=== PATIENT | male | born 1945 | race Caucasian/White ===

== ENCOUNTER 2021-04-22 13:30 | Emergency (ER) | payer MEDICARE, SELFPAY ==
--- NOTE | ~2021-04-22 | XR_ITS ---
EXAMINATION: XR KNEE, LEFT CLINICAL INFORMATION: Chainsaw accident. Laceration left knee. COMPARISON: None TECHNIQUE: Four views of the left knee. FINDINGS: The tricompartment joint space is maintained normal. No bony erosive changes, loose bodies or joint effusion seen. There is anterior superior patellar enthesophyte. The soft tissues are unremarkable. XR/XR knee LT 2V IMPRESSION: Unremarkable left knee exam.
[2021-04-22 13:36] VITALS: BP 121/83; PULSE 100; RESP 18; TEMP 36.6; O2SAT 95; BMI 29.2
[2021-04-22] MEDS: Diphth,Pertus(ACell),Tet Adult 0.5 ML SYRINGE IM (15:44)
[2021-04-22] MEDS: Lidocaine HCl 2 % 20 ML VIAL 10 ML SUBCUT (15:47)
--- NOTE | 2021-04-22 16:28 | ED_ITS ---
HPI - Wound/Laceration General Chief Complaint: Wound/Laceration Stated Complaint: knee lac with chain saw Time Seen by Provider: 04/22/21 15:28 History of Present Illness HPI narrative: Patient complains of left knee laceration from chainsaw when he tripped with a running saw and hit into his left knee but luckily he was wearing a thick knee brace it cut through the brace and lacerated his knee but he otherwise has no other injury, he has no trouble walking or ambulating no joint pain no numbness no weakness no tingling Related Data Allergies Allergy/AdvReac Type Severity Reaction Status Date / Time cefaclor [From Ceclor] Allergy Anaphylaxis Verified 04/22/21 13:35 phenazopyridine Allergy Anaphylaxis Verified 04/22/21 13:35 [From Pyridium] Review of Systems 2 Review of Systems: Positive for left knee laceration Negatives are no headache no head injury no neck pain no back pain no numbness weakness no tingling no joint pains no difficulty walking Yes all other systems are reviewed and are negative PMFSH Past Medical History Source: nursing notes reviewed Medical History (Updated 04/22/21 @ 16:28 by ALIREZA Sanchez) A-fib Social History Social History Advance Directives: Yes Advance Directives Information Provided: No Advance Directives on File: No Physical Exam Vital Signs: Vital Signs: Last Vital Signs Temp 98 F 04/22/21 13:36 Pulse 100 04/22/21 13:36 Resp 18 04/22/21 13:36 BP 121/83 04/22/21 13:36 Pulse Ox 95 04/22/21 13:36 BMI result Body Mass Index 29.2 General appearance is no acute distress Head is normocephalic atraumatic Neck is supple Back full range of motion Extremities full range of motion x4 Left knee the superior aspect of the knee area has 3 lacerations 2 of them are very superficial the 3rd 1 is just through subcutaneous tissue, each laceration is about 2 cm and they are parallel to each other The knee has full range of motion, he ambulates without limp There is no swelling there is no foreign body visualized and neurovascular intact distal Course Course Course Narrative: Procedure note left knee laceration The laceration is cleansed and irrigated with normal saline and examined for foreign body none was seen Skin was prepped with Betadine Anesthesia was 6 cc of 2% lidocaine A mix of 4-0 and 3-0 suture was applied with a total of 8 sutures cook, and Steri-Strips were applied to reinforce Bleeding was controlled wounds were well-approximated and a dressing was applied X-ray had been ordered from triage and was negative no foreign body seen and no bony injury Discharge Plan Discharge Clinical Impression: Laceration of knee, left Patient Disposition: Home, Self-Care Additional Instructions: Stitches out in 10-14 days Return any time for redness swelling any sign of infection You got a tetanus shot Interventions: ED Discharge Assessment Last Done: 04/22/21 16:31 Discharge Date/Time: 04/22/21 16:31
== END 2021-04-22 16:31 | disposition home or self-care (01) ==
PROVIDERS: Emergency Provider Emergency Medicine; PCP Internal Medicine
DX: S81.012A Laceration without foreign body, left knee, initial encounter (principal); W29.3XXA Contact with powered garden and outdoor hand tools and machinery, initial encounter; Y93.02 Activity, running; Y92.9 Unspecified place or not applicable; Y99.9 Unspecified external cause status
CPT/HCPCS: 12032; 73560; 90471; 90715; 99283; 99284

== ENCOUNTER 2021-05-12 03:51 | Inpatient (IN) | payer MEDICARE, SELFPAY ==
[2021-05-12] VITALS (7 sets, daily range): BP systolic 123–134; BP diastolic 69–84; PULSE 91–116; RESP 16–20; TEMP 36.6–37; O2SAT 95–97; BMI 29.0
--- NOTE | ~2021-05-12 | CT_ITS ---
EXAMINATION: CT ABDOMEN AND PELVIS WITH AND WITHOUT CONTRAST: CT GI BLEEDING STUDY CLINICAL INFORMATION: GI bleed.. COMPARISON: No pertinent prior studies are available for comparison. TECHNIQUE: Multidetector volumetric imaging was performed from the lung bases to the pubic symphysis before and after the administration of: Intravenous contrast: 85 mL Omnipaque 350 No contrast reaction reported MIP coronal, sagittal and coronal reformatted images were obtained on the technologist workstation. This CT examination was performed using dose optimization techniques as appropriate, variously including the following: *Automated exposure control *Adjustment of mA and/or kV according to patient size (this includes techniques or standardized protocols for targeted exams where dose is matched to indication/reason for exam; i.e. extremities or head) *Use of iterative reconstruction technique Total exam dose-length product 1616 mGy-cm FINDINGS: STOMACH: Small hiatal hernia. No abnormal wall thickening or mass. No intraluminal contrast accumulation to suggest hemorrhage. SMALL BOWEL: No abnormal wall thickening or dilation. No intraluminal contrast accumulation to suggest hemorrhage. No obstruction. Duodenal diverticulum noted. COLON: No intraluminal contrast accumulation to suggest hemorrhage. There is diffuse colonic diverticulosis. There is focal inflammatory change around a prominent diverticulum at the hepatic flexure of the colon. This is consistent with mild diverticulitis. Although the appendix is not definitely seen, there are no right lower quadrant inflammatory changes to suggest acute appendicitis. LUNG BASES: No nodules, mass, or focal consolidation. PLEURA: No pleural effusion. LIVER, GALLBLADDER, AND BILIARY TREE: The liver is normal in size, shape, and attenuation. No focal hepatic lesion or biliary ductal dilatation is present. The gallbladder is not seen. PANCREAS: Normal; no mass or surrounding fluid. SPLEEN: Normal size. No focal lesion. ADRENAL GLANDS: Normal; no mass. KIDNEYS AND URETERS: The kidneys are normal in size, shape, and attenuation. No hydronephrosis, hydroureter, or calculi. There is a 5 cm right midpole renal cyst with thin peripheral calcification. Bosniak 2. No follow-up imaging recommended. ABDOMINAL WALL: No hernia seen. LYMPHOVASCULAR STRUCTURES: No lymphadenopathy. The aorta is normal in caliber. Mild atherosclerotic calcification. BLADDER: No focal mass or wall thickening seen. No bladder calculi. PELVIC VISCERA: The prostate and seminal vesicles are normal. OSSEOUS STRUCTURES: No acute or suspicious osseous abnormality. Degenerative changes throughout the spine. CT/CT gi bleed abd pel wo/w con IMPRESSION: No active GI bleed identified. Colonic diverticulosis. Focal inflammation associated with a diverticulum at the hepatic flexure of the colon suggests mild diverticulitis.
--- NOTE | 2021-05-12 04:18 | ED.GIBLEED ---
HPI - GI Bleed General Chief complaint: GI Bleed Stated complaint: rectal bleed (+thinners) Time Seen by Provider: 05/12/21 04:18 Source: patient Mode of arrival: ambulatory Limitations: no limitations History of Present Illness HPI Narrative: Patient's history of atrial fibrillation on Xarelto history of hemorrhoids no known history of GI bleed in the past had colonoscopy 5 years ago negative earlier today noticed slight amount of bright red blood around 14:00 when he moved his bowel just prior to arrival had 2 big bowel movements with good amount of maroon-colored blood mixed with stool and blood clots patient felt dizzy and lightheaded had some abdominal cramping but no significant pain. After arrival patient did not have any active bleeding patient took his Xarelto last night Related Data Allergies Allergy/AdvReac Type Severity Reaction Status Date / Time cefaclor [From Ceclor] Allergy Anaphylaxis Verified 04/22/21 13:35 phenazopyridine Allergy Anaphylaxis Verified 04/22/21 13:35 [From Pyridium] Review of Systems Review of Systems: Yes all other systems are reviewed and are negative PMFSH Past Medical History Medical History A-fib Social History Social History Advance Directives: No Advance Directives Information Provided: Yes Physical Exam Vital Signs: Vital Signs: Last Vital Signs Temp 97.9 F 05/12/21 03:57 Pulse 96 05/12/21 04:02 Resp 16 05/12/21 03:57 BP 134/82 05/12/21 03:57 Pulse Ox 96 05/12/21 04:02 BMI result Body Mass Index 29.0 Appearance: Alert. Oriented X3. No acute distress. Eyes: no pallor or icterus ENT: Pharynx normal. Oral Mucosa moist Neck: Normal inspection. Neck supple. CVS: Irregularly irregular heart rate no murmur or gallop Pulses normal. Respiratory: No respiratory distress. Equal air entry bilateral, no wheezing/rales/rhonchi Abdomen: Soft and nontender. Bowel sounds are present, no mass palpable, no CVA tenderness Rectal: Maroon blood on the finger guaiac-positive no blood clots Skin: Skin warm and dry. Normal skin color. Normal skin turgor. Extremities: No lower extremity edema. No calf tenderness Neuro: Oriented X 3. MDM - GI Bleed MDM Narrative Medical decision making narrative: Patient lower GI bleed on Xarelto with maroon blood and blood clots likely from angiodysplasia/diverticulitis at this time patient is not bleeding anymore blood pressure stable hemoglobin 12.2 hematocrit 37.6. Case discussed with hospitalist will admit patient to their service also case discussed the case with rotary drier Dr. Melara will follow CT scan abdomen showed focal inflammation with a diverticulum at the hepatic flexure of the colon suggestive of mild diverticulitis will give patient Zosyn. Patient WBC counts are normal and there is no tenderness on the right side Lab Data Attestation: I reviewed the patient's lab results. Result diagrams: 05/12/21 04:27 05/12/21 04:27 Labs: Lab Results 05/12/21 05/12/21 05/12/21 Range/Units 04:27 04:27 04:27 WBC 9.1 (4.8-10.8) X10*3/uL RBC 3.98 L (4.60-5.80) X10*6/uL Hgb 12.2 L (14.0-18.0) g/dl Hct 37.6 L (42.0-52.0) % MCV 94.5 (80.0-98.0) fL MCH 30.7 (27.0-33.0) pg MCHC 32.4 (31.0-36.0) g/dl RDW 13.1 (11.0-16.0) % Plt Count 245 (160-400) X10*3/uL MPV 9.1 L (9.4-12.4) fL Immature Gran % (Auto) 1.5 H (0.0-0.4) % Neut % (Auto) 77.5 H (45-73) % Lymph % (Auto) 13.7 L (20-40) % [place] % (Auto) 6.6 (2-11) % Eos % (Auto) 0.5 (0-4) % Baso % (Auto) 0.2 (0-2) % Lymph # (Auto) 1.3 (1.2-4.9) X10*3/uL [place] # (Auto) 0.6 (0.1-1.2) X10*3/uL Eos # (Auto) 0.1 (0.0-0.4) X10*3/uL Baso # (Auto) 0.0 (0.0-0.2) X10*3/uL Abs Immat Gran (auto) 0.14 H (0.00-0.03) X10*3/uL Absolute Neuts (auto) 7.1 (2.0-8.3) x10*3/uL Absolute Nucleated RBC 0.000 (0.0-0.012) X10*3/uL Nucleated RBC % (auto) 0.0 (0.0-0.2) /100WBC PT 24.5 H (9.9-13.0) SEC INR 2.1 H (0.9-1.1) Sodium 139 (135-145) mmol/L Potassium 4.7 (3.3-5.1) mmol/L Chloride 105 (96-108) mmol/L Carbon Dioxide 27 (22-29) mmol/L Anion Gap 12 (12-20) BUN 25 H (9-16) mg/dL Creatinine 0.92 (0.5-1.4) mg/dL Estim Creat Clear Calc 71.8 Estimated GFR > 60 Random Glucose 151 H (60-115) mg/dL Calcium 8.8 (8.4-10.2) mg/dL Total Bilirubin 0.7 (0.0-1.0) mg/dL AST 23 (5-37) U/L ALT 40 (0-40) U/L Alkaline Phosphatase 49 (39-117) U/L Total Protein 5.7 L (6.5-8.0) g/dL Albumin 3.6 (3.5-5.0) g/dL Blood Type Antibody Screen 05/12/21 Range/Units 04:49 WBC (4.8-10.8) X10*3/uL RBC (4.60-5.80) X10*6/uL Hgb (14.0-18.0) g/dl Hct (42.0-52.0) % MCV (80.0-98.0) fL MCH (27.0-33.0) pg MCHC (31.0-36.0) g/dl RDW (11.0-16.0) % Plt Count (160-400) X10*3/uL MPV (9.4-12.4) fL Immature Gran % (Auto) (0.0-0.4) % Neut % (Auto) (45-73) % Lymph % (Auto) (20-40) % [place] % (Auto) (2-11) % Eos % (Auto) (0-4) % Baso % (Auto) (0-2) % Lymph # (Auto) (1.2-4.9) X10*3/uL [place] # (Auto) (0.1-1.2) X10*3/uL Eos # (Auto) (0.0-0.4) X10*3/uL Baso # (Auto) (0.0-0.2) X10*3/uL Abs Immat Gran (auto) (0.00-0.03) X10*3/uL Absolute Neuts (auto) (2.0-8.3) x10*3/uL Absolute Nucleated RBC (0.0-0.012) X10*3/uL Nucleated RBC % (auto) (0.0-0.2) /100WBC PT (9.9-13.0) SEC INR (0.9-1.1) Sodium (135-145) mmol/L Potassium (3.3-5.1) mmol/L Chloride (96-108) mmol/L Carbon Dioxide (22-29) mmol/L Anion Gap (12-20) BUN (9-16) mg/dL Creatinine (0.5-1.4) mg/dL Estim Creat Clear Calc Estimated GFR Random Glucose (60-115) mg/dL Calcium (8.4-10.2) mg/dL Total Bilirubin (0.0-1.0) mg/dL AST (5-37) U/L ALT (0-40) U/L Alkaline Phosphatase (39-117) U/L Total Protein (6.5-8.0) g/dL Albumin (3.5-5.0) g/dL Blood Type A Positive Antibody Screen NEGATIVE Imaging Data CT scan - abdomen: Radiologist's impression: EXAMINATION: CT ABDOMEN AND PELVIS WITH AND WITHOUT CONTRAST: CT GI BLEEDING STUDY CLINICAL INFORMATION: GI bleed.. COMPARISON: No pertinent prior studies are available for comparison. TECHNIQUE: Multidetector volumetric imaging was performed from the lung bases to the pubic symphysis before and after the administration of: Intravenous contrast: 85 mL Omnipaque 350 No contrast reaction reported MIP coronal, sagittal and coronal reformatted images were obtained on the technologist workstation. This CT examination was performed using dose optimization techniques as appropriate, variously including the following: *Automated exposure control *Adjustment of mA and/or kV according to patient size (this includes techniques or standardized protocols for targeted exams where dose is matched to indication/reason for exam; i.e. extremities or head) *Use of iterative reconstruction technique Total exam dose-length product 1616 mGy-cm FINDINGS: STOMACH: Small hiatal hernia. No abnormal wall thickening or mass.? No intraluminal contrast accumulation to suggest hemorrhage. SMALL BOWEL: No abnormal wall thickening or dilation. No intraluminal contrast accumulation to suggest hemorrhage. No obstruction. Duodenal diverticulum noted. COLON: No intraluminal contrast accumulation to suggest hemorrhage. There is diffuse colonic diverticulosis. There is focal inflammatory change around a prominent diverticulum at the hepatic flexure of the colon. This is consistent with mild diverticulitis.? Although the appendix is not definitely seen, there are no right lower quadrant inflammatory changes to suggest acute appendicitis. LUNG BASES: No nodules, mass, or focal consolidation. PLEURA: No pleural effusion. LIVER, GALLBLADDER, AND BILIARY TREE: The liver is normal in size, shape, and attenuation. No focal hepatic lesion or biliary ductal dilatation is present. The gallbladder is not seen.? PANCREAS: Normal; no mass or surrounding fluid.? SPLEEN: Normal size.? No focal lesion.? ADRENAL GLANDS: Normal; no mass.? KIDNEYS AND URETERS: The kidneys are normal in size, shape, and attenuation. No hydronephrosis, hydroureter, or calculi. There is a 5 cm right midpole renal cyst with thin peripheral calcification. Bosniak 2. No follow-up imaging recommended.? ABDOMINAL WALL: No hernia seen.? LYMPHOVASCULAR STRUCTURES: No lymphadenopathy. The aorta is normal in caliber. Mild atherosclerotic calcification.? BLADDER: No focal mass or wall thickening seen.? No bladder calculi.? PELVIC VISCERA: The prostate and seminal vesicles are normal. OSSEOUS STRUCTURES: No acute or suspicious osseous abnormality. Degenerative changes throughout the spine.? CT/CT gi bleed abd pel wo/w con IMPRESSION: No active GI bleed identified. ? Colonic diverticulosis. Focal inflammation associated with a diverticulum at the hepatic flexure of the colon suggests mild diverticulitis. ECG Data Attestation: I personally reviewed and interpreted this ECG as follows: Interpretation: Atrial fibrillation heart rate 101 no acute STT wave changes no acute ischemia impression atrial fibrillation Discharge Plan Discharge Clinical Impression: Lower gastrointestinal hemorrhage, Acute diverticulitis Patient Disposition: Admitted As Inpatient
[2021-05-12 04:31] LABS: Basophils Percent Auto 0.2 % (0-2); Eosinophils Absolute Auto 0.1 X10*3/uL (0.0-0.4); Eosinophils Percent Auto 0.5 % (0-4); Hematocrit 37.6 % (42.0-52.0); Hemoglobin 12.2 g/dl (14.0-18.0); Imm Gran Abs Auto 0.14 X10*3/uL (0.00-0.03); Imm Gran Pct Auto 1.5 % (0.0-0.4); Lymphocytes Absolute Auto 1.3 X10*3/uL (1.2-4.9); Lymphocytes Percent Auto 13.7 % (20-40); MANUAL DIFF FLAG NO; Mean Corpuscular HGB Conc 32.4 g/dl (31.0-36.0); Mean Corpuscular Hemoglobin 30.7 pg (27.0-33.0); Mean Corpuscular Volume 94.5 fL (80.0-98.0); Mean Platelet Volume 9.1 fL (9.4-12.4); Monocytes Absolute Auto 0.6 X10*3/uL (0.1-1.2); Monocytes Percent Auto 6.6 % (2-11); Neutrophils Absolute Auto 7.1 x10*3/uL (2.0-8.3); Neutrophils Percent Auto 77.5 % (45-73); Platelet Count 245 X10*3/uL (160-400); Red Blood Count 3.98 X10*6/uL (4.60-5.80); Red Cell Distribution Width 13.1 % (11.0-16.0); White Blood Count 9.1 X10*3/uL (4.8-10.8)
[2021-05-12] MEDS: 0.9 % Sodium Chloride 1,000 ML 999 ML IVCONT (04:31)
[2021-05-12 04:36] LABS: INTERNATIONAL NORM RATIO 2.1 (0.9-1.1); Prothrombin Time 24.5 SEC (9.9-13.0)
[2021-05-12 04:56] LABS: Alanine Aminotransferase 40 U/L (0-40); Albumin Level 3.6 g/dL (3.5-5.0); Alkaline Phosphatase 49 U/L (39-117); Anion Gap 12 (12-20); Aspartate Amino Transferase 23 U/L (5-37); Bilirubin Total 0.7 mg/dL (0.0-1.0); Blood Urea Nitrogen 25 mg/dL (9-16); Calcium 8.8 mg/dL (8.4-10.2); Carbon Dioxide 27 mmol/L (22-29); Chloride 105 mmol/L (96-108); Creatinine Clr Calc Pharmacy 71.8; Estimated Glomerular Filt Rate > 60; Glucose Random 151 mg/dL (60-115); Potassium 4.7 mmol/L (3.3-5.1); Sodium 139 mmol/L (135-145); Total Protein 5.7 g/dL (6.5-8.0)
[2021-05-12] MEDS: iohexoL 350 MG/ML 100 ML INFUS..BTL 85 ML IV (05:33)
[2021-05-12 06:44] LABS: COVID-19 Test Negative (Negative); IDNOW Serial# 9DD0AD1C
[2021-05-12] MEDS: Piperacillin Sodium/Tazobactam 3.375 GM in 0.9 % Sodium Chloride 50 ML IV (08:19)
--- NOTE | 2021-05-12 08:49 | P.HPHOSP_ITS ---
History of Present Illness Date of Service: 05/12/21 Chief Complaint: blood in stool 75 year male with history of diverticulosis and diverticulitis, history of AFIB on Xarelto and presented with painless rectal bleeding since around 11 AM day prior, started as diarrhea and ultimately resulted in multiple episodes of bleeding, no N/V, no fever, and doesn't feel like prior episdoes of diverticultis. CT of showed diverticulsosi and ? small area of inflamation possible diverticulitis and given IV Zosyn. Hemoglbin level is 12.2. Review of Systems Review of Systems: Gen: no fever Resp: no sob, no cough CV: no chest, no MCNEIL, no leg edema GI: No n/v, no abd pain, +blood in stool Neuro: No confusion Yes all other systems are reviewed and are negative [facility] Medical History (Updated 05/12/21 @ 09:30 by Jose Daniel Lazcano MD) A-fib Colon polyp Gout History of diverticulosis HLD (hyperlipidemia) Family History (Updated 05/12/21 @ 09:29 by Jose Daniel Lazcano MD) Mother Cerebral aneurysm Father Heart disease Social History Advance Directives: No Advance Directives Information Provided: Yes Meds Allergies Allergy/AdvReac Type Severity Reaction Status Date / Time cefaclor [From Ceclor] Allergy Anaphylaxis Verified 04/22/21 13:35 phenazopyridine Allergy Anaphylaxis Verified 04/22/21 13:35 [From Pyridium] Physical Exam Vital Signs and Narrative: Vital Signs: Last Vital Signs Temp 98.1 F 05/12/21 07:14 Pulse 105 H 05/12/21 07:14 Resp 16 05/12/21 07:14 BP 123/77 05/12/21 07:14 Pulse Ox 96 05/12/21 07:14 BMI result Body Mass Index 29.0 Const: Other: Constitutional: Alert, in no distress, Mental Status: Oriented to person, place and time. Eyes: Pupils are equal, round and reactive to light. Ear, Nose and Throat: Oropharynx clear, mucous membranes moist. Ears and nose without eformities. Trachea midline. Respiratory: Clear to auscultation. No wheezing, rales or rhonchi. Cardiovascular: S1 S2 regular. No murmurs, rubs or gallops. Gastrointestinal: Abdomen soft, non-tender, non-distended. Normal bowel sounds.? Rectal exam defered Neurologic: Cranial nerves II-XII grossly intact. No focal neurological deficits. Moves all extremities spontaneously.? Skin: No rashes or lesions.? Musculoskeletal: No cyanosis or clubbing. Psychiatric: Normal mood and affect? Results Labs CBC and Chem 7: 05/12/21 04:27 05/12/21 04:27 Labs: Laboratory Results - last 24 hr 05/12/21 05/12/21 05/12/21 04:27 04:27 04:27 MCV 94.5 MCH 30.7 MCHC 32.4 RDW 13.1 Plt Count 245 MPV 9.1 L Immature Gran % (Auto) 1.5 H Neut % (Auto) 77.5 H Lymph % (Auto) 13.7 L [place] % (Auto) 6.6 Eos % (Auto) 0.5 Baso % (Auto) 0.2 Lymph # (Auto) 1.3 [place] # (Auto) 0.6 Eos # (Auto) 0.1 Baso # (Auto) 0.0 Abs Immat Gran (auto) 0.14 H Absolute Neuts (auto) 7.1 Absolute Nucleated RBC 0.000 Nucleated RBC % (auto) 0.0 PT 24.5 H INR 2.1 H Anion Gap 12 Estim Creat Clear Calc 71.8 Estimated GFR > 60 Random Glucose 151 H Calcium 8.8 Total Bilirubin 0.7 AST 23 ALT 40 Alkaline Phosphatase 49 Total Protein 5.7 L Albumin 3.6 COVID-19 ([facility]) COVID-19 Clin Com Blood Type Antibody Screen 05/12/21 05/12/21 04:49 06:26 MCV MCH MCHC RDW Plt Count MPV Immature Gran % (Auto) Neut % (Auto) Lymph % (Auto) [place] % (Auto) Eos % (Auto) Baso % (Auto) Lymph # (Auto) [place] # (Auto) Eos # (Auto) Baso # (Auto) Abs Immat Gran (auto) Absolute Neuts (auto) Absolute Nucleated RBC Nucleated RBC % (auto) PT INR Anion Gap Estim Creat Clear Calc Estimated GFR Random Glucose Calcium Total Bilirubin AST ALT Alkaline Phosphatase Total Protein Albumin COVID-19 ([facility]WYN) Negative COVID-19 Clin Com See Note Blood Type A Positive Antibody Screen NEGATIVE Imaging Radiologist's Impressions: Impressions Abdomen/Pelvis CT 05/12/21 05:30 IMPRESSION: No active GI bleed identified. Colonic diverticulosis. Focal inflammation associated with a diverticulum at the hepatic flexure of the colon suggests mild diverticulitis. Assessment and Plan (1) Lower gastrointestinal hemorrhage: Status: Acute (2) Acute diverticulitis: Status: Acute (3) Gout: Status: Acute 75/m with AFIB on xarelto now with rectal bleed that sounds like dive rticular bleed, no further bleed since in hospital, there is no sigificant anemia as of yet 1/Rectal bleed--likely diverticular type -Monitor H/H every 6 horus -Hold Xarelto -GI consult -Bleed scan scan if actively bleeding -hold Abx for questionable diverticulitis 2/ Chronic AFIB--continue Metoprolol, Hold Xarelto 3/ HLD--continue Lipitor 4/ Gout--Alopurinol DVTP: device, Quality Stroke Does the patient have a stroke diagnosis?: No VTE Prior VTE?: No VTE Risk Level:: Medical - moderate - high VTE Device Contraindication: N/A - Device Ordered VTE Drug Contraindication: Treatment Not Tolerated
--- NOTE | 2021-05-12 10:26 | P.CNGI_ITS ---
History of Present Illness Data of Consult Service Date: 05/12/21 Requesting physician: Jose Daniel Lazcano Primary Care Provider: Rommel Webster MD HPI Reason for consult: GI Bleeding 75 YM with HLD, Gout, AFIB on Xarelto presented with painless rectal bleeding since around 11 AM day prior, started as diarrhea and ultimately resulted in multiple episodes of bleeding, no N/V, no fever, and doesn't feel? like prior episdoes of diverticultis.?seen presented to [facility] this am with rectal ble eding: HPI Narrative: Patient's history of atrial fibrillation on Xarelto history of hemorrhoids no known history of GI bleed in the past had colonoscopy 5 years ago negative earlier today noticed slight amount of bright red blood around 14:00 when he moved his bowel just prior to arrival had 2 big bowel movements with good amount of maroon-colored blood mixed with stool and blood clots patient f elt dizzy and lightheaded had some abdominal cramping but no significant pain.? After arrival patient did not have any active bleeding patient took his Xarelto last night Pt noted minor rectal bleeding day before yesterday which he ignored since he felt it was coming from his hemorrhoids. Ingested afternoon patient noted diarrhea followed by passage a large amount of blood. He woke up twice at night and passed what looked like pure blood and felt dizzy and lightheaded. Patient called 911 and was brought to [facility] ED around 04:00 today. In the ED he had a small bowel movement containing 7 blood. He is complaining of some lower abdominal discomfort and denies significant abdominal pain. He takes metamucil everynight for constipation and hemorrhoids. Patient felt cold and denies fever, nausea vomiting. He notes heartburn once in awhile related to diet and takes omeprazole p.r.n. for his symptoms. Patient denies symptoms of heartburn, dysphagia, nausea, vomiting, change in appetite or weight. Denies recent change in bowel habits, constipation, diarrhea, black stools or rectal bleeding. Patient denies loud snoring or sleep apnea. Denies problems with anesthesia in the past. Pt is on chronic anticoagulation with Xarelto for AF and took his last dose evening of 05/11/21 . He quitted smoking 50 yrs ago. He takes a glass of wine at night. Patient is and lives with his . He has 2 sons in 3 strep daughter's. 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 IMAGING STUDIES: ABD CT SCAN SHOWED: Colonic diverticulosis. Focal inflammation associated with a diverticulum at the hepatic flexure of the colon suggests mild diverticulitis. PAST EGD/COLONOSCOPY: Pt had regular colonoscopies every 5 yrs at and last colonoscopy was 6 yrs ago. Polyps were removed in the past. No polyps were detected during his last colono scopy and he was advised to discontinue colorectal cancer screening due to age. Review of Systems Constitutional: Constitutional: Denies fever(s), Denies headache(s), Reports weight gain and Denies weight loss Eyes: Eyes: Denies eye discharge and Denies irritation ENT: Reports Normal hearing present, Denies dysphagia, Denies dizziness and Denies headache(s) Cardiovascular: Cardiovascular: Denies chest pain, Denies leg edema and Denies dyspnea on exertion Respiratory: Respiratory: Denies cough, Denies dyspnea on exertion and Denies wheezing Gastrointestinal: Gastrointestinal: Denies abdominal pain, Reports hematochezia, Denies change in bowel habits, Denies dysphagia and Denies heartburn Genitourinary: Genitourinary: Denies dysuria Musculoskeletal: Musculoskeletal: Denies back pain and Denies arthralgias Integumentary/Breasts: Skin/Breast: Denies pruritus, Denies rash and Denies jaundice Neurologic: Reports Normal hearing present, Denies Abnormal speech present, Denies dizziness, Denies headache(s) and Denies seizure-like activity Psychiatric: Psychiatric: Denies anxiety, Denies depression and Denies panic attacks Endocrine: Endocrine: Denies cold intolerance, Denies flushing and Denies heat intolerance Hematologic/Lymphatic: Hematologic/Lymphatic: Denies easy bleeding and Denies easy bruising Allergic/Immunologic: Allergic/Immunologic: Denies wheezing PMFSH Past Medical History Medical History (Updated 05/23/21 @ 00:03 by Ab Hodgson) A-fib Colon polyp Gout History of diverticulosis HLD (hyperlipidemia) Family History Family History (Updated 05/12/21 @ 09:29 by Jose Daniel Lazcano MD) Mother Cerebral aneurysm Father Heart disease Social History Social History Household Members: Spouse Housing: House Do you presently have visiting nurse or other home services: No Patient Tobacco Use Status: Former Tobacco user service: No Current occupational status: retired Meds Allergies Allergy/AdvReac Type Severity Reaction Status Date / Time cefaclor [From Ceclor] Allergy Anaphylaxis Verified 04/22/21 13:35 phenazopyridine Allergy Anaphylaxis Verified 04/22/21 13:35 [From Pyridium] Active Medications: Current Medications Dextrose/Sodium Chloride (D5ns) 1,000 mls @ 100 mls/hr IVCONT .Q10H RASTA Stop: 05/13/21 05:44 Pharmacy Consult (Consult Rx Perform Med Rec) 1 each MISCELLANE ONCE PRN PRN Reason: Consult order Home Medications Medication Instructions Recorded Confirmed Last Taken Type alfuzosin 10 mg tablet,extended 1 tab PO DAILY@1700 05/12/21 05/12/21 05/11/21 History release 24 hr allopurinol 100 mg tablet 1 tab PO DAILY@1700 05/12/21 05/12/21 05/11/21 History atorvastatin 10 mg tablet 1 tab PO DAILY@1700 05/12/21 05/12/21 05/11/21 History ezetimibe 10 mg tablet 1 tab PO DAILY@1700 05/12/21 05/12/21 05/11/21 History lorazepam 1 mg tablet 1 tab PO DAILY PRN 05/12/21 05/12/21 05/11/21 History metoprolol succinate 50 mg 1 tab PO DAILY@1700 05/12/21 05/12/21 05/11/21 History tablet,extended release 24 hr Physical Exam Vital Signs: Vital Signs: Last Vital Signs Temp 98.1 F 05/12/21 07:14 Pulse 105 H 05/12/21 07:14 Resp 16 05/12/21 07:14 BP 123/77 05/12/21 07:14 Pulse Ox 96 05/12/21 07:14 BMI result Body Mass Index 29.0 Const: General: healthy appearing and no acute distress Nutritional Carlos earance: overweight Orientation/consciousness: patient oriented x3 Limitations: no limitations HENMT: Head: Yes normal to inspection Ears: hearing grossly normal bilaterally Mouth: Normal oral and palatal mucosa present Eyes: Sclerae: sclerae normal Pupils: Equal, round and reactive pupils present Neck: Neck: Yes normal visual inspection Chest: Chest palpation & inspection: normal inspection of the chest Resp: Effort & Inspection: normal respiratory effort Auscultation: clear to auscultation bilaterally Cardio: Palpation: normal PMI Rate: regular rate Rhythm: regular rhythm Heart sounds: S1 normal heart sound present, S2 normal heart sound present and no murmurs GI: Inspection: Yes scar (healed mid line scar of past open cholecystectomy) Palpation (GI): Soft to palpation, nontender and No hepatosplenomegaly present Auscultation: normal bowel sounds Rectal Exam - Male: Yes deferred Skin: General skin exam: no rashes or lesions noted Neuro: General: patient oriented x3, gait normal and moves all extremities Cranial nerves: Yes Equal, round and reactive pupils present and Yes Normal hearing present Speech: No Abnormal speech present Psych: Appearance: grossly normal Mental Status: mental status grossly normal Results Labs CBC & Chem 7: 05/15/21 08:04 05/14/21 05:32 Labs: Short CBC 05/12/21 Range/Units 04:27 WBC 9.1 (4.8-10.8) X10*3/uL Hgb 12.2 L (14.0-18.0) g/dl Hct 37.6 L (42.0-52.0) % Plt Count 245 (160-400) X10*3/uL BMP 05/12/21 04:27 Sodium 139 Potassium 4.7 Chloride 105 Carbon Dioxide 27 BUN 25 H Creatinine 0.92 Calcium 8.8 Liver Function 05/12/21 Range/Units 04:27 Total Bilirubin 0.7 (0.0-1.0) mg/dL AST 23 (5-37) U/L ALT 40 (0-40) U/L Alkaline Phosphatase 49 (39-117) U/L Albumin 3.6 (3.5-5.0) g/dL Assessment and Plan (1) Acute diverticulitis: Status: Acute (2) Lower gastrointestinal hemorrhage: Status: Acute 75 YM with HLD, Gout, AFIB on Xarelto presented with painless rectal bleeding for the past 24 hrs. Decrease in bleeding since pt came to the ER. Pattern of bleeding is suggestive for diverticular source of bleeding. Other possibilities include large colon polyp, AVM and less likely colon cancer. Small possibility of an upper GI source of bleeding. RECOMMENDATIONS: 1. Follow H & H every 8 hrs x 24 hrs 2. Clear liquid diet with GoLYTELY preparation today - order placed. 3. Proceed with EGD and colonoscopy on 05/13/2021. Procedure and potential complications including bleeding, perforation, drug reaction, aspiration and misdiagnosis were reviewed with the patient who would like to proceed. Procedures Date of Service Date of Service: 05/12/21
--- NOTE | 2021-05-12 10:45 | PHA.MEDREC ---
Pharmacy Consult ? Medication Reconciliation Pharmacy has completed the medication reconciliation. Spoke with patient in the ED, patient had a list of his medications. Patient states he takes all of his medications at about 1700 and last took everything last night.
[2021-05-12 11:26] LABS: Hematocrit 31.8 % (42.0-52.0); Hemoglobin 10.6 g/dl (14.0-18.0)
[2021-05-12] MEDS: Dextrose 5 % and 0.9 % NaCl 1,000 ML 100 ML IVCONT ×2 (14:11→21:16)
--- NOTE | 2021-05-12 15:29 | MHC.CM.PN ---
Addendum entered by Venice Cardenas 05/12/21 15:34: PATIENT HAD HAD 3 MODERNA COVID-19 VACCINES 05/29/20 06/27/20 03/09/21 Original Note: PATIENT IS FULLY INDEPENDENT WITH HIS ADLS. NO CANE OR WALKER AND HE DRIVES HIMSELF WHERE NEEDED. 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 COPY OF HCP REQUESTED PATIENT FEELS MAY HAVE A DIFFICULT TIME TRYING TO LOCATE IT AND HE IS AWARE THAT CASE MANAGEMENT CAN ASSIST WITH COMPLETION OF A NEW ONE IF NEEDED IMM 05/12 IN ED CHART
[2021-05-12] MEDS: PEG 3350/Na Sulf,Bicarb,Cl/KCL 4,000 ML SOLN.RECON 4000 ML PO (17:00)
[2021-05-12] MEDS: Ezetimibe 10 MG TABLET PO (17:07)
[2021-05-12] MEDS: Metoprolol Succinate ER 50 MG TAB.ER.24H PO (17:07)
[2021-05-12] MEDS: allopurinoL 100 MG TABLET PO (17:07)
[2021-05-12] MEDS: Atorvastatin Calcium 10 MG TABLET PO (17:07)
[2021-05-12] MEDS: levoFLOXacin/D5W 500 MG/100 ML PIGGYBACK 100 MG IV (17:10)
--- NOTE | 2021-05-12 17:34 | PC.NURSE ---
PT HERE FOR GI BLEED, PT AOX4, AMB WITH STEADY GAIT TO BR, PLAN FOR COLONOSCOPY TOMORROW, GO LITELY STARTED, SEEN BY GASTRO, NEEDS BEING MET NOTIFIED DR GUTIÉRREZ THAT PT FIRST STOOL WITH GO LITELY WAS ALL BLOOD CLOTS. PT NEEDS BEING MET
[2021-05-12 17:52] LABS: Hematocrit 31.6 % (42.0-52.0); Hemoglobin 10.4 g/dl (14.0-18.0)
[2021-05-12 23:26] LABS: MANUAL DIFF FLAG NO
[2021-05-12 23:32] LABS: Basophils Absolute Auto 0.1 X10*3/uL (0.0-0.2); Basophils Percent Auto 0.4 % (0-2); Eosinophils Percent Auto 0.3 % (0-4); Hematocrit 31.6 % (42.0-52.0); Hemoglobin 10.3 g/dl (14.0-18.0); Imm Gran Abs Auto 0.13 X10*3/uL (0.00-0.03); Imm Gran Pct Auto 1.1 % (0.0-0.4); Lymphocytes Percent Auto 16.2 % (20-40); Mean Corpuscular HGB Conc 32.6 g/dl (31.0-36.0); Mean Corpuscular Hemoglobin 30.7 pg (27.0-33.0); Mean Corpuscular Volume 94.3 fL (80.0-98.0); Mean Platelet Volume 9.4 fL (9.4-12.4); Monocytes Absolute Auto 1.1 X10*3/uL (0.1-1.2); Monocytes Percent Auto 8.6 % (2-11); NRBC Pct Auto 0.2 /100WBC (0.0-0.2); Neutrophils Percent Auto 73.4 % (45-73); Platelet Count 251 X10*3/uL (160-400); Red Blood Count 3.35 X10*6/uL (4.60-5.80); Red Cell Distribution Width 13.2 % (11.0-16.0); White Blood Count 12.3 X10*3/uL (4.8-10.8)
[2021-05-13] VITALS (7 sets, daily range): BP systolic 112–156; BP diastolic 71–99; PULSE 87–99; RESP 16–19; TEMP 36.3–36.8; O2SAT 95–96
[2021-05-13 07:28] LABS: INTERNATIONAL NORM RATIO 1.3 (0.9-1.1); Prothrombin Time 14.3 SEC (9.9-13.0)
[2021-05-13 07:29] LABS: Hematocrit 28.7 % (42.0-52.0); Hemoglobin 9.5 g/dl (14.0-18.0); Mean Corpuscular HGB Conc 33.1 g/dl (31.0-36.0); Mean Corpuscular Hemoglobin 30.8 pg (27.0-33.0); Mean Corpuscular Volume 93.2 fL (80.0-98.0); Mean Platelet Volume 9.4 fL (9.4-12.4); Platelet Count 234 X10*3/uL (160-400); Red Blood Count 3.08 X10*6/uL (4.60-5.80); Red Cell Distribution Width 13.2 % (11.0-16.0); White Blood Count 8.4 X10*3/uL (4.8-10.8)
--- NOTE | 2021-05-13 09:48 | P.PNIM_ITS ---
Subjective Subjective Date of Service: 05/13/21 Interval History: Follow-up on GI bleed, acute blood loss anemia. He reported having episode of bloody bowel movement overnight. Blood count is down this morning compared to yesterday. Review of Systems Gen: no fever Resp: no sob, no cough CV: no chest, no MCNEIL, no leg edema GI: No n/v, no abd pain, +blood in stool Neuro: No confusion Physical Exam Vital Signs: Vital Signs: Last Vital Signs Temp 98.3 F 05/13/21 09:25 Pulse 87 05/13/21 09:25 Resp 16 05/13/21 09:25 BP 123/78 05/13/21 09:25 Pulse Ox 96 05/13/21 09:25 BMI result Body Mass Index 29.0 Const: Other: Constitutional: Alert, in no distress, Mental Status: Oriented to person, place and time. Respiratory: Clear to auscultation. No wheezing, rales or rhonchi. Cardiovascular: S1 S2 regular. No murmurs, rubs or gallops. Gastrointestinal: Abdomen soft, non-tender, non-distended. Normal bowel sounds.? Rectal exam defered Neurologic: Cranial nerves II-XII grossly intact. No focal neurological deficits. Moves all extremities spontaneously.? Psychiatric: Normal mood and affect? Objective Data Active Medications Allopurinol (Allopurinol 100 Mg Tablet) 100 mg PO DAILY@1700 [facility] Last Admin: 05/12/21 17:07 Dose: 100 mg Documented by: CINTHIA Atorvastatin Calcium (Atorvastatin Calcium 10 Mg Tablet) 10 mg PO DAILY@1700 [facility] Last Admin: 05/12/21 17:07 Dose: 10 mg Documented by: CINTHIA Ezetimibe (Ezetimibe 10 Mg Tablet) 10 mg PO DAILY@1700 [facility] Last Admin: 05/12/21 17:07 Dose: 10 mg Documented by: CINTHIA Levofloxacin (Levaquin) 500 mg in 100 mls @ 100 mls/hr IV Q24H [facility] Last Infusion: 05/13/21 00:46 Dose: 0 mls/hr Documented by: PATRICK Lorazepam (Lorazepam 1 Mg Tablet) 1 mg PO DAILY PRN PRN Reason: Anxiety Metoprolol Succinate (Metoprolol Succinate Er 50 Mg Tab.Er.24h) 50 mg PO DAILY@1700 [facility]; Protocol Last Admin: 05/12/21 17:07 Dose: 50 mg Documented by: CINTHIA Pharmacy Consult (Consult Rx Perform Med Rec) 1 each MISCELLANE ONCE PRN PRN Reason: Consult order Tamsulosin HCl (Tamsulosin Hcl 0.4 Mg Capsule) 0.4 mg PO DAILY@1700 [facility] Labs CBC & Chem 7: 05/13/21 07:07 05/12/21 04:27 Labs: Laboratory Results - last 24 hr 05/12/21 05/12/21 05/12/21 04:49 23:21 23:21 MCV 94.3 MCH 30.7 MCHC 32.6 RDW 13.2 Plt Count 251 MPV 9.4 Immature Gran % (Auto) 1.1 H Neut % (Auto) 73.4 H Lymph % (Auto) 16.2 L [place] % (Auto) 8.6 Eos % (Auto) 0.3 Baso % (Auto) 0.4 Lymph # (Auto) 2.0 [place] # (Auto) 1.1 Eos # (Auto) 0.0 Baso # (Auto) 0.1 Abs Immat Gran (auto) 0.13 H Absolute Neuts (auto) 9.0 H Absolute Nucleated RBC 0.020 H Nucleated RBC % (auto) 0.2 PT INR Blood Type A Positive A Positive Antibody Screen NEGATIVE NEGATIVE 05/13/21 05/13/21 07:07 07:07 MCV 93.2 MCH 30.8 MCHC 33.1 RDW 13.2 Plt Count 234 MPV 9.4 Immature Gran % (Auto) Neut % (Auto) Lymph % (Auto) [place] % (Auto) Eos % (Auto) Baso % (Auto) Lymph # (Auto) [place] # (Auto) Eos # (Auto) Baso # (Auto) Abs Immat Gran (auto) Absolute Neuts (auto) Absolute Nucleated RBC 0.000 Nucleated RBC % (auto) 0.0 PT 14.3 H INR 1.3 H Blood Type Antibody Screen Assessment and Plan (1) Gout: Status: Acute (2) Lower gastrointestinal hemorrhage: Status: Acute (3) Acute diverticulitis: Status: Acute Assessment and Plan: 75/m with AFIB on xarelto now with rectal bleed that sounds like diverticular bleed, no further bleed since in hospital, there is no sigificant anemia as of yet #Rectal bleed with acute blood loss anemia--likely diverticular bleeed on Xarelto -Monitor H/H serialy down from 12 to 9.5 -Holding Xarelto -Dr Melara recommends EGD and colonoscopy today -Bleeding scan scan if actively bleeding -Transfuse for crit less than 7 or 8 #Possible diverticultisi--No fever, normal WBC and no pain -Ceftriaxone. # Chronic AFIB--continue Metoprolol, Hold Xarelto #HLD--continue Lipitor # Gout--Alopurinol DVTP: compression device Quality Stroke Does the patient have a stroke diagnosis?: No VTE Prior VTE?: No VTE Risk Level:: Medical - moderate - high VTE Device Contraindication: N/A - Device Ordered VTE Drug Contraindication: Treatment Not Tolerated
--- NOTE | 2021-05-13 10:13 | PC.NURSE ---
Pt A&Ox3, states he is extremely tired due to lack of sleep, offers no complaints of pain at this time. Commode placed bedside along with warm wipes, call james within reach. Lights dimmed, awaiting transport to Short stay later today, will continue to monitor.
--- NOTE | 2021-05-13 12:08 | PC.NURSE ---
Pt refused mag citrate due to currently having bloody stools. Pt is A&Ox3, up to the commode with no assistance, aware called to speak to him. Sleeping now, awaiting bed assignment, will continue to monitor.
--- NOTE | 2021-05-13 12:28 | P.CONAN_ITS ---
HPI - Anesthesia Eval Consult details Narrative: 75 M for EGD and colonoscopy [facility] Active Problems Active Problems: All Active Problems (Updated 05/12/21 @ 09:30 by Jose Daniel Lazcano MD) Gout (Acute) Lower gastrointestinal hemorrhage (Acute) Acute diverticulitis (Acute) Past Medical History Medical History A-fib Colon polyp Gout History of diverticulosis HLD (hyperlipidemia) Functional capacity: independent ambulation Family History Family History Mother Cerebral aneurysm Father Heart disease Family history of problems with anesthesia: No Surgical History History of Problems with Anesthesia: No Social History Social History Household Members: Spouse Housing: House Do you presently have visiting nurse or other home services: No Patient Tobacco Use Status: Former Tobacco user service: No Current occupational status: retired [employer] Allergies Allergy/AdvReac Type Severity Reaction Status Date / Time cefaclor [From Ceclor] Allergy Anaphylaxis Verified 04/22/21 13:35 phenazopyridine Allergy Anaphylaxis Verified 04/22/21 13:35 [From Pyridium] Active Medications: Current Medications Allopurinol (Allopurinol 100 Mg Tablet) 100 mg PO DAILY@1700 [facility] Last Admin: 05/12/21 17:07 Dose: 100 mg Documented by: Atorvastatin Calcium (Atorvastatin Calcium 10 Mg Tablet) 10 mg PO DAILY@1700 [facility]STA Last Admin: 05/12/21 17:07 Dose: 10 mg Documented by: Ezetimibe (Ezetimibe 10 Mg Tablet) 10 mg PO DAILY@1700 [facility] Last Admin: 05/12/21 17:07 Dose: 10 mg Documented by: Levofloxacin (Levaquin) 500 mg in 100 mls @ 100 mls/hr IV Q24H [facility] Last Infusion: 05/13/21 00:46 Dose: Infused Documented by: Lorazepam (Lorazepam 1 Mg Tablet) 1 mg PO DAILY PRN PRN Reason: Anxiety Metoprolol Succinate (Metoprolol Succinate Er 50 Mg Tab.Er.24h) 50 mg PO DAILY@1700 RASTA; Protocol Last Admin: 05/12/21 17:07 Dose: 50 mg Documented by: Pharmacy Consult (Consult Rx Perform Med Rec) 1 each MISCELLANE ONCE PRN PRN Reason: Consult order Tamsulosin HCl (Tamsulosin Hcl 0.4 Mg Capsule) 0.4 mg PO DAILY@1700 [facility] Home Medications Medication Instructions Recorded Confirmed Last Taken Type alfuzosin 10 mg tablet,extended 1 tab PO DAILY@1700 05/12/21 05/12/21 05/11/21 History release 24 hr allopurinol 100 mg tablet 1 tab PO DAILY@1700 05/12/21 05/12/21 05/11/21 History atorvastatin 10 mg tablet 1 tab PO DAILY@1700 05/12/21 05/12/21 05/11/21 History ezetimibe 10 mg tablet 1 tab PO DAILY@1700 05/12/21 05/12/21 05/11/21 History lorazepam 1 mg tablet 1 tab PO DAILY PRN 05/12/21 05/12/21 05/11/21 History metoprolol succinate 50 mg 1 tab PO DAILY@1700 05/12/21 05/12/21 05/11/21 History tablet,extended release 24 hr Exam Exam Date and Time: May 13, 2021 1228 Height,Weight and Vital Signs: Height 5 ft 7 in Weight 83.915 kg Last Vital Signs Temp 97.5 F 05/13/21 12:19 Pulse 99 05/13/21 12:19 Resp 18 05/13/21 12:19 BP 156/99 H 05/13/21 12:19 Pulse Ox 96 05/13/21 12:19 Pertinent Lab Results Pertinent Lab Results: Laboratory Tests 05/12/21 05/12/21 05/12/21 04:27 04:27 04:27 WBC 9.1 RBC 3.98 L Hgb 12.2 L Hct 37.6 L MCV 94.5 MCH 30.7 MCHC 32.4 RDW 13.1 Plt Count 245 MPV 9.1 L Immature Gran % (Auto) 1.5 H Neut % (Auto) 77.5 H Lymph % (Auto) 13.7 L [place] % (Auto) 6.6 Eos % (Auto) 0.5 Baso % (Auto) 0.2 Lymph # (Auto) 1.3 [place] # (Auto) 0.6 Eos # (Auto) 0.1 Baso # (Auto) 0.0 Abs Immat Gran (auto) 0.14 H Absolute Neuts (auto) 7.1 Absolute Nucleated RBC 0.000 Nucleated RBC % (auto) 0.0 PT 24.5 H INR 2.1 H Sodium 139 Potassium 4.7 Chloride 105 Carbon Dioxide 27 Anion Gap 12 BUN 25 H Creatinine 0.92 Estim Creat Clear Calc 71.8 Estimated GFR > 60 Random Glucose 151 H Calcium 8.8 Total Bilirubin 0.7 AST 23 ALT 40 Alkaline Phosphatase 49 Total Protein 5.7 L Albumin 3.6 COVID-19 (SELWYN) COVID-19 Clin Com Blood Type Antibody Screen 05/12/21 05/12/21 05/12/21 04:49 06:26 11:19 WBC RBC Hgb 10.6 L Hct 31.8 L MCV MCH MCHC RDW Plt Count MPV Immature Gran % (Auto) Neut % (Auto) Lymph % (Auto) [place] % (Auto) Eos % (Auto) Baso % (Auto) Lymph # (Auto) [place] # (Auto) Eos # (Auto) Baso # (Auto) Abs Immat Gran (auto) Absolute Neuts (auto) Absolute Nucleated RBC Nucleated RBC % (auto) PT INR Sodium Potassium Chloride Carbon Dioxide Anion Gap BUN Creatinine Estim Creat Clear Calc Estimated GFR Random Glucose Calcium Total Bilirubin AST ALT Alkaline Phosphatase Total Protein Albumin COVID-19 (SELWYN) Negative COVID-19 Clin Com See Note Blood Type A Positive Antibody Screen NEGATIVE 05/12/21 05/12/21 05/12/21 17:16 23:21 23:21 WBC 12.3 H RBC 3.35 L Hgb 10.4 L Cancelled 10.3 L Hct 31.6 L Cancelled 31.6 L MCV 94.3 MCH 30.7 MCHC 32.6 RDW 13.2 Plt Count 251 MPV 9.4 Immature Gran % (Auto) 1.1 H Neut % (Auto) 73.4 H Lymph % (Auto) 16.2 L [place] % (Auto) 8.6 Eos % (Auto) 0.3 Baso % (Auto) 0.4 Lymph # (Auto) 2.0 [place] # (Auto) 1.1 Eos # (Auto) 0.0 Baso # (Auto) 0.1 Abs Immat Gran (auto) 0.13 H Absolute Neuts (auto) 9.0 H Absolute Nucleated RBC 0.020 H Nucleated RBC % (auto) 0.2 PT INR Sodium Potassium Chloride Carbon Dioxide Anion Gap BUN Creatinine Estim Creat Clear Calc Estimated GFR Random Glucose Calcium Total Bilirubin AST ALT Alkaline Phosphatase Total Protein Albumin COVID-19 (SELWYN) COVID-19 [employer] Com Blood Type Antibody Screen 05/12/21 05/13/21 05/13/21 23:21 07:07 07:07 WBC 8.4 RBC 3.08 L Hgb 9.5 L Hct 28.7 L MCV 93.2 MCH 30.8 MCHC 33.1 RDW 13.2 Plt Count 234 MPV 9.4 Immature Gran % (Auto) Neut % (Auto) Lymph % (Auto) [place] % (Auto) Eos % (Auto) Baso % (Auto) Lymph # (Auto) [place] # (Auto) Eos # (Auto) Baso # (Auto) Abs Immat Gran (auto) Absolute Neuts (auto) Absolute Nucleated RBC 0.000 Nucleated RBC % (auto) 0.0 PT 14.3 H INR 1.3 H Sodium Potassium Chloride Carbon Dioxide Anion Gap BUN Creatinine Estim Creat Clear Calc Estimated GFR Random Glucose Calcium Total Bilirubin AST ALT Alkaline Phosphatase Total Protein Albumin COVID-19 (SELWYN) COVID-19 [employer] Com Blood Type A Positive Antibody Screen NEGATIVE Airway Mallampati Class: III TM Dist: >3cm Neck ROM: Full Loose/Missing/Broken Teeth: Yes (Chipped , fillings and crowns ) Heart: irregular Lungs: bl breath sounds Assessment and Plan Assessment Anesthesia Assessment: Anesthesia Plan Discussed and Chart Reviewed Final Anesthetic Review Family History of Problems with Anesthesia: No History of Problems with Anesthesia: No NPO: Yes ASA Class: III Final Preanesthetic Review: Meds/Allgs Chart Reviewed, Consent Obtained/Reviewed and Anes Risks/Benef Reviewed Patient Risk: Intermediate Procedure Risk: Intermediate Anesthetic Plan Anesthetic Plan: MAC: Disposition: Standard PACU
--- NOTE | 2021-05-13 13:22 | MHC.SHP ---
Pre-Procedural Eval Section A Date of Service: 05/13/21 The patient is an INPATIENT: Yes Changes since office visit: Yes New Medical Problems, Yes Changes in Medication and Yes Patient answered all questions; No Cold of Flu in the past 2 weeks The History & Physical has been completed within 30 days and I have reviewed it.: Yes Section B Chief Complaint: rectal bleed (+thinners) Allergies: Allergies Allergy/AdvReac Type Severity Reaction Status Date / Time cefaclor [From Ceclor] Allergy Anaphylaxis Verified 04/22/21 13:35 phenazopyridine Allergy Anaphylaxis Verified 04/22/21 13:35 [From Pyridium] Plan I have reviewed the history and physical and performed a pertinent physical examination on my patient. No changes have occurred unless specified.
--- NOTE | 2021-05-13 13:23 | PM.OP ---
Brief Operative Note Date of Service: 05/13/21 Pre-op diagnosis: Rectal bleeding, anemia Post-op diagnosis: other (Stinson diverticulosis, hemorrhoids, normal EGD) Procedure: FLEXIBLE TRANSORAL UPPER GASTROINTESTINAL ENDOSCOPY AND COLONOSCOPY TILL CECUM UPPER ENDOSCOPY Consent: Indications for the procedure and potential complications of bleeding, perforation, reaction to medications and missed diagnosis were discussed with the patient and informed consent was obtained. Instrument: Olympus GIF H 190 mid size upper endoscope Monitoring: Vital signs and clinical assessment, continuous EKG monitoring, Pulse oximetry, Carbon Dioxide monitoring and blood pressure monitoring were done throughout the procedure. Procedure: The patient was placed in the left lateral decubitis position and pre-procedure medications were administered and a bite block was placed. The endoscope was inserted into the mouth and advanced under direct vision to the third part of duodenum. A careful inspection was made as the upper endoscope was withdrawn including a retroflexed examination of the proximal stomach; Findings and interventions are described below. Findings: Larynx: Normal Esophagus: GE junction at 40 cms. No esophagitis or Purdy's. Stomach: Normal appearing gastric mucosa without ulcers or erosions. Grade 2 flap valve on retroflexed examination of the cardia. Duodenum: Normal bulb and descending duodenum Intervention: None COLONOSCOPY PROCEDURE NOTE Consent: Indications for the procedure and potential complications of bleeding, perforation, reaction to medications and missed diagnosis were discussed with the patient and informed consent was obtained. Instrument: Olympus PCF H 190 L variable stiffness pediatric colonoscope Monitoring: Vital signs and clinical assessment, intermittent blood pressure monitoring, continuous EKG monitoring, Pulse oximetry and Carbon Dioxide monitoring were done throughout the procedure. Colon withdrawl time was 42 minutes. Procedure: The patient was placed in the left lateral decubitis position and pre-procedure medications were administered. After a digital rectal examination of the ano-rectum, the video colonoscope was inserted into the rectum and advanced through the colon to the cecum. The colonoscope was slowly withdrawn in a retrograde panoramic fashion and the colon mucosa was carefully examined including a retroflexed view of the rectum. Findings and interventions are described below. Procedure Difficulty: : Without difficulty Findings: Terminal Ileum: Distal 5 cms was examined and a few clots noted in the distal TI and none proximally Cecum: Scattered blood clots throughout the colon indicating recent bleeding Ascending Colon: Scattered moderate diverticulosis with blood clots throughout the colon indicating recent bleeding Transverse Colon: Scattered moderate diverticulosis with blood clots throughout the colon indicating recent bleeding Descending Colon: Scattered moderate diverticulosis with blood clots throughout the colon indicating recent bleeding Sigmoid Colon: Scattered severe diverticulosis with blood clots throughout the colon indicating recent bleeding Rectum: Normal Ano-rectum: Small non-bleeding internal hemorrhoids Colon preparation: Good after copious irrigation Impression and Post Procedure Diagnosis: Endoscopy Findings: Normal EGD - no blood noted in the upper GI tract during endoscopy. Colonoscopy Findings: No polyps were detected. Scattered moderate to severe diverticulosis with blood clots throughout the colon indicating recent diverticular bleeding Clots were suctioned with copious irrigation and no active bleeding noted - bleeding appears to have stopped. Small hemorrhoids on retroflexed exam. Plan: Repeat CBC. If patient has recurrent bleeding, schedule CT angiogram and attempt at angiographic control of bleeding if CT angio is positive Repeat Colonoscopy not indicated since no polyps were detected and advanced age and comorbidities. Surgeon: Renae Melara MD Anesthesia: MAC (Sonia Parra CRNA) Was an Senior Environmental Scientist used for this Procedure?: Yes Senior Environmental Scientist: Lashon Rivera Estimated blood loss (mL): 0 Pathology: none sent Condition: stable Disposition: PACU
--- NOTE | 2021-05-13 13:23 | PM.PROC ---
Brief Operative Note Date of procedure: 05/13/21 Pre-op diagnosis: Rectal bleeding, anemia
[2021-05-13 15:17] LABS: Hematocrit 28.9 % (42.0-52.0); Hemoglobin 9.6 g/dl (14.0-18.0); Mean Corpuscular HGB Conc 33.2 g/dl (31.0-36.0); Mean Corpuscular Hemoglobin 31.8 pg (27.0-33.0); Mean Corpuscular Volume 95.7 fL (80.0-98.0); Mean Platelet Volume 9.1 fL (9.4-12.4); Platelet Count 242 X10*3/uL (160-400); Red Blood Count 3.02 X10*6/uL (4.60-5.80); Red Cell Distribution Width 13.4 % (11.0-16.0); White Blood Count 9.9 X10*3/uL (4.8-10.8)
[2021-05-13] MEDS: Ezetimibe 10 MG TABLET PO (16:16)
[2021-05-13] MEDS: Tamsulosin HCL 0.4 MG CAPSULE PO (16:16)
[2021-05-13] MEDS: allopurinoL 100 MG TABLET PO (16:16)
[2021-05-13] MEDS: levoFLOXacin/D5W 500 MG/100 ML PIGGYBACK 100 MG IV (16:17)
[2021-05-13] MEDS: Metoprolol Succinate ER 50 MG TAB.ER.24H PO (16:17)
[2021-05-13] MEDS: Atorvastatin Calcium 10 MG TABLET PO (16:47)
[2021-05-14] VITALS: BP 117/65; PULSE 104; RESP 18; TEMP 36.6; O2SAT 93
--- NOTE | 2021-05-14 04:49 | ECG_ITS ---
Test Reason : GI BLEED Blood Pressure : / mmHG Vent. Rate : 101 BPM Atrial Rate : 000 BPM P-R Int : 000 ms QRS Dur : 078 ms QT Int : 346 ms P-R-T Axes : 000 -02 001 degrees QTc Int : 448 ms Atrial fibrillation with rapid ventricular response with premature ventricular or aberrantly conducted complexes Possible Inferior infarct , age undetermined Abnormal ECG No previous ECGs available Referred By: Scotty Fierro Electronically Signed By:Toney De La Cruz
[2021-05-14] MEDS: LORazepam 1 MG TABLET PO (04:51)
[2021-05-14 05:57] LABS: Hematocrit 27.5 % (42.0-52.0); Hemoglobin 9.1 g/dl (14.0-18.0); Mean Corpuscular HGB Conc 33.1 g/dl (31.0-36.0); Mean Corpuscular Hemoglobin 30.8 pg (27.0-33.0); Mean Corpuscular Volume 93.2 fL (80.0-98.0); Mean Platelet Volume 9.2 fL (9.4-12.4); Platelet Count 229 X10*3/uL (160-400); Red Blood Count 2.95 X10*6/uL (4.60-5.80); Red Cell Distribution Width 13.2 % (11.0-16.0); White Blood Count 7.9 X10*3/uL (4.8-10.8)
[2021-05-14 06:17] LABS: Anion Gap 8 (12-20); Blood Urea Nitrogen 10 mg/dL (9-16); Carbon Dioxide 29 mmol/L (22-29); Chloride 106 mmol/L (96-108); Creatinine Clr Calc Pharmacy 79.6; Estimated Glomerular Filt Rate > 60; Glucose Random 108 mg/dL (60-115); Sodium 139 mmol/L (135-145)
[2021-05-14 06:18] LABS: Calcium 8.9 mg/dL (8.4-10.2)
[2021-05-14 07:53] VITALS: BP 137/77; PULSE 92; RESP 18; TEMP 37.1; O2SAT 95
--- NOTE | 2021-05-14 08:51 | HO.POSTANES ---
Post Anesthesia Evaluation Post Anesthesia Evaluation Vital Signs: Vital Signs Temp Pulse Resp BP Pulse Ox 05/14/21 07:53 98.8 F 92 18 137/77 95 05/14/21 00:00 97.9 F 104 H 18 117/65 93 Anesthesia: Monitored Mental Status: Awake Pain Control: Satisfactory Nausea/Vomiting: None Hydration: Adequate Anesthesia-Related Issues: No Anes. Related Issues
--- NOTE | 2021-05-14 09:29 | ECG_ITS ---
Test Reason : afib Blood Pressure : / mmHG Vent. Rate : 093 BPM Atrial Rate : 000 BPM P-R Int : 000 ms QRS Dur : 082 ms QT Int : 342 ms P-R-T Axes : 000 -06 010 degrees QTc Int : 425 ms Atrial fibrillation Inferior infarct (cited on or before 12-MAY-2021) Abnormal ECG When compared with ECG of 12-MAY-2021 04:49, No significant change was found Referred By: Zac Cormier Electronically Signed By:Toney De La Cruz
--- NOTE | 2021-05-14 12:52 | P.PNIM_ITS ---
Subjective Subjective Date of Service: 05/14/21 Interval History: GI bleed Review of Systems patient says that no BM overnight. No new bleeding episode denies any fever or chills or abdominal pain. Physical Exam Vital Signs: Vital Signs: Last Vital Signs Temp 98.8 F 05/14/21 07:53 Pulse 92 05/14/21 07:53 Resp 18 05/14/21 07:53 BP 137/77 05/14/21 07:53 Pulse Ox 95 05/14/21 07:53 BMI result Body Mass Index 29.0 Physical exam: Appearance: Alert.? Oriented X3.? not in distress.? cvs: rrr, [id number] , no murmur res: clear to auscultation ,no rhonchii or wheezing abd: no rebound or guarding ,nt, bs present. ext pulses present , no cyanosis ,Gait well balanced well coordinated. neuro: axo3 , nonfocal. Objective Data Active Medications Allopurinol (Allopurinol 100 Mg Tablet) 100 mg PO DAILY@1700 [facility] Last Admin: 05/13/21 16:16 Dose: 100 mg Documented by: ALYSIA Atorvastatin Calcium (Atorvastatin Calcium 10 Mg Tablet) 10 mg PO DAILY@1700 [facility] Last Admin: 05/13/21 16:47 Dose: 10 mg Documented by: ALYSIA Ezetimibe (Ezetimibe 10 Mg Tablet) 10 mg PO DAILY@1700 [facility] Last Admin: 05/13/21 16:16 Dose: 10 mg Documented by: ALYSIA Levofloxacin (Levaquin) 500 mg in 100 mls @ 100 mls/hr IV Q24H [facility] Last Infusion: 05/13/21 17:18 Dose: 0 mls/hr Documented by: ALYSIA Lorazepam (Lorazepam 1 Mg Tablet) 1 mg PO DAILY PRN PRN Reason: Anxiety Last Admin: 05/14/21 04:51 Dose: 1 mg Documented by: TENISHA Metoprolol Succinate (Metoprolol Succinate Er 50 Mg Tab.Er.24h) 50 mg PO DAILY@1700 [facility]; Protocol Last Admin: 05/13/21 16:17 Dose: 50 mg Documented by: ALYSIA Pharmacy Consult (Consult Rx Perform Med Rec) 1 each MISCELLANE ONCE PRN PRN Reason: Consult order Tamsulosin HCl (Tamsulosin Hcl 0.4 Mg Capsule) 0.4 mg PO DAILY@1700 [facility] Last Admin: 05/13/21 16:16 Dose: 0.4 mg Documented by: ALYSIA Labs CBC & Chem 7: 05/14/21 05:32 05/14/21 05:32 Labs: Laboratory Results - last 24 hr 05/13/21 05/14/21 05/14/21 15:11 05:32 05:32 MCV 95.7 93.2 MCH 31.8 30.8 MCHC 33.2 33.1 RDW 13.4 13.2 Plt Count 242 229 MPV 9.1 L 9.2 L Absolute Nucleated RBC 0.000 0.000 Nucleated RBC % (auto) 0.0 0.0 Anion Gap 8 L Estim Creat Clear Calc 79.6 Estimated GFR > 60 Random Glucose 108 Calcium 8.9 Assessment and Plan (1) Lower gastrointestinal hemorrhage: Status: Acute (2) Acute diverticulitis: Status: Acute Assessment and Plan: 75/m with AFIB on xarelto now with rectal bleed that sounds like diverticular bleed, no further bleed since in hospital, there is no sigificant anemia as of yet 1.Rectal bleed with acute blood loss anemia--likely diverticular bleeed on Xarelto -Monitor H/H serialy down from 12 to 9.1 -Holding Xarelto for 1 week as per gi -Dr Melara ? recommends EGD and colonoscopy - Scattered moderate to severe diverticulosis with blood clots throughout the colon indicating recent diverticular bleedin Clots were suctioned with copious irrigation and no active bleeding noted - bleeding appears to have stopped. Small hemorrhoids on retroflexed exam. Normal EGD - no blood noted in the upper GI tract during endoscopy. If patient has recurrent bleeding, repeat cbc schedule CT angiogram and attempt at angiographic control of bleeding if CT angio is positive Repeat Colonoscopy not indicated given advanced age and multiple comorbidities. -Transfuse for? crit less than 7 or 8 2.Possible diverticultisi--No fever, normal WBC and no pain -Ceftriaxone. 3.Chronic AFIB--continue Metoprolol, Hold Xarelto 4.HLD--continue Lipitor 5. Gout--Alopurinol DVTP: compression device Quality Stroke Does the patient have a stroke diagnosis?: No VTE Prior VTE?: No VTE Risk Level:: Medical - moderate - high VTE Device Contraindication: N/A - Device Ordered VTE Drug Contraindication: Treatment Not Tolerated
[2021-05-14] MEDS: Omeprazole 20 MG CAPSULE.DR PO (13:58)
[2021-05-14 14:59] VITALS: BP 113/59; PULSE 94; RESP 16; TEMP 36.6; O2SAT 96
[2021-05-14] MEDS: Tamsulosin HCL 0.4 MG CAPSULE PO (17:10)
[2021-05-14] MEDS: Atorvastatin Calcium 10 MG TABLET PO (17:10)
[2021-05-14] MEDS: allopurinoL 100 MG TABLET PO (17:10)
[2021-05-14] MEDS: Metoprolol Succinate ER 50 MG TAB.ER.24H PO (17:10)
[2021-05-14] MEDS: Ezetimibe 10 MG TABLET PO (17:11)
[2021-05-14] MEDS: levoFLOXacin/D5W 500 MG/100 ML PIGGYBACK 100 MG IV (17:11)
[2021-05-14] MEDS: Zolpidem Tartrate 5 MG TABLET PO (22:36)
[2021-05-15] VITALS: BP 108/58; PULSE 91; RESP 18; TEMP 36.9; O2SAT 94
[2021-05-15] MEDS: Omeprazole 20 MG CAPSULE.DR PO (05:39)
[2021-05-15 07:32] VITALS: BP 136/79; PULSE 102; RESP 18; TEMP 36.7; O2SAT 92
[2021-05-15 08:31] LABS: Hematocrit 27.8 % (42.0-52.0); Hemoglobin 9.2 g/dl (14.0-18.0)
--- NOTE | 2021-05-15 11:44 | P.DS_ITS ---
DS: Providers Provider Date of Service: 05/15/21 Date of admission: 05/12/21 09:41 Primary care physician: Rommel Webster MD Consults: 05/12/21 09:40 Consult to Gastroenterology Routine Consulting Provider: Renae Melara Reason for consultation: rectal bleeding, DS: Diagnosis Discharge Diagnosis (1) Lower gastrointestinal hemorrhage: Status: Acute (2) Acute diverticulitis: Status: Acute DS: Summary Hospital Course Hospital Course: 75 year male with history of diverticulosis and diverticulitis, history of AFIB on Xarelto and presented with painless rectal bleeding since around 11 AM day prior, started as diarrhea and ultimately resulted in multiple episodes of bleeding, no N/V, no fever, and doesn't feel? like prior episdoes of diverticultis. CT of showed diverticulsosis and ? small area of inflamation possible diverticulitis and given IV Zosyn. Hemoglbin level is 12.2. Hospital course: Patient came to the hospital because GI bleed- patient's xarelto was placed on hold and subsequently patient was seen by GI doctor - had colonoscopy and EGD: Thought to be bleeding related to possible diverticulosis. in addition patient was treated with IV antibiotics for diverticulitis. Patient seems to be improved, no new bleeding episodes, h/h are stable around 9.2 range . upon discharge discussed with the GI and patient's cardiology Dr sales: advised to hold xarelto for 1 week. monitor CBC outpatient with PCP in 1 week. Above management discussed with the patient in detail length he understand and in agreement with the above plan, time spent 50 minutes and 50% time spent on counseling. Significant findings: As above. Procedures performed: None. Treatment and response: As above. Complications: None. The eye was seen Time Spent with Patient Time attestation: Total time spent providing and/or coordinating discharge services: Discharge coordination time: Greater than 30 minutes Quality: Stroke Does the patient have a stroke diagnosis?: No Physical Exam Vital Signs: Vital Signs: Last Vital Signs Temp 98.0 F 05/15/21 07:32 Pulse 102 H 05/15/21 07:32 Resp 18 05/15/21 07:32 BP 136/79 05/15/21 07:32 Pulse Ox 92 05/15/21 07:32 BMI result Body Mass Index 29.0 physical exam: Appearance: Alert.? Oriented X3.? not in distress.? Eyes: Pupils equal, round and reactive to light.? Sclera nonicteric.? ENT: Pharynx normal.? Moist mucous membranes. cvs: irrgular rythem, [id number]. res: clear to auscultation ,no rhonchii or wheezing abd: no rebound or guarding ,nt, bs present. ext pulses present , no cyanosis ,Gait well balanced well coordinated. neuro: axo3 , nonfocal. DS: Data Data Completed and Pending Labs on day of discharge: Laboratory Results - last 24 hr 05/15/21 08:04 Hgb 9.2 L Hct 27.8 L Additional Comments Additional comments: CT/CT gi bleed abd pel wo/w con IMPRESSION: No active GI bleed identified. ? Colonic diverticulosis. Focal inflammation associated with a diverticulum at the hepatic flexure of the colon suggests mild diverticulitis. Discharge Plan Discharge Patient Disposition: Home, Self-Care Discharge Diagnosis: gib bleed probable sec diverticulosis, also has diverticulitis. Referrals: Ronaldo Burns [Other] - 1 Week (CARDIOLOGY) Renae Melara MD [Physician] - 1 Week (follow up outpatiently) Rommel Webster MD [Primary Care Provider] - 1 Week Discharge Medications: New levofloxacin 500 mg tablet 500 mg PO DAILY Qty: 2 RF: 0 metronidazole 500 mg tablet 500 mg PO BID Qty: 5 RF: 0 omeprazole 20 mg capsule,delayed release(DR/EC) 20 mg PO DAILY Qty: 30 RF: 0 Continued atorvastatin 10 mg tablet 1 tab PO DAILY@1700 RF: 0 metoprolol succinate 50 mg tablet extended release 24 hr 1 tab PO DAILY@1700 RF: 0 allopurinol 100 mg tablet 1 tab PO DAILY@1700 RF: 0 lorazepam 1 mg tablet 1 tab PO DAILY PRN (Reason: Anxiety) RF: 0 ezetimibe 10 mg tablet 1 tab PO DAILY@1700 RF: 0 alfuzosin 10 mg tablet extended release 24 hr 1 tab PO DAILY@1700 RF: 0 Xarelto 20 mg tablet 1 tab PO DAILY@1700 Qty: 0 RF: 0 Discharge Orders: Discharge Order (Routine); Ordered 05/15/21 Ordered By: Zac Cormier Diet: advance to usual diet, low fat, low cholesterol and low salt diet Activity on Discharge: As tolerated Stand Alone Forms: Patient Portal Discharge page Other Ambulatory Orders: Complete Blood Count no Diff (Routine) Timeframe: 1 Week Facility: [facility] - Location: Laboratory Ordered By: Zac Cormier Care Plan Goals: Patient came to the hospital because GI bleed- patient's xarelto was placed on hold and subsequently patient was seen by GI doctor - had colonoscopy and EGD: Thought to be bleeding related to possible diverticulosis. in addition patient was treated with IV antibiotics for diverticulitis. Patient seems to be improved, no new bleeding episodes, blood counts are stable. upon discharge discussed with the GI and patient's cardiology Dr sales: advised to hold xarelto for 1 week. monitor CBC outpatient with PCP . Patient needs to follow up with GI -Dr Melara office and his cardiology office . Health Concerns: as above . Plan of Treatment: as above. Assessment: as above. Discharge Date/Time: 05/15/21 13:35
--- NOTE | 2021-05-15 12:08 | MHC.CM.PN ---
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
[2021-05-15] MEDS: metroNIDAZOLE 500 MG TABLET PO (12:27)
[2021-05-15] MEDS: levoFLOXacin 500 MG TABLET PO (12:27)
--- NOTE | 2021-05-28 11:36 | P.OP_ITS ---
Operative Note Operative Note Date of Service: 05/13/21 Narrative: Pre-op diagnosis:?Rectal bleeding, anemia Post-op diagnosis:?other (Stinson diverticulosis, hemorrhoids, normal EGD) Procedure:? FLEXIBLE TRANSORAL UPPER GASTROINTESTINAL ENDOSCOPY AND COLONOSCOPY TILL CECUM UPPER ENDOSCOPY Consent:?Indications for the procedure and potential complications of bleeding, perforation, reaction to medications and missed diagnosis were discussed with the patient and informed consent was obtained. Instrument:?Olympus GIF H 190 mid size upper endoscope Monitoring: Vital signs and clinical assessment, continuous EKG monitoring, Pulse oximetry, Carbon Dioxide monitoring and blood pressure monitoring were done throughout the procedure. Procedure:?The patient was placed in the left lateral decubitis position and pre-procedure medications were administered and a bite block was placed. The endoscope was inserted into the mouth and advanced under direct vision to the third part of duodenum. A careful inspection was made as the upper endoscope was withdrawn including a retroflexed examination of the proximal stomach; Findings and interventions are described below. Findings: Larynx:? Normal Esophagus:?GE junction at 40 cms. No esophagitis or Purdy's. Stomach:?Normal appearing gastric mucosa without ulcers or erosions. Grade 2 flap valve on retroflexed examination of the cardia. Duodenum:?Normal bulb and descending duodenum Intervention:?None COLONOSCOPY PROCEDURE NOTE Consent:?Indications for the procedure and potential complications of bleeding, perforation, reaction to medications and missed diagnosis were discussed with the patient and informed consent was obtained. Instrument:?Olympus PCF H 190 L variable stiffness pediatric colonoscope Monitoring:?Vital signs and clinical assessment, intermittent blood pressure monitoring, continuous EKG monitoring, Pulse oximetry and Carbon Dioxide monitoring were done throughout the procedure. Colon withdrawl time was 42 minutes. Procedure:?The patient was placed in the left lateral decubitis position and pre-procedure medications were administered. After a digital rectal examination of the ano-rectum, the video colonoscope was inserted into the rectum and advanced through the colon to the cecum. The colonoscope was slowly withdrawn in a retrograde panoramic fashion and the colon mucosa was carefully examined including a retroflexed view of the rectum. Findings and interventions are described below. Procedure Difficulty:?: Without difficulty Findings: Terminal Ileum: Distal 5 cms was examined and a few clots noted in the distal TI and none proximally Cecum:? Scattered blood clots throughout the colon indicating recent bleeding Ascending Colon:??Scattered moderate diverticulosis with blood clots throughout the colon indicating recent bleeding Transverse Colon: ??Scattered moderate diverticulosis with blood clots throughout the colon indicating recent bleeding Descending Colon:? Scattered moderate diverticulosis with blood clots throughout the colon indicating recent bleeding Sigmoid Colon:??Scattered severe diverticulosis with blood clots throughout the colon indicating recent bleeding Rectum:??Normal Ano-rectum:??Small non-bleeding internal hemorrhoids Colon preparation:? Good after copious irrigation Impression and Post Procedure Diagnosis: Endoscopy Findings: Normal EGD - no blood noted in the upper GI tract during endoscopy. Colonoscopy Findings: No polyps were detected. Scattered moderate to severe diverticulosis with blood clots throughout the colon indicating recent diverticular bleeding Clots were suctioned with copious irrigation and no active bleeding noted - bleeding appears to have stopped. Small hemorrhoids on retroflexed exam. Plan: Repeat CBC. If patient has recurrent bleeding, schedule CT angiogram and attempt at angiographic control of bleeding if CT angio is positive Repeat Colonoscopy not indicated since no polyps were detected and advanced age and comorbidities. Surgeon:?Renae Melara MD Anesthesia:?MAC (Sonia Parra CRNA) Was an [employer] used for this Procedure?:?Yes [employer]:?Lashon Rivera Estimated blood loss (mL):?0 Pathology:?none sent Condition:?stable Disposition:?PACU
== END 2021-05-15 13:35 | disposition home or self-care (01) | DRG 378 ==
LOC: HO.ED 06:19 → HO.EDOVER 09:54 → HO.S3 05-13 11:58
PROVIDERS: Hospitalist; Internal Medicine Gastroenterology; Admitting Provider Internal Medicine; Emergency Provider Internal Medicine; PCP Internal Medicine; Visit Provider Internal Medicine
PROC: 0DJ08ZZ Inspection of Upper Intestinal Tract, Via Natural or Artificial Opening Endoscopic (ICD-10-PCS; principal; 2021-05-13 13:00)
DX: K57.33 Diverticulitis of large intestine without perforation or abscess with bleeding (principal); I48.20 Chronic atrial fibrillation, unspecified; D62 Acute posthemorrhagic anemia; M10.9 Gout, unspecified; Z20.822 Contact with and (suspected) exposure to COVID-19; E78.5 Hyperlipidemia, unspecified; K64.8 Other hemorrhoids; Z87.891 Personal history of nicotine dependence; Z79.01 Long term (current) use of anticoagulants; Z79.899 Other long term (current) drug therapy
CPT/HCPCS: 36415; 36430; 74178; 80048; 80053; 85014; 85018; 85025; 85027; 85610; 86850; 86900; 86901; 87635; 93005; 96361; 96365; 99285; J1956; J2543; J3010; Q9967

== ENCOUNTER 2021-05-22 10:10 | Outpatient (REF) | payer MEDICARE, SELFPAY ==
[2021-05-22 11:32] LABS: Ferritin 199 ng/mL (20-250)
== END 2021-05-22 10:11 | disposition home or self-care (01) ==
LOC: HO.LAB 10:10
PROVIDERS: Absent Provider Internal Medicine; PCP Internal Medicine; Visit Provider Internal Medicine Gastroenterology
DX: D64.9 Anemia, unspecified (principal); K57.92 Diverticulitis of intestine, part unspecified, without perforation or abscess without bleeding
CPT/HCPCS: 36415; 82728

== ENCOUNTER 2022-02-02 11:28 | Emergency (ER) | payer MEDICARE, SELFPAY ==
[2022-02-02] VITALS (7 sets, daily range): BP systolic 99–115; BP diastolic 56–70; PULSE 93–148; RESP 18–32; TEMP 36.6–39.5; O2SAT 89–97; BMI 34.0
--- NOTE | ~2022-02-02 | CT_ITS ---
EXAMINATION: CT ABDOMEN AND PELVIS WITHOUT CONTRAST CLINICAL INFORMATION: Left-sided abdominal pain. COMPARISON: CT scan of the abdomen and pelvis dated 05/12/2021. TECHNIQUE: Multidetector volumetric imaging was performed from the superior aspect of the liver through the pubic symphysis. Sagittal and coronal reformatted images were obtained on the technologist workstation. This CT examination was performed using dose optimization techniques as appropriate, variously including the following: *Automated exposure control *Adjustment of mA and/or kV according to patient size (this includes techniques or standardized protocols for targeted exams where dose is matched to indication/reason for exam; i.e. extremities or head) *Use of iterative reconstruction technique DLP: 726 mGy-cm. FINDINGS: LUNG BASES: Dependent atelectasis in both lung bases. Moderate to severe three-vessel coronary artery calcifications. LIVER, GALLBLADDER, AND BILIARY TREE: The liver is normal in size, shape, and attenuation. No focal hepatic lesion on noncontrast imaging. No biliary ductal dilatation is present. The gallbladder is not seen. PANCREAS: Diffusely atrophic with fatty infiltration seen. Pancreas otherwise unremarkable on noncontrast imaging. SPLEEN: Unremarkable on noncontrast imaging. 1.1 cm accessory splenule seen along the inferior margin of the spleen. An 0.7 cm accessory splenule seen along the anterior margin of the spleen. ADRENAL GLANDS: Unremarkable on noncontrast imaging. KIDNEYS AND URETERS: The kidneys are normal in size, shape, and attenuation. No hydronephrosis, hydroureter, or calculi seen. No perinephric stranding. There is a exophytic 5.3 x 3.8 cm fluid attenuation mass in the lower pole of the left kidney with an adjacent smaller 1 cm low-attenuation mass, unchanged from prior exam and consistent with benign cysts. In the upper pole of the right kidney, there is a exophytic 1.6 x 4.7 cm low-attenuation mass with peripheral thin focus of rim calcification, unchanged from prior study and consistent with a benign cyst. BLADDER: Unremarkable. PELVIC VISCERA: Unremarkable. GASTROINTESTINAL TRACT: The small and large bowel are decompressed. There are scattered colonic diverticula, most concentrated in the descending and sigmoid colon. No evidence of acute diverticulitis. In the sigmoid colon (series 7, image 22), there is an approximately 2 cm long segment of circumferential bowel wall thickening and luminal narrowing, producing core type appearance. This finding is equivocal and may be related to focal spasm, though subtle neoplasm at this level cannot be entirely excluded. No evidence of bowel obstruction or perforation is seen. Remainder of the colon is unremarkable. The appendix is not seen, but no focal inflammatory process is seen in the right lower quadrant to suspect acute appendicitis. ABDOMINAL WALL: Fat dilatation of both inguinal rings is seen. LYMPH NODES, VASCULAR: No abdominal or pelvic adenopathy. Abdominal aorta normal in caliber with moderate to severe atherosclerotic disease, which extends into the iliofemoral vessels and the SMA. No periaortic collection. OSSEOUS STRUCTURES: Diffuse vertebral spondylosis and mild degenerative disc disease in the thoracolumbar spine. CT/CT abdomen pelvis wo IV con IMPRESSION: 1. Scattered colonic diverticula are seen, most concentrated in the descending and sigmoid colon. No evidence of acute diverticulitis is seen. 2. There is a short 2 cm long segment of circumferential bowel wall thickening and luminal narrowing in the sigmoid colon, unclear if related to focal spasm versus a focal colonic neoplasm. Close clinical correlation and follow-up with barium enema or colonoscopy is recommended. 3. Moderate to severe coronary artery calcifications. 4. Benign renal cysts.
--- NOTE | ~2022-02-02 | XR_ITS ---
EXAMINATION: XR CHEST CLINICAL INFORMATION: Fever COMPARISON: None TECHNIQUE: Frontal view of the chest was obtained. FINDINGS: Low lung volumes. Minimal left basilar opacity may represent a smaller area of atelectasis. Small trace cannot be excluded. The right lung is grossly clear. The silhouette is within normal limits. No failure. XR/XR chest 1V IMPRESSION: Minimal left basilar opacity may represent small area of atelectasis or early infiltrate
--- NOTE | 2022-02-02 11:58 | ECG_ITS ---
Test Reason : SEPSIS Blood Pressure : / mmHG Vent. Rate : 144 BPM Atrial Rate : 000 BPM P-R Int : 000 ms QRS Dur : 082 ms QT Int : 300 ms P-R-T Axes : 000 024 035 degrees QTc Int : 464 ms Atrial fibrillation with rapid ventricular response Low voltage QRS Abnormal ECG When compared with ECG of 14-MAY-2021 09:29, Vent. rate has increased BY 51 BPM Referred By: Adryan Francisco Electronically Signed By:SATHYA NICHOLSON
--- NOTE | 2022-02-02 12:13 | ED_ITS ---
HPI - General Adult General Chief complaint: General Medical Stated complaint: TREMMORS Time Seen by Provider: 02/02/22 11:58 Source: patient, family () and EMS Mode of arrival: EMS Limitations: no limitations History of Present Illness HPI narrative: [age] year male brought in by ambulance for increase shaking and shivering from feeling cold. Status post right total knee arthroplasty at [facility] 10 days ago, patient presented with fever since this morning, patient also get intermit tent left-sided abdominal pain with cramps, diffuse hives to his body. Patient declined using any new medication. Patient is on Xarelto for atrial fibrillation management. Related Data Home Medications Medication Instructions Recorded Confirmed alfuzosin 10 mg tablet,extended 1 tab PO DAILY@1700 05/12/21 05/12/21 release 24 hr allopurinol 100 mg tablet 1 tab PO DAILY@1700 05/12/21 05/12/21 atorvastatin 10 mg tablet 1 tab PO DAILY@1700 05/12/21 05/12/21 ezetimibe 10 mg tablet 1 tab PO DAILY@1700 05/12/21 05/12/21 lorazepam 1 mg tablet 1 tab PO DAILY PRN Anxiety 05/12/21 05/12/21 metoprolol succinate 50 mg 1 tab PO DAILY@1700 05/12/21 05/12/21 tablet,extended release 24 hr Previous Rx's Medication Instructions Recorded levofloxacin 500 mg tablet 500 mg PO DAILY #2 tabs 05/15/21 metronidazole 500 mg tablet 500 mg PO BID #5 tabs 05/15/21 omeprazole 20 mg capsule,delayed 20 mg PO DAILY #30 caps 05/15/21 release rivaroxaban 20 mg tablet (Xarelto) 1 tab PO DAILY@1700 #0 tabs 05/15/21 Allergies Allergy/AdvReac Type Severity Reaction Status Date / Time cefaclor [From Ceclor] Allergy Anaphylaxis Verified 04/22/21 13:35 phenazopyridine Allergy Anaphylaxis Verified 04/22/21 13:35 [From Pyridium] Review of Systems Review of Systems: All other systems are reviewed and are negative Constitutional: Reports as per HPI and Reports no additional constitutional complaints Eyes: Reports as per HPI and Reports no additional eye complaints Reports system reviewed and no additional complaints, except as documented Cardiovascular: Reports as per HPI and Reports no additional cardiovascular complaints Respiratory: Reports as per HPI and Reports no additional respiratory complaints Gastrointestinal: Reports as per HPI and Reports no additional gastrointestinal complaints Genitourinary: Reports no additional female genitourinary complaints Musculoskeletal: Reports no additional musculoskeletal complaints Skin/Breast: Reports system reviewed and no additional complaints, except as docu Psychiatric: Reports no additional psychiatric complaints Endocrine: Reports no additional endocrine complaints Hematologic/Lymphatic: Reports no additional hematologic/lymphatic complaints Allergic/Immunologic: Reports no additional allergic/immunologic complaints Reports system reviewed and no additional complaints, except as documented and Reports Abnormal speech present [facility] Past Medical History Medical History A-fib Colon polyp Gout History of diverticulosis HLD (hyperlipidemia) Family History Family History Mother Cerebral aneurysm Father Heart disease Social History Social History Household Members: Spouse Housing: House Do you presently have visiting nurse or other home services: No Patient Tobacco Use Status: Former Tobacco user Advance Directives: Yes Advance Directives Information Provided: Yes Advance Directives on File: No service: No Current occupational status: retired Physical Exam ED Vital Signs: Vital Signs - 24 hr 02/02/22 11:56 02/02/22 12:54 02/02/22 13:14 Temperature 103.1 F H 102.2 F H Pulse Rate 137 H 148 H Respiratory Rate 29 H 32 H 31 H Blood Pressure 99/56 L 115/68 Pulse Oximetry 89 L 92 Oxygen Delivery Method Nasal Cannula Nasal Cannula Oxygen Flow Rate 2 02/02/22 14:18 02/02/22 16:10 Temperature 101.3 F H 97.9 F Pulse Rate 148 H 93 Respiratory Rate 18 20 Blood Pressure 115/70 110/63 Pulse Oximetry 93 94 Oxygen Delivery Method Nasal Cannula Nasal Cannula Oxygen Flow Rate 2 4 BMI result Body Mass Index 34.0 Vital signs have been reviewed as appeared to be correct. Blood pressure normal. Heart rate elevated. Respiration rate elevated. Temperature elevated. Oxygen saturation low. Appearance: Alert. Oriented X3. No acute distress. Head: Normal external exam. Normocephalic. Atraumatic. No Mix signs noted. No raccoon eyes noted Eyes: PERRLA. EOMI. Conjunctiva and sclera normal. Eyelids normal. ENT: TM's Normal. Pharynx normal. Uvula midline. Moist mucous membranes. No trismus noted. No drooling noted. No muffled voice noted. Neck: Normal inspection. Neck supple. FROM. No adenopathy. Thyroid Normal. No meningeal signs. No neck mass noted. CVS: Normal heart rate and rhythm. Heart sound normal. No murmurs noted. Pulses normal throughout. Respiratory: No respiratory distress. Painless inspiration. Breath sounds normal. No wheezes/rales/rhonchi noted. Chest nontender. No accessory muscle usage noted or decreased air movement noted. Abdomen: Soft and nontender. Bowel sounds normal in all 4 quadrants. No distention noted. No organomegaly noted. No visible injury noted. Back: No CVA tenderness. Full range of motion noted. Skin: Diffuse hives Extremities: Right knee status post city 10 days ago, redness, hotness, swelling, suggesting year dry and clean and intact. Neuro: Oriented X 3. Cranial nerve exam: II-XII are grossly intact No motor deficit. No sensory deficit. Reflexes normal. Course Course Course Narrative: 76-year-old male came in with criteria of septic shock, the only source of infection found is postoperative right knee infection, the case discussed with ALIREZA Emery at the Orthopedic Department at [facility] who accepted the patient, the case also discussed with at [facility] emergency department who accepted the patient. Patient received 30 cc/kg normal saline, a dose of Zosyn. Patient's vital sign is stable. Reevaluation(s) Reevaluation #1: FOCUSED EXAM: Patient received 30 cc/kg normal saline and the a dose of Zosyn, lactic acid was improved from 4.6-2.7, patient feels slightly better after given antibiotic. Time: 16:26 Medical Decision Making Lab Data Lab results reviewed: Yes I reviewed the patient's lab results. Result diagrams: 02/02/22 12:15 02/02/22 12:15 Labs: Lab Results 02/02/22 02/02/22 02/02/22 Range/Units 12:15 12:15 12:15 WBC 4.5 L (4.8-10.8) X10*3/uL RBC 4.62 D (4.60-5.80) X10*6/uL Hgb 13.9 L D (14.0-18.0) g/dl Hct 42.3 D (42.0-52.0) % MCV 91.6 (80.0-98.0) fL MCH 30.1 (27.0-33.0) pg MCHC 32.9 (31.0-36.0) g/dl RDW 13.9 (11.0-16.0) % Plt Count 320 D (160-400) X10*3/uL MPV 8.7 L (9.4-12.4) fL Immature Gran % (Auto) 3.3 H (0.0-0.4) % Neut % (Auto) 83.1 H (45-73) % Lymph % (Auto) 11.0 L (20-40) % Winkler % (Auto) 0.9 L (2-11) % Eos % (Auto) 1.5 (0-4) % Baso % (Auto) 0.2 (0-2) % Lymph # (Auto) 0.5 L (1.2-4.9) X10*3/uL Winkler # (Auto) 0.0 L (0.1-1.2) X10*3/uL Eos # (Auto) 0.1 (0.0-0.4) X10*3/uL Baso # (Auto) 0.0 (0.0-0.2) X10*3/uL Abs Immat Gran (auto) 0.15 H (0.00-0.03) X10*3/uL Absolute Neuts (auto) 3.8 (2.0-8.3) x10*3/uL Absolute Nucleated RBC 0.020 H (0.0-0.012) X10*3/uL Nucleated RBC % (auto) 0.4 H (0.0-0.2) /100WBC Smear Tech's Comments VERIFIED Sodium 137 (135-145) mmol/L Potassium 5.0 D (3.3-5.1) mmol/L Chloride 99 (96-108) mmol/L Carbon Dioxide 20 L (22-29) mmol/L Anion Gap 23 H (12-20) BUN 17 H D (9-16) mg/dL Creatinine 1.14 (0.5-1.4) mg/dL Estim Creat Clear Calc 55.7 Estimated GFR > 60 Random Glucose 138 H (60-115) mg/dL Lactic Acid (0.5-2.0) mmol/L Lactic Acid F/U @ 2Hr (0.5-2.0) mmol/L Calcium 9.0 (8.4-10.2) mg/dL Total Bilirubin 1.9 H (0.0-1.0) mg/dL Direct Bilirubin 0.8 H (0.0-0.5) mg/dL AST 48 H D (5-37) U/L ALT 53 H (0-40) U/L Alkaline Phosphatase 92 D (39-117) U/L Troponin I High Sens 4.1 (<3.5-35.0) ng/L B-Natriuretic Peptide (<100) pg/mL Total Protein 6.8 (6.5-8.0) g/dL Albumin 3.8 (3.5-5.0) g/dL Lipase 28 (8-78) U/L Urine Color Urine Appearance Urine pH (5.0-9.0) Ur Specific Humphreys (1.005-1.025) Urine Protein (Neg-Trace) mg/dL Urine Glucose (UA) (Negative) mg/dL Urine Ketones (Negative) mg/dL Urine Blood (Negative) Urine Nitrite (Negative) Ur Leukocyte Esterase (Negative) Urine RBC (0-2) /HPF Urine WBC (0-5) /HPF Ur Squamous Epith Cells (0-2) /HPF Urine Bacteria (None Seen) Hyaline Casts (0-2) /LPF Influenza Type A (PCR) (Negative) Influenza Type B (PCR) (Negative) RSV RNA Qual (PCR) (Negative) SARS-CoV-2 RNA (RT-PCR) (Negative) 02/02/22 02/02/22 02/02/22 Range/Units 12:15 12:15 12:37 WBC (4.8-10.8) X10*3/uL RBC (4.60-5.80) X10*6/uL Hgb (14.0-18.0) g/dl Hct (42.0-52.0) % MCV (80.0-98.0) fL MCH (27.0-33.0) pg MCHC (31.0-36.0) g/dl RDW (11.0-16.0) % Plt Count (160-400) X10*3/uL MPV (9.4-12.4) fL Immature Gran % (Auto) (0.0-0.4) % Neut % (Auto) (45-73) % Lymph % (Auto) (20-40) % Winkler % (Auto) (2-11) % Eos % (Auto) (0-4) % Baso % (Auto) (0-2) % Lymph # (Auto) (1.2-4.9) X10*3/uL Winkler # (Auto) (0.1-1.2) X10*3/uL Eos # (Auto) (0.0-0.4) X10*3/uL Baso # (Auto) (0.0-0.2) X10*3/uL Abs Immat Gran (auto) (0.00-0.03) X10*3/uL Absolute Neuts (auto) (2.0-8.3) x10*3/uL Absolute Nucleated RBC (0.0-0.012) X10*3/uL Nucleated RBC % (auto) (0.0-0.2) /100WBC Smear Tech's Comments Sodium (135-145) mmol/L Potassium (3.3-5.1) mmol/L Chloride (96-108) mmol/L Carbon Dioxide (22-29) mmol/L Anion Gap (12-20) BUN (9-16) mg/dL Creatinine (0.5-1.4) mg/dL Estim Creat Clear Calc Estimated GFR Random Glucose (60-115) mg/dL Lactic Acid 4.6 H* (0.5-2.0) mmol/L Lactic Acid F/U @ 2Hr (0.5-2.0) mmol/L Calcium (8.4-10.2) mg/dL Total Bilirubin (0.0-1.0) mg/dL Direct Bilirubin (0.0-0.5) mg/dL AST (5-37) U/L ALT (0-40) U/L Alkaline Phosphatase (39-117) U/L Troponin I High Sens (<3.5-35.0) ng/L B-Natriuretic Peptide 104 H (<100) pg/mL Total Protein (6.5-8.0) g/dL Albumin (3.5-5.0) g/dL Lipase (8-78) U/L Urine Color Urine Appearance Urine pH (5.0-9.0) Ur Specific Humphreys (1.005-1.025) Urine Protein (Neg-Trace) mg/dL Urine Glucose (UA) (Negative) mg/dL Urine Ketones (Negative) mg/dL Urine Blood (Negative) Urine Nitrite (Negative) Ur Leukocyte Esterase (Negative) Urine RBC (0-2) /HPF Urine WBC (0-5) /HPF Ur Squamous Epith Cells (0-2) /HPF Urine Bacteria (None Seen) Hyaline Casts (0-2) /LPF Influenza Type A (PCR) NEGATIVE (Negative) Influenza Type B (PCR) NEGATIVE (Negative) RSV RNA Qual (PCR) NEGATIVE (Negative) SARS-CoV-2 RNA (RT-PCR) NEGATIVE (Negative) 02/02/22 02/02/22 Range/Units 14:14 14:42 WBC (4.8-10.8) X10*3/uL RBC (4.60-5.80) X10*6/uL Hgb (14.0-18.0) g/dl Hct (42.0-52.0) % MCV (80.0-98.0) fL MCH (27.0-33.0) pg MCHC (31.0-36.0) g/dl RDW (11.0-16.0) % Plt Count (160-400) X10*3/uL MPV (9.4-12.4) fL Immature Gran % (Auto) (0.0-0.4) % Neut % (Auto) (45-73) % Lymph % (Auto) (20-40) % Winkler % (Auto) (2-11) % Eos % (Auto) (0-4) % Baso % (Auto) (0-2) % Lymph # (Auto) (1.2-4.9) X10*3/uL Winkler # (Auto) (0.1-1.2) X10*3/uL Eos # (Auto) (0.0-0.4) X10*3/uL Baso # (Auto) (0.0-0.2) X10*3/uL Abs Immat Gran (auto) (0.00-0.03) X10*3/uL Absolute Neuts (auto) (2.0-8.3) x10*3/uL Absolute Nucleated RBC (0.0-0.012) X10*3/uL Nucleated RBC % (auto) (0.0-0.2) /100WBC Smear Tech's Comments Sodium (135-145) mmol/L Potassium (3.3-5.1) mmol/L Chloride (96-108) mmol/L Carbon Dioxide (22-29) mmol/L Anion Gap (12-20) BUN (9-16) mg/dL Creatinine (0.5-1.4) mg/dL Estim Creat Clear Calc Estimated GFR Random Glucose (60-115) mg/dL Lactic Acid (0.5-2.0) mmol/L Lactic Acid F/U @ 2Hr 2.7 H* (0.5-2.0) mmol/L Calcium (8.4-10.2) mg/dL Total Bilirubin (0.0-1.0) mg/dL Direct Bilirubin (0.0-0.5) mg/dL AST (5-37) U/L ALT (0-40) U/L Alkaline Phosphatase (39-117) U/L Troponin I High Sens (<3.5-35.0) ng/L B-Natriuretic Peptide (<100) pg/mL Total Protein (6.5-8.0) g/dL Albumin (3.5-5.0) g/dL Lipase (8-78) U/L Urine Color Dark Yellow Urine Appearance Clear Urine pH 5.5 (5.0-9.0) Ur Specific Humphreys 1.020 (1.005-1.025) Urine Protein 30 (1+) H (Neg-Trace) mg/dL Urine Glucose (UA) Negative (Negative) mg/dL Urine Ketones Trace (Negative) mg/dL Urine Blood Negative (Negative) Urine Nitrite Negative (Negative) Ur Leukocyte Esterase Trace H (Negative) Urine RBC 3-5 H (0-2) /HPF Urine WBC 0-5 (0-5) /HPF Ur Squamous Epith Cells 0-2 (0-2) /HPF Urine Bacteria None Seen (None Seen) Hyaline Casts 11-20 (0-2) /LPF Influenza Type A (PCR) (Negative) Influenza Type B (PCR) (Negative) RSV RNA Qual (PCR) (Negative) SARS-CoV-2 RNA (RT-PCR) (Negative) Imaging Data CT scan - abdomen: Attestation: I personally reviewed and interpreted this imaging study as follows: Radiologist's impression: 1. Scattered colonic diverticula are seen, most concentrated in the descending and sigmoid colon. No evidence of acute diverticulitis is seen. 2. There is a short 2 cm long segment of circumferential bowel wall thickening and luminal narrowing in the sigmoid colon, unclear if related to focal spasm versus a focal colonic neoplasm. Close clinical correlation and follow-up with barium enema or colonoscopy is recommended. 3. Moderate to severe coronary artery calcifications. 4. Benign renal cysts. ? Chest x-ray: Attestation: I personally reviewed and interpreted this imaging study as follows: Radiologist's impression: Minimal left basilar opacity may represent small area of atelectasis or early infiltrate ECG Data Attestation: I personally reviewed and interpreted this ECG as follows: Interpretation: Atrial fibrillation at 144 beats per minutes, normal axis deviation, otherwise normal intervals. Critical Care Time Critical Care Time Critical Care Time: Yes Total Critical Care Time: 60 Attestation: I spent 60 minutes providing critical care service to the patient, this including time spent at the bedside to evaluate the patient, reassess the patient, monitoring vital signs, review labs, and radiographic studies, co unseling the patient/family, discussing the case with consultants, disposition the patient. Discharge Plan Discharge Clinical Impression: Cellulitis of knee, right, Sepsis Patient Disposition: [facility] Transfer Details: [facility] accepted by Dr. Tucker Prescriptions: No Action atorvastatin 10 mg tablet 1 tab PO DAILY@1700 metoprolol succinate 50 mg tablet extended release 24 hr 1 tab PO DAILY@1700 allopurinol 100 mg tablet 1 tab PO DAILY@1700 lorazepam 1 mg tablet 1 tab PO DAILY PRN (Reason: Anxiety) ezetimibe 10 mg tablet 1 tab PO DAILY@1700 alfuzosin 10 mg tablet extended release 24 hr 1 tab PO DAILY@1700 levofloxacin 500 mg tablet 500 mg PO DAILY Qty: 2 0RF metronidazole 500 mg tablet 500 mg PO BID Qty: 5 0RF omeprazole 20 mg capsule,delayed release(DR/EC) 20 mg PO DAILY Qty: 30 0RF Xarelto 20 mg tablet 1 tab PO DAILY@1700 Qty: 0 0RF Rx Instructions: start on 05/21/21. val murphy closely
[2022-02-02] MEDS: Acetaminophen 325 MG TABLET 650 MG PO ×2 (12:18→13:15)
[2022-02-02] MEDS: Piperacillin Sodium/Tazobactam 3.375 GM in 0.9 % Sodium Chloride 50 ML IV ×2 (12:19→22:34)
[2022-02-02 12:22] LABS: Basophils Percent Auto 0.2 % (0-2); Eosinophils Absolute Auto 0.1 X10*3/uL (0.0-0.4); Eosinophils Percent Auto 1.5 % (0-4); Hematocrit 42.3 % (42.0-52.0); Hemoglobin 13.9 g/dl (14.0-18.0); Imm Gran Abs Auto 0.15 X10*3/uL (0.00-0.03); Imm Gran Pct Auto 3.3 % (0.0-0.4); Lymphocytes Absolute Auto 0.5 X10*3/uL (1.2-4.9); MANUAL DIFF FLAG SCAN; Mean Corpuscular HGB Conc 32.9 g/dl (31.0-36.0); Mean Corpuscular Hemoglobin 30.1 pg (27.0-33.0); Mean Corpuscular Volume 91.6 fL (80.0-98.0); Mean Platelet Volume 8.7 fL (9.4-12.4); Monocytes Percent Auto 0.9 % (2-11); NRBC Pct Auto 0.4 /100WBC (0.0-0.2); Neutrophils Absolute Auto 3.8 x10*3/uL (2.0-8.3); Neutrophils Percent Auto 83.1 % (45-73); Platelet Count 320 X10*3/uL (160-400); Red Blood Count 4.62 X10*6/uL (4.60-5.80); Red Cell Distribution Width 13.9 % (11.0-16.0); SCAN SMEAR FLAG 1; White Blood Count 4.5 X10*3/uL (4.8-10.8)
[2022-02-02 12:40] LABS: SLIDE REVIEW VERIFIED
--- NOTE | 2022-02-02 12:41 | PC.NURSE ---
Addendum entered by Drake Rhoades 02/02/22 12:42: and HR, fever, o2 Original Note: Dr. Francisco aware of patient BP
[2022-02-02 12:47] LABS: B Type Natriuretic Peptide 104 pg/mL (<100)
[2022-02-02 12:48] LABS: Troponin-I High Sensitivity 4.1 ng/L (<3.5-35.0)
[2022-02-02 12:52] LABS: Lactic Acid 4.6 mmol/L (0.5-2.0)
[2022-02-02 12:53] LABS: Alanine Aminotransferase 53 U/L (0-40); Albumin Level 3.8 g/dL (3.5-5.0); Alkaline Phosphatase 92 U/L (39-117); Anion Gap 23 (12-20); Aspartate Amino Transferase 48 U/L (5-37); Bilirubin Direct 0.8 mg/dL (0.0-0.5); Bilirubin Total 1.9 mg/dL (0.0-1.0); Blood Urea Nitrogen 17 mg/dL (9-16); Carbon Dioxide 20 mmol/L (22-29); Chloride 99 mmol/L (96-108); Creatinine Clr Calc Pharmacy 55.7; Estimated Glomerular Filt Rate > 60; Glucose Random 138 mg/dL (60-115); Lipase 28 U/L (8-78); Sodium 137 mmol/L (135-145); Total Protein 6.8 g/dL (6.5-8.0)
[2022-02-02] MEDS: HYDROmorphone HCl 2 MG/ML VIAL IVPUSH (13:14)
[2022-02-02 13:22] LABS: Influenza A PCR NEGATIVE (Negative); Influenza B PCR NEGATIVE (Negative); Resp Syncy Virus RNA Qual PCR NEGATIVE (Negative); SARS COV2 PCR INHOUSE NEGATIVE (Negative)
--- NOTE | 2022-02-02 14:18 | PC.NURSE ---
cleansed of urine and repositioned. r knee elevated and iced.
[2022-02-02 14:19] LABS: Reflex Lactate? Lactic Acid Added
[2022-02-02 14:22] LABS: Appearance Urine Clear; Color Urine Dark Yellow; Glucose Urine UA Negative (Negative); Leukocyte Esterase Urine Trace (Negative); Nitrite Urine Negative (Negative); PH 5.5 (5.0-9.0); UMIC TRIGGER UACC YES; Urine Blood Negative (Negative); Urine Ketones Trace mg/dL (Negative); Urine Protein 30 (1+) mg/dL (Neg-Trace)
[2022-02-02 14:36] LABS: Bacteria Urine None Seen (None Seen); Squamous Epithelial Cell Urine 0-2 /HPF (0-2); WBC Urine 0-5 /HPF (0-5)
[2022-02-02 15:21] LABS: ~Lactic Acid-LAB USE ONLY 2.7 mmol/L (0.5-2.0)
--- NOTE | 2022-02-02 15:44 | PC.NURSE ---
Dr. Francisco made aware of patients HR that continues to be elevated.
[2022-02-02] MEDS: HYDROmorphone HCl 1 MG/ML SYRINGE IVPUSH ×2 (16:44→22:34)
[2022-02-02 16:46] LABS: Reflex Lactate? 2 Y
--- NOTE | 2022-02-02 20:20 | PC.NURSE ---
Assumed care of pt. at 1900. Pt. requested to be boosted up in bed and provided with an additional pillow for positioning of his neck. Pt. req. ice chips and asking about his ambulance transfer. Will follow-up for transfer and ice chips as pt. currently NPO.
--- NOTE | 2022-02-02 22:39 | PC.NURSE ---
Pt. still here pending ambulance for transfer to [facility]. Pt. c/o pain at 12/25. Medicated per JUL and started Zosyn per JUL. Pt. resting quietly in bed.
[2022-02-03] VITALS: BP 158/76; PULSE 98; RESP 17; O2SAT 95
--- NOTE | 2022-02-03 00:14 | PC.NURSE ---
Pt. still awaiting transport to [facility]. Pt. requesting lyn elvira. Spoke to MD, and okay to give drink and food as it looks probable that pt. wont' be transported to [facility] until tomorrow as there are no available ambulances currently. Provided gingerale to pt. He declined food. Med rec completed with pt. and over phone.
[2022-02-03] MEDS: Rivaroxaban 20 MG TABLET PO (02:26)
[2022-02-03] MEDS: Metoprolol Succinate ER 50 MG TAB.ER.24H PO (02:26)
[2022-02-03] MEDS: Atorvastatin Calcium 10 MG TABLET PO (02:26)
[2022-02-03] MEDS: HYDROmorphone HCl 1 MG/ML SYRINGE IVPUSH ×2 (03:42→08:24)
[2022-02-03 04:00] VITALS: BP 114/54; PULSE 112; RESP 18; O2SAT 94
--- NOTE | 2022-02-03 04:34 | PC.NURSE ---
Pt. awake in room, asking for ice chips. Ice chips provided to pt. Pt. was medicated with dilaudid per MAR for pain with good effect, pain down to a 4/10 from 12/25. Pt. still awaiting transfer to [facility].
[2022-02-03] MEDS: Piperacillin Sodium/Tazobactam 3.375 GM in 0.9 % Sodium Chloride 50 ML IV (05:29)
[2022-02-03 05:46] VITALS: BP 107/63; PULSE 115; RESP 18; O2SAT 93
[2022-02-03 07:08] VITALS: BP 107/68; PULSE 107; RESP 19; TEMP 37.1; O2SAT 94
--- NOTE | 2022-02-03 08:00 | PC.NURSE ---
Spoke to Sterling MARTÍNEZ at [facility] for patient update. at bedside at this time, asking if she can drive pt to [facility] due to the shortage of being able to take an ambulance. Charge nurse made aware as well as Sterling at [facility].
--- NOTE | 2022-02-03 08:41 | PC.NURSE ---
Pt medicated as per [facility] orders for pain, IV's removed, pt asssisted with dressing. Report to Sterling sin [facility]. Pt wheeled out to car by the [facility].
== END 2022-02-03 08:15 | disposition short-term general hospital (02) ==
PROVIDERS: Emergency Provider Emergency Medicine
DX: L03.115 Cellulitis of right lower limb (principal); R25.1 Tremor, unspecified; A41.9 Sepsis, unspecified organism; R10.32 Left lower quadrant pain; Z79.01 Long term (current) use of anticoagulants; Z20.822 Contact with and (suspected) exposure to COVID-19; Z79.899 Other long term (current) drug therapy; Z87.891 Personal history of nicotine dependence
CPT/HCPCS: 0241U; 36415; 71045; 74176; 80048; 80076; 81001; 83605; 83690; 83880; 84484; 85025; 87040; 93005; 96365; 96376; 99285; J1170; J2543

== ENCOUNTER 2024-10-14 08:55 | Outpatient (AMB) | payer MEDICARE, SELFPAY ==
--- NOTE | 2024-10-14 09:20 | MHC.OFFVIS ---
Vital Signs 10/14/24 09:26 Height 5 ft 7 in Weight 192 lb 8 oz BMI 30.1 BP 160/87 H Blood Pressure Location Lt brachial Position Sitting Pulse 89 Pulse Source Pulse Oximeter Pulse Oximetry (%) 98 Oxygen Delivery Method Room Air Intake Visit Reasons: Chronic Midline Low Back w/o Sciatica Lamina Searcher Required: No Accompanied by: Self / Same As Patient Allergies morphine Allergy (Unknown, Verified 10/14/24 10:01) Headache Penicillins Allergy (Unknown, Verified 10/14/24 10:01) Unknown piperacillin [From Zosyn] Allergy (Unknown, Verified 10/14/24 10:01) Hives tazobactam [From Zosyn] Allergy (Unknown, Verified 10/14/24 10:01) Hives cefaclor [From Ceclor] Allergy (Verified 10/14/24 10:01) Anaphylaxis phenazopyridine [From Pyridium] Allergy (Verified 10/14/24 10:01) Anaphylaxis HPI Comments Details: The patient is a 79-year-old male presenting with midline lower back pain. Two years ago, he noticed the worsening of the pain, which was previously managed effectively with steroid injections ten years earlier for a partially herniated disc. The initial treatment provided long-lasting relief, and he remained symptom-free until the symptoms reemerged over the past year or so. Currently, the pain does not radiate into the lower extremities but may extend around the hip region. The patient's symptoms worsen with activities such as prolonged standing or walking, which previously did not cause such discomfort. Although his daily activities do not typically induce pain, extended periods of standing or walking result in significant discomfort. Relief is achieved through rest and sitting. The patient maintains his physical fitness with daily stretching exercises and manages his pain with gabapentin and occasional Tylenol. He rarely uses NSAIDs due to prior history of GI bleeding. He completed physical therapy a couple months ago without resolution of his symptoms. Continues with home exercise program. - Onset: Approximately twenty years ago - Quality: Aching pain - Location: Midline lower back, sometimes radiating around the hip - No radiation down the lower extremities - Aggravating factors: Prolonged standing, walking - Alleviating factors: Sitting, resting, daily stretching exercises - Interferes with: Prolonged standing and walking activities - Affect: Pain impacts activities such as prolonged standing and walking. - Analgesia: Current regimen includes gabapentin and extra strength Tylenol as needed. - Adverse Effects: Denies adverse effects from the current medication regimen. - Activities of Daily Living: Pain affects ability to stand and walk for extended periods. - Aberrant Drug Related Behaviors: No evidence of medication misuse or abuse reported. [facility] Medical History A-fib Colon polyp Gout History of diverticulosis HLD (hyperlipidemia) Family History Mother Cerebral aneurysm Father Heart disease Social History Household Members: Spouse Housing: House Do you presently have visiting nurse or other home services: No Patient Tobacco Use Status: Former Tobacco user service: No Current occupational status: retired Review of Systems Const Details: - Musculoskeletal: Reports lower back pain, denies leg tingling or weakness. - Neurological: Denies radiation of pain down lower extremities, denies tingling in legs. - Gastrointestinal: Reports recent history of Norovirus infection, otherwise denied. Physical Exam Vital Signs: Last Vital Signs Pulse 89 10/14/24 09:26 BP 160/87 H 10/14/24 09:26 Pulse Ox 98 10/14/24 09:26 Oxygen Delivery Method Room Air 10/14/24 09:26 BMI result Body Mass Index 30.1 General: awake, alert, oriented. Answers questions appropriately. Fully engaged in examination. Skin: warm, dry, intact HEENT: Normocephalic. Hearing intact. Cardiac: External chest normal in appearance. Respiratory: No cough, audible wheezing or stridor. Abdomen: without gross distension. MS: No obvious swelling or deformities. Able to stand on bilateral tiptoes and bilateral heels.? Able to transition from sit to stand unassisted. Ambulates with bilaterally normal heel strike and toe off Bilateral lower extremity strength 5/5 SLR negative bilaterally Facet loading negative bilaterally Full lumbar range of motion Nontender over bilateral PSIS Minimally tender over midline lumbar vertebrae and lumbar paraspinal muscles Neurological: Oriented to person, place, time and situation. Thought process intact. No gait abnormalities appreciated. Psychiatric: Appropriate mood and affect. Good judgment and insight. Assessment & Plan Assessment & Plan (1) Degenerative disc disease, lumbar: Code(s): M51.369 - Other intervertebral disc degeneration, lumbar region without mention of lumbar back pain or lower extremity pain Category: Medical Plan I will initiate an imaging workup, including an MRI and X-ray of the lumbar spine, to assess the presence of disc bulging or spinal stenosis. Depending on the results, a steroid injection or alternative interventions like nerve ablation may be considered based upon the MRI findings. The use of NSAIDs is limited due to the patient's history with GI bleeding, blood thinners and associated risks. Physical therapy will be considered for further muscle strengthening and symptom management. I discussed with the patient the likelihood of spinal stenosis or recurrent disc bulge as the cause of his back pain. Imaging diagnostics such as MRI and X-ray will clarify any underlying structural changes necessitating intervention. The potential benefits of steroid injection or alternative interventions were explained, considering the patient's prior positive response to such injections. Due to the patient's prior issues with NSAIDs and blood thinners, the avoidance of regular NSAID use was recommended, with pain management primarily through gabapentin and Tylenol. The need for follow-up based on imaging results was emphasized, providing assurance regarding procedural safety and close monitoring for any complications. Patient was informed and verbally consented to the use of an ambient scribe for clinic note documentation during this visit. Orders: Orders XR lumbar spine 6V w bending Today M51.369 - Other intervertebral disc degeneration, lumbar region without mention of lumbar back pain or lower extremity pain MR lumbar spine wo con Today M51.369 - Other intervertebral disc degeneration, lumbar region without mention of lumbar back pain or lower extremity pain Patient Instructions: - Await a call for scheduling the MRI; complete X-ray at your earliest convenience. - Continue with current stretching regimen and medication plan. - Avoid prolonged standing and take regular breaks to rest. - Report any significant changes or worsening of symptoms immediately. Coding Level of Care Code New Pt Level 4 (98106) Complex EM visit Add On G2211 Diagnoses Degenerative disc disease, lumbar M51.369
[2024-10-14 09:26] VITALS: BP 160/87; PULSE 89; O2SAT 98; BMI 30.1
== END 2024-10-14 09:57 | disposition home or self-care (01) ==
LOC: HO.PMC 08:56
PROVIDERS: Visit Provider Registered Nurse Emergency
DX: M51.369 Other intervertebral disc degeneration, lumbar region without mention of lumbar back pain or lower extremity pain (principal)
CPT/HCPCS: 99204; G2211

== ENCOUNTER → 2024-10-14 08:55 | Outpatient (BNVA) | payer MEDICARE, SELFPAY | PROVIDERS: Visit Provider Registered Nurse Emergency | DX: M51.369 Other intervertebral disc degeneration, lumbar region without mention of lumbar back pain or lower extremity pain (principal) | CPT/HCPCS: 99202 ==

== ENCOUNTER 2024-10-19 10:10 | Outpatient (REF) | payer MEDICARE, SELFPAY ==
--- NOTE | ~2024-10-19 | XR_ITS ---
CLINICAL HISTORY: M51.369 - Other intervertebral disc degeneration, lumbar region without ... 7 views of the lumbar spine. COMPARISON: None FINDINGS: Flexion and extension and oblique imaging were performed. Five [id number] lumbar type vertebral bodies. Grade 1 retrolisthesis of L1 on L2 and L2 on L3. This does not change on flexion or extension imaging. Vertebral body heights are maintained. No evidence of acute vertebral body injury. Flowing marginal osteophytes along the lower thoracic spine. There is multilevel loss of disc space height with marginal osteophytes. Facet joint arthrosis in the mid to lower lumbar spine with neural foraminal narrowing most pronounced at L4-5 and L5-S1. No pars defects identified on oblique imaging. Visualized bones of the pelvis appear intact. Pelvic phleboliths present. Atherosclerotic vascular calcifications. IMPRESSION: 1. No radiographic evidence of acute injury to the lumbar spine. 2. Grade 1 retrolisthesis of L1 on L2 and L2 on L3. No pars defects identified. 3. Moderate to advanced mid to lower lumbar spondylosis. This document has been electronically signed by: Jet Brooks MD on 10/19/2024 14:16:32
--- OUTSIDE RECORDS SUMMARY | 2024-10-19 10:49 | XMS_ITS | Data Portability ---
Author Organization [facility], [facility], [facility] Address [address] [place] [address] Care Team Providers Care Pan Devulcanizer Name Role Phone MERCY KIM Primary Care Provider MERCY KIM Referring Provider Assessment Encounter Date Assessment Date Assessment LastModified by Organization Details LastModified Time 06/17/2019 06/17/2019 New Patient. Not available 0 06/17/2019 18:11:43 Plan of Treatment Reminders Order Date Submit Date Provider Last Modified By Organization Details Last Modified Time Details Appointments None recorded. Lab CBC 2021 022 [facility], [address] [place], [address], 2 16:19:37 CMP, serum or plasma 2021 022 [facility], [address] [place], [address], 2 16:19:38 Referral None recorded. Procedures None recorded. Surgeries None recorded. Imaging None recorded. Medication Orders Depo-Medrol 80 mg/mL suspension for injection 2019 020 Not available 08:45:13 Robaxin-750 750 mg tablet 2019 020 [facility][id number], [address], [place], [address], 2 08:45:55 Medrol (Mac) 4 mg tablets in a dose pack 2019 020 [facility][id number], [address], [place], [address], 2 08:45:18 ketorolac 30 mg/mL injection solution 2019 020 Not available 08:45:16 Patient TargetsNo targets recorded. Patient Instructions Encounter Date Encounter Id Patient Instructions Last Modified By Organization Details Last Modified Time 06/17/2019 [id number] Patient understa nds instructions and will seek medical attention if symptoms worsen as directed. [email or web address] Not available 06/17/2019 18:11:48 07/04/[id number] gastrointestinal bleeding: care instructions [email or web address] Not available 07/04/2021 09:17:14 Reason for Referral None Reported. Results Created Date Observation Date Name Description Value Unit Range Abnormal Flag Note LastModifiedBy Organization Detail LastModifiedTime 07/04/19 22 07/04/2021 CBC W/ AUTOD IFF, COMPL ETE BLOOD COUNT WBC 6.9 K/uL 3.6-10 .0 Not Available [facility] [address], [place], [address], 07/04/2021 16:19:37 07/04/19 22 07/04/2021 CBC W/ AUTOD IFF, COMPL ETE BLOOD COUNT nucleated RBC 0.10 % 0.00-2 .00 Not Available [facility] [address], [place], [address], 07/04/2021 16:19:37 07/04/19 22 07/04/2021 CBC W/ AUTOD IFF, COMPL ETE BLOOD COUNT RBC 4.69 M/uL 4.10-5 .80 Not Available [facility] [address], [place], [address], 07/04/2021 16:19:37 07/04/19 22 07/04/2021 CBC W/ AUTOD IFF, COMPL ETE BLOOD COUNT HGB 14.0 g/dL 13.2-1 7.0 Not Available [facility] [address], [place], [address], 07/04/2021 16:19:37 07/04/19 22 07/04/2021 CBC W/ AUTOD IFF, COMPL ETE BLOOD COUNT hematocrit 42.30 % 37.00- 51.00 Not Available [facility] [address], [place], [address], 07/04/2021 16:19:37 07/04/19 22 07/04/2021 CBC W/ AUTOD IFF, COMPL ETE BLOOD COUNT MCV 90.2 fL 80.0-9 9.0 Not Available [facility], [place], [address], 07/04/2021 16:19:37 07/04/19 22 07/04/2021 CBC W/ AUTOD IFF, COMPL ETE BLOOD COUNT MCH 29.8 pg 27.0-3 3.0 Not Available [facility], [place], [address], 07/04/2021 16:19:37 07/04/19 22 07/04/2021 CBC W/ AUTOD IFF, COMPL ETE BLOOD COUNT MCHC 33.0 g/dL 32.0-3 6.0 Not Available [facility] [address], [place], [address], 07/04/2021 16:19:37 07/04/19 22 07/04/2021 CBC W/ AUTOD IFF, COMPL ETE BLOOD COUNT platelets 258 K/uL 140-44 0 Not Available [facility], [place], [address], 07/04/2021 16:19:37 07/04/19 22 07/04/2021 CBC W/ AUTOD IFF, COMPL ETE BLOOD COUNT RDW 13.8 % 11.0-1 5.0 Not Available [facility] [address], [place], [address], 07/04/2021 16:19:37 07/04/19 22 07/04/2021 CBC W/ AUTOD IFF, COMPL ETE BLOOD COUNT MPV 8.2 fL 7.4-10 .4 Not Available [facility] [address], [place], [address], 07/04/2021 16:19:37 07/04/19 22 07/04/2021 CBC W/ AUTOD IFF, COMPL ETE BLOOD COUNT neutrophil, % 72.7 % Not Available [facility] [address], [place], [address], 07/04/2021 16:19:37 07/04/19 22 07/04/2021 CBC W/ AUTOD IFF, COMPL ETE BLOOD COUNT lymphocyte % 17.0 % Not Available [facility] [address], [place], [address], 07/04/2021 16:19:37 07/04/19 22 07/04/2021 CBC W/ AUTOD IFF, COMPL ETE BLOOD COUNT monocyte % 8.4 % Not Available [facility] [address], [place], [address], 07/04/2021 16:19:37 07/04/19 22 07/04/2021 CBC W/ AUTOD IFF, COMPL ETE BLOOD COUNT eosinophil % 1.2 % Not Available [facility] [address], [place], [address], 07/04/2021 16:19:37 07/04/19 22 07/04/2021 CBC W/ AUTOD IFF, COMPL ETE BLOOD COUNT basophil % 0.7 % Not Available [facility] [address] [place], [place] [address], [place], [address], 07/04/2021 16:19:37 07/04/19 22 07/04/2021 CBC W/ AUTOD IFF, COMPL ETE BLOOD COUNT neutrophil, # 5.1 K/uL 1.5-7. 5 Not Available [facility] [address] [place], [place] [address], [place], [address], 07/04/2021 16:19:37 07/04/19 22 07/04/2021 CBC W/ AUTOD IFF, COMPL ETE BLOOD COUNT lymphocyte # 1.2 K/uL 0.8-4. 0 Not Available [facility] [address] [place], [place] [address], [place], [address], 07/04/2021 16:19:37 07/04/19 22 07/04/2021 CBC W/ AUTOD IFF, COMPL ETE BLOOD COUNT monocyte # 0.6 K/uL 0.1-1. 0 Not Available [facility] [address] [place], [place] [address] [place], [address], 07/04/2021 16:19:37 07/04/19 22 07/04/2021 CBC W/ AUTOD IFF, COMPL ETE BLOOD COUNT eosinophil # 0.1 K/uL 0.1-1. 0 Not Available [facility] [address] [place], [place] [address], [place], [address], 07/04/2021 16:19:37 07/04/19 22 07/04/2021 CBC W/ AUTOD IFF, COMPL ETE BLOOD COUNT basophil # 0.0 K/uL 0.0-0. 2 Not Available [facility] [address] [place] [address] [address], [place], [address], 07/04/2021 16:19:37 07/04/19 22 07/04/2021 CMP, COMPR EHENS DINAN METAB OLIC PANEL glucose 99 mg/dL 70-100 Not Available [facility] [address] [facility] [facility] [address], [place], [address], 07/04/2021 16:19:38 07/04/19 22 07/04/2021 CMP, COMPR EHENS DIANN METAB OLIC PANEL BUN 20 mg/dL 7-25 Not Available [facility] [address] [facility] [address], [place], [address], 07/04/2021 16:19:38 07/04/19 22 07/04/2021 CMP, COMPR EHENS DIANN METAB OLIC PANEL creatinine 1.1 mg/dL 0.6-1. 3 Not Available [facility] [address] [facility] [facility] [address], [place], [address], 07/04/2021 16:19:38 07/04/19 22 07/04/2021 CMP, COMPR EHENS DIANN METAB OLIC PANEL BUN/creatini ne ratio 18.02 calc Not Available [facility] [address], [place], [address], 07/04/2021 16:19:38 07/04/19 22 07/04/2021 CMP, COMPR EHENS DIANN METAB OLIC PANEL eGFR 83 mL/mi n/1.7 3m2 >60 THREE CONSE CUTIV E VALUE S <60 mL/mi n COULD BE INDIC ATIVE OF KIDNE Y DISEA SE. Not Available [facility] [address] [facility] [address], [place], [address], 07/04/2021 16:19:38 07/04/19 22 07/04/2021 CMP, COMPR EHENS DIANN METAB OLIC PANEL eGFR non- 69 mL/mi n/1.7 3m2 >60 THREE CONSE CUTIV E VALUE S < 60 mL/mi n COULD BE INDIC ATIVE OF KIDNE Y DISEA SE Not Available [facility] [address], [place], [address], 07/04/2021 16:19:38 07/04/19 22 07/04/2021 CMP, COMPR EHENS DIANN METAB OLIC PANEL sodium 140 mmol/ L 135-14 5 Not Available [facility] [address], [place], [address], 07/04/2021 16:19:38 07/04/19 22 07/04/2021 CMP, COMPR EHENS DIANN METAB OLIC PANEL potassium 4.7 mmol/ L 3.5-5. 5 Not Available [facility] [address] [facility] [facility] [address], [place], [address], 07/04/2021 16:19:38 07/04/19 22 07/04/2021 CMP, COMPR EHENS DIANN METAB OLIC PANEL chloride 102 mmol/ L 100-11 5 Not Available [facility] [address] [facility] [address], [place], [address], 07/04/2021 16:19:38 07/04/19 22 07/04/2021 CMP, COMPR EHENS DIANN METAB OLIC PANEL CO2 29 mmol/ L 21-33 Not Available [facility] [address], [place], [address], 07/04/2021 16:19:38 07/04/19 22 07/04/2021 CMP, COMPR EHENS DIANN METAB OLIC PANEL anion gap 8.8 calc Not Available [facility] [address], [place], [address], 07/04/2021 16:19:38 07/04/19 22 07/04/2021 CMP, COMPR EHENS DIANN METAB OLIC PANEL calcium 9.6 mg/dL 8.8-10 .6 Not Available [facility] [address], [place], [address], 07/04/2021 16:19:38 07/04/19 22 07/04/2021 CMP, COMPR EHENS DIANN METAB OLIC PANEL total protein 6.6 g/dL 6.2-8. 6 Not Available [facility] [address], [place], [address], 07/04/2021 16:19:38 07/04/19 22 07/04/2021 CMP, COMPR EHENS DIANN METAB OLIC PANEL albumin 4.4 g/dL 3.5-5. 7 Not Available [facility] [address] [facility] [facility] [address], [place], [address], 07/04/2021 16:19:38 07/04/19 22 07/04/2021 CMP, COMPR EHENS DIANN METAB OLIC PANEL globulin 2.2 g/dL 1.3-4. 0 Not Available [facility] [address] [facility] [address], [place], [address], 07/04/2021 16:19:38 07/04/19 22 07/04/2021 CMP, COMPR EHENS DIANN METAB OLIC PANEL A/G ratio 1.9 calc 1.0-2. 8 Not Available [facility] [address] [facility], [place], [address], 07/04/2021 16:19:38 07/04/19 22 07/04/2021 CMP, COMPR EHENS DIANN METAB OLIC PANEL AST (SGOT) 21 U/L 13-39 Not Available [facility] [address], [place], [address], 07/04/2021 16:19:38 07/04/19 22 07/04/2021 CMP, COMPR EHENS DIANN METAB OLIC PANEL ALT (SGPT) 29 U/L 7-52 Not Available [facility] [address], [place], [address], 07/04/2021 16:19:38 07/04/19 22 07/04/2021 CMP, COMPR EHENS DIANN METAB OLIC PANEL total bilirubin 0.49 mg/dL 0.30-1 .00 Not Available [facility] [address], [place], [address], 07/04/2021 16:19:38 07/04/19 22 07/04/2021 CMP, COMPR EHENS DIANN METAB OLIC PANEL alkaline phosphatase 70 U/L 20-128 Not Available [facility] [address], [place], [address], 07/04/2021 16:19:38 07/04/19 22 07/04/2021 VENIP UNCTU RE results Compl ete Not Available [facility] [address] [facility] [address], [place], [address], 07/04/2021 09:32:25 Result Notes None recorded. 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 Procedures Surgical History Date Name Laterality Status Provider Name and Address Organization Details Recorded Time 05/18/19 21 Colonoscopy completed [facility] 07/04/2021 08:51:54 05/18/19 21 EGD-Upper Endoscopy completed [facility] 07/04/2021 08:52:18 05/18/19 02 Cholecystectomy completed [facility] 07/04/2021 08:49:57 05/18/18 86 Vasectomy completed [facility] 07/04/2021 08:50:24 05/18/18 82 Sinus Surgery completed [facility] 07/04/2021 08:51:44 05/18/18 72 Appendectomy completed [facility] 07/04/2021 08:51:11 05/18/18 51 Tonsillectomy completed [facility] 07/04/2021 08:50:53 Imaging Results None recorded. Procedure Notes None recorded. Medical Equipment None Reported. Allergies Allergen ID Allergen Name Allergen Category Reaction Reaction Severity Criticality Documentation Date Start Date Code Code System Note Provider Name and Address Organization Details Recorded Time 058544 Ceclor medicatio n anaphylax is Not available Not available 06/17/201978044 5 RxNorm Denise CHA Velazquez [address], [place], [address], [facility], [facility] 0 18:18:40 [id number] Pyridium medicatio n anaphylax is Not available Not available 06/17/2019 8998 RxNorm Denise Meaghan [place], [facility] [address], [place], [address], [facility] - [facility], [facility] 0 18:18:49 Medications Name Sig Start Date Stop Date Status Note LastModified by Organization Details LastModified Time atorvastati n 10 mg tablet Take 1 tablet every day by oral route. active Not Available Not Available No t Available Medrol (Mac) 4 mg tablets in a dose pack As directed per steroid pack. Start Thursday06/18/2019. 07/04 completed Not Available Not Available Not Available allopurinol 100 mg tablet Take 1 tablet every day by oral route. active Not Available Not Available No t Available Depo-Medrol 80 mg/mL suspension for injection Take 80 mg by injection route. 07/04 completed Not Available Not Available Not Available Robaxin-750 750 mg tablet 1-2 po tid prn muscle spasms. 07/04 completed Not Available Not Available Not Available metoprolol tartrate 50 mg tablet Take 1 tablet every day by oral route. active Not Available Not Available No t Available lorazepam 1 mg tablet Take 1 tablet as needed by oral route. active Not Available Not Available No t Available ezetimibe 10 mg tablet Take 1 tablet every day by oral route. active Not Available Not Available No t Available alfuzosin ER 10 mg tablet,exte nded release 24 hr Take 1 tablet every day by oral route. active Not Available Not Available No t Available ketorolac 30 mg/mL injection solution Inject 30 mg every day by intraveno us route. 07/04 completed Not Available Not Available Not Available Xarelto 20 mg tablet Take 1 tablet every day by oral route. active Not Available Not Available No t Available Vitals Date Recorded Body weight Body mass index (BMI) Body height Heart rate Oxygen saturation Oxygen saturation in Arterial blood by Pulse oximetry Provider Name and Address Organization Details Last Updated DateTime 0 24367.7 7 g 29.3 kg/m2 170.18 cm 86 /min 96 % 96 % Drake Stephens [facility], [facility] 0 17:53:01 Date Recorded Body height Body mass index (BMI) Body weight Body temperature Heart rate Oxygen saturation Oxygen saturation in Arterial blood by Pulse oximetry Systolic blood pressure Diastolic blood pressure Provider Name and Address Organization Details Last Updated DateTime 2 170.18 cm 29.8 kg/m2 57536.5 5 g 97.4 [degF] 95 /min 96 % 96 % 132 mm[Hg] 80 mm[Hg] Carlene Joan [facility], [facility] 2 08:54:15 Social History Question Answer Notes LastModified by Organizat ion Details LastModified Time Tobacco Smoking Status Former Smoker Drake Kat victor [facility] 06/17/2019 17:48:35 Do You Have An Advance Directive? Yes Information not available 06/17/2019 Do You Wear A Helmet When Biking? Yes Information not available 07/04/2021 Is Blood Transfusion Acceptable In An Emergency? Yes Information not available 07/04/2021 What Is Your Level Of Caffeine Consumption? Moderate Information not available 06/17/2019 In The 14 Days Before Symptom Onset, Have You Had Close Contact With A Laboratory-confir med COVID-19 While That Case Was Ill? No Information not available 07/04/2021 In The 14 Days Before Symptom Onset, Have You Had Close Contact With A Person Who Is Under Investigation For COVID-19 While That Person Was Ill? No Information not available 07/04/2021 Have You Been To An Area Known To Be High Risk For COVID-19? No Information not available 07/04/2021 What Type Of Diet Are You Following? REGULAR Information not available 06/17/2019 Education 12 Information no t available 07/04/2021 What Is The Highest Grade Or Level Of School You Have Completed Or The Highest Degree You Have Received? [id number] Information not available 07/04/2021 Have There Been Any Changes To Your Family Or Social Situation? No Information no t available 07/04/2021 When Did You Quit Smoking? 16+yearssinc elastcigaret te Information not available 07/04/2021 Alcohol Use 1-2 Per Day Glass Of Wine At Night Information not available 07/04/2021 Do You Smoke? No Information not available 07/04/2021 Marital Status erika Informatio n not available 07/04/2021 Do You Have A Medical Power Of Vault Teller? Yes Information not available 07/04/2021 What Was The Date Of Your Most Recent Tobacco Screening? 07/04/2021 Information not available 07/04/2021 Do You Use Protection During Sex? No Information not available 07/04/2021 What Is Your Relationship Status? Information not available 07/04/2021 Do You Use Your Seat Belt Or Car Seat Routinely? Yes Information not available 07/04/2021 Are You Sexually Active? Yes Information not available 06/17/2019 Do You Have Smoke And Carbon Monoxide Detectors In Your Home? Yes Information not available 07/04/2021 At What Age Did You Start Smoking Tobacco? 17 Information not available 07/04/2021 Are You Passively Exposed To Smoke? No Information no t available 07/04/2021 Do You Use Sunscreen Routinely? Yes Information not available 07/04/2021 Has Tobacco Cessation Counseling Been Provided? No Information not available 07/04/2021 How Many Years Have You Smoked Tobacco? 8 Information not available 07/04/2021 How Many Days In The Past Year Have You Consumed 5 Or More Drinks? 0 Information no t available 07/04/2021 Sex: Unknown Functional Status Question Answer Note LastModified by Organizat ion Details LastModified Time Do you use any illicit or recreational drugs? No Information not available 07/04/2021 Do you or have you ever used any other forms of tobacco or nicotine? No Information not available 07/04/2021 What is your level of alcohol consumption? Moderate Information not available 06/17/2019 Do you or have you ever used smokeless tobacco? Never used smokeless tobacco Information not available 06/17/2019 Are you currently employed? No kwiesner Information not available 07/04/2021 What is your exercise level? Moderate Information not available 06/17/2019 Mental Status None recorded. Family History Relationship Description Onset Age of this Age Resolved Age Notes LastModified by Organization Details LastModified Time Mother Heart disease mwyas Not available 2019 17:48:20 Mother Hypertensive disorder mwyas Not available 2019 17:48:20 Father Heart disease mwyas Not available 2019 17:48:20 Father Hypertensive disorder Not available 2021 08:42:08 Brother Hypertensive disorder Not available 2021 08:42:08 Medical History Condition Response Cancer (location) N Other Y Gout N Thyroid Disease N Kidney Stones N Emphysema/COPD N Measles/Mumps N Sexually Transmitted Disease N Depression N Prostate Problems N Vascular Disease N Rash/Skin Condition N Amputation (location) N Parkinson's N Paralysis N Headaches/Migraines N Cardiac Pacemaker/defibrillator N Nerve Damage / Neuropathy N Arthritis N Sleep disorder/Insomnia N Infertility N Heart disease / Heart Attack N Crohn's Disease N HIV/AIDS N Stroke/TIA N High Cholesterol N Colon Problems N Serious Injuries N Kidney Disease N Memory Loss/Alzheimer's N Gallbladder disease N High blood pressure N Congestive heart failure N Falls N Alcohol Overuse N Blood Thinner Treatment N Hormone Replacement N Nervous Breakdown N Purdy's Esophagus N Anemia N Urinary Problems N Colon Polyps N Gastritis N Hospitalizations (other than operations) N Back pain N Diabetes N Rheumatic Fever N Bleeding Disorder N Cardiac Arrhythmias /irregular heart rat e Y Osteopenia/Osteoporosis N Anxiety/Stress Y Asthma N Vision Problems N Erectile / Sexual Dysfunction N Ostomies (location) N Seizures N Jaundice N Sleep Apnea N Hepatitis N Past Reacton to Contrast Media N Cirrhosis N GERD/Ulcer N Chicken Pox N Allergies (other than meds) N Immunizations Vaccine Type Date Status Note Provider Nam e and Address Organization Details Recorded Time COVID-19, mRNA, LNP-S, PF, 100 mcg/0.5mL dose or 50 mcg/0.25mL dose 03/10/2021 completed TARIQ Cuellar - [facility], [facility] 07/04/2021 08:41:50 COVID-19, mRNA, LNP-S, PF, 100 mcg/0.5mL dose or 50 mcg/0.25mL dose 06/27/2020 completed Carlene victor [facility] 07/04/2021 08:41:50 COVID-19, mRNA, LNP-S, PF, 100 mcg/0.5mL dose or 50 mcg/0.25mL dose 05/29/2020 completed Carlene victor [facility], [facility] 07/04/2021 08:41:50 Influenza, high-dose, trivalent, PF 01/16/2021 completed Carlene victor [facility] 07/04/2021 08:47:35 Past Encounters Encounter ID Performer Location Encounter Start Date Encounter Closed Date Diagnosis/Indication Diagnosis SNOMED-CT Code Diagnosis ICD10 Code Diagnosis Note [id number] CHA Jim [facility] [address] [place] [address] 06/17/2019 16:54:50 06/18/2019 08:08:18 Right side sciatica [id number] 47045 M54.31 Acute. Worsening. Initial treatment. *Pt in severe 10 + / 10 pain. Injection of depo medrol 80mg IM and toradol 30mg IM. Rx for a muscle relaxer prn, Rx for a MDP to start tomorrow am Thursday06/18/2019. Follow-up at the walk-in if no better or ER if any worse, or any red flag symptoms. Patient voiced understand ing and agreement with treatment plan. [id number] Mercy aguilera, [facility] [address] [place] [address] 07/04/2021 08:32:21 07/04/2021 17:37:22 Atrial fibrillation 50624732 I48.91 Stable well-contr olled continue on Xarelto and beta-block er Gastrointe stinal hemorrhage 11588282 K92.2 Patient has not had repeat labs since he had his acute GI bleed he was hospitaliz ed and had transfusio ns in [facility] tts we need to repeat CBC and CMP patient understand s he cannot take NSAIDs and needs to immediatel y call when symptoms recur Anterior t ibial stress syndrome 837773716 S86.891A Recommend topical anti-infla mmatories and stretching Gout 05331954 M10.9 Continue on allopurino l monitor for flares Health Concerns Section Related Observation LastModified by Organization Detai ls LastModified Time None Recorded Concern Status LastModified by Organization Details LastModified Time None Recorded Advance Directives Directive Y: Payers Insurance Date Sequence Insurance Name Policy Number Policy Bledsoe Covered Member ID Bledsoe Member ID Guarantor Name 10/18/2021 1 [place] Alirio Brendan [id number] Alirio Cardona 10/18/2021 2 [place]) [id number] Alirio Martinez Brendan [id number] Alirio Brendan Notes Date Note Type Note Provider Name and Address Organization Details Recorded Time 0 text/html Back PainReported bypatient.Reason for visit:acute complaint; Onset 1 week ago, Worsening. Onset Thursday from a car ride. Severe pain last hs and today. Right sciatic, with right radicular pain. Location:lumbar;pain radiates to foot Quality:sharp/stabbing Severity:worse Duration:constant Onset/Timing:gradual Context:history of prior back problems Alleviating Factors:nothing Aggravating Factors:movement/positio jian;bending over;extending back;twisting Associated Symptoms:tingling; denies fever; denies weak limbs; denies numbness of the legs/feet New Patient. CHA Jim [address] [facility] [address], [place], [address], [facility] - [facility], [facility] 06/17/2019 21:24:43 2 text/html Patient presents today to establish care. Has a history of atrial fibrillation hypertension and gout also has high cholesterol and is on Zetia takes alfuzosin for his prostate patient has having some issues with estrada splints on his right estrada he states that he stopped riding his bike as often and thinks that may be a contributor upon review of his medical records in his chart back in May he had an episode of lower GI bleed they thought it was due to him taking an NSAID in addition to his blood thinner. Patient states he is due for repeat labs he states he has no longer had any blood in his stool they thought was from diverticulosis his bowel movements have been normal he has a history of gout which rarely requiresCORONAVIRUS SCREENING TOOL Are you experiencing any NEW symptom(s) listed below that is not due to another health problem None of the below Is anyone else in your household experiencing any NEW symptoms No In the past 2 weeks did you have close contact (within 6 feet for at least 15 minutes) with someone with symptoms of COVID-19 or who tested positive for COVID-19 No In the past 2 weeks have you been tested for COVID-19 No, I have not been tested Why did you get tested? Please select all that apply N/A In the past 2 weeks has someone in your household tested positive for COVID-19 No Have you ever received a dose of COVID-19 vaccine? No Which vaccine product did you receive? N/A Imported from [employer] on 07/04/2021 QUALITY MEASURE QUESTIONNAIRE Are you a diabetic patient No Has the Patient previously received any type of colorectal cancer screener Yes Please confirm which of the following colorectal screeners the Patient has received in the past Colonoscopy Please enter the date you received your last Colonoscopy 05/03/2021 Colonoscopy Result Negative Imported from [employer] on 07/04/2021 Mercy Kim, DO [address] [facility] [address], [place], [address], [facility] - [facility], [facility] 07/04/2021 09:27:50
== END 2024-10-19 10:11 | disposition home or self-care (01) ==
LOC: HO.XRAY 10:10
PROVIDERS: PCP Internal Medicine; Visit Provider Registered Nurse Emergency
DX: M51.369 Other intervertebral disc degeneration, lumbar region without mention of lumbar back pain or lower extremity pain (principal)
CPT/HCPCS: 72114

== ENCOUNTER → 2024-10-19 10:14 | Outpatient (BNV) | payer MEDICARE, SELFPAY | PROVIDERS: PCP Internal Medicine; Visit Provider Radiology Diagnostic Radiology | DX: M43.16 Spondylolisthesis, lumbar region (principal) | CPT/HCPCS: 72114 ==

== ENCOUNTER 2024-11-02 17:45 | Outpatient (REF) | payer MEDICARE, SELFPAY ==
--- NOTE | ~2024-11-02 | MR_ITS ---
EXAMINATION: MR LUMBAR SPINE WITHOUT CONTRAST TECHNIQUE: Multiplanar multisequence imaging was performed through the lumbar spine without contrast. INDICATION: Lower back pain without radiculopathy failed greater than 12 weeks; conservative therapy; PRIOR: X-ray October 19, 2024 FINDINGS: 5 non-rib bearing lumbar segments are present on x-ray Marrow and end-plates: Schmorl's nodes are present in the inferior T11, T12, and L1. Modic 2 signal is present anteriorly at L1-2. Alignment: There is subtle retrolisthesis at L1-2, L2-3, L3-4, and L5-S1. Soft tissues: Incompletely imaged 5 cm mass in the superior right kidney demonstrates low signal on T1 imaging, high signal on fluid sensitive sequences, and hairline septations, Bosniak II. Other benign simple cyst are present in the left kidney. Conus: The termination of conus medullaris is within normal limits at the level of lower L1. T12-L1: Broad-based disc bulges result in spinal stenosis or foraminal narrowing. L1-L2: Broad-based disc bulge does not result in spinal stenosis or foraminal narrowing. L2-L3: There is mild loss of disc height and circumferential broad-based disc bulge. There is mild facet degeneration. There is no spinal stenosis or foraminal narrowing. L3-L4: There is mild loss of disc height and circumferential broad-based disc extrusion/bulge. There is mild facet degeneration and trace fluid in the left facet joint. There is mild spinal stenosis. There is mild left greater than right subarticular zone narrowing and mild foraminal narrowing. L4-L5: Circumferential broad-based is bulge, ligamentum flavum thickening, and mild facet arthropathy results in mild spinal stenosis and mild left greater than right subarticular zone narrowing. Neural foramina are mildly narrow, more on the right. L5-S1: Circumferential broad-based disc bulge and broad posterior disc extrusion with mild facet arthropathy and ligamentum flavum thickening does not result in spinal stenosis. There is mild right subarticular zone narrowing. There is mild to moderate right and mild left foraminal narrowing. MR/MR lumbar spine wo con IMPRESSION: Multilevel degenerative disc disease with areas of mild spinal stenosis and foraminal narrowing, as above. Electronically signed by: Peng Teague MD 11/02/2024 06:39 PM EDT RP
--- OUTSIDE RECORDS SUMMARY | 2024-11-02 18:18 | XMS_ITS | Data Portability ---
Author Organization [facility] [employer], [facility], [facility] Address [address] [place] [address] Care Team Providers Care Snow Fence Erector Name Role Phone EMRCY KIM Primary Care Provider MERCY KIM Referring Provider Assessment Encounter Date Assessment Date Assessment LastModified by Organization Details LastModified Time 06/17/2019 06/17/2019 New Patient. Not available 0 06/17/2019 18:11:43 Plan of Treatment Reminders Order Date Submit Date Provider Last Modified By Organization Details Last Modified Time Details Appointments None recorded. Lab CBC 2021 022 [facility], [address] [place], [address], 2 16:19:37 CMP, serum or plasma 2021 022 [facility], [address] [place], [address], 2 16:19:38 Referral None recorded. Procedures None recorded. Surgeries None recorded. Imaging None recorded. Medication Orders Depo-Medrol 80 mg/mL suspension for injection 2019 020 Not available 08:45:13 Robaxin-750 750 mg tablet 2019 020 [facility][id number], [address], [place], [address], 2 08:45:55 Medrol (Mac) 4 mg tablets in a dose pack 2019 020 [facility] #[id number], [address], [place], [address], 2 08:45:18 ketorolac 30 mg/mL injection solution 2019 020 Not available 08:45:16 Patient TargetsNo targets recorded. Patient Instructions Encounter Date Encounter Id Patient Instructions Last Modified By Organization Details Last Modified Time 06/17/2019 [id number] Patient understa nds instructions and will seek medical attention if symptoms worsen as directed. [email or web address] Not available 06/17/2019 18:11:48 07/04/[id number] gastrointestinal bleeding: care instructions [email or web address] Not available 07/04/2021 09:17:14 Reason for Referral None Reported. Results Created Date Observation Date Name Description Value Unit Range Abnormal Flag Note LastModifiedBy Organization Detail LastModifiedTime 07/04/19 22 07/04/2021 CBC W/ AUTOD IFF, COMPL ETE BLOOD COUNT WBC 6.9 K/uL 3.6-10 .0 Not Available [facility] [address], [place], [address], 07/04/2021 16:19:37 07/04/19 22 07/04/2021 CBC W/ AUTOD IFF, COMPL ETE BLOOD COUNT nucleated RBC 0.10 % 0.00-2 .00 Not Available [facility] [address], [place], [address], 07/04/2021 16:19:37 07/04/19 22 07/04/2021 CBC W/ AUTOD IFF, COMPL ETE BLOOD COUNT RBC 4.69 M/uL 4.10-5 .80 Not Available [facility] [address], [place], [address], 07/04/2021 16:19:37 07/04/19 22 07/04/2021 CBC W/ AUTOD IFF, COMPL ETE BLOOD COUNT HGB 14.0 g/dL 13.2-1 7.0 Not Available [facility] [address], [place], [address], 07/04/2021 16:19:37 07/04/19 22 07/04/2021 CBC W/ AUTOD IFF, COMPL ETE BLOOD COUNT hematocrit 42.30 % 37.00- 51.00 Not Available [facility] [address], [place], [address], 07/04/2021 16:19:37 07/04/19 22 07/04/2021 CBC W/ AUTOD IFF, COMPL ETE BLOOD COUNT MCV 90.2 fL 80.0-9 9.0 Not Available [facility], [place], [address], 07/04/2021 16:19:37 07/04/19 22 07/04/2021 CBC W/ AUTOD IFF, COMPL ETE BLOOD COUNT MCH 29.8 pg 27.0-3 3.0 Not Available [facility] [address], [place], [address], 07/04/2021 16:19:37 07/04/19 22 07/04/2021 CBC W/ AUTOD IFF, COMPL ETE BLOOD COUNT MCHC 33.0 g/dL 32.0-3 6.0 Not Available [facility] [address], [place], [address], 07/04/2021 16:19:37 07/04/19 22 07/04/2021 CBC W/ AUTOD IFF, COMPL ETE BLOOD COUNT platelets 258 K/uL 140-44 0 Not Available [facility], [place], [address], 07/04/2021 16:19:37 07/04/19 22 07/04/2021 CBC W/ AUTOD IFF, COMPL ETE BLOOD COUNT RDW 13.8 % 11.0-1 5.0 Not Available [facility] [address], [place], [address], 07/04/2021 16:19:37 07/04/19 22 07/04/2021 CBC W/ AUTOD IFF, COMPL ETE BLOOD COUNT MPV 8.2 fL 7.4-10 .4 Not Available [facility] [address], [place], [address], 07/04/2021 16:19:37 07/04/19 22 07/04/2021 CBC W/ AUTOD IFF, COMPL ETE BLOOD COUNT neutrophil, % 72.7 % Not Available [facility] [address], [place], [address], 07/04/2021 16:19:37 07/04/19 22 07/04/2021 CBC W/ AUTOD IFF, COMPL ETE BLOOD COUNT lymphocyte % 17.0 % Not Available [facility] [address], [place], [address], 07/04/2021 16:19:37 07/04/19 22 07/04/2021 CBC W/ AUTOD IFF, COMPL ETE BLOOD COUNT monocyte % 8.4 % Not Available [facility] [address], [place], [address], 07/04/2021 16:19:37 07/04/19 22 07/04/2021 CBC W/ AUTOD IFF, COMPL ETE BLOOD COUNT eosinophil % 1.2 % Not Available [facility] [address], [place], [address], 07/04/2021 16:19:37 07/04/19 22 07/04/2021 CBC W/ AUTOD IFF, COMPL ETE BLOOD COUNT basophil % 0.7 % Not Available [facility] [address] [place], [place] [address], [place], [address], 07/04/2021 16:19:37 07/04/19 22 07/04/2021 CBC W/ AUTOD IFF, COMPL ETE BLOOD COUNT neutrophil, # 5.1 K/uL 1.5-7. 5 Not Available [facility] [address] [place], [place] [address], [place], [address], 07/04/2021 16:19:37 07/04/19 22 07/04/2021 CBC W/ AUTOD IFF, COMPL ETE BLOOD COUNT lymphocyte # 1.2 K/uL 0.8-4. 0 Not Available [facility] [address] [place], [place] [address], [place], [address], 07/04/2021 16:19:37 07/04/19 22 07/04/2021 CBC W/ AUTOD IFF, COMPL ETE BLOOD COUNT monocyte # 0.6 K/uL 0.1-1. 0 Not Available [facility] [address] [place], [place] [address]y [address] [place], [address], 07/04/2021 16:19:37 07/04/19 22 07/04/2021 CBC W/ AUTOD IFF, COMPL ETE BLOOD COUNT eosinophil # 0.1 K/uL 0.1-1. 0 Not Available [facility] [address] [place], [place] [address]y [address], [place], [address], 07/04/2021 16:19:37 07/04/19 22 07/04/2021 CBC W/ AUTOD IFF, COMPL ETE BLOOD COUNT basophil # 0.0 K/uL 0.0-0. 2 Not Available [facility] [address] [place] [address] [address], [place], [address], 07/04/2021 16:19:37 07/04/19 22 07/04/2021 CMP, COMPR EHENS DIANN METAB OLIC PANEL glucose 99 mg/dL 70-100 Not Available [facility] [address] [facility] [address], [place], [address], 07/04/2021 16:19:38 07/04/19 22 07/04/2021 CMP, COMPR EHENS DIANN METAB OLIC PANEL BUN 20 mg/dL 7-25 Not Available [facility] [address] [facility] [facility] [address], [place], [address], 07/04/2021 16:19:38 07/04/19 22 07/04/2021 CMP, COMPR EHENS DIANN METAB OLIC PANEL creatinine 1.1 mg/dL 0.6-1. 3 Not Available [facility] [address] [facility], [place], [address], 07/04/2021 16:19:38 07/04/19 22 07/04/2021 CMP, COMPR EHENS DIANN METAB OLIC PANEL BUN/creatini ne ratio 18.02 calc Not Available [facility] [address], [place], [address], 07/04/2021 16:19:38 07/04/19 22 07/04/2021 CMP, COMPR EHENS DIANN METAB OLIC PANEL eGFR 83 mL/mi n/1.7 3m2 >60 THREE CONSE CUTIV E VALUE S <60 mL/mi n COULD BE INDIC ATIVE OF KIDNE Y DISEA SE. Not Available [facility] [address], [place], [address], 07/04/2021 16:19:38 07/04/19 22 07/04/2021 CMP, COMPR EHENS DIANN METAB OLIC PANEL eGFR non- 69 mL/mi n/1.7 3m2 >60 THREE CONSE CUTIV E VALUE S < 60 mL/mi n COULD BE INDIC ATIVE OF KIDNE Y DISEA SE Not Available [facility] [address], [place], [address], 07/04/2021 16:19:38 07/04/19 22 07/04/2021 CMP, COMPR EHENS DIANN METAB OLIC PANEL sodium 140 mmol/ L 135-14 5 Not Available [facility] [address], [place], [address], 07/04/2021 16:19:38 07/04/19 22 07/04/2021 CMP, COMPR EHENS DIANN METAB OLIC PANEL potassium 4.7 mmol/ L 3.5-5. 5 Not Available [facility] [address], [place], [address], 07/04/2021 16:19:38 07/04/19 22 07/04/2021 CMP, COMPR EHENS DIANN METAB OLIC PANEL chloride 102 mmol/ L 100-11 5 Not Available [facility] [address], [place], [address], 07/04/2021 16:19:38 07/04/19 22 07/04/2021 CMP, COMPR EHENS DIANN METAB OLIC PANEL CO2 29 mmol/ L 21-33 Not Available [facility] [address], [place], [address], 07/04/2021 16:19:38 07/04/19 22 07/04/2021 CMP, COMPR EHENS DIANN METAB OLIC PANEL anion gap 8.8 calc Not Available [facility] [address], [place], [address], 07/04/2021 16:19:38 07/04/19 22 07/04/2021 CMP, COMPR EHENS DIANN METAB OLIC PANEL calcium 9.6 mg/dL 8.8-10 .6 Not Available [facility] [address], [place], [address], 07/04/2021 16:19:38 07/04/19 22 07/04/2021 CMP, COMPR EHENS DIANN METAB OLIC PANEL total protein 6.6 g/dL 6.2-8. 6 Not Available [facility] [address], [place], [address], 07/04/2021 16:19:38 07/04/19 22 07/04/2021 CMP, COMPR EHENS DIANN METAB OLIC PANEL albumin 4.4 g/dL 3.5-5. 7 Not Available [facility] [address], [place], [address], 07/04/2021 16:19:38 07/04/19 22 07/04/2021 CMP, COMPR EHENS DIANN METAB OLIC PANEL globulin 2.2 g/dL 1.3-4. 0 Not Available [facility] [address], [place], [address], 07/04/2021 16:19:38 07/04/19 22 07/04/2021 CMP, COMPR EHENS DIANN METAB OLIC PANEL A/G ratio 1.9 calc 1.0-2. 8 Not Available [facility] [address], [place], [address], 07/04/2021 16:19:38 07/04/19 22 07/04/2021 CMP, COMPR EHENS DIANN METAB OLIC PANEL AST (SGOT) 21 U/L 13-39 Not Available [facility] [address], [place], [address], 07/04/2021 16:19:38 07/04/19 22 07/04/2021 CMP, COMPR EHENS DIANN METAB OLIC PANEL ALT (SGPT) 29 U/L 7-52 Not Available [facility] [address], [place], [address], 07/04/2021 16:19:38 07/04/19 22 07/04/2021 CMP, COMPR EHENS DIANN METAB OLIC PANEL total bilirubin 0.49 mg/dL 0.30-1 .00 Not Available [facility] [address], [place], [address], 07/04/2021 16:19:38 07/04/19 22 07/04/2021 CMP, COMPR EHENS DIANN METAB OLIC PANEL alkaline phosphatase 70 U/L 20-128 Not Available [facility] [address], [place], [address], 07/04/2021 16:19:38 07/04/19 22 07/04/2021 VENIP UNCTU RE results Compl ete Not Available [facility] [address], [place], [address], 07/04/2021 09:32:25 Result Notes None recorded. 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 Procedures Surgical History Date Name Laterality Status Provider Name and Address Organization Details Recorded Time 05/18/19 21 Colonoscopy completed [facility] 07/04/2021 08:51:54 05/18/19 21 EGD-Upper Endoscopy completed [facility] 07/04/2021 08:52:18 05/18/19 02 Cholecystectomy completed [facility] 07/04/2021 08:49:57 05/18/18 86 Vasectomy completed [facility] 07/04/2021 08:50:24 05/18/18 82 Sinus Surgery completed [facility] 07/04/2021 08:51:44 05/18/18 72 Appendectomy completed [facility] 07/04/2021 08:51:11 05/18/18 51 Tonsillectomy completed [facility] 07/04/2021 08:50:53 Imaging Results None recorded. Procedure Notes None recorded. Medical Equipment None Reported. Allergies Allergen ID Allergen Name Allergen Category Reaction Reaction Severity Criticality Documentation Date Start Date Code Code System Note Provider Name and Address Organization Details Recorded Time 467464 Ceclor medicatio n anaphylax is Not available Not available 06/17/201947831 5 RxNorm Denise CHA Velazquez [address], [place], [address], [facility], [facility] 0 18:18:40 833930 Pyridium medicatio n anaphylax is Not available Not available 06/17/2019 8998 RxNorm Denise Meaghan [place], [facility] [address], [place], [address], [facility] - [facility], [facility] 0 [...] Address Organization Details Last Updated DateTime 0 [address]321.7 7 g 29.3 kg/m2 170.18 cm 86 /min 96 % 96 % Drake Stephens [facility], [facility] 0 17:53:01 Date Recorded Body height Body mass index (BMI) Body weight Body temperature Heart rate Oxygen saturation Oxygen saturation in Arterial blood by Pulse oximetry Systolic blood pressure Diastolic blood pressure Provider Name and Address Organization Details Last Updated DateTime 2 170.18 cm 29.8 kg/m2 50641.5 5 g 97.4 [degF] 95 /min 96 % 96 % 132 mm[Hg] 80 mm[Hg] Carlene Joan [facility], [facility] 2 08:54:15 Social History Question Answer Notes LastModified by Organizat ion Details LastModified Time Tobacco Smoking Status Former Smoker Drake Kat victor [facility] 06/17/2019 17:48:35 Do You Have An [...] Or The Highest Degree You Have Received? [id number] Information not available 07/04/2021 Have There Been [...] Do You Have A Medical Power Of Store Receiver? Yes Information not available 07/04/2021 What Was [...] N Thyroid Disease N Kidney Stones N Measles/Mumps N Emphysema/COPD N Sexually Transmitted Disease N Depression N Prostate Problems N Vascular Disease N Rash/Skin Condition N Amputation (location) N Parkinson's N Paralysis N Headaches/Migraines N Cardiac Pacemaker/defibrillator N Nerve Damage / Neuropathy N Arthritis N Sleep disorder/Insomnia N Infertility N Heart disease / Heart Attack N Crohn's Disease N HIV/AIDS N Stroke/TIA N Colon Problems N High Cholesterol N Serious Injuries N Kidney Disease N [...] mcg/0.25mL dose 03/10/2021 completed TARIQ Cuellar - [facility], [facility] 07/04/2021 08:41:50 COVID-19, mRNA, LNP-S, PF, 100 mcg/0.5mL dose or 50 mcg/0.25mL dose 06/27/2020 completed Carlene victor [facility] 07/04/2021 08:41:50 COVID-19, mRNA, LNP-S, PF, 100 mcg/0.5mL dose or 50 mcg/0.25mL dose 05/29/2020 completed Carlene victor [facility], [facility] 07/04/2021 08:41:50 Influenza, high-dose, trivalent, PF 01/16/2021 completed Carlene victor [facility] 07/04/2021 08:47:35 Past Encounters Encounter ID Performer Location Encounter Start Date Encounter Closed Date Diagnosis/Indication Diagnosis SNOMED-CT Code Diagnosis ICD10 Code Diagnosis Note [id number] CHA Jim [facility] [address] [place] [address] 06/17/2019 16:54:50 06/18/2019 08:08:18 Right side sciatica 0368467906 87010 M54.31 Acute. Worsening. Initial treatment. *Pt in [...] understand ing and agreement with treatment plan. [id number] Mercy aguilera, [facility] [address] [place] [address] 07/04/2021 08:32:21 07/04/2021 17:37:22 Atrial fibrillation 56737118 I48.91 Stable well-contr olled continue on Xarelto and beta-block er Gastrointe stinal hemorrhage 42113784 K92.2 Patient has not had repeat labs since he had his acute GI bleed he was hospitaliz ed and had transfusio ns in [facility] tts we need to repeat CBC and CMP patient understand s he cannot take NSAIDs and needs to immediatel y call when symptoms recur Anterior t ibial stress syndrome 209951422 S86.891A Recommend topical anti-infla mmatories and stretching Gout 65230771 M10.9 Continue on allopurino l monitor for flares Health Concerns Section Related Observation LastModified by Organization Detai ls LastModified Time None Recorded Concern Status LastModified by Organization Details LastModified Time None Recorded Advance Directives Directive Y: Payers Insurance Date Sequence Insurance Name Policy Number Policy Bledsoe Covered Member ID Bledsoe Member ID Guarantor Name 10/18/2021 1 [place] Alirio Brendan [id number] Alirio Cardona 10/18/2021 2 [place]) [id number] Alirio Martinez Brendan [id number] Alirio Brednan Notes Date Note Type Note Provider Name [...] of the legs/feet New Patient. CHA Jim [address], [place], [address], [facility] - [facility], [facility] 06/17/2019 [...] product did you receive? N/A Imported from [employer] on 07/04/2021 QUALITY MEASURE QUESTIONNAIRE Are you a diabetic patient No Has the Patient previously received any type of colorectal cancer screener Yes Please confirm which of the following colorectal screeners the Patient has received in the past Colonoscopy Please enter the date you received your last Colonoscopy 05/03/2021 Colonoscopy Result Negative Imported from [employer] on 07/04/2021 Mercy Kim, DO [address], [place], [address], [facility] - [facility], [facility] 07/04/2021 09:27:50
== END 2024-11-02 17:46 | disposition home or self-care (01) ==
LOC: HO.MRI 17:45
PROVIDERS: PCP Internal Medicine; Visit Provider Registered Nurse Emergency
DX: M51.379 Other intervertebral disc degeneration, lumbosacral region without mention of lumbar back pain or lower extremity pain (principal); M48.07 Spinal stenosis, lumbosacral region
CPT/HCPCS: 72148

== ENCOUNTER → 2024-11-02 17:45 | Outpatient (BNV) | payer MEDICARE, SELFPAY | PROVIDERS: PCP Internal Medicine; Visit Provider Radiology Diagnostic Radiology | DX: M51.369 Other intervertebral disc degeneration, lumbar region without mention of lumbar back pain or lower extremity pain (principal) | CPT/HCPCS: 72148 ==

== ENCOUNTER 2024-11-16 08:29 | Outpatient (AMB) | payer MEDICARE, SELFPAY ==
--- OUTSIDE RECORDS SUMMARY | 2024-11-16 08:33 | XMS_ITS | Continuity of Care Document ---
Author Organization [facility]. If a dditional information is needed, contact Health Information Management at [phone] Address [address] [place] [address] Phone Care Team Providers Care Java Grails Developer Name Role Phone Unavailable Unavailable Unavailable Unavailable Unavailable Unavailable Unavailable Unavailable Unavailable Problems Pneumonia Onset:04-Jan-2019 Maicol Martinez MD Allergies and Adverse Reactions Codeine(Allergy) Onset: 04-Jan-2019 Cefaclor(Allergy) Onset: 04-Jan-2019 Phenazopyridine(Allergy) Onset: 04-Jan-2019 Medications LORazepam 1 MG Oral Tablet;1 MILLIGRAM PO BID PRN Start:04-Jan-2019 Comments:1 MG PO BID PRN As Needed for ANXIETY allopurinol 100 MG Oral Tabl et;100 MILLIGRAM PO DAILY Start:04-Jan-2019 Comments:100 MG PO DAILY 24 HR metoprolol succinate 5 0 MG Extended Release Oral Tablet;50 MILLIGRAM PO DAILY Start:04-Jan-2019 Comments:50 MG PO DAILY rivaroxaban 20 MG Oral Table t;20 MILLIGRAM PO C DN Start:04-Jan-2019 Comments:20 MG PO C DN atorvastatin 10 MG Oral Tabl et;10 MILLIGRAM PO DAILY Start:04-Jan-2019 Comments:10 MG PO DAILY Social History Smoking Status Never smoked tobacco Recorded: 04-Jan-2019
--- OUTSIDE RECORDS SUMMARY | 2024-11-16 08:34 | XMS_ITS | Data Portability ---
Author Organization [facility], [facility], [facility] Address [address] [place] [address] Care Team Providers Care Shop Foreman Name Role Phone MERCY KIM Primary Care Provider MERCY KIM Referring Provider Assessment Encounter Date Assessment Date Assessment LastModified by Organization Details LastModified Time 06/17/2019 06/17/2019 New Patient. [email or web address] Not available 0 06/17/2019 18:11:43 Plan of Treatment Reminders Order Date Submit Date Provider Last Modified By Organization Details Last Modified Time Details Appointments None recorded. Lab CBC 2021 022 [facility], [address] [place], [address], 2 16:19:37 CMP, serum or plasma 2021 022 [facility], [address] [place], [address], 2 16:19:38 Referral None recorded. Procedures None recorded. Surgeries None recorded. Imaging None recorded. Medication Orders Depo-Medrol 80 mg/mL suspension for injection 2019 020 Not available 08:45:13 Robaxin-750 750 mg tablet 2019 020 [facility] #[id number], [address], [place], [address], 2 08:45:55 Medrol (Mac) 4 mg tablets in a dose pack 2019 020 [facility]acy #[id number], [address], [place], [address], 2 08:45:18 ketorolac 30 mg/mL injection solution 2019 020 Not available 2 08:45:16 Patient TargetsNo targets recorded. Patient Instructions Encounter Date Encounter Id Patient Instructions Last Modified By Organization Details Last Modified Time 06/17/2019 [id number] Patient understa nds instructions and will seek medical attention if symptoms worsen as directed. [email or web address] Not available 06/17/2019 18:11:48 07/04/[id number] gastrointestinal bleeding: care instructions [email or web address] Not available 07/04/2021 09:17:14 Reason for Referral None Reported. Results Created Date Observation Date Name Description Value Unit Range Abnormal Flag Note LastModifiedBy Organization Detail LastModifiedTime 07/04/19 22 07/04/2021 CBC W/ AUTOD IFF, COMPL ETE BLOOD COUNT WBC 6.9 K/uL 3.6-10 .0 Not Available [facility] [address], [place], [address], 07/04/2021 16:19:37 07/04/19 22 07/04/2021 CBC W/ AUTOD IFF, COMPL ETE BLOOD COUNT nucleated RBC 0.10 % 0.00-2 .00 Not Available [facility] [address], [place], [address], 07/04/2021 16:19:37 07/04/19 22 07/04/2021 CBC W/ AUTOD IFF, COMPL ETE BLOOD COUNT RBC 4.69 M/uL 4.10-5 .80 Not Available [facility] [address] [place], [address], 07/04/2021 16:19:37 07/04/19 22 07/04/2021 CBC W/ AUTOD IFF, COMPL ETE BLOOD COUNT HGB 14.0 g/dL 13.2-1 7.0 Not Available [facility] [address], [place], [address], 07/04/2021 16:19:37 07/04/19 22 07/04/2021 CBC W/ AUTOD IFF, COMPL ETE BLOOD COUNT hematocrit 42.30 % 37.00- 51.00 Not Available [facility] [address], [place], [address], 07/04/2021 16:19:37 07/04/19 22 07/04/2021 CBC W/ AUTOD IFF, COMPL ETE BLOOD COUNT MCV 90.2 fL 80.0-9 9.0 Not Available [facility], [place], [address], 07/04/2021 16:19:37 07/04/19 22 07/04/2021 CBC W/ AUTOD IFF, COMPL ETE BLOOD COUNT MCH 29.8 pg 27.0-3 3.0 Not Available [facility], [place], [address], 07/04/2021 16:19:37 07/04/19 22 07/04/2021 CBC W/ AUTOD IFF, COMPL ETE BLOOD COUNT MCHC 33.0 g/dL 32.0-3 6.0 Not Available [facility] [address], [place], [address], 07/04/2021 16:19:37 07/04/19 22 07/04/2021 CBC W/ AUTOD IFF, COMPL ETE BLOOD COUNT platelets 258 K/uL 140-44 0 Not Available [facility], [place], [address], 07/04/2021 16:19:37 07/04/19 22 07/04/2021 CBC W/ AUTOD IFF, COMPL ETE BLOOD COUNT RDW 13.8 % 11.0-1 5.0 Not Available [facility] [address], [place], [address], 07/04/2021 16:19:37 07/04/19 22 07/04/2021 CBC W/ AUTOD IFF, COMPL ETE BLOOD COUNT MPV 8.2 fL 7.4-10 .4 Not Available [facility] [address], [place], [address], 07/04/2021 16:19:37 07/04/19 22 07/04/2021 CBC W/ AUTOD IFF, COMPL ETE BLOOD COUNT neutrophil, % 72.7 % Not Available [facility] [address], [place], [address], 07/04/2021 16:19:37 07/04/19 22 07/04/2021 CBC W/ AUTOD IFF, COMPL ETE BLOOD COUNT lymphocyte % 17.0 % Not Available [facility] [address] [place] [address] [address], [place], [address], 07/04/2021 16:19:37 07/04/19 22 07/04/2021 CBC W/ AUTOD IFF, COMPL ETE BLOOD COUNT monocyte % 8.4 % Not Available [facility] [address], [place], [address], 07/04/2021 16:19:37 07/04/19 22 07/04/2021 CBC W/ AUTOD IFF, COMPL ETE BLOOD COUNT eosinophil % 1.2 % Not Available [facility], [place], [address], 07/04/2021 16:19:37 07/04/19 22 07/04/2021 CBC W/ AUTOD IFF, COMPL ETE BLOOD COUNT basophil % 0.7 % Not Available [facility] [address], [place], [address], 07/04/2021 16:19:37 07/04/19 22 07/04/2021 CBC W/ AUTOD IFF, COMPL ETE BLOOD COUNT neutrophil, # 5.1 K/uL 1.5-7. 5 Not Available [facility] [address], [place], [address], 07/04/2021 16:19:37 07/04/19 22 07/04/2021 CBC W/ AUTOD IFF, COMPL ETE BLOOD COUNT lymphocyte # 1.2 K/uL 0.8-4. 0 Not Available [facility] [address] [place], [place] [address], [place], [address], 07/04/2021 16:19:37 07/04/19 22 07/04/2021 CBC W/ AUTOD IFF, COMPL ETE BLOOD COUNT monocyte # 0.6 K/uL 0.1-1. 0 Not Available [facility] [address] [place], [place] [address], [place], [address], 07/04/2021 16:19:37 07/04/19 22 07/04/2021 CBC W/ AUTOD IFF, COMPL ETE BLOOD COUNT eosinophil # 0.1 K/uL 0.1-1. 0 Not Available [facility] [address] [place], [place] [address], [place], [address], 07/04/2021 16:19:37 07/04/19 22 07/04/2021 CBC W/ AUTOD IFF, COMPL ETE BLOOD COUNT basophil # 0.0 K/uL 0.0-0. 2 Not Available [facility] [address], [place], [address], 07/04/2021 16:19:37 07/04/19 22 07/04/2021 CMP, COMPR EHENS DIANN METAB OLIC PANEL glucose 99 mg/dL 70-100 Not Available [facility] [address], [place], [address], 07/04/2021 16:19:38 07/04/19 22 07/04/2021 CMP, COMPR EHENS DIANN METAB OLIC PANEL BUN 20 mg/dL 7-25 Not Available [facility] [address], [place], [address], 07/04/2021 16:19:38 07/04/19 22 07/04/2021 CMP, COMPR EHENS DIANN METAB OLIC PANEL creatinine 1.1 mg/dL 0.6-1. 3 Not Available [facility] [address], [place], [address], 07/04/2021 16:19:38 07/04/19 22 07/04/2021 CMP, COMPR EHENS DIANN METAB OLIC PANEL BUN/creatini ne ratio 18.02 calc Not Available [facility] [address], [place], [address], 07/04/2021 16:19:38 07/04/19 22 07/04/2021 CMP, COMPR EHENS DIANN METAB OLIC PANEL eGFR 83 mL/mi n/1.7 3m2 >60 THREE CONSE CUTIV E VALUE S <60 mL/mi n COULD BE INDIC ATIVE OF KIDNE Y DISEA SE. Not Available [facility] [address], [place], [address], 07/04/2021 16:19:38 07/04/19 22 07/04/2021 CMP, COMPR EHENS DIANN METAB OLIC PANEL eGFR non- 69 mL/mi n/1.7 3m2 >60 THREE CONSE CUTIV E VALUE S < 60 mL/mi n COULD BE INDIC ATIVE OF KIDNE Y DISEA SE Not Available [facility] [address], [place], [address], 07/04/2021 16:19:38 07/04/19 22 07/04/2021 CMP, COMPR EHENS DIANN METAB OLIC PANEL sodium 140 mmol/ L 135-14 5 Not Available [facility] [address], [place], [address], 07/04/2021 16:19:38 07/04/19 22 07/04/2021 CMP, COMPR EHENS DIANN METAB OLIC PANEL potassium 4.7 mmol/ L 3.5-5. 5 Not Available [facility] [address], [place], [address], 07/04/2021 16:19:38 07/04/19 22 07/04/2021 CMP, COMPR EHENS DIANN METAB OLIC PANEL chloride 102 mmol/ L 100-11 5 Not Available [facility] [address], [place], [address], 07/04/2021 16:19:38 07/04/19 22 07/04/2021 CMP, COMPR EHENS DIANN METAB OLIC PANEL CO2 29 mmol/ L 21-33 Not Available [facility] [address], [place], [address], 07/04/2021 16:19:38 07/04/19 22 07/04/2021 CMP, COMPR EHENS DIANN METAB OLIC PANEL anion gap 8.8 calc Not Available [facility] [address], [place], [address], 07/04/2021 16:19:38 07/04/19 22 07/04/2021 CMP, COMPR EHENS DIANN METAB OLIC PANEL calcium 9.6 mg/dL 8.8-10 .6 Not Available [facility] [address], [place], [address], 07/04/2021 16:19:38 07/04/19 22 07/04/2021 CMP, COMPR EHENS DIANN METAB OLIC PANEL total protein 6.6 g/dL 6.2-8. 6 Not Available [facility] [address], [place], [address], 07/04/2021 16:19:38 07/04/19 22 07/04/2021 CMP, COMPR EHENS DIANN METAB OLIC PANEL albumin 4.4 g/dL 3.5-5. 7 Not Available [facility] [address], [place], [address], 07/04/2021 16:19:38 07/04/19 22 07/04/2021 CMP, COMPR EHENS DIANN METAB OLIC PANEL globulin 2.2 g/dL 1.3-4. 0 Not Available [facility] [address], [place], [address], 07/04/2021 16:19:38 07/04/19 22 07/04/2021 CMP, COMPR EHENS DIANN METAB OLIC PANEL A/G ratio 1.9 calc 1.0-2. 8 Not Available [facility] [address], [place], [address], 07/04/2021 16:19:38 07/04/19 22 07/04/2021 CMP, COMPR EHENS DIANN METAB OLIC PANEL AST (SGOT) 21 U/L 13-39 Not Available [facility] [address], [place], [address], 07/04/2021 16:19:38 07/04/19 22 07/04/2021 CMP, COMPR EHENS DIANN METAB OLIC PANEL ALT (SGPT) 29 U/L 7-52 Not Available [facility] [address], [place], [address], 07/04/2021 16:19:38 07/04/19 22 07/04/2021 CMP, COMPR EHENS DIANN METAB OLIC PANEL total bilirubin 0.49 mg/dL 0.30-1 .00 Not Available [facility] [address], [place], [address], 07/04/2021 16:19:38 07/04/19 22 07/04/2021 CMP, COMPR EHENS DIANN METAB OLIC PANEL alkaline phosphatase 70 U/L 20-128 Not Available [facility] [address], [place], [address], 07/04/2021 16:19:38 07/04/19 22 07/04/2021 VENIP UNCTU RE results Compl ete Not Available [facility] [address], [place], [address], 07/04/2021 09:32:25 Result Notes None recorded. Problems Name Problem SNOMED Code Status Onset Date Resolution Date Notes Provider Name and Address Organization Details Recorded Time Gastrointestin al hemorrhage 03493483 Active 2021 Mercy Ramseyo rst, DO [address], [place], [address], 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, [facility] 09:27:17 Gout 62830555 Active 2021 Mercy Erick rst, DO [address], [place], [address], [facility], [facility] 2 09:27:23 Atrial fibrillation 22208626 Active 2019 Denise Overton, AFTER SCHOOL COUNSELOR [address], [place], [address], [facility], [facility] 0 21:23:55 Problem Notes None recorded. Procedures Surgical History Date Name Laterality Status Provider Name and Address Organization Details Recorded Time 05/18/19 21 Colonoscopy completed [facility] 07/04/2021 08:51:54 05/18/19 21 EGD-Upper Endoscopy completed [facility] 07/04/2021 08:52:18 05/18/19 02 Cholecystectomy completed [facility] 07/04/2021 08:49:57 05/18/18 86 Vasectomy completed [facility] 07/04/2021 08:50:24 05/18/18 82 Sinus Surgery completed [facility] 07/04/2021 08:51:44 05/18/18 72 Appendectomy completed [facility] 07/04/2021 08:51:11 05/18/18 51 Tonsillectomy completed [facility] 07/04/2021 08:50:53 Imaging Results None recorded. Procedure Notes None recorded. Medical Equipment None Reported. Allergies Allergen ID Allergen Name Allergen Category Reaction Reaction Severity Criticality Documentation Date Start Date Code Code System Note Provider Name and Address Organization Details Recorded Time 708603 Ceclor medicatio n anaphylax is Not available Not available 06/17/201978597 5 RxNorm Denise Harding Tian, AFTER SCHOOL COUNSELOR [address], [place], [address], [facility], [facility] 0 18:18:40 861361 Pyridium medicatio n anaphylax is Not available Not available 06/17/2019 8998 RxNorm Denise Overton, AFTER SCHOOL COUNSELOR [address] [facility] [address], [place], [address], [facility], [facility] 0 18:18:49 Medications Name Sig Start Date [...] Address Organization Details Last Updated DateTime 0 05077.7 7 g 29.3 kg/m2 170.18 cm 86 /min 96 % 96 % Drake Magañaas [facility], [facility] 0 17:53:01 Date Recorded Body height Body mass index (BMI) Body weight Body temperature Heart rate Oxygen saturation Oxygen saturation in Arterial blood by Pulse oximetry Systolic blood pressure Diastolic blood pressure Provider Name and Address Organization Details Last Updated DateTime 2 170.18 cm 29.8 kg/m2 41372.5 5 g 97.4 [degF] 95 /min 96 % 96 % 132 mm[Hg] 80 mm[Hg] Carlene Joan [facility], [facility] 2 08:54:15 Social History Question Answer Notes LastModified by Organizat ion Details LastModified Time Tobacco Smoking Status Former Smoker Drake Kat victor [facility], [facility] 06/17/2019 17:48:35 Do You Have An Advance [...] Or The Highest Degree You Have Received? [id number] Information not available 07/04/2021 Have There Been Any Changes To Your Family Or Social Situation? No Information no t available 07/04/2021 When Did You Quit Smoking? 16+yearssinc elastcigaret te Information not available 07/04/2021 Alcohol Use 1-2 Per Day Glass Of Wine At Night Information not available 07/04/2021 Do You Smoke? No Information not available 07/04/2021 Marital Status Informatio n not available 07/04/2021 Do You Have A Medical Power Of Records Management Assistant? Yes Information not available 07/04/2021 What Was [...] available 06/17/2019 Are you currently employed? No Information not available 07/04/2021 What is [...] mcg/0.25mL dose 03/10/2021 completed TARIQ Cuellar - [facility], [facility] 07/04/2021 08:41:50 COVID-19, mRNA, LNP-S, PF, 100 mcg/0.5mL dose or 50 mcg/0.25mL dose 06/27/2020 completed Carlene victor [facility] 07/04/2021 08:41:50 COVID-19, mRNA, LNP-S, PF, 100 mcg/0.5mL dose or 50 mcg/0.25mL dose 05/29/2020 [facility] 08:41:50 Influenza, high-dose, trivalent, PF 01/16/2021 [facility] 08:47:35 Past Encounters Encounter ID Performer Location Encounter Start Date Encounter Closed Date Diagnosis/Indication Diagnosis SNOMED-CT Code Diagnosis ICD10 Code Diagnosis Note [id number] CHA Jim [facility] [address] [place] [address] 06/17/2019 16:54:50 06/18/2019 08:08:18 Right side sciatica 6794768931 20284 M54.31 Acute. Worsening. Initial treatment. *Pt in [...] understand ing and agreement with treatment plan. [id number] Mercy aguilera, [facility] [address] [facility] [address] [place] [address] 07/04/2021 08:32:21 07/04/2021 17:37:22 Atrial fibrillation 42892967 I48.91 Stable well-contr olled continue on Xarelto and beta-block er Gastrointe stinal hemorrhage 35105413 K92.2 Patient has not had repeat labs since he had his acute GI bleed he was hospitaliz ed and had [facility]io [facility] we need to repeat CBC and CMP patient understand s he cannot take NSAIDs and needs to immediatel y call when symptoms recur Anterior t ibial stress syndrome 377722693 S87.895L Recommend topical anti-infla mmatories and stretching Gout 63029845 M10.9 Continue on allopurino l monitor for flares Health Concerns Section Related Observation LastModified by Organization Detai ls LastModified Time None Recorded Concern Status LastModified by Organization Details LastModified Time None Recorded Advance Directives Directive Y: Payers Insurance Date Sequence Insurance Name Policy Number Policy Bledsoe Covered Member ID Bledsoe Member ID Guarantor Name 10/18/2021 1 [place] Alirio Cardona [id number] Alirio Cardona 10/18/2021 2 [place]) [id number] Alirio Juan Cardona [id number] Alirio Cardona Notes Date Note Type Note Provider Name [...] denies numbness of the legs/feet New Patient. Denise Overton, AFTER SCHO[employer] COUNSELOR [address] [facility] [address], [place], [address], [facility], [facility] 06/17/2019 21:24:43 2 text/html Patient presents today [...] product did you receive? N/A Imported from [employer] on 07/04/2021 QUALITY MEASURE QUESTIONNAIRE Are you a diabetic patient No Has the Patient previously received any type of colorectal cancer screener Yes Please confirm which of the following colorectal screeners the Patient has received in the past Colonoscopy Please enter the date you received your last Colonoscopy 05/03/2021 Colonoscopy Result Negative Imported from [employer] on 07/04/2021 Mercy Kim, DO [address], [place], [address], [facility], [facility] 07/04/2021 09:27:50
[2024-11-16 08:37] VITALS: BP 180/108; PULSE 85; RESP 16; O2SAT 97; BMI 29.9
--- NOTE | 2024-11-16 08:37 | MHC.OFFVIS ---
Vital Signs 11/16/24 08:37 11/16/24 09:08 Height 5 ft 7 in Weight 191 lb BMI 29.9 BP 180/108 H 140/80 H Blood Pressure Location Lt brachial Rt brachial Position Sitting Sitting Respiration 16 Pulse 85 Pulse Source Pulse Oximeter Pulse Oximetry (%) 97 Oxygen Delivery Method Room Air Intake Visit Reasons: MRI results Intake Note: Patient blood pressure is high he stated is always high. He took is meds this morning. Pain level is 2. Quality Assurance Monitor Body Required: No Accompanied by: Self / Same As Patient Allergies morphine Allergy (Unknown, Verified 11/16/24 08:41) Headache Penicillins Allergy (Unknown, Verified 11/16/24 08:41) Unknown piperacillin (From Zosyn) Allergy (Unknown, Verified 11/16/24 08:41) Hives tazobactam (From Zosyn) Allergy (Unknown, Verified 11/16/24 08:41) Hives cefaclor (From Ceclor) Allergy (Verified 11/16/24 08:41) Anaphylaxis phenazopyridine (From Pyridium) Allergy (Verified 11/16/24 08:41) Anaphylaxis HPI Comments Details: Alirio presented back to the office today for follow-up lower back pain, review recent MRI Recent MRI and x-rays reviewed, results as per below Patient continues with mid and lower back pain without radiation down either lower extremity, exacerbated by walking and activity. No pain with sitting or at rest. Recently completed physical therapy with some improvement of his symptoms, continues with daily home exercise program. Despite this pain persists. He takes Tylenol as needed with moderate effect. Prior: The patient is a 79-year-old male presenting with midline lower back pain. Two years ago, he noticed the worsening of the pain, which was previously managed effectively with steroid injections ten years earlier for a partially herniated disc. The initial treatment provided long-lasting relief, and he remained symptom-free until the symptoms reemerged over the past year or so. Currently, the pain does not radiate into the lower extremities but may extend around the hip region. The patient's symptoms worsen with activities such as prolonged standing or walking, which previously did not cause such discomfort. Although his daily activities do not typically induce pain, extended periods of standing or walking result in significant discomfort. Relief is achieved through rest and sitting. The patient maintains his physical fitness with daily stretching exercises and manages his pain with gabapentin and occasional Tylenol. He rarely uses NSAIDs due to prior history of GI bleeding. He completed physical therapy a couple months ago without resolution of his symptoms. Continues with home exercise program. - Onset: Approximately twenty years ago - Quality: Aching pain - Location: Midline lower back, sometimes radiating around the hip - No radiation down the lower extremities - Aggravating factors: Prolonged standing, walking - Alleviating factors: Sitting, resting, daily stretching exercises - Interferes with: Prolonged standing and walking activities - Affect: Pain impacts activities such as prolonged standing and walking. - Analgesia: Current regimen includes gabapentin and extra strength Tylenol as needed. - Adverse Effects: Denies adverse effects from the current medication regimen. - Activities of Daily Living: Pain affects ability to stand and walk for extended periods. - Aberrant Drug Related Behaviors: No evidence of medication misuse or abuse reported. [facility] Medical History A-fib Colon polyp Gout History of diverticulosis HLD (hyperlipidemia) Family History Mother Cerebral aneurysm Father Heart disease Social History Household Members: Spouse Housing: House Do you presently have visiting nurse or other home services: No Patient Tobacco Use Status: Former Tobacco user service: No Current occupational status: retired Review of Systems Const Details: - Musculoskeletal: Reports lower back pain, denies leg tingling or weakness. - Neurological: Denies radiation of pain down lower extremities, denies tingling in legs. Physical Exam Vital Signs: Last Vital Signs Pulse 85 11/16/24 08:37 Resp 16 11/16/24 08:37 BP 140/80 H 11/16/24 09:08 Pulse Ox 97 11/16/24 08:37 Oxygen Delivery Method Room Air 11/16/24 08:37 BMI result Body Mass Index 29.9 General: awake, alert, oriented. Answers questions appropriately. Fully engaged in examination. Skin: warm, dry, intact HEENT: Normocephalic. Hearing intact. Cardiac: External chest normal in appearance. Respiratory: No cough, audible wheezing or stridor. Abdomen: without gross distension. MS: No obvious swelling or deformities. Able to transition from sit to stand unassisted. Ambulates with bilaterally normal heel strike and toe off Neurological: Oriented to person, place, time and situation. Thought process intact. No gait abnormalities appreciated. Psychiatric: Appropriate mood and affect. Good judgment and insight. Results Reviewed Results Reviewed: 11/02/24 MRI lumbar spine FINDINGS: 5 non-rib bearing lumbar segments are present on x-ray Marrow and end-plates: Schmorl's nodes are present in the inferior T11, T12, and L1. Modic 2 signal is present anteriorly at L1-2. Alignment: There is subtle retrolisthesis at L1-2, L2-3, L3-4, and L5-S1. Soft tissues: Incompletely imaged 5 cm mass in the superior right kidney demonstrates low signal on T1 imaging, high signal on fluid sensitive sequences, and hairline septations, Bosniak II. Other benign simple cyst are present in the left kidney. Conus: The termination of conus medullaris is within normal limits at the level of lower L1. T12-L1: Broad-based disc bulges result in spinal stenosis or foraminal narrowing. L1-L2: Broad-based disc bulge does not result in spinal stenosis or foraminal narrowing. L2-L3: There is mild loss of disc height and circumferential broad-based disc bulge. There is mild facet degeneration. There is no spinal stenosis or foraminal narrowing. L3-L4: There is mild loss of disc height and circumferential broad-based disc extrusion/bulge. There is mild facet degeneration and trace fluid in the left facet joint. There is mild spinal stenosis. There is mild left greater than right subarticular zone narrowing and mild foraminal narrowing. L4-L5: Circumferential broad-based is bulge, ligamentum flavum thickening, and mild facet arthropathy results in mild spinal stenosis and mild left greater than right subarticular zone narrowing. Neural foramina are mildly narrow, more on the right. L5-S1: Circumferential broad-based disc bulge and broad posterior disc extrusion with mild facet arthropathy and ligamentum flavum thickening does not result in spinal stenosis. There is mild right subarticular zone narrowing. There is mild to moderate right and mild left foraminal narrowing. IMPRESSION: Multilevel degenerative disc disease with areas of mild spinal stenosis and foraminal narrowing, as above. 10/19/24 x-ray lumbar spine FINDINGS: Flexion and extension and oblique imaging were performed. Five [id number] lumbar type vertebral bodies. Grade 1 retrolisthesis of L1 on L2 and L2 on L3. This does not change on flexion or extension imaging. Vertebral body heights are maintained. No evidence of acute vertebral body injury. Flowing marginal osteophytes along the lower thoracic spine. There is multilevel loss of disc space height with marginal osteophytes. Facet joint arthrosis in the mid to lower lumbar spine with neural foraminal narrowing most pronounced at L4-5 and L5-S1. No pars defects identified on oblique imaging. Visualized bones of the pelvis appear intact. Pelvic phleboliths present. Atherosclerotic vascular calcifications. IMPRESSION: 1. No radiographic evidence of acute injury to the lumbar spine. 2. Grade 1 retrolisthesis of L1 on L2 and L2 on L3. No pars defects identified. 3. Moderate to advanced mid to lower lumbar spondylosis. Assessment & Plan Assessment & Plan (1) Degenerative disc disease, lumbar: Code(s): M51.369 - Other intervertebral disc degeneration, lumbar region without mention of lumbar back pain or lower extremity pain Category: Medical (2) Lumbar spondylosis: Code(s): M47.816 - Spondylosis without myelopathy or radiculopathy, lumbar region Category: Medical Plan Patient presented back to the office today for follow-up of her review of recent x-rays and MRI. He is suffering from axial lower back pain without radiation down either lower extremity likely related to lumbar spondylosis. We will proceed with Fluoroscopy guided diagnostic L3 L4 DR L5 MBBs using local anesthetics. The patient will maintain a pain diary post-injection to evaluate efficacy. Upon evidence of pain relief, further interventions such as radiofrequency ablation or temporary peripheral nerve stimulator will be considered. The patient will be contacted for scheduling upon approval. I discussed with the patient the diagnostic plan involving local anesthetic injections to confirm spondylosis as axial back pain generator. The patient consented to the proposed diagnostic injections and agreed to monitor pain relief to guide further management. Patient Instructions: - Record pain levels and activities in a pain diary after receiving diagnostic injections. - Expect a call to schedule the procedure once insurance approval is obtained. - Continue current medication regimen as instructed. - Notify the office if symptoms worsen or for new symptoms like weakness or numbness. Coding Level of Care Code New Pt Level 4 (31937) Complex EM visit Add On G2211 Diagnoses Degenerative disc disease, lumbar M51.369 Lumbar spondylosis M47.816
[2024-11-16 09:08] VITALS: BP 140/80
== END 2024-11-16 09:09 | disposition home or self-care (01) ==
LOC: HO.PMC 08:30
PROVIDERS: PCP Internal Medicine; Visit Provider Registered Nurse Emergency
DX: M51.369 Other intervertebral disc degeneration, lumbar region without mention of lumbar back pain or lower extremity pain (principal); M47.816 Spondylosis without myelopathy or radiculopathy, lumbar region
CPT/HCPCS: 99214; G2211

== ENCOUNTER → 2024-11-16 08:29 | Outpatient (BNVA) | payer MEDICARE, SELFPAY | PROVIDERS: PCP Internal Medicine; Visit Provider Registered Nurse Emergency | DX: M51.369 Other intervertebral disc degeneration, lumbar region without mention of lumbar back pain or lower extremity pain (principal); M47.816 Spondylosis without myelopathy or radiculopathy, lumbar region | CPT/HCPCS: 99212 ==

== ENCOUNTER 2025-01-17 06:16 | Outpatient (REF) | payer MEDICARE, SELFPAY ==
--- NOTE | ~2025-01-17 | FL_ITS ---
EXAMINATION: XR FLUOROSCOPY WITH IMAGES CLINICAL INFORMATION: Lumbar pain management procedure. COMPARISON: MR lumbar 11/02/2024. TECHNIQUE: Fluoroscopy provided to: Dr. Yoon Fluoroscopy time: 0.8 minutes DAP: 0.199 mGycm2 Images: 12 FINDINGS: 12 fluoroscopic spot images obtained during lumbar spine pain management injections. Please refer to the full operative report for details. FL/FL guidance in treatment room IMPRESSION: Fluoroscopic guidance. Electronically signed by: Jesus Isaac MD 01/18/2025 10:48 AM EDT
--- OUTSIDE RECORDS SUMMARY | 2025-01-17 06:22 | XMS_ITS | Encounter Summary ---
Author Organization Located Within [facility] Address [address] [facility] [address] [facility] [address] [place] [address] Phone Care Team Providers Care Case Management Assistant Name Role Phone Rommel Webster MD Unavailable Rommel Webster MD Primary Care Provider [phone] Encounter Details Date Type Department Care Team (Late Contact Info) Description 09/08/2022 Procedure Pass [facility] [address] [place] [address] Social History Tobacco Use Types Packs/Day Years Used Date Smoking Tobacco: Former Cigarettes 2.5 9 1 963 - 1972 Smokeless Tobacco: Never Alcohol Use Standard Drinks/Week Comments Yes 5 (1 standard drink = 0.6 oz pur e alcohol) Education Answer Date Recorded Are you interested in more education? Not on cher e 09/11/2022 Are you concerned about learning? Not on file 09/11/2022 No 09/11/2022 No 09/11/2022 Sex and Gender Information Value Date Recorded Sex Assigned at Not on file Legal Sex Male 7:34 PM EST Gender Identity Not on file Sexual Orientation Not on file documented as of this encounter Plan of Treatment Upcoming Encounters Date Type Department Care Team (Late Contact Info) Description 03/02/2025 8:40 AM EDT Office Visit [facility] [address] [place] [address] 3rd Floor, [address] [place] [address] Ronaldo Burns MD [address] [facility], [address] [place], [place] [id number] 09/21/2025 8:40 AM EDT Office Visit [facility] 14 [facility] [address] [place] [address] Rommel Webster MD 14 [facility] [address] [place] [address] [email or web address] documented as of this encounter Visit Diagnoses Not on filedocumented in this encounter Additional Health Concerns Assessment Noted Time PHQ-2 Depression Total Score: 0 12/14/19 22 9:30 AM EDT documented as of this encounter Care Teams Case Management Assistant Relationship Specialty Start Date End Date Rommel Webster MD 14 [facility] [address] [place] [address] PCP - General Internal Medicine 04/07/17 Rommel Webster MD 14 [facility] [address] [place] [address] Insurance Assigned Provider 08/22/23 documented as of this encounter Additional Source Comments The information contained in this document represents components of the legal health record. It is not the complete legal health record.[facility]
--- OUTSIDE RECORDS SUMMARY | 2025-01-17 06:22 | XMS_ITS | Encounter Summary ---
Author Organization [facility] Address [address] [facility] [address] [place] [address] Phone Care Team Providers Care Electro Mechanical Solar Technician Name Role Phone Rommel Webster MD Unavailable [phone] Rommel Webster MD Primary Care Provider [phone] Encounter Details Date Type Department Care Team (Late st Contact Info) Description 01/22/2022 Procedure Pass [place] Admitting Dept - Virtual Department 30 [place] [address] Social History Tobacco Use Types Packs/Day Years Used Date Smoking Tobacco: Former Cigarettes 2.5 9 1 963 - 1972 Smokeless Tobacco: Never Alcohol Use Standard Drinks/Week Comments Yes 5 (1 standard drink = 0.6 oz pur e alcohol) Sex and Gender Information Value Date Recorded Sex Assigned at Not on file Legal Sex Male 7:34 PM EST Gender Identity Not on file Sexual Orientation Not on file documented as of this encounter Functional Status * Calculated C-SSRS Risk Score (Lifetime/Recent) Answer Date of Assessment Author No Risk Indicated 01/22/2022 1:00 PM EDT Winsome Davis RN * [place] Suicide Severity Rating Scale (Screener/Recent Self-Report) Question Answer Date of Assessment Author 1. Wish to be (Past 1 Month) No 01/22/2022 1:00 PM Nasra Lantigua RN 2. Non-Specific Active Suicidal Thoughts (Past 1 Month) No 01/22/2022 1:00 PM EDT Nasra Alarcon RN 6. Suicidal Behavior (Lifetime) No 01/22/2022 1:00 PM EDT Nasra Alarcon RN documented as of this encounter Plan of Treatment Upcoming Encounters Date Type Department Care Team (Late st Contact Info) Description 03/02/2025 8:40 AM EDT Office Visit [facility] [address] [facility] 3rd Floor, [address] [place] [address] Ronaldo Burns MD [address] [facility], [address] [place] [address] 09/21/2025 8:40 AM EDT Office Visit [facility] 14 [facility] [address] [place] [address] Rommel Webster MD [address] [place] [address] documented as of this encounter Visit Diagnoses Not on filedocumented in this encounter Additional Health Concerns Infection Onset Date Last Indicated Resolved Time CoV-Exposed Comment:Added per Home Health documentation 01/30/2022 01/30/2022 02/05/2022 9:29 AM E DT Assessment Noted Time PHQ-2 Depression Total Score: 0 12/14/19 22 9:30 AM EDT documented as of this encounter Care Teams Electro Mechanical Solar Technician Relationship Specialty Start Date End Date Rommel Webster MD [address] [place] [address] PCP - General Internal Medicine 04/07/17 Rommel Webster MD [address] [place] [address] Insurance Assigned Provider 08/22/23 documented as of this encounter Additional Source Comments The information contained in this document represents components of the legal health record. It is not the complete legal health record.[facility]
--- OUTSIDE RECORDS SUMMARY | 2025-01-17 06:22 | XMS_ITS | Encounter Summary ---
Author Organization [facility] Address [address] [place] [address] Phone Care Team Providers Care Fbi Sharpshooter Name Role Phone Rommel Webster MD Unavailable [phone] Rommel Webster MD Primary Care Provider Encounter Details Date Type Department Care Team (Late st Contact Info) Description 02/26/2023 Procedure Pass [facility] Pac[facility] [address] [facility], [address] 1, [address] [place] [address] Social History Tobacco Use Types Packs/Day Years [...] on file 09/11/2022 No 09/11/2022 No 09/11/2022 Digital Access Answer Date Recorded No 10/13/2022 No 10/13/2022 Reliable internet access at home? Not on file 10/13/2022 Device with a working camera? Not on file Sex and Gender Information Value Date Recorded Sex Assigned at Not on file Legal Sex Male 7:34 PM EST Gender Identity Not on file Sexual Orientation Not on file documented as of this encounter Functional Status * Calculated C-SSRS Risk Score (Lifetime/Recent) Answer Date of Assessment Author No Risk Indicated 02/26/2023 5:57 PM EDT Samaria Chavez RN * Rankin Suicide Severity Rating Scale (Screener/Recent Self-Report) Question Answer Date of Assessment Author 1. Wish to be (Past 1 Month) No 02/26/2023 5:57 PM EDT Samaria Arevalo RN 2. Non-Specific Active Suicidal Thoughts (Past 1 Month) No 02/26/2023 5:57 PM EDT Samaria Arevalo RN 6. Suicidal Behavior (Lifetime) No 02/26/2023 5:57 PM EDT Samaria Arevalo RN documented as of this encounter Plan of Treatment Upcoming Encounters Date Type Department Care Team (Late st Contact Info) Description 03/02/2025 8:40 AM EDT Office Visit [facility] [address] [place] [address], [address] [place] [address] Ronaldo Burns MD [address] [place] [address] [email or web address] 09/21/2025 8:40 AM EDT Office Visit [facility] [place] [facility] [address] [address] Rommel Webster MD [address] [place] [address] documented as of this encounter Visit Diagnoses Not on filedocumented in this encounter Additional Health Concerns Assessment Noted Time PHQ-2 Depression Total Score: 0 12/14/19 22 9:30 AM EDT documented as of this encounter Care Teams Fbi Sharpshooter Relationship Specialty Start Date End Date Rommel Webster MD [address] [place] [address] PCP - General Internal Medicine 04/07/17 Rommel Webster MD [address] [place] [address] [address] [place] [address] [email or web address] Insurance Assigned Provider 08/22/23 documented as of this encounter Additional Source Comments The information contained in this document represents components of the legal health record. It is not the complete legal health record.[facility]
--- OUTSIDE RECORDS SUMMARY | 2025-01-17 06:22 | XMS_ITS | Encounter Summary ---
Author Organization [facility] Address [address] [facility] [address] [place] [address] Phone Care Team Providers Care Casting Sorter Name Role Phone Rommel Webster MD Unavailable [phone] Rommel Webster MD Primary Care Provider [phone] Encounter Details Date Type Department Care Team (Late st Contact Info) Description 02/05/2022 Procedure Pass [place] Admitting Dept - Virtual Department [address] [place] [address] Social History Tobacco Use Types Packs/Day Years [...] Description 03/02/2025 8:40 AM EDT Office Visit [facility] [place] 3rd Floor, [address] [place] [address] Ronaldo Burns MD [address] [facility], [address] [place] [address] 09/21/2025 8:40 AM EDT Office Visit [facility] [place] [facility] 14 [facility] [address] [place] [address] Rommel Webster MD 14 [facility] [address] [place] [address] [email or web address] documented as of this encounter Visit Diagnoses Not on filedocumented in this encounter Additional Health Concerns Infection Onset Date Last Indicated Resolved Time CoV-Exposed Comment:Added per Home Health documentation 01/30/2022 01/30/2022 02/05/2022 9:29 AM E DT Assessment Noted Time PHQ-2 Depression Total Score: 0 12/14/19 9:30 AM EDT documented as of this encounter Care Teams Casting Sorter Relationship Specialty Start Date End Date Rommel Webster MD 14 [facility] [address] [place] [address] [email or web address] PCP - General Internal Medicine 04/07/17 Rommel Webster MD 14 [facility] [address] [place] [address] [email or web address] Insurance Assigned Provider 08/22/23 documented as of this encounter Additional Source Comments The information contained in this document represents components of the legal health record. It is not the complete legal health record.[facility]
--- OUTSIDE RECORDS SUMMARY | 2025-01-17 06:22 | XMS_ITS | Encounter Summary ---
Author Organization [facility] Address [address] [facility] [address] [place] [address] Phone Care Team Providers Care Solderer Torch Name Role Phone Rommel Webster MD Unavailable [phone] Rommel Webster MD Primary Care Provider [phone] Encounter Details Date Type Department Care Team (Late st Contact Info) Description 01/17/2020 Procedure Pass [facility] [address] [place] [address] Social History Tobacco Use Types Packs/Day Years Used Date Smoking Tobacco: Former Cigarettes Q uit: 1972 Smokeless Tobacco: Never Alcohol Use Standard [...] Description 03/02/2025 8:40 AM EDT Office Visit [facility] [address], [address] [place] [address] Ronaldo Burns MD [address] [facility], [address] [place] [address] 09/21/2025 8:40 AM EDT Office Visit [facility] [address] [place] [address] Rommel Webster MD 14 [facility] [address] [place] [address] [email or web address] documented as of this encounter Visit Diagnoses Not on filedocumented in this encounter Additional Health Concerns Infection Onset Date Last Indicated Resolved Time CoV-Exposed Comment:Added per Home Health documentation 01/30/2022 01/30/2022 02/05/2022 9:29 AM E DT Assessment Noted Time PHQ-2 Depression Total Score: 0 09/24/19 19 8:08 AM EDT documented as of this encounter Care Teams Solderer Torch Relationship Specialty Start Date End Date Rommel Webster MD 14 [facility] [address] [place] [address] [email or web address] PCP - General Internal Medicine 04/07/17 Rommel Webster MD 14 [facility] [address] [place] [address] [email or web address] Insurance Assigned Provider 08/22/23 documented as of this encounter Additional Source Comments The information contained in this document represents components of the legal health record. It is not the complete legal health record.[facility]
--- OUTSIDE RECORDS SUMMARY | 2025-01-17 06:22 | XMS_ITS | Clinical Summary ---
Author Organization [facility] Address [address] [place] [address] Phone Care Team Providers Care Hand Shaker Name Role Phone Rommel Webster MD Unavailable [phone] Rommel Webster MD Primary Care Provider [phone] Allergies Active Allergy Reactions Criticality Noted Date Comments Cefaclor Other (See Comments) 08/24/2012 throat swelling Morphine Headaches 12/26/2021 Penicillins 04/16/2023 Phenazopyridine Other (See Comments) 08/24/2012 throat swelling Piperacillin-Tazobactam Hives 02/05/2022 Medications psyllium (METAMUCIL) Powd Take 1 teaspoonful by mouth nightly at bedtime. 3 g = 1 teaspoonful (5 mL) Active acetaminophen (TYLENOL) 500 MG tablet Take 1,000 mg by mouth every 6 (six) hours as needed for pain (specific location in comments). Active aspirin 81 MG EC tablet Take 1 tablet (81 mg total) by mouth daily. 3 Active gabapentin (NEURONTIN) 100 MG capsuleIndicatio ns:Chronic insomnia,Status post right knee replacement TAKE 1 TO 3 CAPSULES NIGHTLY NEEDED FOR PAIN AND INSOMNIA 90 capsule 2 4 Active metoprolol succinate (TOPROL-XL) 50 MG 24 hr tabletIndication s:Atrial fibrillation take 1 tablet daily 90 tablet 3 4 Active LORazepam (ATIVAN) 1 MG tabletIndication s:Anxiety TAKE 1 TABLET ONCE DAILY ASNEEDED 60 tablet 2 4 Active atorvastatin (LIPITOR) 10 MG tabletIndication s:Dyslipidemia TAKE 1 TABLET DAILY 90 tablet 2 5 Active allopurinol (ZYLOPRIM) 100 MG tabletIndication s:History of gout TAKE 2 TABLETS DAILY DOSEINCREASE* * 180 tablet 1 5 Active ezetimibe (ZETIA) 10 mg tabletIndication s:Dyslipidemia TAKE 1 TABLET DAILY 90 tablet 3 5 Active MYRBETRIQ [address] [id number]: BPH with obstruction/lowe r urinary tract symptoms TAKE 1 TABLET DAILY 90 tablet 3 5 Active omeprazole (PRILOSEC) 20 MG tablet Take 20 mg by mouth daily. Active naproxen sodium (ALEVE ORAL) Take 1 tablet by mouth daily as needed. Active Hospital, Clinic, or Other Facility Administered Medication Ordered Dose Route Frequency Start Date End Date Status BUPivacaine (PF) (MARCAINE) 0.25% injection 2 mLIndications:Arthro alon of left shoulder 2 mL See Adm Inst Once 11/04/2024 02/02/2025 Active lidocaine (XYLOCAINE) 1% injection 2 mLIndications:Arthro alon of left shoulder 2 mL Infil Once 11/04/2024 02/02/2025 Active triamcinolone acetonide (KENALOG-40) 40 mg/mL injection 80 mgIndications:Arthro alon of left shoulder 80 mg IM Once 11/04/2024 02/02/2025 Active Active Problems Problem Noted Date Diagnosed Date Longstanding persistent atrial fibrillation 02/15 Sepsis 02/03/2022 Assessment & Plan (02/04/2022 1:30 PM EDT): Presentation is consistent with sepsis manifested by shaking chills/rigors, high fever, tachycardia, hypotension and elevated lactate to 2.7, with leukocytosis Source of infection unclear. Given his recent TKA, there is obvious concern for involvement of the right knee prosthesis. The patient was evaluated by Dr. Tello in the ED and arthrocentesis was performed. Gram stain shows a few WBCs, no organisms. Culture findings could be affected by antibiotics. However he has no effusion, erythema or warmth or increased pain in the right knee to suggest septic arthritis. Spoke with [facility] micro lab blood cultures drawn there are NGTD (48 hours) He has elevated LFTs of unclear significance. Abdominal CT yesterday was unrevealing. Tick born infection such as Anaplasma would be a consideration, though patient denies any recent tick exposure. Chest x-ray does not suggest pneumonia. Has had some nocturia, but no dysuria. UA is not suggestive of UTI. Initial concern was for bacterial infection, specifically bacteremia and/or joint infection given his recent surgery. However 48 hours later, blood cultures remain negative and exam does not corroborate with joint infection. He has been afebrile since arriving here last night. Subjective complaint of chills last evening resulted in repeat blood cultures. These also remain negative although he has been on Zosyn since 02/02. This afternoon he has developed a rash on his trunk consistent with an allergic reaction. -- Lyme screen and Anaplasma PCR are pending. Fever, increased LFTs and rash consistent with possible Anaplasma. -- Trending LFTs --Follow-up blood cultures drawn here and also at [facility] 02/02 -- Abdominal ultrasound unrevealing -- Xray R ankle negative -- Further management depending on his clinical progress and additional findings Plan: -We will stop Zosyn and monitor off antibiotics -Follow-up Lyme titers -Discussed with Dr. Tello. He remains on the OR schedule for 2 PM 02/05 but this will be revisited in the morning to determine whether this is the best course of action. Anxiety 02/03/2022 Assessment & Plan (02/03/2022 5:25 PM EDT): Longstanding history of anxiety -- Continue lorazepam Constipation 02/03/2022 Assessment & Plan (02/04/2022 1:31 PM EDT): Start scheduled senna and MiraLAX daily while receiving opioid Acacian. Had large bowel movement last night. Added Colace Added as needed topical cortisone for hemorrhoids Status post total right knee replacement 022 Hypertension 01/17/2020 Status post ablation of atrial fibrillation 03/18 Visit for monitoring Tikosyn therapy 10/21/2017 Assessment & Plan (10/21/2017 3:51 PM EDT): He has no evidence of angina, arrhythmia, or heart failure. He has a low risk for cardiac complications for proposed procedure. He should stop his Xarelto 48 hours prior to the procedure. He would be safe to restart his Xarelto on the evening after his surgery as long as there are no bleeding complications. Please do not hesitate to contact us with any questions Anal fissure 09/22/2017 Chronic low back pain 09/22/2017 Dyslipidemia 09/22/2017 Assessment & Plan (02/03/2022 3:52 PM EDT): He takes atorvastatin and Zetia at home -- Usual medications will be continued Assessment & Plan (10/21/2017 3:54 PM EDT): Appropriately treated to the guidelines. He should continue on current dose of statin Gastroesophageal reflux disease 09/22/2017 Hemorrhoids 09/22/2017 History of gout 09/22/2017 Assessment & Plan (02/03/2022 4:58 PM EDT): Continue allopurinol Reduced libido 09/22/2017 History of diverticulitis of colon 09/22/2017 Elevated fasting glucose 09/22/2017 Atrial fibrillation 10/07/2012 Overview (07/08/2014): Atrial fibrillation Assessment & Plan (02/04/2022 1:32 PM EDT): He has atrial fibrillation. Heart rate controlled. -- He has 2 metoprolol orders in [facility] but was receiving metoprolol tartrate 50 mg twice daily during the prior hospitalization. This will be continued -- He is due to be on a one half dose of rivaroxaban until postop day #14. This was held in anticipation of possible trip to the OR tomorrow. He remains on subcu heparin through today for DVT prophylaxis. If plans for the OR are permanently canceled, would resume rivaroxaban full dose Assessment & Plan (04/30/2018 9:55 AM EST): He remains in atrial fibrillation today. His ventricular response at rest is 105. His ventricular response was elevated to greater than 120 with minimal exertion. I have suggested that he increase his metoprolol to 50 mg daily. He is going to [place] in a week. He has a previously arranged appointment with Dr. Mckeon in September. The patient plans to think about whether he wants to pursue a second ablation or whether he wants to continue with rate control. He will discuss this with Dr. Mckeon in September. Assessment & Plan (10/21/2017 3:53 PM EDT): He remains in sinus rhythm on dofetilide. He is appropriate anticoagulated on Xarelto. Encounters Date Type Department Care Team Description 11/23/2024 Telephone [facility] [address] [facility], [address] [place] [address] Ronaldo Burns MD 11/08/2024 Orders Only [facility] Internal Medicine [address] [facility] [address] [place] [address] ProviderWhitney MD 11/04/2024 1:30 PM EDT - 11/04/2024 11:59 PM EDT Hospital Encounter [facility] [address] [place] [address] Mónica Patiño PA-C Discharge Disposition: Home or Self Care 11/04/2024 1:20 PM EDT Office Visit [facility] [address] [place] [address] Mónica Patiño PA-C Arthropathy of left shoulder (Primary Dx) 10/19/2024 Orders Only [facility] [address] [place] [address] Provider, MD Whitney from Last 3 Months Immunizations Immunization Administration Dates Next Due COVID-19 (Pre-03/09) Moderna Vaccine, mRNA, PF 03/10/2021,06/27/2020,05/29/2020 Hepatitis B 05/01/1997 INFLUENZA, SPLIT VIRUS, TRIVALENT PF 02/01/2020 INFLUENZA, SPLIT VIRUS, TRIV ALENT W/ PRESERVATIVE IM 04/25/2015,03/27/2014,03/07/2013 Influenza High-Dose Quadriva lent Preservative Free IM 02/21/2022,02/05/2022(Deferred: Patient Refused),01/23/2021 Influenza High-Dose Trivalen t Preservative Free IM 01/16/2024,01/16/2021,02/09/2019,01/29,03/19/2016,02/25/2015 Influenza Quadrivalent Adjuv anted Preservative Free IM 02/08/2023 Influenza Trivalent Adjuvant ed Preservative free IM 03/12/2017 Pneumococcal conjugate PCV13 01/29/2018,04/19/20 14 Pneumococcal polysaccharide PPSV23 11/17/2012 RSV Vaccine (monovalent, adjuvanted) 03/20/2023 Td (adult) 5 Lf Tetanus Toxo id, PF, Adsorbed 05/01/1997 Tdap 04/22/2021,11/17/2012 Zoster live 04/26/2013 Zoster recombinant 01/29/2018,10/08/2017 Family History Medical History Relation Comments Diabetes mellitus Brother Heart failure Brother Heart attack Father Subarachnoid hemorrhage Mother No Known Problems Son Relation Status Comments Brother Alive Father Mother Son Alive Social History Tobacco Use Types Packs/Day Years Used Date Smoking Tobacco: Former Cigarettes 2.5 9 1 963 - 1972 Smokeless Tobacco: Never Tobacco Cessation:Counseling Given: Not Answered Alcohol Use Standard Drinks/Week Comments Yes 6 (1 standard drink = 0.6 oz pur e alcohol) Education Answer Date Recorded Are you interested in more education? Not on cher e 09/11/2022 Are you concerned about learning? Not on file 09/11/2022 No 09/11/2022 No 09/11/2022 Digital Access Answer Date Recorded No 10/13/2022 No 10/13/2022 Reliable internet access at home? Not on file 10/13/2022 Device with a working camera? Not on file Intimate Partner Violence Answer Date R ecorded Are you denied basic needs s uch as food, clothing, or medical care? No 09/08/2024 In the past 12 months have y ou been in a relationship with a person who hurts, threatens, or tries to control you? No 09/08/2024 Are you denied basic needs s uch as food, clothing, or medical care? No 09/08/2024 In the past 12 months have y ou been in a relationship with a person who hurts, threatens, or tries to control you? No 09/08/2024 Sex and Gender Information Value Date Recorded Sex Assigned at Not on file Legal Sex Male 7:34 PM EST Gender Identity Not on file Sexual Orientation Not on file Last Filed Vital Signs Vital Sign Reading Time Taken Comments Blood Pressure 130/80 09/29/2024 11:56 AM EDT Pulse 85 09/29/2024 11:56 AM EDT Temperature 36.3 C (97.3 F) 09/29/2024 11:56 AM EDT Respiratory Rate 15 05/08/2023 10:30 AM EST Oxygen Saturation 99% 09/29/2024 11:56 AM EDT Inhaled Oxygen Concentration - - Weight 89.4 kg (197 lb 3.2 oz) 09/29/2024 11:56 AM EDT Height 165.7 cm (5' 5.24 ) 09/08/2024 9:55 AM ED T Body Mass Index 32.58 09/08/2024 9:55 AM EDT Plan of Treatment Upcoming Encounters Date Type Department Care Team (Late st Contact Info) Description 03/02/2025 8:40 AM EDT Office Visit [facility] [address] [place] [address] 3rd Floor, [address] [place] [address] Ronaldo Burns MD 22 [facility], [address] [address] 09/21/2025 8:40 AM EDT Office Visit [facility] [address] [facility] [address] [place] [address] Rommel Webster MD 14 [facility] [address] [place] [address] Health Maintenance Due Date Last Done Comments COVID-19 VACCINE ( season) 2024 01/16/2024, 03/06/2023, 11/24/2022, Additional history exists INFLUENZA VACCINE (#1) 2024 , 02/08/2023, 02/08/2023, Additional history exists BLOOD PRESSURE 04/01/2025 09/29/2024 CREATININE LEVEL 08/30/2025 08/30/2024, , 02/27/2023, Additional history exists DEPRESSION SCREENING 09/08/2025 09/08/2024 LIPID PANEL 08/30/2029 08/30/2024, 08/16, 09/02/2022, Additional history exists Adult Td,Tdap Booster 04/22/2031 04/22/2021 , 11/17/2012, 05/01/1997 HEPATITIS C SCREENING Completed 02/06/2012 PNEUMOCOCCAL VACCINES (50+ years) Completed 01/29/2018, 04/19/2014, 11/17/2012 ZOSTER VACCINES Completed 01/29/2018, 09/16, 04/26/2013 RSV VACCINE Completed 03/20/2023 SMOKING STATUS SCREENING (Once After 26 Yrs) Completed 11/04/2024 HEPATITIS A VACCINES Aged Out No long er eligible based on patient's age to complete this topic HIB VACCINES Aged Out No longer eligi ble based on patient's age to complete this topic MENINGOCOCCAL VACCINES (ACWY) Aged Out No longer eligible based on patient's age to complete this topic MENINGOCOCCAL VACCINES (B) Aged Out N o longer eligible based on patient's age to complete this topic Medical Devices Implanted Type Area Superintendent Tests Device Identifier Shelf Expiration Date Model / Serial / Lot System Watchman 35mm Flx Mary Closure - [id number] Implanted:Qty: 1 on 02/26/2023 by Grayson Olvera MD at [facility] MARY Occluder [employer] 10/14/2025 [id number] / / [id number] Cement Bone 1x40 Standard - [id number] Implanted:Qty: 1 on 01/22/2022 by Aamir Tello MD at [facility] Right: Knee AWILDA / DIV OF Amaru 12/15/2024 [id number] / / [id number] Box Component 65.0mm Femoral Knee Vanguard Inter[employer]ok [place] Posterior Stabilized Open Cemented Right - [id number] Implanted:Qty: 1 on 01/22/2022 by Aamir Tello MD at [facility] Right: Knee [employer] 10/25/2031 [id number] / / [id number] Knee Tray 79mm Plate Bone Primary Vanguard [place] I Beam Revision Interlock Cemented - [id number] Implanted:Qty: 1 on 01/22/2022 by Aamir Tello MD at [facility] Right: Knee [employer] 08/31/2031 [id number] / / [id number] Button Patella 24w85dy Knee Vanguard Uhmwpe 3 Peg Series A Standard - [id number] Implanted:Qty: 1 on 01/22/2022 by Aamir Tello MD at [facility] Right: Knee [employer] 07/31/2026 [id number] / / [id number] Tibial Bearing 79/06o31en Vanguard Posterior Stabilized - [id number] Implanted:Qty: 1 on 01/22/2022 by Aamir Tello MD at [facility] Right: Knee [employer] 06/10/2026 [id number] / / [id number] Procedures Procedure Name Priority Date/Time Associated Diagnosis Comments OUTSIDE MR IMAGING REPORT ONLY Routine 11/08/2024 11:34 AM EDT XR SHOULDER 2 VIEWS (LEFT) Routine 11/04/2024 1:36 PM EDT Arthropathy of left shoulder OUTSIDE IMAGING Routine 10/19/2024 2:36 PM EDT LIPID PANEL Routine 08/30/2024 7:58 AM EDT Laboratory examination ordered as part of a routine general medical examination Atrial fibrillation Gastroesophageal reflux disease Dyslipidemia History of gout Elevated fasting glucose COMPREHENSIVE METABOLIC PANEL Routine 08/30/2024 7:58 AM EDT Laboratory examination ordered as part of a routine general medical examination Atrial fibrillation Gastroesophageal reflux disease Dyslipidemia History of gout Elevated fasting glucose from Last 3 Months or Most Recently Relevant to Health Maintenance Results * Outside MR Imaging Report Only (11/08/2024 11:34 AM EDT) us Historical Provider MD FONTANEZ MR Final Res ult * XR SHOULDER 2 VIEWS (LEFT) (11/04/2024 1:36 PM EDT) Narrative SYSTEMGENERATED, DOCUMENTATION - 11/04/2024 1:36 PM EDT This image report has been auto-finalized and has not been read by a Radiologist. Interpretation has been included in the provider encounter note for this date of service. Mónica Patiño PA-C IMG XR UPPER EXTREMITY F inal Result * Outside Imaging Report Only (10/19/2024 2:36 PM EDT) Historical Provider MD FONTANEZ XR CHEST Final Res ult * (ABNORMAL) Comprehensive metabolic panel (08/30/2024 7:58 AM EDT) SODIUM 141 133 - 146 mmol/L [facility] POTASSIUM 4.5 3.3 - 5.1 mmol/L [facility] CHLORIDE 103 96 - 108 mmol/L [facility] CO2 28 21 - 35 mmol/L [facility] BUN 21(H) 6 - 19 mg/dL [facility] CREATININE 0.90 0.5 - 1.5 mg/dL [facility] GLUCOSE 121(H) 70 - 99 mg/dL [facility] ALBUMIN 4.3 3.9 - 4.8 g/dL [facility] TOTAL PROTEIN 7.1 6.5 - 8.0 g/dL [facility] CALCIUM 8.9 8.4 - 10.3 mg/dL [facility] ALKALINE PHOSPHATASE 71 39 - 117 U/L [facility] TOTAL BILIRUBIN 0.9 0.0 - 1.2 mg/dL [facility] AST 35 0 - 37 U/L [facility] ALT 38 0 - 40 U/L [facility] GLOBULIN 2.8 1 - 4.8 g/dL [facility] EGFR 87 >59 mL/min/1.7 3m2 [facility] Comment:Estimated glomerular filtration rate calculated using the CKD-EPI refit equation. ANION GAP 15 10 - 20 mmol/L [facility] Blood 08/30/2024 7:58 AM EDT 08/30/2024 8:01 AM EDT us Rommel Webster MD LAB BLOOD ORDERABLES Final R esult Performing Organization Address City/[facility]/ZIP Co de Phone Number [address] [address] * Lipid panel (08/30/2024 7:58 AM EDT) HDL 34 mg/dL [facility] Comment: Interpretation <40 mg/dL: Low HDL cholesterol (major risk factor for CHD) Greater than or equal to 60 mg/dL: High HDL cholesterol ( negative risk factor for CHD) HDL - cholesterol is affected by a number of factors, e.g. smoking, excerise, hormones, sex and age. CHOLESTEROL 122 0 - 240 mg/dL [facility] TRIGLYCERIDES 147 30 - 160 mg/dL [facility] LDL 59 50 - 129 mg/dL [facility] Comment: LDL levels in terms of risk for coronary heart disease: <100 mg/dL: Optimal 100-129 mg/dL: Near or above optimal 130-159 mg/dL: Borderline high 160-189 mg/dL: High >190 mg/dL: Very High CARDIAC RISK RATIO 3.6 3.4 - 5.0 C [facility] Blood 08/30/2024 7:58 AM EDT 08/30/2024 8:02 AM EDT us Rommel Webster MD LAB BLOOD ORDERABLES Final R esult [address] [address] from Last 3 Months or Most Recently Relevant to Health Maintenance Insurance MEDICARE PART A & B [employer] SUPPLEMENT MEDICARE PART A & B [employer] MED[employer] SUPPLEMENT MEDICARE PART A & B [employer] MEDEX SUPPLEMENT MEDICARE PART A & B [employer] MEDEX SUPPLEMENT MEDICARE PART A & [place] [address] [place] [address] MEDEX SUPPLEMENT MEDICARE PART A & B [email or web address] MEDEX SUPPLEMENT MEDICARE PART A & B [email or web address] MEDEX SUPPLEMENT MEDICARE PART A & B [email or web address]OSS MEDEX SUPPLEMENT MEDICARE PART A & B [email or web address] CROSS MEDEX SUPPLEMENT Advance Directives For more information, please contact: [phone] (9AM - 5PM [facility], Thursday-Thursday) * Full Code (Latest Code Status on File) Date Activated Date Inactivated Comments 02/26/2023 4:12 PM Question Answer Comments Code Status Confirmed With: Patient * Full Code Date Activated Date Inactivated Comments 01/22/2022 7:16 AM 02/26/2023 4:12 PM Question Answer Comments Code Status Confirmed With: Patient Care Teams Hand Shaker Relationship Specialty Start Date End Date Rommel Webster MD [address] [place] [address] [place] [address] PCP - General Internal Medicine 04/07/17 Rommel Webster MD 14 [facility] [address] [place] [address] Insurance Assigned Provider 08/22/23 Additional Source Comments The information contained in this document represents components of the legal health record. It is not the complete legal health record.[facility]
--- OUTSIDE RECORDS SUMMARY | 2025-01-17 06:22 | XMS_ITS | Encounter Summary ---
Author Organization [facility] Address [address] [place] [address] Phone Care Team Providers Care Contracts Attorney Name Role Phone Rommel Webster MD Unavailable [phone] Rommel Webster MD Primary Care Provider [phone] Encounter Details Date Type Department Care Team ([facility] Contact Info) Description 03/03/2023 Procedure Pass [facility] Cardiovascular And Interventional Radiology [address] [place] [address] Social History Tobacco Use Types Packs/Day Years Used Date Smoking Tobacco: Former Cigarettes 2.5 9 1 963 - 1972 Smokeless Tobacco: Never Alcohol Use Standard Drinks/Week Comments Yes 6 [...] Description 03/02/2025 8:40 AM EDT Office Visit [facility] [address] [facility] 3rd Floor, [address] [place] [address] Ronaldo Burns MD 22 [facility], [address] [place] [address] [email or web address] 09/21/2025 8:40 AM EDT Office Visit [facility] Internal Medicine 14 [facility] [address] [place] [address] Rommel Webster MD 14 [facility] [address] [place] [address] documented as of this encounter Visit Diagnoses Not on filedocumented in this encounter Additional Health Concerns Assessment Noted Time PHQ-2 Depression Total Score: 0 04/16/20 23 1:02 PM EST documented as of this encounter Care Teams Contracts Attorney Relationship Specialty Start Date End Date Rommel Webster MD 14 [facility] [address] [place] [address] PCP - General Internal Medicine 04/07/17 Rommel Webster MD [address] [place] [address] [address] Insurance Assigned Provider 08/22/23 documented as of this encounter Additional Source Comments The information contained in this document represents components of the legal health record. It is not the complete legal health record.[facility]
--- OUTSIDE RECORDS SUMMARY | 2025-01-17 06:22 | XMS_ITS | Encounter Summary ---
Author Organization [facility] Address [address] [facility] [address] [place] [address] Phone Care Team Providers Care Tools And Parts Attendant Name Role Phone Rommel Webster MD Unavailable [phone] Rommel Webster MD Primary Care Provider [phone] Encounter Details Date Type Department Care Team (Late Contact Info) Description 02/02/2023 Procedure Pass [facility] [address] [place] [address] Social History Tobacco Use Types Packs/Day Years [...] Description 03/02/2025 8:40 AM EDT Office Visit [facility] [address]rd Floor, [address] [place] [address] Ronaldo Burns MD 22 [facility], [address] [place] [address] 09/21/2025 8:40 AM EDT Office Visit [facility] Internal Medicine 14 [facility] [address] [place] [address] Rommel Webster MD 14 [facility] [address] [place] [address] documented as of this encounter Visit Diagnoses Not on filedocumented in this encounter Additional Health Concerns Assessment Noted Time PHQ-2 Depression Total Score: 0 12/14/19 22 9:30 AM EDT documented as of this encounter Care Teams Tools And Parts Attendant Relationship Specialty Start Date End Date Rommel Webster MD [address] [address] PCP - General Internal Medicine 04/07/17 Rommel Webster MD [address] [address] Insurance Assigned Provider 08/22/23 documented as of this encounter Additional Source Comments The information contained in this document represents components of the legal health record. It is not the complete legal health record.[facility]
== END 2025-01-17 06:17 | disposition home or self-care (01) ==
LOC: CF 06:16
PROVIDERS: Visit Provider Anesthesiology
DX: M47.816 Spondylosis without myelopathy or radiculopathy, lumbar region (principal)
CPT/HCPCS: 64493; 64494; J2003; J2795; Q9967

== ENCOUNTER 2025-01-17 13:24 | Outpatient (AMB) | payer MEDICARE, SELFPAY ==
--- NOTE | 2025-01-17 13:39 | A.OFFVIS_ITS ---
Vital Signs 01/17/25 13:40 Weight 192 lb BP 142/88 H Blood Pressure Location Lt brachial Position Sitting Respiration 16 Pulse 90 Pulse Source Pulse Oximeter Pulse Oximetry (%) 95 Oxygen Delivery Method Room Air Intake Visit Reasons: Bilateral Diagnostic L3-L4-DR L5 MBB Control Systems Technician Required: No Allergies morphine Allergy (Unknown, Verified 11/16/24 08:41) Headache Penicillins Allergy (Unknown, Verified 11/16/24 08:41) Unknown piperacillin (From Zosyn) Allergy (Unknown, Verified 11/16/24 08:41) Hives tazobactam (From Zosyn) Allergy (Unknown, Verified 11/16/24 08:41) Hives cefaclor (From Ceclor) Allergy (Verified 11/16/24 08:41) Anaphylaxis phenazopyridine (From Pyridium) Allergy (Verified 11/16/24 08:41) Anaphylaxis PFSH Medical History A-fib Colon polyp Gout History of diverticulosis HLD (hyperlipidemia) Family History Mother Cerebral aneurysm Father Heart disease Social History Household Members: Spouse Housing: House Do you presently have visiting nurse or other home services: No Patient Tobacco Use Status: Former Tobacco user service: No Current occupational status: retired Physical Exam Vital Signs: Last Vital Signs Pulse 90 01/17/25 13:40 Resp 16 01/17/25 13:40 BP 142/88 H 01/17/25 13:40 Pulse Ox 95 01/17/25 13:40 Oxygen Delivery Method Room Air 01/17/25 13:40 Assessment & Plan Assessment & Plan (1) Spondylosis of lumbar region without myelopathy or radiculopathy: Code(s): M47.816 - Spondylosis without myelopathy or radiculopathy, lumbar region Category: Medical Plan Diagnostic medial branch block L3,L4 dorsal ramus L5 bilateral.? ? ?Informed consent was explained to the patient. All questions were explained and? answered.? The patient was taken inside the operating room where he was positioned prone on the operating table. Time-out was performed delineating correct site, side, the nature of the procedure, patient's allergy, . All operating room staff was participating in OR time-out procedure. ? ? The lower back was prepped with ChloraPrep and draped with sterile utility towels.? C-arm was brought over the operating field and sq picture of L4-, L5 vertebra and S1 AREA were delineated on the screen.? Point of interest were delineated as confluence of superior articular process of L4 and L5 vertebra bilaterally with corresponding transverse processes as well as confluence of the sacral alae bilaterally with superior articular process of S1.? The projection of the point of interest to the skin were injected with the small amount of local anesthetic lidocaine 2% mixed with ropivacaine 0.5% 1-1 approximately 1 cc.? After that 22 gauge 3.5 inch spinal needle was driven sequentially to the points of interest in tunnel vision fashion. After needles gently contacted the bone at the point of interests the needle was injected with small amount of the contrast.? The injection of the contrast did not demonstrate any intravascular or intrathecal spread of the contrast.? After that injection of the? ropivacaine 0.5%-1cc was performed at each needle location.?After that the needles were removed and Bandaids were applied. Orders: Orders FL guidance in treatment room Today M47.816 - Spondylosis without myelopathy or radiculopathy, lumbar region Coding Level of Care Code Procedure Only Diagnoses Spondylosis of lumbar region without myelopathy or radiculopathy M47.816
[2025-01-17 13:40] VITALS: BP 142/88; PULSE 90; RESP 16; O2SAT 95
--- OUTSIDE RECORDS SUMMARY | 2025-01-17 14:40 | XMS_ITS | Encounter Summary ---
Author Organization [facility] Address [address] [facility] [facility] [place] [address] Phone Care Team Providers Care Test Engineer Name Role Phone Rommel Webster MD Unavailable [phone] Rommel Webster MD Primary Care Provider [phone] Encounter Details Date Type Department Care Team (Late st Contact Info) Description 01/22/2022 Procedure Pass OR Admitting Dept - Virtual Department 30 [place] [address] Social History Tobacco Use Types Packs/Day Years [...] 1:00 PM EDT Winsome Davis RN * [place] Suicide Severity Rating Scale (Screener/Recent Self-Report) Question [...] Description 03/02/2025 8:40 AM EDT Office Visit [facility] [address] [facility] 3rd Floor, [address] [place] [address] Ronaldo Burns MD 22 [facility], [address] [place] [address] 09/21/2025 8:40 AM EDT Office Visit [facility] 14 [facility] [address] [place] [address] Rommel Webster MD [address] [place] [address] documented as of this encounter Visit Diagnoses Not on filedocumented in this encounter Additional Health Concerns Infection Onset Date Last Indicated Resolved Time CoV-Exposed Comment:Added per Home Health documentation 01/30/2022 01/30/2022 02/05/2022 9:29 AM E DT Assessment Noted Time PHQ-2 Depression Total Score: 0 12/14/19 22 9:30 AM EDT documented as of this encounter Care Teams Test Engineer Relationship Specialty Start Date End Date Rommel Webster MD [address] [place] [address] PCP - General Internal Medicine 04/07/17 Rommel Webster MD [address] [place] [address] Insurance Assigned Provider 08/22/23 documented as of this encounter Additional Source Comments The information contained in this document represents components of the legal health record. It is not the complete legal health record.[facility]
--- OUTSIDE RECORDS SUMMARY | 2025-01-17 14:40 | XMS_ITS | Encounter Summary ---
Author Organization [facility] Address [address] [place] [address] Phone Care Team Providers Care Anchorman Name Role Phone Rommel Webster MD Unavailable [phone] Rommel Webster MD Primary Care Provider Encounter Details Date Type Department Care Team (Late st Contact Info) Description 02/26/2023 Procedure Pass [facility] EP Pacer Lab [address] [facility], Floor 1, Room [address] [place] [address] Social History Tobacco Use Types [...] 5:57 PM EDT Samaria Chavez RN * [place] Suicide Severity Rating Scale (Screener/Recent Self-Report) Question [...] Description 03/02/2025 8:40 AM EDT Office Visit [facility] [address] [place] [address], [address] [place] [address] Ronaldo Burns MD [address] [place] [address] [email or web address] 09/21/2025 8:40 AM EDT Office Visit [facility] [place] [facility] [address] [address] Rommel Webster MD [address] [place] [address] documented as of this encounter Visit Diagnoses Not on filedocumented in this encounter Additional Health Concerns Assessment Noted Time PHQ-2 Depression Total Score: 0 12/14/19 22 9:30 AM EDT documented as of this encounter Care Teams Anchorman Relationship Specialty Start Date End Date Rommel Webster MD [address] [place] [address] PCP - General Internal Medicine 04/07/17 Rommel Webster MD [address] [place] [address] [address] [place] [address] [email or web address] Insurance Assigned Provider 08/22/23 documented as of this encounter Additional Source Comments The information contained in this document represents components of the legal health record. It is not the complete legal health record.[facility]
--- OUTSIDE RECORDS SUMMARY | 2025-01-17 14:40 | XMS_ITS | Encounter Summary ---
Author Organization [facility] Address [address] [facility] [address] [place] [address] Phone Care Team Providers Care Cook Fruit Name Role Phone Rommel Webster MD Unavailable [phone] Rommel Webster MD Primary Care Provider [phone] Encounter Details Date Type Department Care Team ([facility] Contact Info) Description 03/03/2023 Procedure Pass [facility] Cardiovascular And Interventional Radiology 30 [place] [address] Social History Tobacco Use Types Packs/Day Years [...] Description 03/02/2025 8:40 AM EDT Office Visit [facility] [address] [facility] 3rd Floor, [address] [place] [address] Ronaldo Burns MD 22 [facility], [address] [place] [address] [email or web address] 09/21/2025 8:40 AM EDT Office Visit [facility] 14 [facility] [address] [place] [address] Rommel Webster MD 14 [facility] [address] [place] [address] documented as of this encounter Visit Diagnoses Not on filedocumented in this encounter Additional Health Concerns Assessment Noted Time PHQ-2 Depression Total Score: 0 04/16/20 23 1:02 PM EST documented as of this encounter Care Teams Cook Fruit Relationship Specialty Start Date End Date Rommel Webster MD 14 [facility] [address] [place] [address] PCP - General Internal Medicine 04/07/17 Rommel Webster MD [address] [address] Insurance Assigned Provider 08/22/23 documented as of this encounter Additional Source Comments The information contained in this document represents components of the legal health record. It is not the complete legal health record.[facility]
--- OUTSIDE RECORDS SUMMARY | 2025-01-17 14:40 | XMS_ITS | Encounter Summary ---
Author Organization [facility] Address [address] [facility] [address] [place] [address] Phone Care Team Providers Care Marble Carver Name Role Phone Rommel Webster MD Unavailable [phone] Rommel Webster MD Primary Care Provider [phone] Encounter Details Date Type Department Care Team (Late Contact Info) Description 09/08/2022 Procedure Pass [facility] Cardiovascular And Interventional Radiology 30 [place] [address] Social History Tobacco Use Types Packs/Day Years [...] Description 03/02/2025 8:40 AM EDT Office Visit [facility] [address] [place] [address] 3rd Floor, [address] [place] [address] Ronadlo Burns MD 22 [facility], [address] [place], [place] [phone] 09/21/2025 8:40 AM EDT Office Visit [facility] [place] [facility] 14 [facility] [address] [place] [address] Rommel Webster MD 14 [facility] [address] [place] [address] [email or web address] documented as of this encounter Visit Diagnoses Not on filedocumented in this encounter Additional Health Concerns Assessment Noted Time PHQ-2 Depression Total Score: 0 12/14/19 22 9:30 AM EDT documented as of this encounter Care Teams Marble Carver Relationship Specialty Start Date End Date Rommel Webster MD 14 [facility] [address] [place] [address] PCP - General Internal Medicine 04/07/17 Rommel Webster MD 14 [facility] [address] [place] [address] Insurance Assigned Provider 08/22/23 documented as of this encounter Additional Source Comments The information contained in this document represents components of the legal health record. It is not the complete legal health record.[facility]
--- OUTSIDE RECORDS SUMMARY | 2025-01-17 14:40 | XMS_ITS | Encounter Summary ---
Author Organization [facility] Address [address] [facility] [address] [place] [address] Phone Care Team Providers Care Hotel Registration Clerk Name Role Phone Rommel Webster MD Unavailable [phone] Rommel Webster MD Primary Care Provider [phone] Reason for Visit * Reason Onset Date Comments Medication Refill 01/17/2025 Allopurinol Encounter Details Date Type Department Care Team (Late st Contact Info) Description 01/17/2025 Refill [facility] [place] [facility] 14 [facility] [address] [place] [address] Mercedes Smith CMA 14 [place], [place] [phone] [email or web address] Medication Refill (Allopurinol ) Social History Tobacco Use Types Packs/Day Years Used Date Smoking Tobacco: Former Cigarettes 2.5 9 1 963 - 1971 Smokeless Tobacco: Never Alcohol Use Standard Drinks/Week [...] on file documented as of this encounter Progress Notes * Mercedes Smith CMA - 01/17/2025 11:33 AM EDT Rx Care Gap Status - Instructions for Clinical Staff (prescriber discretion applies): > Mismatch review guide > At least one request does not meet full criteria. Specifics below. > Labs due: Please remind patient. > Orders needed: Click OPA and Accept to open SmartSet. Uric Acid - Needs order * Visit Info Last visit: 09/29/2024 Rommel Webster MD - [facility] > Requested f/u: Not specified Upcoming visit: 09/21/2025 Rommel Webster MD - [facility] ACTIONS TAKEN BY Mercedes Smith CMA - Criteria met. Gout Rx Protocol - allopurinol Criteria not met; renew for up to 3 months. Visit in the past 14 months: Yes Clinical criteria: - BMP within past year: Yes - LFTs within past year: Yes - CBC within past year: Yes - Uric acid within past year: No - Last Cr normal: Yes Lab Results Component Value Date SODIUM 141 08/30/2024 POTASSIUM 4.5 08/30/2024 CHLORIDE 103 08/30/2024 CO2 28 08/30/2024 BUN 21 (H) 08/30/2024 CREATININE 0.90 08/30/2024 EGFR 87 08/30/2024 Lab Results Component Value Date WBC 7.16 08/30/2024 HCT 48.1 08/30/2024 HGB 16.1 08/30/2024 PLT 231 08/30/2024 Lab Results Component Value Date AST 35 08/30/2024 ALT 38 08/30/2024 ALKALINE PHOSPHATASE 71 08/30/2024 TOTAL BILIRUBIN 0.9 08/30/2024 DIRECT BILIRUBIN 0.2 08/30/2024 Lab Results Component Value Date URIC ACID 6.2 01/07/2024 No Health Maintenance Labs Overdue documented in this encounter Plan of Treatment Upcoming Encounters Date Type Department Care Team (Late st Contact Info) Description 03/02/2025 8:40 AM EDT Office Visit [facility] [address] [place] [address] 3rd Floor, [address] [place] [address] Ronaldo Burns MD [address] [facility], [address] [place] [address] [email or web address] 09/21/2025 8:40 AM EDT Office Visit [facility] [place] [facility] 14 [facility] [address] [place] [address] Rommel Webster MD 14 [facility] [address] [place] [address] [email or web address] documented as of this encounter Visit Diagnoses Diagnosis History of gout Personal history of endocrine, metabolic, and immunity disorders documented in this encounter Additional Health Concerns Assessment Noted Time PHQ-2 Depression Total Score: 0 09/09/19 25 9:51 AM EDT documented as of this encounter Care Teams Hotel Registration Clerk Relationship Specialty Start Date End Date Rommel Webster MD 14 [facility] [address] [place] [address] [email or web address] PCP - General Internal Medicine 04/07/17 Rommel Webster MD 14 [facility] [address] [place] [address] [email or web address] Insurance Assigned Provider 08/22/23 documented as of this encounter Additional Source Comments The information contained in this document represents components of the legal health record. It is not the complete legal health record.[facility]
--- OUTSIDE RECORDS SUMMARY | 2025-01-17 14:40 | XMS_ITS | Encounter Summary ---
Author Organization [facility] Address [address] [facility] [address] [place] [address] Phone Care Team Providers Care Computer Information Systems Instructor Name Role Phone Rommel Webster MD Unavailable [phone] Rommel Webster MD Primary Care Provider [phone] Encounter Details Date Type Department Care Team (Late st Contact Info) Description 02/05/2022 Procedure Pass OR Admitting Dept - Virtual Department 30 [place] [address] Social History Tobacco Use Types Packs/Day Years [...] Description 03/02/2025 8:40 AM EDT Office Visit [facility] 3rd Floor, [address] [place] [address] Ronaldo Burns MD 22 [facility], [address] [place] [address] 09/21/2025 8:40 AM EDT Office Visit [facility] [place] [facility] 14 [facility] [address] [place] [address] Rommel Webster MD 14 [facility] [address] [place] [address] [email or web address] documented as of this encounter Visit Diagnoses Not on filedocumented in this encounter Additional Health Concerns Infection Onset Date Last Indicated Resolved Time CoV-Exposed Comment:Added per Home Health documentation 01/30/2022 01/30/2022 02/05/2022 9:29 AM E DT Assessment Noted Time PHQ-2 Depression Total Score: 0 12/14/19 9:30 AM EDT documented as of this encounter Care Teams Computer Information Systems Instructor Relationship Specialty Start Date End Date Rommel Webster MD 14 [facility] [address] [place] [address] [email or web address] PCP - General Internal Medicine 04/07/17 Rommel Webster MD 14 [facility] [address] [place] [address] [email or web address] Insurance Assigned Provider 08/22/23 documented as of this encounter Additional Source Comments The information contained in this document represents components of the legal health record. It is not the complete legal health record.[facility]
--- OUTSIDE RECORDS SUMMARY | 2025-01-17 14:40 | XMS_ITS | Clinical Summary ---
Author Organization [facility] Address [address] [place] [address] Phone Care Team Providers Care Child Care Attendant School Name Role Phone Rommel Webster MD Unavailable [phone] Rommel Webster MD Primary Care Provider Allergies Active Allergy Reactions Criticality Noted Date [...] tablet 3 5 Active MYRBETRIQ 25 mg [id number]: BPH with obstruction/lowe r urinary tract symptoms [...] knee to suggest septic arthritis. Spoke with [facility] micro lab blood cultures drawn there [...] blood cultures drawn here and also at [facility] 02/02 -- Abdominal ultrasound unrevealing -- [...] -- He has 2 metoprolol orders in [facility] but was receiving metoprolol tartrate 50 [...] 50 mg daily. He is going to [place] in a week. He has a previously [...] Encounters Date Type Department Care Team Description 01/17/2025 Refill [facility] Internal Medicine [address] [address] Mercedes Smith CMA Medication Refill (Allopurinol ) 11/23/2024 [facility] [address] [place] [address] 3rd Floor, [address] [place] [address] Ronaldo Burns MD 11/08/2024 Orders Only [facility] Medicine [address] [place] [address] ProviderWhitney MD 11/04/2024 1:30 PM EDT - 11/04/2024 11:59 PM EDT Hospital Encounter [facility] [address] [place] [address] Mónica Patiño PA-C Discharge Disposition: Home or Self Care 11/04/2024 1:20 PM EDT Office Visit [facility] [address] [place] [address] Mónica Patiño PA-C Arthropathy of left shoulder (Primary Dx) 10/19/2024 Orders Only [facility] [address] [place] [address] ProviderWhitney MD from Last 3 Months Immunizations Immunization Administration [...] Description 03/02/2025 8:40 AM EDT Office Visit [facility] [address] [place] [address] 3rd Floor, [address] [place] [address] Ronaldo Burns MD [address] [place] [address] 09/21/2025 8:40 AM EDT Office Visit [facility] [place] [facility] 14 [facility] [address] [place] [address] Rommel Webster MD [address] [facility] [address] [place] [address] [email or web address] Health Maintenance Due Date Last Done Comments INFLUENZA VACCINE (#1) 2024 , 02/08/2023, 02/08/2023, Additional history exists COVID-19 VACCINE ( season) 2025 01/16/2024, 03/06/2023, 11/24/2022, Additional history exists BLOOD PRESSURE 04/01/2025 09/29/2024 [...] this topic Medical Devices Implanted Type Area Party Demonstrator Device Identifier Shelf Expiration Date Model / Serial / Lot System Watchman 35mm Flx Mary Closure Us - [id number] Implanted:Qty: 1 on 02/26/2023 by Grayson Olvera MD at [facility] MARY Occluder [employer] 10/14/2025 [id number] / / [id number] Cement Bone 1x40 Standard - [id number] Implanted:Qty: 1 on 01/22/2022 by Aamir Tello MD at [facility] Right: Knee AWILDA / DIV OF [employer] 12/15/2024 [id number] / / [id number] Box Component 65.0mm Femoral Knee Vanguard Interlok North Powder Posterior Stabilized Open Cemented Right - [id number] Implanted:Qty: 1 on 01/22/2022 by Aamir Tello MD at [facility] Right: Knee [employer] 10/25/2031 [id number] / / [id number] Knee Tray 79mm Plate Bone Primary Vanguard North Powder I Beam Revision Interlock Cemented - [id number] Implanted:Qty: 1 on 01/22/2022 by Aamir Tello MD at [facility] Right: Knee [employer] 08/31/2031 [id number] / / [id number] Button Patella 27x50hg Knee Vanguard Uhmwpe 3 Peg Series A Standard - [id number] Implanted:Qty: 1 on 01/22/2022 by Aamir Tello MD at [facility] Right: Knee [employer] 07/31/2026 [id number] / / [id number] Tibial Bearing 79/06r33za Vanguard Posterior Stabilized - [id number] Implanted:Qty: 1 on 01/22/2022 by Aamir Tello MD at [facility] Right: Knee [employer] 06/10/2026 [id number] / / [id number] Procedures Procedure Name Priority Date/Time Associated Diagnosis [...] Imaging Report Only (11/08/2024 11:34 AM EDT) Historical Provider MD FONTANEZ MR Final Res [...] EDT) SODIUM 141 133 - 146 mmol/L [facility] POTASSIUM 4.5 3.3 - 5.1 mmol/L [facility] CHLORIDE 103 96 - 108 mmol/L [facility] CO2 28 21 - 35 mmol/L [facility] BUN 21(H) 6 - 19 mg/dL [facility] CREATININE 0.90 0.5 - 1.5 mg/dL [facility] GLUCOSE 121(H) 70 - 99 mg/dL [facility] ALBUMIN 4.3 3.9 - 4.8 g/dL [facility] TOTAL PROTEIN 7.1 6.5 - 8.0 g/dL [facility] CALCIUM 8.9 8.4 - 10.3 mg/dL [facility] ALKALINE PHOSPHATASE 71 39 - 117 U/L [facility] TOTAL BILIRUBIN 0.9 0.0 - 1.2 mg/dL [facility] AST 35 0 - 37 U/L [facility] ALT 38 0 - 40 U/L [facility] GLOBULIN 2.8 1 - 4.8 g/dL [facility] EGFR 87 >59 mL/min/1.7 3m2 [facility] Comment:Estimated glomerular filtration rate calculated using the CKD-EPI refit equation. ANION GAP 15 10 - 20 mmol/L [facility] Blood 08/30/2024 7:58 AM EDT 08/30/2024 8:01 AM EDT Rommel Webster MD LAB BLOOD ORDERABLES Final R esult Performing Organization Address City/[facility]/ZIP Co de Phone Number [address] [address] * Lipid panel (08/30/2024 7:58 AM EDT) HDL 34 mg/dL [facility] Comment: Interpretation <40 mg/dL: Low HDL cholesterol (major risk factor for CHD) Greater than or equal to 60 mg/dL: High HDL cholesterol ( negative risk factor for CHD) HDL - cholesterol is affected by a number of factors, e.g. smoking, excerise, hormones, sex and age. CHOLESTEROL 122 0 - 240 mg/dL [facility] TRIGLYCERIDES 147 30 - 160 mg/dL [facility] LDL 59 50 - 129 mg/dL [facility] Comment: LDL levels in terms of risk for coronary heart disease: <100 mg/dL: Optimal 100-129 mg/dL: Near or above optimal 130-159 mg/dL: Borderline high 160-189 mg/dL: High >190 mg/dL: Very High CARDIAC RISK RATIO 3.6 3.4 - 5.0 [facility] Blood 08/30/2024 7:58 AM EDT 08/30/2024 8:02 AM EDT us Rommel Webster MD LAB BLOOD ORDERABLES Final R esult [address] [address] from Last 3 Months or Most Recently Relevant to Health Maintenance Insurance MEDICARE PART A & B [employer]EX SUPPLEMENT MEDICARE PART A & [employer] MEDEX SUPPLEMENT MEDICARE PART A & [employer] MEDEX SUPPLEMENT MEDICARE PART A & [employer] MEDEX SUPPLEMENT MEDICARE PART A & [facility] MEDEX SUPPLEMENT MEDICARE PART A & B [employer] MEDEX SUPPLEMENT MEDICARE PART A & [employer] MEDEX SUPPLEMENT MEDICARE PART A & [employer] MEDEX SUPPLEMENT MEDICARE PART A & [employer] MEDEX SUPPLEMENT Advance Directives For more information, please contact: [phone] (9AM - 5PM [place], Thursday-Thursday) * Full Code (Latest Code Status on File) Date Activated Date Inactivated Comments 02/26/2023 4:12 PM Question Answer Comments Code Status Confirmed With: Patient * Full Code Date Activated Date Inactivated Comments 01/22/2022 7:16 AM 02/26/2023 4:12 PM Question Answer Comments Code Status Confirmed With: Patient Care Teams Child Care Attendant School Relationship Specialty Start Date End Date Rommel Webster MD [address] [place] [address] [place] [address] [email or web address] PCP - General Internal Medicine 04/07/17 Rommel Webster MD [address] [place] [address] [place] [address] [email or web address] Insurance Assigned Provider 08/22/23 Additional Source Comments The information contained in this document represents components of the legal health record. It is not the complete legal health record.[facility]
--- OUTSIDE RECORDS SUMMARY | 2025-01-17 14:40 | XMS_ITS | Encounter Summary ---
Author Organization [facility] Address [address] [place] [address] Phone Care Team Providers Care Second Shift Supervisor Name Role Phone Rommel Webster MD Unavailable [phone] Rommel Webster MD Primary Care Provider [phone] Encounter Details Date Type Department Care Team (Late Contact Info) Description 02/02/2023 Procedure Pass [facility] [address] [place] [address] Social History Tobacco Use Types Packs/Day Years [...] Description 03/02/2025 8:40 AM EDT Office Visit [facility] [address], [address] [place] [address] Ronaldo Burns MD 22 [facility], [address] [place] [address] 09/21/2025 8:40 AM EDT Office Visit [facility] 14 [facility] [address] [place] [address] Rommel Webster MD 14 [facility] [address] [place] [address] documented as of this encounter Visit Diagnoses Not on filedocumented in this encounter Additional Health Concerns Assessment Noted Time PHQ-2 Depression Total Score: 0 12/14/19 22 9:30 AM EDT documented as of this encounter Care Teams Second Shift Supervisor Relationship Specialty Start Date End Date Rommel Webster MD [address] [address] PCP - General Internal Medicine 04/07/17 Rommel Webster MD [address] [address] Insurance Assigned Provider 08/22/23 documented as of this encounter Additional Source Comments The information contained in this document represents components of the legal health record. It is not the complete legal health record.[facility]
--- OUTSIDE RECORDS SUMMARY | 2025-01-17 14:40 | XMS_ITS | Encounter Summary ---
Author Organization [facility] Address [address] [facility] [address] [place] [address] Phone Care Team Providers Care It Software Developer Name Role Phone Rommel Webster MD Unavailable [phone] Rommel Webster MD Primary Care Provider [phone] Encounter Details Date Type Department Care Team (Late st Contact Info) Description 01/17/2020 Procedure Pass [facility], Ct Scan - [facility] [address] [place] [address] Social History Tobacco Use Types Packs/Day Years [...] Description 03/02/2025 8:40 AM EDT Office Visit [facility] [address], [address] [place] [address] Ronaldo Burns MD 22 [facility], [address] [place] [address] 09/21/2025 8:40 AM EDT Office Visit [facility] [address] [place] [address] Rommel Webster MD 14 [facility] [address] [place] [address] [email or web address] documented as of this encounter Visit Diagnoses Not on filedocumented in this encounter Additional Health Concerns Infection Onset Date Last Indicated Resolved Time CoV-Exposed Comment:Added per Home Health documentation 01/30/2022 01/30/2022 02/05/2022 9:29 AM E DT Assessment Noted Time PHQ-2 Depression Total Score: 0 09/24/19 19 8:08 AM EDT documented as of this encounter Care Teams It Software Developer Relationship Specialty Start Date End Date Rommel Webster MD 14 [facility] [address] [place] [address] [email or web address] PCP - General Internal Medicine 04/07/17 Rommel Webster MD 14 [facility] [address] [place] [address] [email or web address] Insurance Assigned Provider 08/22/23 documented as of this encounter Additional Source Comments The information contained in this document represents components of the legal health record. It is not the complete legal health record.[facility]
== END 2025-01-17 14:38 | disposition home or self-care (01) ==
LOC: HO.PMCPRC 13:24
PROVIDERS: PCP Internal Medicine; Visit Provider Anesthesiology
DX: M47.816 Spondylosis without myelopathy or radiculopathy, lumbar region (principal)
CPT/HCPCS: 64493; 64494

== ENCOUNTER 2025-01-20 13:29 | Outpatient (AMB) | payer MEDICARE, SELFPAY ==
--- NOTE | 2025-01-20 13:35 | MHC.OFFVIS ---
Vital Signs 01/20/25 13:36 Height 5 ft 7 in Weight 190 lb BMI 29.8 BP 154/71 H Blood Pressure Location Rt brachial Position Sitting Respiration 18 Pulse 92 Pulse Source Pulse Oximeter Pulse Oximetry (%) 99 Oxygen Delivery Method Room Air Intake Visit Reasons: S/P Bilateral Diagnostic L3-L4-DR L5 MBB Assembler Carbon Brushes Required: No Allergies morphine Allergy (Unknown, Verified 01/20/25 13:35) Headache Penicillins Allergy (Unknown, Verified 01/20/25 13:35) Unknown piperacillin (From Zosyn) Allergy (Unknown, Verified 01/20/25 13:35) Hives tazobactam (From Zosyn) Allergy (Unknown, Verified 01/20/25 13:35) Hives cefaclor (From Ceclor) Allergy (Verified 01/20/25 13:35) Anaphylaxis phenazopyridine (From Pyridium) Allergy (Verified 01/20/25 13:35) Anaphylaxis HPI Comments Details: The patient is a 79-year-old male presenting for follow-up after bilateral diagnostic L3-L4-DR-L5 medial branch blocks completed 01/17/2025. The patient reports experiencing chronic low back pain, which was temporarily relieved by the recent procedure, providing 100% pain relief for over 24 hours. However, the pain has returned and is currently rated at 4 out of 10. The patient has a history of arthritis, which has been identified as a contributing factor to his back pain. The diagnostic injections were performed to confirm the source of pain, which was successfully identified as arthritis-related. - Onset: Chronic low back pain with temporary relief post-procedure - Quality: Aching pain - Severity: Rated 4 out of 10 currently - Relieving factors: Diagnostic injections provided 100% relief for over 24 hours - Exacerbating factors: Pain returned after the effect of injections wore off - Affect: No specific impact on mood or psychological wellbeing discussed - Analgesia: Diagnostic injections provided temporary relief; current pain level is 4/10 - Adverse Effects: No adverse effects from pain management discussed - Activities of Daily Living: Pain impacts daily activities, but specific limitations were not detailed - Aberrant Drug Related Behaviors: No aberrant behaviors discussed [facility] Medical History A-fib Colon polyp Gout History of diverticulosis HLD (hyperlipidemia) Family History Mother Cerebral aneurysm Father Heart disease Social History Household Members: Spouse Housing: House Do you presently have visiting nurse or other home services: No Patient Tobacco Use Status: Former Tobacco user service: No Current occupational status: retired Review of Systems Const Details: - Musculoskeletal: Reports chronic low back pain, relieved temporarily by injections Physical Exam Exam Exam: General: awake, alert, oriented. Answers questions appropriately. Fully engaged in examination. Skin: warm, dry, intact HEENT: Normocephalic. Hearing intact. Cardiac: External chest normal in appearance. Respiratory: No cough, audible wheezing or stridor. Abdomen: without gross distension. MS: No obvious swelling or deformities. Able to transition from sit to stand unassisted. Ambulates with bilaterally normal heel strike and toe off Neurological: Oriented to person, place, time and situation. Thought process intact. No gait abnormalities appreciated. Psychiatric: Appropriate mood and affect. Good judgment and insight. Vital Signs: Last Vital Signs Pulse 92 01/20/25 13:36 Resp 18 01/20/25 13:36 BP 154/71 H 01/20/25 13:36 Pulse Ox 99 01/20/25 13:36 Oxygen Delivery Method Room Air 01/20/25 13:36 BMI result Body Mass Index 29.8 Results Reviewed Results Reviewed: 11/02/24 MRI lumbar spine FINDINGS: 5 non-rib bearing lumbar segments are present on x-ray Marrow and end-plates: Schmorl's nodes are present in the inferior T11, T12, and L1. Modic 2 signal is present anteriorly at L1-2. Alignment: There is subtle retrolisthesis at L1-2, L2-3, L3-4, and L5-S1. Soft tissues: Incompletely imaged 5 cm mass in the superior right kidney demonstrates low signal on T1 imaging, high signal on fluid sensitive sequences, and hairline septations, Bosniak II. Other benign simple cyst are present in the left kidney. Conus: The termination of conus medullaris is within normal limits at the level of lower L1. T12-L1: Broad-based disc bulges result in spinal stenosis or foraminal narrowing. L1-L2: Broad-based disc bulge does not result in spinal stenosis or foraminal narrowing. L2-L3: There is mild loss of disc height and circumferential broad-based disc bulge. There is mild facet degeneration. There is no spinal stenosis or foraminal narrowing. L3-L4: There is mild loss of disc height and circumferential broad-based disc extrusion/bulge. There is mild facet degeneration and trace fluid in the left facet joint. There is mild spinal stenosis. There is mild left greater than right subarticular zone narrowing and mild foraminal narrowing. L4-L5: Circumferential broad-based is bulge, ligamentum flavum thickening, and mild facet arthropathy results in mild spinal stenosis and mild left greater than right subarticular zone narrowing. Neural foramina are mildly narrow, more on the right. L5-S1: Circumferential broad-based disc bulge and broad posterior disc extrusion with mild facet arthropathy and ligamentum flavum thickening does not result in spinal stenosis. There is mild right subarticular zone narrowing. There is mild to moderate right and mild left foraminal narrowing. IMPRESSION: Multilevel degenerative disc disease with areas of mild spinal stenosis and foraminal narrowing, as above. 10/19/24 x-ray lumbar spine FINDINGS: Flexion and extension and oblique imaging were performed. Five qhw-emj-[id number] lumbar type vertebral bodies. Grade 1 retrolisthesis of L1 on L2 and L2 on L3. This does not change on flexion or extension imaging. Vertebral body heights are maintained. No evidence of acute vertebral body injury. Flowing marginal osteophytes along the lower thoracic spine. There is multilevel loss of disc space height with marginal osteophytes. Facet joint arthrosis in the mid to lower lumbar spine with neural foraminal narrowing most pronounced at L4-5 and L5-S1. No pars defects identified on oblique imaging. Visualized bones of the pelvis appear intact. Pelvic phleboliths present. Atherosclerotic vascular calcifications. IMPRESSION: 1. No radiographic evidence of acute injury to the lumbar spine. 2. Grade 1 retrolisthesis of L1 on L2 and L2 on L3. No pars defects identified. 3. Moderate to advanced mid to lower lumbar spondylosis. Assessment & Plan Assessment & Plan (1) Degenerative disc disease, lumbar: Code(s): M51.369 - Other intervertebral disc degeneration, lumbar region without mention of lumbar back pain or lower extremity pain Category: Medical (2) Lumbar spondylosis: Code(s): M47.816 - Spondylosis without myelopathy or radiculopathy, lumbar region Category: Medical Plan Patient presents the office today for follow-up, 3 days status post bilateral diagnostic L3-L4 DR L5 branch blocks with local anesthetic. He reports 100% pain relief for greater than 24 hours after the procedure. This confirms that he is suffering with axial lower back pain secondary to lumbar spondylosis. The patient was presented with several options for managing his chronic low back pain. One option discussed was the use of a nerve stimulator device, which involves placing small wires near the affected joints to disrupt pain signals. This device would remain in place for eight weeks, with the potential for nine months of pain relief. Another option was the use of steroid injections. Risks associated with steroid use discussed with patient. The third option was radiofrequency ablation, which involves using heat to burn the nerves causing pain, potentially providing a year or more of relief. This option was noted to be less intrusive to daily activities compared to the nerve stimulator. During the consultation, I discussed with the patient the results of the diagnostic injections, which confirmed arthritis as the source of his back pain. We reviewed three potential treatment options: a nerve stimulator device, steroid injections, and radiofrequency ablation. I explained the procedure, potential benefits, and risks associated with each option, including the duration of pain relief and the impact on daily activities. The patient was advised to discuss these options with his and to contact me with his decision so that we can proceed with the necessary insurance submissions. Patient was informed and verbally consented to the use of an ambient scribe for clinic note documentation during this visit. Patient Instructions: - Discuss treatment options with your and decide on the preferred method for managing your back pain. - Contact the office with your decision to proceed with insurance submissions. - Consider the impact of each treatment option on your daily activities and lifestyle. Coding Level of Care Code Est Pt Level 3 (54380) Complex EM visit Add On G2211 Diagnoses Degenerative disc disease, lumbar M51.369 Lumbar spondylosis M47.816
[2025-01-20 13:36] VITALS: BP 154/71; PULSE 92; RESP 18; O2SAT 99; BMI 29.8
--- OUTSIDE RECORDS SUMMARY | 2025-01-20 13:48 | XMS_ITS | Encounter Summary ---
Author Organization [facility] Address [address] [facility] [address] [place] [address] Phone Care Team Providers Care Gun Mechanic Name Role Phone Rommel Webster MD Unavailable [phone] Rommel Webster MD Primary Care Provider [phone] Encounter Details Date Type Department Care Team (Late st Contact Info) Description 01/17/2020 Procedure Pass [facility], Ct Scan - [facility] [address] [place] [address] Social History Tobacco Use Types Packs/Day Years [...] Description 03/02/2025 8:40 AM EDT Office Visit [facility] [address], [address] [place] [address] Ronaldo Burns MD 22 [facility], [address] [place] [address] 09/21/2025 8:40 AM EDT Office Visit [facility] Internal Medicine [address] [place] [address] Rommel Webster MD 14 [facility] [address] [place] [address] [email or web address] documented as of this encounter Visit Diagnoses Not on filedocumented in this encounter Additional Health Concerns Infection Onset Date Last Indicated Resolved Time CoV-Exposed Comment:Added per Home Health documentation 01/30/2022 01/30/2022 02/05/2022 9:29 AM E DT Assessment Noted Time PHQ-2 Depression Total Score: 0 09/24/19 19 8:08 AM EDT documented as of this encounter Care Teams Gun Mechanic Relationship Specialty Start Date End Date Rommel Webster MD 14 [facility] [address] [place] [address] [email or web address] PCP - General Internal Medicine 04/07/17 Rommel Webster MD 14 [facility] [address] [place] [address] [email or web address] Insurance Assigned Provider 08/22/23 documented as of this encounter Additional Source Comments The information contained in this document represents components of the legal health record. It is not the complete legal health record.[facility]
--- OUTSIDE RECORDS SUMMARY | 2025-01-20 13:48 | XMS_ITS | Encounter Summary ---
Author Organization [facility] Address [address] [facility] [address] [place] [address] Phone Care Team Providers Care Geochemist Name Role Phone Rommel Webster MD Unavailable [phone] Rommel Webster MD Primary Care Provider [phone] Encounter Details Date Type Department Care Team (Late st Contact Info) Description 01/22/2022 Procedure Pass OR Admitting Dept - Virtual Department 30 [place] [address] Social History Tobacco Use Types Packs/Day Years [...] 1:00 PM EDT Winsome Davis RN * [place] Suicide Severity Rating Scale (Screener/Recent Self-Report) Question [...] Description 03/02/2025 8:40 AM EDT Office Visit [facility] [address] [facility] 3rd Floor, [address] [place] [address] Ronaldo Burns MD 22 [facility], [address] [place] [address] 09/21/2025 8:40 AM EDT Office Visit [facility] [place] [facility] 14 [facility] [address] [place] [address] Rommel Webster MD [address] [place] [address] documented as of this encounter Visit Diagnoses Not on filedocumented in this encounter Additional Health Concerns Infection Onset Date Last Indicated Resolved Time CoV-Exposed Comment:Added per Home Health documentation 01/30/2022 01/30/2022 02/05/2022 9:29 AM E DT Assessment Noted Time PHQ-2 Depression Total Score: 0 12/14/19 22 9:30 AM EDT documented as of this encounter Care Teams Geochemist Relationship Specialty Start Date End Date Rommel Webster MD [address] [place] [address] PCP - General Internal Medicine 04/07/17 Rommel Webster MD [address] [place] [address] Insurance Assigned Provider 08/22/23 documented as of this encounter Additional Source Comments The information contained in this document represents components of the legal health record. It is not the complete legal health record.[facility]
--- OUTSIDE RECORDS SUMMARY | 2025-01-20 13:48 | XMS_ITS | Encounter Summary ---
Author Organization [facility] Address [address] [place] [address] Phone Care Team Providers Care Film Editor Supervisor Name Role Phone Rommel Webtser MD Unavailable [phone] Rommel Webster MD Primary Care Provider [phone] Encounter Details Date Type Department Care Team (Late Contact Info) Description 02/02/2023 Procedure Pass [facility] Card[facility] US [address] [place] [address] Social History Tobacco Use Types Packs/Day Years [...] Description 03/02/2025 8:40 AM EDT Office Visit [facility] [address] Floor, [address] [place] [address] Ronaldo Burns MD 22 [facility], [address] [place] [address] 09/21/2025 8:40 AM EDT Office Visit [facility] Internal Medicine 14 [facility] [address] [place] [address] Rommel Webster MD 14 [facility] [address] [place] [address] documented as of this encounter Visit Diagnoses Not on filedocumented in this encounter Additional Health Concerns Assessment Noted Time PHQ-2 Depression Total Score: 0 12/14/19 22 9:30 AM EDT documented as of this encounter Care Teams Film Editor Supervisor Relationship Specialty Start Date End Date Rommel Webster MD [address] [address] PCP - General Internal Medicine 04/07/17 Rommel Webster MD [address] [address] Insurance Assigned Provider 08/22/23 documented as of this encounter Additional Source Comments The information contained in this document represents components of the legal health record. It is not the complete legal health record.[facility]
--- OUTSIDE RECORDS SUMMARY | 2025-01-20 13:48 | XMS_ITS | Clinical Summary ---
Author Organization [facility] Address [address] [facility] [address] [place] [address] Phone Care Team Providers Care Building Estimator Name Role Phone Rommel Webster MD Unavailable [phone] Rommel Webster MD Primary Care Provider Allergies [...] tablet (81 mg total) by mouth daily. 02/29/20 23 Active gabapentin (NEURONTIN) 100 MG capsuleIndicatio ns:Chronic insomnia,Status post right knee replacement TAKE 1 TO 3 CAPSULES NIGHTLY NEEDED FOR PAIN AND INSOMNIA 90 capsule 2 03/07/20 24 Active metoprolol succinate (TOPROL-XL) 50 MG 24 hr tabletIndication s:Atrial fibrillation take 1 tablet daily 90 tablet 3 03/07/20 24 Active LORazepam (ATIVAN) 1 MG tabletIndication s:Anxiety TAKE 1 TABLET ONCE DAILY ASNEEDED 60 tablet 2 03/08/20 24 Active atorvastatin (LIPITOR) 10 MG tabletIndication s:Dyslipidemia TAKE 1 TABLET DAILY 90 tablet 2 05/30/19 25 Active ezetimibe (ZETIA) 10 mg tabletIndication s:Dyslipidemia TAKE 1 TABLET DAILY 90 tablet 3 06/27/19 25 Active MYRBETRIQ 25 mg [id number]: BPH with obstruction/lowe r urinary tract symptoms TAKE 1 TABLET DAILY 90 tablet 3 06/27/19 25 Active omeprazole (PRILOSEC) 20 MG tablet Take 20 mg by mouth daily. Active naproxen sodium (ALEVE ORAL) Take 1 tablet by mouth daily as needed. Active allopurinol (ZYLOPRIM) 100 MG tabletIndication s:History of gout Take 2 tablets (200 mg total) by mouth daily. 180 tablet 01/18/20 25 Active allopurinol (ZYLOPRIM) 100 MG tabletIndication s:History of gout TAKE 2 TABLETS DAILY DOSEINCREASE* * 180 tablet 1 06/27/19 25 025 Discontin u([facility], or Other Facility Administered Medication Ordered [...] knee to suggest septic arthritis. Spoke with [facility] micro lab blood cultures drawn there are [...] blood cultures drawn here and also at [facility] 02/02 -- Abdominal ultrasound unrevealing -- Xray [...] -- He has 2 [facility]oprolol [facility] but was receiving metoprolol tartrate 50 mg [...] 50 mg daily. He is going to [place] in a week. He has a previously [...] Type Department Care Team Description 01/17/2025 Refill [facility] Internal Medicine [address] [address] Mercedes Smith CMA Medication Refill (Allopurinol ) 11/23/2024 Telephone [facility] [address] 3rd Floor, [address] [place] [address] Ronaldo Burns MD 11/08/2024 Orders Only [facility] Internal Medicine 14 [facility] [address] [place] [address] ProviderWhitney MD 11/04/2024 1:30 PM EDT - 11/04/2024 11:59 PM EDT Hospital Encounter [facility] 4 [place] [address] Mónica Patiño PA-C Discharge Disposition: Home or Self Care 11/04/2024 1:20 PM EDT Office Visit [facility] [address] [place] [address] Mónica Patiño PA-C Arthropathy of left shoulder (Primary Dx) from Last 3 Months Immunizations Immunization Administration [...] Description 03/02/2025 8:40 AM EDT Office Visit [facility] [address] [place] [address] 3rd Floor, [address] [place] [address] Ronaldo Burns MD 22 [facility], [address] [place] [address] 09/21/2025 8:40 AM EDT Office Visit [facility] [place] [facility] 14 [facility] [address] [place] [address] Rommel Webster MD 14 [facility] [address] [place] [address] [email or web address] Health Maintenance Due Date Last Done Comments [...] this topic Medical Devices Implanted Type Area Lunchroom Monitor Device Identifier Shelf Expiration Date Model / Serial / Lot System Watchman 35mm Flx Mary Closure - [id number] Implanted:Qty: 1 on 02/26/2023 by Grayson Olvera MD at [facility] MARY Occluder [employer] 10/14/2025 [id number] / / [id number] Cement Bone 1x40 Standard - [id number] Implanted:Qty: 1 on 01/22/2022 by Aamir Tello MD at [facility] Right: Knee AWILDA / DIV OF [employer] 12/15/2024 [id number] / / [id number] Box Component 65.0mm Femoral Knee Vanguard Inter[employer]ok [place] Posterior Stabilized Open Cemented Right - [id number] Implanted:Qty: 1 on 01/22/2022 by Aamir Tello MD at [facility] Right: Knee [employer] 10/25/2031 [id number] / / [id number] Knee Tray 79mm Plate Bone Primary Vanguard [place] I Beam Revision Interlock Cemented - [id number] Implanted:Qty: 1 on 01/22/2022 by Aamir Tello MD at [facility] Right: Knee [employer] 08/31/2031 [id number] / / [id number] Button Patella 79l51mk Knee Vanguard Uhmwpe 3 Peg Series A Standard - [id number] Implanted:Qty: 1 on 01/22/2022 by Aamir Tello MD at [facility] Right: Knee [employer] 07/31/2026 [id number] / / [id number] Tibial Bearing 79/83a43at Vanguard Posterior Stabilized - [id number] Implanted:Qty: 1 on 01/22/2022 by Aamir Tello MD at [facility] Right: Knee [employer] 06/10/2026 [id number] / / [id number] Procedures Procedure Name Priority Date/Time Associated Diagnosis Comments OUTSIDE MR IMAGING REPORT ONLY Routine 11/08/2024 11:34 AM EDT XR SHOULDER 2 VIEWS (LEFT) Routine 11/04/2024 1:36 PM EDT Arthropathy of left shoulder LIPID PANEL Routine 08/30/2024 7:58 AM EDT [...] this date of service. Mónica Patiño PA-C IMMarilee XR UPPER EXTREMITY F inal Result * (ABNORMAL) Comprehensive metabolic panel (08/30/2024 7:58 AM EDT) SODIUM 141 133 - 146 mmol/L [facility] POTASSIUM 4.5 3.3 - 5.1 mmol/L [facility] CHLORIDE 103 96 - 108 mmol/L [facility] CO2 28 21 - 35 mmol/L [facility] BUN 21(H) 6 - 19 mg/dL [facility] CREATININE 0.90 0.5 - 1.5 mg/dL [facility] GLUCOSE 121(H) 70 - 99 mg/dL [facility] ALBUMIN 4.3 3.9 - 4.8 g/dL [facility] TOTAL PROTEIN 7.1 6.5 - 8.0 g/dL [facility] CALCIUM 8.9 8.4 - 10.3 mg/dL [facility] ALKALINE PHOSPHATASE 71 39 - 117 U/L [facility] TOTAL BILIRUBIN 0.9 0.0 - 1.2 mg/dL [facility] AST 35 0 - 37 U/L [facility] ALT 38 0 - 40 U/L [facility] GLOBULIN 2.8 1 - 4.8 g/dL [facility] EGFR 87 >59 mL/min/1.7 3m2 [facility] Comment:Estimated glomerular filtration rate calculated using the CKD-EPI refit equation. ANION GAP 15 10 - 20 mmol/L [facility] Blood 08/30/2024 7:58 AM EDT 08/30/2024 8:01 AM EDT us Rommel Webster MD LAB BLOOD ORDERABLES Final R esult Performing Organization Address City/[facility]/ZIP Co de Phone Number [address] [address] * Lipid panel (08/30/2024 7:58 AM EDT) HDL 34 mg/dL [facility] Comment: Interpretation <40 mg/dL: Low HDL cholesterol (major risk factor for CHD) Greater than or equal to 60 mg/dL: High HDL cholesterol ( negative risk factor for CHD) HDL - cholesterol is affected by a number of factors, e.g. smoking, excerise, hormones, sex and age. CHOLESTEROL 122 0 - 240 mg/dL [facility] TRIGLYCERIDES 147 30 - 160 mg/dL [facility] LDL 59 50 - 129 mg/dL [facility] Comment: LDL levels in terms of risk for coronary heart disease: <100 mg/dL: Optimal 100-129 mg/dL: Near or above optimal 130-159 mg/dL: Borderline high 160-189 mg/dL: High >190 mg/dL: Very High CARDIAC RISK RATIO 3.6 3.4 - 5.0 C [facility] Blood 08/30/2024 7:58 AM EDT 08/30/2024 8:02 AM EDT us Rommel Webster MD LAB BLOOD ORDERABLES Final R esult Performing Organization Address City/[facility]/ZIP Co de Phone Number [address] [address] from Last 3 Months or Most Recently Relevant to Health Maintenance Insurance MEDICARE PART A & B [employer] MEDEX SUPPLEMENT MEDICARE PART A & B [employer] MEDEX SUPPLEMENT MEDICARE PART A & B [employer] MEDEX SUPPLEMENT MEDICARE PART A & B [employer] MEDEX SUPPLEMENT MEDICARE PART A & B MEDEX SUPPLEMENT MEDICARE PART A & [place] [address] [place] [address] CROSS MEDEX SUPPLEMENT MEDICARE PART A & B [employer] CROSS MEDEX SUPPLEMENT MEDICARE PART A & B [employer] CROSS MEDEX SUPPLEMENT MEDICARE PART A & B BLUE CROSS MEDEX SUPPLEMENT Advance Directives For more information, please contact: [phone] (9AM - 5PM [place], Thursday-Thursday) * Full Code (Latest Code Status on File) Date Activated Date Inactivated Comments 02/26/2023 4:12 PM Question Answer Comments Code Status Confirmed With: Patient * Full Code Date Activated Date Inactivated Comments 01/22/2022 7:16 AM 02/26/2023 4:12 PM Question Answer Comments Code Status Confirmed With: Patient Care Teams Building Estimator Relationship Specialty Start Date End Date Rommel Webster MD 14 [facility] [address] [place] [address] [email or web address] PCP - General Internal Medicine 04/07/17 Rommel Webster MD 14 [facility] [address] [place] [address] [email or web address] Insurance Assigned Provider 08/22/23 Additional Source Comments The information contained in this document represents components of the legal health record. It is not the complete legal health record.[facility]
--- OUTSIDE RECORDS SUMMARY | 2025-01-20 13:48 | XMS_ITS | Encounter Summary ---
Author Organization [facility] Address [address] [facility] [address] [place] [address] Phone Care Team Providers Care Furs Salesperson Name Role Phone Rommel Webster MD Unavailable [phone] Rommel Webster MD Primary Care Provider [phone] Encounter Details Date Type Department Care Team (Late st Contact Info) Description 02/05/2022 Procedure Pass OR Admitting Dept - Virtual Department 30 [place] [address] Social History Tobacco Use Types Packs/Day Years [...] Description 03/02/2025 8:40 AM EDT Office Visit [facility] [address] Floor, [address] [place] [address] Ronaldo Burns MD 22 [facility], [address] [place] [address] 09/21/2025 8:40 AM EDT Office Visit [facility] [place] [facility] [address] [facility] [address] [place] [address] Rommel Webster MD 14 [facility] [address] [place] [address] [email or web address] documented as of this encounter Visit Diagnoses Not on filedocumented in this encounter Additional Health Concerns Infection Onset Date Last Indicated Resolved Time CoV-Exposed Comment:Added per Home Health documentation 01/30/2022 01/30/2022 02/05/2022 9:29 AM E DT Assessment Noted Time PHQ-2 Depression Total Score: 0 12/14/19 9:30 AM EDT documented as of this encounter Care Teams Furs Salesperson Relationship Specialty Start Date End Date Rommel Webster MD 14 [facility] [address] [place] [address] [email or web address] PCP - General Internal Medicine 04/07/17 Rommel Webster MD 14 [facility] [address] [place] [address] [email or web address] Insurance Assigned Provider 08/22/23 documented as of this encounter Additional Source Comments The information contained in this document represents components of the legal health record. It is not the complete legal health record.[facility]
--- OUTSIDE RECORDS SUMMARY | 2025-01-20 13:48 | XMS_ITS | Encounter Summary ---
Author Organization [facility] Address [address] [facility] [address] [place] [address] Phone Care Team Providers Care Market Basket Maker Name Role Phone Rommel Webster MD Unavailable [phone] Rommel Webster MD Primary Care Provider [phone] Encounter Details Date Type Department Care Team (Late Contact Info) Description 09/08/2022 Procedure Pass [facility] 30 [place] [address] Social History Tobacco Use Types Packs/Day Years [...] Description 03/02/2025 8:40 AM EDT Office Visit [facility] [address] [place] [address] 3rd Floor, [address] [place] [address] Ronaldo Burns MD 22 [facility], [address] [place], [place] [phone] 09/21/2025 8:40 AM EDT Office Visit [facility] [place] [facility] [address] [facility] [address] [place] [address] Rommel Webster MD 14 [facility] [address] [place] [address] [email or web address] documented as of this encounter Visit Diagnoses Not on filedocumented in this encounter Additional Health Concerns Assessment Noted Time PHQ-2 Depression Total Score: 0 12/14/19 22 9:30 AM EDT documented as of this encounter Care Teams Market Basket Maker Relationship Specialty Start Date End Date Rommel Webster MD 14 [facility] [address] [place] [address] PCP - General Internal Medicine 04/07/17 Rommel Webster MD 14 [facility] [address] [place] [address] Insurance Assigned Provider 08/22/23 documented as of this encounter Additional Source Comments The information contained in this document represents components of the legal health record. It is not the complete legal health record.[facility]
--- OUTSIDE RECORDS SUMMARY | 2025-01-20 13:48 | XMS_ITS | Encounter Summary ---
Author Organization [facility] Address [address] [facility] [address] [place] [address] Phone Care Team Providers Care Instructional Material Director Name Role Phone Rommel Webster MD Unavailable [phone] Rommel Webster MD Primary Care Provider [phone] Encounter Details Date Type Department Care Team ([facility] Contact Info) Description 03/03/2023 Procedure Pass [facility] Cardiovascular And Interventional Radiology 30 [place] [address] Social History Tobacco Use Types Packs/Day Years [...] Description 03/02/2025 8:40 AM EDT Office Visit [facility] 22 [facility] 3rd Floor, [address] [place] [address] oRnaldo Burns MD 22 [facility], [address] [place] [address] [email or web address] 09/21/2025 8:40 AM EDT Office Visit [facility] Internal Medicine 14 [facility] [address] [place] [address] Rommel Wesbter MD 14 [facility] [address] [place] [address] documented as of this encounter Visit Diagnoses Not on filedocumented in this encounter Additional Health Concerns Assessment Noted Time PHQ-2 Depression Total Score: 0 04/16/20 23 1:02 PM EST documented as of this encounter Care Teams Instructional Material Director Relationship Specialty Start Date End Date Rommel Webster MD 14 [facility] [address] [place] [address] PCP - General Internal Medicine 04/07/17 Rommel Webster MD [address] [address] Insurance Assigned Provider 08/22/23 documented as of this encounter Additional Source Comments The information contained in this document represents components of the legal health record. It is not the complete legal health record.[facility]
--- OUTSIDE RECORDS SUMMARY | 2025-01-20 13:48 | XMS_ITS | Encounter Summary ---
Author Organization [facility] Address [address] [facility] [address] [place] [address] Phone Care Team Providers Care Him Tech Name Role Phone Rommel Webster MD Unavailable [phone] Rommel Webster MD Primary Care Provider [phone] Reason for Visit * Reason Onset Date Comments Medication Refill 01/17/2025 Allopurinol Encounter Details Date Type Department Care Team (Late st Contact Info) Description 01/17/2025 Refill [facility] [place] Internal Medicine 14 [facility] [address] [place] [phone] Mercedes Smith CMA 14 [place], [place] [phone] [email or web address] Medication Refill (Allopurinol ) Social History Tobacco [...] 09/29/2024 Rommel Webster MD - [facility] > Requested f/u: Not specified Upcoming visit: 09/21/2025 Rommel Webster MD - [facility] ACTIONS TAKEN BY Mercedes Smith CMA - [...] Description 03/02/2025 8:40 AM EDT Office Visit [facility] [address] [place] [address] 3rd Floor, [address] [place] [address] Ronaldo Burns MD 22 [facility], [address] [place] [address] [email or web address] 09/21/2025 8:40 AM EDT Office Visit [facility] [place] [facility] 14 [facility] [address] [place] [address] Rommel Webster MD 14 [facility] [address] [place] [address] [email or web address] documented as of this encounter Visit Diagnoses Diagnosis History of gout Personal history of endocrine, metabolic, and immunity disorders documented in this encounter Additional Health Concerns Assessment Noted Time PHQ-2 Depression Total Score: 0 09/09/19 25 9:51 AM EDT documented as of this encounter Care Teams Him Tech Relationship Specialty Start Date End Date Rommel Webster MD 14 [facility] [address] [place] [address] [email or web address] PCP - General Internal Medicine 04/07/17 Rommel Webster MD 14 [facility] [address] [place] [address] [email or web address] Insurance Assigned Provider 08/22/23 documented as of this encounter Additional Source Comments The information contained in this document represents components of the legal health record. It is not the complete legal health record.[facility]
--- OUTSIDE RECORDS SUMMARY | 2025-01-20 13:48 | XMS_ITS | Encounter Summary ---
Author Organization [facility] Address [address] [place] [address] Phone Care Team Providers Care It Field Technician Name Role Phone Rommel Webster MD Unavailable [phone] Rommel Webster MD Primary Care Provider [phone] Encounter Details Date Type Department Care Team (Late st Contact Info) Description 02/26/2023 Procedure Pass [facility] [address] [facility] [facility], Floor 1, Room 110 [place] [address] Social History Tobacco Use Types [...] 5:57 PM EDT Samaria Chavez RN * [place] Suicide Severity Rating Scale (Screener/Recent Self-Report) Question [...] Description 03/02/2025 8:40 AM EDT Office Visit [facility] [address] [place] [address], [address] [place] [address] Ronaldo Burns MD [address] [place] [address] [email or web address] 09/21/2025 8:40 AM EDT Office Visit [facility] [address] [address] Rommel Webster MD [address] [place] [address] documented as of this encounter Visit Diagnoses Not on filedocumented in this encounter Additional Health Concerns Assessment Noted Time PHQ-2 Depression Total Score: 0 12/14/19 22 9:30 AM EDT documented as of this encounter Care Teams It Field Technician Relationship Specialty Start Date End Date Rommel Webster MD [address] [place] [address] PCP - General Internal Medicine 04/07/17 Rommel Webster MD [address] [place] [address] [address] [place] [address] [email or web address] Insurance Assigned Provider 08/22/23 documented as of this encounter Additional Source Comments The information contained in this document represents components of the legal health record. It is not the complete legal health record.[facility]
== END 2025-01-20 14:45 | disposition home or self-care (01) ==
LOC: HO.PMC 13:30
PROVIDERS: PCP Internal Medicine; Visit Provider Registered Nurse Emergency
DX: M51.369 Other intervertebral disc degeneration, lumbar region without mention of lumbar back pain or lower extremity pain (principal); M47.816 Spondylosis without myelopathy or radiculopathy, lumbar region
CPT/HCPCS: 99213; G2211

== ENCOUNTER → 2025-01-20 13:29 | Outpatient (BNVA) | payer MEDICARE, SELFPAY | PROVIDERS: PCP Internal Medicine; Visit Provider Registered Nurse Emergency | DX: M47.816 Spondylosis without myelopathy or radiculopathy, lumbar region (principal); M51.369 Other intervertebral disc degeneration, lumbar region without mention of lumbar back pain or lower extremity pain; Z98.890 Other specified postprocedural states | CPT/HCPCS: 99212 ==

== ENCOUNTER 2025-02-21 06:18 | Outpatient (REF) | payer MEDICARE, SELFPAY ==
--- NOTE | ~2025-02-21 | FL_ITS ---
EXAMINATION: FL GUIDANCE ONLY HISTORY: M47.816 - Spondylosis without myelopathy or radiculopathy, lumbar region COMPARISON: None available. TECHNIQUE: Fluoroscopy time: 15.1 seconds. Cumulative Dose: 4.62 mGy. Images: 2. FINDINGS: Fluoroscopic spot films of the lumbar spine demonstrate a needle overlying the L4 vertebral body on the left. FL/FL guidance in treatment room IMPRESSION: Fluoroscopy during procedure. Please see procedure report for additional information. Electronically signed by: Sterling Montano MD 02/21/2025 01:22 PM EDT
--- OUTSIDE RECORDS SUMMARY | 2025-02-21 06:20 | XMS_ITS | Encounter Summary ---
Author Organization [facility] Address [address] [place] [address] Phone Care Team Providers Care Seismology Teacher Name Role Phone Rommel Webster MD Unavailable [phone] Rommel Webster MD Primary Care Provider [phone] Encounter Details Date Type Department Care Team (Late Contact Info) Description 09/08/2022 Procedure Pass [facility] 30 [place] [address] Social History Tobacco Use Types Packs/Day Years [...] Description 03/02/2025 8:40 AM EDT Office Visit [facility] [address] [place] [address] 3rd Floor, [address] [place] [address] Ronaldo Burns MD 22 [facility], [address] [place], [place] [phone] 03/14/2025 9:30 AM EDT Office Visit [facility] Orthopedics & Sports Medicine 4 [place] [address] Zane Emery PA-C 4 [facility] Orthopedics & Sports Medicine, [facility] [place] [address] 09/21/2025 8:40 AM EDT Office Visit [facility] Internal Medicine [address] [address] Rommel Webster MD [address] [place] [address] documented as of this encounter Visit Diagnoses Not on filedocumented in this encounter Additional Health Concerns Assessment Noted Time PHQ-2 Depression Total Score: 0 12/14/19 22 9:30 AM EDT documented as of this encounter Care Teams Seismology Teacher Relationship Specialty Start Date End Date Rommel Webster MD [address] [place] [address] [address] PCP - General Internal Medicine 04/07/17 Rommel Webster MD [address] [place] [address] [address] Insurance Assigned Provider 08/22/23 documented as of this encounter Additional Source Comments The information contained in this document represents components of the legal health record. It is not the complete legal health record.[facility]
--- OUTSIDE RECORDS SUMMARY | 2025-02-21 06:20 | XMS_ITS | Encounter Summary ---
Author Organization [facility] Address [address] [place] [address] Phone Care Team Providers Care Marketing Specialist Name Role Phone Rommel Webster MD Unavailable [phone] Rommel Webster MD Primary Care Provider [phone] Encounter Details Date Type Department Care Team (Late st Contact Info) Description 01/22/2022 Procedure Pass [place] Admitting Dept - Virtual Department 30 [place] [address] Social History Tobacco Use Types Packs/Day Years [...] 1:00 PM EDT Winsome Davis RN * [place] Suicide Severity Rating Scale (Screener/Recent Self-Report) Question [...] Description 03/02/2025 8:40 AM EDT Office Visit [facility] [address] [place] [address] 3rd Floor, [address] [place] [address] Ronaldo Burns MD 22 [facility], [address] [place] [address] 03/14/2025 9:30 AM EDT Office Visit [facility]ics & Sports Medicine [address] [place] [address] Zane Emery PA-C [address] [place] [address] Orthopedics & Sports Medicine, [facility] [place] [address] [email or web address] 09/21/2025 8:40 AM EDT Office Visit [facility] Internal Medicine [address] [address] Rommel Webster MD 14 [facility] [address] [place] [address] [email or web address] documented as of this encounter Visit Diagnoses Not on filedocumented in this encounter Additional Health Concerns Infection Onset Date Last Indicated Resolved Time CoV-Exposed Comment:Added per Home Health documentation 01/30/2022 01/30/2022 02/05/2022 9:29 AM E DT Assessment Noted Time PHQ-2 Depression Total Score: 0 12/14/19 9:30 AM EDT documented as of this encounter Care Teams Marketing Specialist Relationship Specialty Start Date End Date Rommel Webster MD 14 [facility] [address] [place] [address] [email or web address] PCP - General Internal Medicine 04/07/17 Rommel Webster MD [address] [place] [address] [address] [place] [phone] [email or web address] Insurance Assigned Provider 08/22/23 documented as of this encounter Additional Source Comments The information contained in this document represents components of the legal health record. It is not the complete legal health record.[facility]
--- OUTSIDE RECORDS SUMMARY | 2025-02-21 06:20 | XMS_ITS | Encounter Summary ---
Author Organization [facility] Address [address] [facility] [address] [place] [address] Phone Care Team Providers Care Millinery Worker Name Role Phone Rommel Webster MD Unavailable [phone] Rommel Webster MD Primary Care Provider [phone] Encounter Details Date Type Department Care Team (Late Contact Info) Description 02/02/[address] [facility] Cardiac US [address] [place] [address] Social History Tobacco Use Types Packs/Day Years [...] Description 03/02/2025 8:40 AM EDT Office Visit [facility] [address] [facility] 3rd Floor, [address] [place] [address] Ronaldo Burns MD 22 [facility], [address] [place] [address] [email or web address] 03/14/2025 9:30 AM EDT Office Visit [facility] Orthopedics & Sports Medicine 4 [place] [address] Zane Emery PA-C 4 [facility] Orthopedics & Sports Medicine, [facility] [place] [address] 09/21/2025 8:40 AM EDT Office Visit [facility] Internal Medicine 14 [facility] [address] [place] [address] Rommel Webster MD [address] [place] [address] [place] [address] documented as of this encounter Visit Diagnoses Not on filedocumented in this encounter Additional Health Concerns Assessment Noted Time PHQ-2 Depression Total Score: 0 12/14/19 22 9:30 AM EDT documented as of this encounter Care Teams Millinery Worker Relationship Specialty Start Date End Date Rommel Webster MD [address] [place] [address] PCP - General Internal Medicine 04/07/17 Rommel Webster MD [address] [address] Insurance Assigned Provider 08/22/23 documented as of this encounter Additional Source Comments The information contained in this document represents components of the legal health record. It is not the complete legal health record.[facility]
--- OUTSIDE RECORDS SUMMARY | 2025-02-21 06:20 | XMS_ITS | Encounter Summary ---
Author Organization [facility] Address [address] [place] [address] Phone Care Team Providers Care Manager Work Name Role Phone Rommel Webster MD Unavailable [phone] Rommel Webster MD Primary Care Provider [phone] Encounter Details Date Type Department Care Team (Late st Contact Info) Description 01/17/2020 Procedure Pass [facility], Ct Scan - [address] [address] Social History Tobacco Use Types Packs/Day Years [...] Description 03/02/2025 8:40 AM EDT Office Visit [facility] [address] [place] [address] 3rd Floor, [address] [place] [address] Ronaldo Burns MD [address] [facility], [address] [place] [address] 03/14/2025 9:30 AM EDT Office Visit [facility] Orthopedics & Sports Medicine [address] [place] [address] Zane Emery PA-C 4 [facility] Orthopedics & Sports Medicine, [facility] [place] [address] 09/21/2025 8:40 AM EDT Office Visit [facility] Internal Medicine 14 [facility] [address] [place] [address] Rommel Webster MD [address] [address] [email or web address] documented as of this encounter Visit Diagnoses Not on filedocumented in this encounter Additional Health Concerns Infection Onset Date Last Indicated Resolved Time CoV-Exposed Comment:Added per Home Health documentation 01/30/2022 01/30/2022 02/05/2022 9:29 AM E DT Assessment Noted Time PHQ-2 Depression Total Score: 0 09/24/19 19 8:08 AM EDT documented as of this encounter Care Teams Manager Work Relationship Specialty Start Date End Date Rommel Webster MD [address] [address] PCP - General Internal Medicine 04/07/17 Rommel Webster MD [address] [address] Insurance Assigned Provider 08/22/23 documented as of this encounter Additional Source Comments The information contained in this document represents components of the legal health record. It is not the complete legal health record.[facility]
--- OUTSIDE RECORDS SUMMARY | 2025-02-21 06:20 | XMS_ITS | Encounter Summary ---
Author Organization [facility] Address [address] [place] [address] Phone Care Team Providers Care Metal Tester Name Role Phone Rommel Webster MD Unavailable [phone] Rommel Webster MD Primary Care Provider [phone] Encounter Details Date Type Department Care Team ([facility] Contact Info) Description 03/03/2023 Procedure Pass [facility] Cardiovascular And Interventional Radiology 30 [place] [address] Social History Tobacco Use Types Packs/Day Years [...] Description 03/02/2025 8:40 AM EDT Office Visit [facility] [address] Floor, [address] [place] [address] Ronaldo Burns MD 22 [facility], [address] [place] [address] [email or web address] 03/14/2025 9:30 AM EDT Office Visit [facility] Orthopedics & Sports Medicine 4 [place] [address] Zane Emery PA-C 4 [facility] Orthopedics & Sports Medicine, [facility] [place] [address] [email or web address] 09/21/2025 8:40 AM EDT Office Visit [facility] Internal Medicine [address] [address] Rommel Webster MD [address] [address] documented as of this encounter Visit Diagnoses Not on filedocumented in this encounter Additional Health Concerns Assessment Noted Time PHQ-2 Depression Total Score: 0 04/16/20 23 1:02 PM EST documented as of this encounter Care Teams Metal Tester Relationship Specialty Start Date End Date Rommel Webster MD [address] [address] [email or web address] PCP - General Internal Medicine 04/07/17 Rommel Webster MD [address] [address] [email or web address] Insurance Assigned Provider 08/22/23 documented as of this encounter Additional Source Comments The information contained in this document represents components of the legal health record. It is not the complete legal health record.[facility]
--- OUTSIDE RECORDS SUMMARY | 2025-02-21 06:20 | XMS_ITS | Clinical Summary ---
Author Organization [facility] Address [address] [place] [address] Phone Care Team Providers Care Hoop Driving Machine Operator Helper Name Role Phone Rommel Webster MD Unavailable [phone] Rommel Webster MD Primary Care Provider Allergies [...] 02/29/20 23 Active gabapentin (NEURONTIN) 100 MG capsuleIndicati ons:Chronic insomnia,Status post right knee replacement TAKE 1 TO 3 CAPSULES NIGHTLY NEEDED FOR PAIN AND INSOMNIA 90 capsule 2 03/07/20 24 Active metoprolol succinate (TOPROL-XL) 50 MG 24 hr tabletIndicatio ns:Atrial fibrillation take 1 tablet daily 90 tablet 3 03/07/20 24 Active atorvastatin (LIPITOR) 10 MG tabletIndicatio ns:Dyslipidemia TAKE 1 TABLET DAILY 90 tablet 2 05/30/19 25 Active ezetimibe (ZETIA) 10 mg tabletIndicatio ns:Dyslipidemia TAKE 1 TABLET DAILY 90 tablet 3 06/27/19 25 Active MYRBETRIQ 25 mg [id number] :BPH with obstruction/low er urinary tract symptoms TAKE 1 TABLET DAILY 90 tablet 3 06/27/19 25 Active omeprazole (PRILOSEC) 20 MG tablet Take 20 mg by mouth daily. Active naproxen sodium (ALEVE ORAL) Take 1 tablet by mouth daily as needed. Active allopurinol (ZYLOPRIM) 100 MG tabletIndicatio ns:History of gout Take 2 tablets (200 mg total) by mouth daily. 180 tablet 01/18/20 25 Active LORazepam (ATIVAN) 1 MG tabletIndicatio ns:Anxiety TAKE 1 TABLET ONCE DAILY ASNEEDED 60 tablet 2 01/25/20 25 Active LORazepam (ATIVAN) 1 MG tabletIndicatio ns:Anxiety TAKE 1 TABLET ONCE DAILY ASNEEDED 60 tablet 2 03/08/20 24 025 Discontinued Hospital, Clinic, or Other Facility Administered Medication Ordered Dose Route Frequency Start Date End Date Status BUPivacaine (PF) (MARCAINE) 0.25% injection 2 mLIndications:Arthro alon of left shoulder 2 mL See Adm Inst Once 11/04/2024 02/02/2025 Ended lidocaine (XYLOCAINE) 1% injection 2 mLIndications:Arthro alon of left shoulder 2 mL Infil Once 11/04/2024 02/02/2025 Ended triamcinolone acetonide (KENALOG-40) 40 mg/mL injection 80 mgIndications:Arthro alon of left shoulder 80 mg IM Once 11/04/2024 02/02/2025 Ended Active Problems Problem Noted Date Diagnosed Date [...] knee to suggest septic arthritis. Spoke with [facility] micro lab blood cultures drawn [...] blood cultures drawn here and also at [facility] 02/02 -- Abdominal ultrasound unrevealing [...] -- He has 2 metoprolol orders in [facility] but was receiving metoprolol tartrate [...] 50 mg daily. He is going to [place] in a week. He has a previously [...] Encounters Date Type Department Care Team Description 01/23/2025 Refill [facility] Internal Medicine [address] [place] [address] Rommel Webster MD Medication Refill (Lorazepam) 01/17/2025 Refill [facility] Internal Medicine 14 [facility] [address] [place] [address] Mercedes Smith CMA Medication Refill (Allopurinol ) 11/23/2024 [facility] [address] [place] [address] 3rd Floor, [address] [place] [address] Ronaldo Burns MD from Last 3 Months Immunizations Immunization Administration Dates Next Due COVID-19 (Pre-03/09) Moderna Vaccine, mRNA, PF 03/10/2021,06/27/2020,05/29/2020 Hepatitis B 05/01/1997 INFLUENZA, SPLIT VIRUS, TRIVALENT PF 02/01/2020 INFLUENZA, SPLIT VIRUS, TRIV ALENT W/ PRESERVATIVE IM 04/25/2015,03/27/2014,03/07/2013 Influenza High-Dose Quadriva lent Preservative Free IM 02/21/2022,02/05/2022(Deferred: Patient Refused),01/23/2021 Influenza High-Dose Trivalen t Preservative Free IM 01/30/2025,01/16/2024,01/16/2021,02/09,01/29/2018,03/19/2016,02/25/2015 Influenza Quadrivalent Adjuv anted Preservative Free IM [...] Description 03/02/2025 8:40 AM EDT Office Visit [facility] [address] [place] [address] 3rd Floor, [address] [place] [address] Ronaldo Burns MD 22 [facility], [address] [address] 03/14/2025 9:30 AM EDT Office Visit [facility] Orthopedics & Sports Medicine [address] [place] [address] Zane Emery PA-C [address] [place] [address] [facility] [place] [address] 09/21/2025 8:40 AM EDT Office Visit [facility] Internal Medicine [address] [place] [address] [place] [address] Rommel Webster MD 14 [facility] [address] [place] [address] Health Maintenance Due Date Last Done Comments COVID-19 VACCINE ( season) 2025 01/30/2025, 01/16/2024, 03/06/2023, Additional history exists BLOOD PRESSURE 04/01/2025 09/29/2024 [...] SCREENING (Once After 26 Yrs) Completed 11/04/2024 INFLUENZA VACCINE Completed 01/30/2025, , 02/08/2023, Additional history exists HEPATITIS A VACCINES Aged Out No long [...] this topic Medical Devices Implanted Type Area Associate Professor Of Musicology Device Identifier Shelf Expiration Date Model / Serial / Lot System Watchman 35mm Flx Mary Closure Us - [id number] Implanted:Qty: 1 on 02/26/2023 by Grayson Olvera MD at [facility] MARY Occluder Crunchbutton [employer] 10/14/2025 [id number] / / [id number] Cement Bone 1x40 Standard - [id number] Implanted:Qty: 1 on 01/22/2022 by Aamir Tello MD at [facility] Right: Knee AWILDA / DIV OF BRISTOL SQUIBB 12/15/2024 [id number] / / [id number] Box Component 65.0mm Femoral Knee Vanguard Interlok [place] Posterior Stabilized Open Cemented Right - [id number] Implanted:Qty: 1 on 01/22/2022 by Aamir Tello MD at [facility] Right: Knee [employer] 10/25/2031 [id number] / / [id number] Knee Tray 79mm Plate Bone Primary Vanguard [place] I Beam Revision Interlock Cemented - [id number] Implanted:Qty: 1 on 01/22/2022 by Aamir Tello MD at [facility] Right: Knee [employer] 08/31/2031 [id number] / / [id number] Button Patella 23x51dl Knee Vanguard Uhmwpe 3 Peg Series A Standard - [id number] Implanted:Qty: 1 on 01/22/2022 by Aamir Tello MD at [facility] Right: Knee [employer] 07/31/2026 [id number] / / [id number] Tibial Bearing 79/23l39aw Vanguard Posterior Stabilized - [id number] Implanted:Qty: 1 on 01/22/2022 by Aamir Tello MD at [facility] Right: Knee [employer] 06/10/2026 [id number] / / [id number] Procedures Procedure Name Priority Date/Time Associated Diagnosis Comments LIPID PANEL Routine 08/30/2024 7:58 AM EDT [...] Recently Relevant to Health Maintenance Results * (ABNORMAL) Comprehensive metabolic panel (08/30/2024 7:58 AM EDT) SODIUM 141 133 - 146 mmol/L [facility] POTASSIUM 4.5 3.3 - 5.1 mmol/L [facility] CHLORIDE 103 96 - 108 mmol/L [facility] CO2 28 21 - 35 mmol/L [facility] BUN 21(H) 6 - 19 mg/dL [facility] CREATININE 0.90 0.5 - 1.5 mg/dL [facility] GLUCOSE 121(H) 70 - 99 mg/dL [facility] ALBUMIN 4.3 3.9 - 4.8 g/dL [facility] TOTAL PROTEIN 7.1 6.5 - 8.0 g/dL [facility] CALCIUM 8.9 8.4 - 10.3 mg/dL [facility] ALKALINE PHOSPHATASE 71 39 - 117 U/L [facility] TOTAL BILIRUBIN 0.9 0.0 - 1.2 mg/dL [facility] AST 35 0 - 37 U/L [facility] ALT 38 0 - 40 U/L [facility] GLOBULIN 2.8 1 - 4.8 g/dL [facility] EGFR 87 >59 mL/min/1.7 3m2 [facility] Comment:Estimated glomerular filtration rate calculated using the CKD-EPI refit equation. ANION GAP 15 10 - 20 mmol/L [facility] Blood 08/30/2024 7:58 AM EDT 08/30/2024 8:01 AM EDT us Rommel Webster MD LAB BLOOD ORDERABLES Final R esult Performing Organization Address City/State/[facility] Co de Phone Number [facility] [address] [place] [address] * Lipid panel (08/30/2024 7:58 AM EDT) HDL 34 mg/dL [facility] Comment: Interpretation <40 mg/dL: Low HDL cholesterol (major risk factor for CHD) Greater than or equal to 60 mg/dL: High HDL cholesterol ( negative risk factor for CHD) HDL - cholesterol is affected by a number of factors, e.g. smoking, excerise, hormones, sex and age. CHOLESTEROL 122 0 - 240 mg/dL [facility] TRIGLYCERIDES 147 30 - 160 mg/dL [facility] LDL 59 50 - 129 mg/dL [facility] Comment: LDL levels in terms of risk for coronary heart disease: <100 mg/dL: Optimal 100-129 mg/dL: Near or above optimal 130-159 mg/dL: Borderline high 160-189 mg/dL: High >190 mg/dL: Very High CARDIAC RISK RATIO 3.6 3.4 - 5.0 [facility] Blood 08/30/2024 7:58 AM EDT 08/30/2024 8:02 AM EDT us Rommel Webster MD LAB BLOOD ORDERABLES Final R esult [facility] [address] [place] [address] from Last 3 Months or Most Recently Relevant to Health Maintenance Insurance MEDICARE PART A & B [place] [employer] SUPPLEMENT [facility] Address: [facility] [address] [place] [address] MEDICARE PART A & B [employer] MEDEX SUPPLEMENT MEDICARE PART A & B [employer] MEDEX SUPPLEMENT MEDICARE PART A & B [employer] MEDEX SUPPLEMENT MEDICARE PART A & B [employer] MEDEX SUPPLEMENT MEDICARE PART A & B [employer] MEDEX SUPPLEMENT MEDICARE PART A & B [employer] MEDEX SUPPLEMENT MEDICARE PART A & B [employer] MEDEX SUPPLEMENT MEDICARE PART A & B [employer] MEDEX SUPPLEMENT Advance Directives For more information, please contact: [phone] (9AM - 5PM [facility], Thursday-Thursday) * Full Code (Latest Code Status on File) Date Activated Date Inactivated Comments 02/26/2023 4:12 PM Question Answer Comments Code Status Confirmed With: Patient * Full Code Date Activated Date Inactivated Comments 01/22/2022 7:16 AM 02/26/2023 4:12 PM Question Answer Comments Code Status Confirmed With: Patient Care Teams Hoop Driving Machine Operator Helper Relationship Specialty Start Date End Date Rommel Webster MD [address] [place] [address] [place] [address] [email or web address] PCP - General Internal Medicine 04/07/17 Rommel Webster MD [address] [place] [address] [place] [address] [email or web address] Insurance Assigned Provider 08/22/23 Additional Source Comments The information contained in this document represents components of the legal health record. It is not the complete legal health record.[facility]
--- OUTSIDE RECORDS SUMMARY | 2025-02-21 06:20 | XMS_ITS | Encounter Summary ---
Author Organization [facility] Address [address] [place] [address] Phone Care Team Providers Care Supervisor Shipping Name Role Phone Rommel Webster MD Unavailable [phone] Rommel Webster MD Primary Care Provider Encounter Details Date Type Department Care Team (Late st Contact Info) Description 02/26/2023 Procedure Pass [facility] [address] [facility], Floor 1, [address] [place] [address] Social History Tobacco Use Types [...] 5:57 PM EDT Samaria Chavez RN * [place] Suicide Severity Rating Scale (Screener/Recent Self-Report) Question [...] Description 03/02/2025 8:40 AM EDT Office Visit [facility] [address] [place] [address], [address] [place] [address] Ronaldo Burns MD [address] [place] [address] [email or web address] 03/14/2025 9:30 AM EDT Office Visit [facility] Orthopedics & Sports Medicine [address] [place] [address] Zane Emery PA-C [address] [place] [address] Orthopedics & Sports Medicine, [facility] [place] [address] 09/21/2025 8:40 AM EDT Office Visit [facility] Internal Medicine [address] [facility] [address] [place] [address] Rommel Webster MD 14 [facility] [address] [place] [address] documented as of this encounter Visit Diagnoses Not on filedocumented in this encounter Additional Health Concerns Assessment Noted Time PHQ-2 Depression Total Score: 0 12/14/19 22 9:30 AM EDT documented as of this encounter Care Teams Supervisor Shipping Relationship Specialty Start Date End Date Rommel Webster MD 14 [facility] [address] [place] [address] [email or web address] PCP - General Internal Medicine 04/07/17 Rommel Webster MD 14 [facility] [address] [place] [address] [email or web address] Insurance Assigned Provider 08/22/23 documented as of this encounter Additional Source Comments The information contained in this document represents components of the legal health record. It is not the complete legal health record.[facility]
--- OUTSIDE RECORDS SUMMARY | 2025-02-21 06:20 | XMS_ITS | Encounter Summary ---
Author Organization [facility] Address [address] [facility] [address] [place] [address] Phone Care Team Providers Care Hand Alterations Tailor Name Role Phone Rommel Webster MD Unavailable [phone] Rommel Webster MD Primary Care Provider [phone] Encounter Details Date Type Department Care Team (Late st Contact Info) Description 02/05/2022 Procedure Pass OR Admitting Dept - Virtual Department [address] [place] [id number] Social History Tobacco Use Types Packs/Day Years [...] Description 03/02/2025 8:40 AM EDT Office Visit [facility] [address] [place] [address] 3rd Floor, [address] [place] [address] Ronaldo Burns MD 22 [facility], [address] [place] [address] 03/14/2025 9:30 AM EDT Office Visit [facility] Orthopedics & Sports Medicine 4 [place] [address] Zane Emery PA-C 4 [facility] Orthopedics & Sports Medicine, [facility] [place] [address] 09/21/2025 8:40 AM EDT Office Visit [facility] [employer] Internal Medicine 14 [facility] [address] [place] [address] Rommel Webster MD [address] [address] [email or web address] documented as of this encounter Visit Diagnoses Not on filedocumented in this encounter Additional Health Concerns Infection Onset Date Last Indicated Resolved Time CoV-Exposed Comment:Added per Home Health documentation 01/30/2022 01/30/2022 02/05/2022 9:29 AM E DT Assessment Noted Time PHQ-2 Depression Total Score: 0 12/14/19 9:30 AM EDT documented as of this encounter Care Teams Hand Alterations Tailor Relationship Specialty Start Date End Date Rommel Webster MD [address] [address] PCP - General Internal Medicine 04/07/17 Rommel Webster MD [address] [place] [phone] Insurance Assigned Provider 08/22/23 documented as of this encounter Additional Source Comments The information contained in this document represents components of the legal health record. It is not the complete legal health record.[facility]
== END 2025-02-21 06:19 | disposition home or self-care (01) ==
LOC: CF 06:18
PROVIDERS: Visit Provider Anesthesiology
DX: M47.816 Spondylosis without myelopathy or radiculopathy, lumbar region (principal)
CPT/HCPCS: 64555; 64590; J2003

== ENCOUNTER 2025-02-21 10:23 | Outpatient (AMB) | payer MEDICARE, SELFPAY ==
[2025-02-21 10:33] VITALS: BP 181/87; PULSE 80; RESP 16; O2SAT 97
--- NOTE | 2025-02-21 10:33 | A.OFFVIS_ITS ---
Vital Signs 02/21/25 10:33 02/21/25 11:18 Height 5 ft 7 in Weight 190 lb BMI 29.8 BP 181/87 H 172/95 H Blood Pressure Location Lt brachial Lt brachial Position Sitting Sitting Respiration 16 16 Pulse 80 81 Pulse Source Pulse Oximeter Pulse Oximeter Pulse Oximetry (%) 97 96 Oxygen Delivery Method Room Air Room Air Intake Visit Reasons: Left Sprint PNS L4 Senior Hris Analyst Required: No Allergies morphine Allergy (Unknown, Verified 02/21/25 10:35) Headache Penicillins Allergy (Unknown, Verified 02/21/25 10:35) Unknown piperacillin (From Zosyn) Allergy (Unknown, Verified 02/21/25 10:35) Hives tazobactam (From Zosyn) Allergy (Unknown, Verified 02/21/25 10:35) Hives cefaclor (From Ceclor) Allergy (Verified 02/21/25 10:35) Anaphylaxis phenazopyridine (From Pyridium) Allergy (Verified 02/21/25 10:35) Anaphylaxis Medication List - Last Reconciled 02/21/25 by Diane Rosas LPN allopurinol 1 tab PO DAILY@1700 aspirin 81 mg PO DAILY atorvastatin 1 tab PO DAILY@1700 ezetimibe 1 tab PO DAILY@1700 gabapentin 100 mg PO TID lorazepam 1 tab PO DAILY PRN metoprolol succinate ER 1 tab PO DAILY@1700 naproxen 250 mg PO BID PRN omeprazole 20 mg PO DAILY PFSH Medical History A-fib Colon polyp Gout History of diverticulosis HLD (hyperlipidemia) Family History Mother Cerebral aneurysm Father Heart disease Social History Household Members: Spouse Housing: House Do you presently have visiting nurse or other home services: No Patient Tobacco Use Status: Former Tobacco user service: No Current occupational status: retired Physical Exam Vital Signs: Last Vital Signs Pulse 81 02/21/25 11:18 Resp 16 02/21/25 11:18 BP 172/95 H 02/21/25 11:18 Pulse Ox 96 02/21/25 11:18 Oxygen Delivery Method Room Air 02/21/25 11:18 BMI result Body Mass Index 29.8 Assessment & Plan Assessment & Plan (1) Lumbar spondylosis: Code(s): M47.816 - Spondylosis without myelopathy or radiculopathy, lumbar region Category: Medical Plan Percutaneous implantation of peripheral nerve stimulation Sprint system left L4. the risks, benefits and alternatives were discussed with the patient and informed consent was obtained, patient was placed in the prone position and padded to foster comfort. Time out was performed delineating correct site and side of the procedure , name and of the patient, patient participated in time out procedure. Theupper back and posterior neck of the patient was prepped with ChloraPrep and draped with sterile self adhesive utility towels. C-arm was brought over the operating field and clear picture of the L4 lamina on the left was delineated on the screen. The upper central portion of the lamina was chosen as a target of the needle tip insertion . After identifying and marking the intended target, the skin around the planned entry point and the subcutaneous tissues were injected with local anesthetic forming skin wheal.. A percutaneous sleeve and stimulating probe lead introduction system were assembled, inserted and advanced through the skin wheal to the point of interest under C-arm viewL Left L5 lamina., the introducer needle was delivered to a location in proximity to the nerve. Multiple stimulation parameters were used to deliver stimulation to the nerve in concert with stimulating at multiple positions around the nerve. The nerve target acquisition was confirmed noting generation of in the corresponding to the nerve being stimulated. Various electrical parameter combinations were tested, and the lead location was adjusted (physically relocated) until the patient indicated overlapping the distribution of the patient?s typical region of pain. The stimulating probe was removed from the introducer and a percutaneous lead was guided through the needle and delivered to a location in similar proximity to the nerve. Final location was verified with electrical stimulation. The introducer needle was removed, and the exposed end of the percutaneous lead was attached to an external stimulator unit. At the end of the case various electrical parameter combinations were again tested until the patient indicated paresthesia or muscle tension overlapping the distribution of the patient?s typical region of pain. After confirming that lead impedance was in the normal range, the external unit was detached, the needle was removed, and the lead was anchored at the skin. The leads were threaded into the connector block and electrical continuity and desired patient response was confirmed. The connector block was attached to the external stimulator unit. The site was covered with a sterile occlusive dressing and a image was taken to do cument final placement. Upon completion of the procedure the patient was taken outside the OR where she recovered uneventfully she went home without immediate complications. Orders: Orders FL guidance in treatment room Today M47.816 - Spondylosis without myelopathy or radiculopathy, lumbar region Coding Level of Care Code Procedure Only Diagnoses Lumbar spondylosis M47.816 Implantable Device Implantable Device Implantable Devices Qty Processing Spec Implant Date Expiration Date Analgesic PENS system 1 [employer] 02/21/25
[2025-02-21 11:18] VITALS: BP 172/95; PULSE 81; RESP 16; O2SAT 96; BMI 29.8
== END 2025-02-21 11:44 | disposition home or self-care (01) ==
LOC: HO.PMCPRC 10:23
PROVIDERS: PCP Internal Medicine; Visit Provider Anesthesiology
DX: M47.816 Spondylosis without myelopathy or radiculopathy, lumbar region (principal)
CPT/HCPCS: 64555; 64590

== ENCOUNTER 2025-03-03 09:02 | Outpatient (AMB) | payer MEDICARE, SELFPAY ==
--- OUTSIDE RECORDS SUMMARY | 2025-03-02 08:40 | XMS_ITS | Encounter Summary ---
Author Organization [facility] Address [address] [place] [address] Phone Care Team Providers Care Manufacturing Project Engineer Name Role Phone Rommel Webster MD Unavailable [phone] Rommel Webster MD Primary Care Provider [phone] Encounter Details Date Type Department Care Team (Latest Contact Info) Description 03/02/2025 8:40 AM EDT Office Visit [facility] [address] [place] [address] 3rd Floor, [address] [place] [address] Ronaldo Burns MD 22 [facility], [address] [place] [address] [email or web address] Persistent atrial fibrillation (Primary Dx); Status post ablation of atrial fibrillation; Presence of Watchman left atrial appendage closure device Social History Tobacco Use Types Packs/Day Years [...] Intimate Partner Violence Answer Date R ecorded Denied Basic Needs Not on file 09/08/2024 In the past 12 months have y ou been in a relationship with a person who hurts, threatens, or tries to control you? No 09/08/2024 Worried food would run out Not on file 09/08 In the past 12 months have y ou been in a relationship with a person who hurts, threatens, or tries to control you? No 09/08/2024 Sex and Gender Information Value Date Recorded Sex Assigned at Not on file Legal Sex Male 7:34 PM EST Gender Identity Not on file Sexual Orientation Not on file documented as of this encounter Last Filed Vital Signs Vital Sign Reading Time Taken Comments Blood Pressure 146/80 03/02/2025 8:40 AM EDT Pulse 86 03/02/2025 8:40 AM EDT Temperature - - Respiratory Rate - - Oxygen Saturation 96% 03/02/2025 8:40 AM EDT Inhaled Oxygen Concentration - - Weight 87.1 kg (192 lb) 03/02/2025 8:40 AM EDT Height 165.7 cm (5' 5.24 ) 03/02/2025 8:40 AM ED T Body Mass Index 31.72 03/02/2025 8:40 AM EDT documented in this encounter Progress Notes * Ronaldo Burns MD - 03/02/2025 8:40 AM EDT [facility] Cardiology Follow-Up Visit Date: 03/02/2025 Primary Care Physician: Rommel Webster MD Primary Topographical Engineer: [place] History of Presenting Illness: Alirio Cardona is a 79 y.o. male with past medical history of Atrial fibrillation status post ablation and Watchman device, switched from rhythm to rate control strategy 2019, hypertension, dyslipidemia, and GERD who presents today for follow-up. Past Medical History: Past Medical History: Diagnosis Date Anal fissure Atrial fibrillation s/p ablation in NSR 07/28 COVID 2020 Diverticulitis Hemorrhoids History of herniated intervertebral disc 11/2007 Hyperlipidemia Hyperuricemia with gout Past Surgical History: Past Surgical History: Procedure Laterality Date 1130a Left Atrial Appendage Closure (Transvenous), watchman N/A 02/26/2023 Performed [place] [facility] [place] APPENDECTOMY appendectomy ARTHROPLASTY TOTAL KNEE - 1 Right 01/22/2022 Performed by Aamir Tello MD at [facility] OR atrial ablations atrial ablations CARDIOVERSION cardioversion CHOLECYSTECTOMY cholecystectomy COLONOSCOPY colonoscopy deviated septum repair deviated septum repair ENDOSCOPY Left carpal tunnel release Left carpal tunnel release Right carpal tunnel release Right carpal tunnel release TONSILLECTOMY AND ADENOIDECTOMY T & A Current Medications: Outpatient Medications Marked as Taking for the 03/02/25 encounter (Office Visit) with Ronaldo Burns MD Medication Sig Dispense Refill Last Dispense acetaminophen (TYLENOL) 500 MG tablet Take 1,000 mg by mouth every 6 (six) hours as needed for pain(specific location in comments). Unknown (patient-reported) allopurinol (ZYLOPRIM) 100 MG tablet Take 2 tablets (200 mg total) by mouth daily. 180 tablet 0 Unknown (outside pharmacy) aspirin 81 MG EC tablet Take 1 tablet (81 mg total) by mouth daily. Unknown (no pharmacy) atorvastatin (LIPITOR) 10 MG tablet TAKE 1 TABLET DAILY 90 tablet 2 Unknown (outside pharmacy) ezetimibe (ZETIA) 10 mg tablet TAKE 1 TABLET DAILY 90 tablet 3 Unknown (outside pharmacy) gabapentin (NEURONTIN) 100 MG capsule TAKE 1 TO 3 CAPSULES NIGHTLY NEEDED FOR PAIN AND INSOMNIA 90 capsule 2 Unknown (outside pharmacy) LORazepam (ATIVAN) 1 MG tablet TAKE 1 TABLET ONCE DAILY ASNEEDED 60 tablet 2 Unknown (outside pharmacy) metoprolol succinate (TOPROL-XL) 50 MG 24 hr tablet take 1 tablet daily 90 tablet 3 Unknown (outside pharmacy) MYRBETRIQ 25 mg Tb24 TAKE 1 TABLET DAILY 90 tablet 3 Unknown (outside pharmacy) naproxen sodium (ALEVE ORAL) Take 1 tablet by mouth daily as needed. Unknown (patient-reported) omeprazole (PRILOSEC) 20 MG tablet Take 20 mg by mouth daily. Unknown (patient-reported) psyllium (METAMUCIL) Powd Take 1 TABLEspoonful by mouth nightly at bedtime. 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 Cardiovascular: Normal PMI, no thrills/heave. Normal S1 and S2. No added murmurs, gallops, or rubs. General Appearance: No acute distress, well-nourished. Neurologic: Alert, awake, and oriented, normal affect. Neck: No JVD or hepatojugular reflux. No enlargement of the thyroid. Carotid pulse 2+ bilaterally. No carotid bruits. Respiratory: Appropriate respiratory effort. Lungs clear to auscultation bilaterally, no wheezing/rhonchi/rales. Musculoskeletal: Normal curvature of the spine without kyphosis or scoliosis. Normal gait. Extremities/Skin: Warm and well perfused peripherally, no edema. Relevant Testing: EKG: Twelve-lead EKG 01/14/2023 shows atrial fibrillation 81 bpm with normal axis and normal voltage. 01/25/2024 shows atrial fibrillation 82 bpm with normal axis and normal voltage. Labs: His last lipid panel was in November 2020 and showed total cholesterol 215, LDL 135, HDL 43, triglycerides 184. Lab Results Component Value Date LDL 59 08/30/2024 Lab Results Component Value Date HDL 34 08/30/2024 Lab Results Component Value Date CHOL 122 08/30/2024 No results found for: LDLCALC Lab Results Component Value Date TRIG 147 08/30/2024 Lab Results Component Value Date CHOLHDL 3.6 08/30/2024 WBC Date Value Ref Range Status 08/30/2024 7.16 4.00 - 11.00 K/uL Final 08/27/2012 6.54 4 - 10 K/uL Final HGB Date Value Ref Range Status 08/30/2024 16.1 13.5 - 17.5 g/dL Final 08/27/2012 14.1 13.5 - 18.0 g/dL Final HCT Date Value Ref Range Status 08/30/2024 48.1 41.0 - 53.0 % Final 08/27/2012 41.1 40 - 54 % Final Lab Results Component Value Date NA 141 08/30/2024 K 4.5 08/30/2024 CL 103 08/30/2024 CO2 28 08/30/2024 BUN 21 (H) 08/30/2024 CRE 0.90 08/30/2024 GLU 121 (H) 08/30/2024 CA 8.9 08/30/2024 GFR 87 08/30/2024 ANION 15 08/30/2024 Assessment: Alirio Cardona is a 79 y.o. male with past medical history of Atrial fibrillation status post ablation and Watchman device, switched from rhythm to rate control strategy 2019, hypertension, dyslipidemia, and GERD who presents today for follow-up. He is doing well and denies any symptoms concerning for angina or congestive heart failure. His atrial fibrillation remains adequately rate controlled, completely asymptomatic, and anticoagulated thinks to a Watchman device. His blood pressure is also well-controlled on the current regimen and his lipids are under excellent control for patient with no established ASCVD. He is having some chronic pain from arthritis in the spine and recently underwent a procedure for aspinal stimulator. Plan: No changes to his current medical therapy. Goal BP <130/80 mmHg. Goal LDL <70. Follow-up: 6 months Electronically signed by: Ronaldo Burns MD [facility] 03/02/2025 documented in this encounter Plan of Treatment Upcoming Encounters Date Type Department Care Team (Late st Contact Info) Description 03/14/2025 9:30 AM EDT Office Visit [facility] Orthopedics & Sports Medicine [address] [place] [address] Zane Emery PA-C 4 [facility] Orthopedics & [facility] [place] [place] [address] 08/31/2025 7:40 AM EDT Office Visit [facility] [address] [place] [address] 3rd Floor, [address] [place] [address] Ronaldo Burns MD 22 [facility], [address] [place] [address] [email or web address] 09/21/2025 8:40 AM EDT Office Visit [facility] Internal Medicine 14 [facility] [address] [place] [address] Rommel Webster MD [address] [place] [address] [place] [phone] documented as of this encounter Visit Diagnoses Diagnosis Persistent atrial fibrillation- Primary Atrial fibrillation Status post ablation of atrial fibrillation Other postprocedural status Presence of Watchman left atrial appendage closure device documented in this encounter Additional Health Concerns Assessment Noted Time PHQ-2 Depression Total Score: 0 09/09/19 9:51 AM EDT documented as of this encounter Care Teams Manufacturing Project Engineer Relationship Specialty Start Date End Date Rommel Webster MD 14 [facility] [address] [place] [id number] PCP - General Internal Medicine 04/07/17 Rommel Webster MD 14 [facility] [address] [place] [id number] Insurance Assigned Provider 08/22/23 documented as of this encounter Additional Source Comments The information contained in this document represents components of the legal health record. It is not the complete legal health record.[facility]
[2025-03-03 09:04] VITALS: BP 139/85; PULSE 90; RESP 16; O2SAT 94; BMI 29.8
--- NOTE | 2025-03-03 09:04 | A.OFFVIS_ITS ---
Vital Signs 03/03/25 09:04 Height 5 ft 7 in Weight 190 lb BMI 29.8 BP 139/85 Blood Pressure Location Lt brachial Position Sitting Respiration 16 Pulse 90 Pulse Source Pulse Oximeter Pulse Oximetry (%) 94 Oxygen Delivery Method Room Air Intake Visit Reasons: S/P Left Sprint PNS L4 Intake Note: Dressing changed. Fabric Finisher Required: No Accompanied by: Self / Same As Patient Allergies morphine Allergy (Unknown, Verified 03/03/25 09:04) Headache Penicillins Allergy (Unknown, Verified 03/03/25 09:04) Unknown piperacillin (From Zosyn) Allergy (Unknown, Verified 03/03/25 09:04) Hives tazobactam (From Zosyn) Allergy (Unknown, Verified 03/03/25 09:04) Hives cefaclor (From Ceclor) Allergy (Verified 03/03/25 09:04) Anaphylaxis phenazopyridine (From Pyridium) Allergy (Verified 03/03/25 09:04) Anaphylaxis HPI Comments Details: The patient is a 79-year-old male presenting for pain management related to chronic back pain and arthritis one-week status post left lumbar sprint placement. The chronic back pain began approximately one year ago, coinciding with a significant decrease in physical activity. The patient describes the pain as persistent and exacerbated by standing, with occasional relief when sitting. He reports that the pain has been severe enough to limit his ability to walk more than a quarter mile, a significant change from his previous active lifestyle. The patient has a history of arthritis, which was diagnosed after he experienced a sudden onset of severe pain upon turning 79. He initially suspected a herniated disc, but this was ruled out by his physician. The arthritis has contributed to his overall discomfort and has been a factor in his reduced physical activity. Patient reports he has been having some difficulties managing the sprint with many questions regarding its use which we have addressed during the visit today. He has not noticed any significant improvement in his pain over the last week. He is due for right side sprint placement next week. - Onset: Approximately one year ago, coinciding with decreased physical activity - Quality: Persistent, exacerbated by standing, relieved by sitting - Location: Lower back - Impact: Limits walking to less than a quarter mile - Affect: Patient expresses frustration with pain management process - Analgesia: Discussed use of oxycodone for to be taken prior to procedure for procedural pain relief - Adverse Effects: No specific adverse effects from current pain management reported - Activities of Daily Living: Pain limits ability to walk more than a quarter mile - Aberrant Drug Related Behaviors: No aberrant behaviors reported [facility] Medical History A-fib Colon polyp Gout History of diverticulosis HLD (hyperlipidemia) Family History Mother Cerebral aneurysm Father Heart disease Social History Household Members: Spouse Housing: House Do you presently have visiting nurse or other home services: No Patient Tobacco Use Status: Former Tobacco user service: No Current occupational status: retired Review of Systems Const Details: - Musculoskeletal: Reports chronic back pain, exacerbated by standing, relieved by sitting - Neurological: Denies tingling sensation, reports difficulty differentiating pain from pressure Physical Exam Exam Exam: General: awake, alert, oriented. Answers questions appropriately. Fully engaged in examination. Skin: warm, dry, intact HEENT: Normocephalic. Hearing intact. Cardiac: External chest normal in appearance. Respiratory: No cough, audible wheezing or stridor. Abdomen: without gross distension. MS: No obvious swelling or deformities. Able to transition from sit to stand unassisted. Ambulates with bilaterally normal heel strike and toe off Neurological: Oriented to person, place, time and situation. Thought process intact. No gait abnormalities appreciated. Psychiatric: Appropriate mood and affect. Good judgment and insight. Sprint dressing change: Existing dressing removed, Area cleansed with chloraprep. Site dry, clean without redness, swelling, warmth, bruising or drainage. Lead secure device removed. Area cleansed again with chloraprep, once dry skin barrier protectant wipe applied. New lead secure device applied, tegaderm applied. Patient tolerated procedure well. Vital Signs: Last Vital Signs Pulse 90 03/03/25 09:04 Resp 16 03/03/25 09:04 BP 139/85 03/03/25 09:04 Pulse Ox 94 03/03/25 09:04 Oxygen Delivery Method Room Air 03/03/25 09:04 BMI result Body Mass Index 29.8 Results Reviewed Results Reviewed: 11/02/24 MRI lumbar spine FINDINGS: 5 non-rib bearing lumbar segments are present on x-ray Marrow and end-plates: Schmorl's nodes are present in the inferior T11, T12, and L1. Modic 2 signal is present anteriorly at L1-2. Alignment: There is subtle retrolisthesis at L1-2, L2-3, L3-4, and L5-S1. Soft tissues: Incompletely imaged 5 cm mass in the superior right kidney demonstrates low signal on T1 imaging, high signal on fluid sensitive sequences, and hairline septations, Bosniak II. Other benign simple cyst are present in the left kidney. Conus: The termination of conus medullaris is within normal limits at the level of lower L1. T12-L1: Broad-based disc bulges result in spinal stenosis or foraminal narrowing. L1-L2: Broad-based disc bulge does not result in spinal stenosis or foraminal narrowing. L2-L3: There is mild loss of disc height and circumferential broad-based disc bulge. There is mild facet degeneration. There is no spinal stenosis or foraminal narrowing. L3-L4: There is mild loss of disc height and circumferential broad-based disc extrusion/bulge. There is mild facet degeneration and trace fluid in the left facet joint. There is mild spinal stenosis. There is mild left greater than right subarticular zone narrowing and mild foraminal narrowing. L4-L5: Circumferential broad-based is bulge, ligamentum flavum thickening, and mild facet arthropathy results in mild spinal stenosis and mild left greater than right subarticular zone narrowing. Neural foramina are mildly narrow, more on the right. L5-S1: Circumferential broad-based disc bulge and broad posterior disc extrusion with mild facet arthropathy and ligamentum flavum thickening does not result in spinal stenosis. There is mild right subarticular zone narrowing. There is mild to moderate right and mild left foraminal narrowing. IMPRESSION: Multilevel degenerative disc disease with areas of mild spinal stenosis and foraminal narrowing, as above. 10/19/24 x-ray lumbar spine FINDINGS: Flexion and extension and oblique imaging were performed. Five [id number] lumbar type vertebral bodies. Grade 1 retrolisthesis of L1 on L2 and L2 on L3. This does not change on flexion or extension imaging. Vertebral body heights are maintained. No evidence of acute vertebral body injury. Flowing marginal osteophytes along the lower thoracic spine. There is multilevel loss of disc space height with marginal osteophytes. Facet joint arthrosis in the mid to lower lumbar spine with neural foraminal narrowing most pronounced at L4-5 and L5-S1. No pars defects identified on oblique imaging. Visualized bones of the pelvis appear intact. Pelvic phleboliths present. Atherosclerotic vascular calcifications. IMPRESSION: 1. No radiographic evidence of acute injury to the lumbar spine. 2. Grade 1 retrolisthesis of L1 on L2 and L2 on L3. No pars defects identified. 3. Moderate to advanced mid to lower lumbar spondylosis. Assessment & Plan Assessment & Plan (1) Degenerative disc disease, lumbar: Code(s): M51.369 - Other intervertebral disc degeneration, lumbar region without mention of lumbar back pain or lower extremity pain Category: Medical (2) Lumbar spondylosis: Code(s): M47.816 - Spondylosis without myelopathy or radiculopathy, lumbar region Category: Medical Plan The patient will continue with the current pain management regimen, including the use of a sprint peripheral nerve stimulator to help manage chronic back pain. He is advised to adjust the stimulator settings to a comfortable level, avoiding excessive discomfort. An oxycodone prescription will be provided for use prior to procedures to alleviate procedural pain. The patient is encouraged to maintain communication with the device business process representative for optimal settings and troubleshooting. Follow-up appointments are scheduled to monitor progress and adjust treatment as necessary. Sprint dressing was changed as per above. Patient tolerated well. Patient was informed and verbally consented to the use of an ambient scribe for clinic note documentation during this visit. Medications: New oxycodone take 30 minutes prior to arrival for procedure 10 mg PO ONCE PRN 1 tab 0RF pain 1 day Patient Instructions: - Adjust the sprint stimulator settings to a comfortable level. - Use oxycodone as prescribed before procedures to manage pain. - Contact the device business process representative for any questions or issues with the stimulator. - Attend follow-up appointments as scheduled to monitor progress. Coding Level of Care Code Est Pt Level 3 (39895) Complex EM visit Add On G2211 Diagnoses Degenerative disc disease, lumbar M51.369 Lumbar spondylosis M47.816
--- OUTSIDE RECORDS SUMMARY | 2025-03-03 09:45 | XMS_ITS | Encounter Summary ---
Author Organization [facility] Address [address] [facility] [address] [place] [address] Phone Care Team Providers Care Trial Lawyer Name Role Phone Rommel Webster MD Unavailable [phone] Rommel Webster MD Primary Care Provider [phone] Encounter Details Date Type Department Care Team ([facility] Contact Info) Description 09/08/2022 Procedure Pass [facility] [address] [place] [address] Social History Tobacco Use Types Packs/Day Years [...] Upcoming Encounters Date Type Department Care Team ([facility] Contact Info) Description 03/14/2025 9:30 AM EDT Office Visit [facility] Orthopedics & Sports Medicine [address] [place] [address] [phone] Zane Emery PA-C [address] [place] [address] Orthopedics & Sports Medicine, [place] [address] 08/31/2025 7:40 AM EDT Office Visit [facility] [address] [facility] 3rd Floor, [address] [place] [address] Ronaldo Burns MD [address] [facility], [address] [place] [address] 09/21/2025 8:40 AM EDT Office Visit [facility] 14 [facility] [address] [place] [address] Rommel Webster MD 14 [facility] [address] [place] [phone] documented as of this encounter Visit Diagnoses Not on filedocumented in this encounter Additional Health Concerns Assessment Noted Time PHQ-2 Depression Total Score: 0 12/14/19 22 9:30 AM EDT documented as of this encounter Care Teams Trial Lawyer Relationship Specialty Start Date End Date Rommel Webster MD 14 [facility] [address] [place] [phone] PCP - General Internal Medicine 04/07/17 Rommel Webster MD 14 [facility] [address] [place] [id number] Insurance Assigned Provider 08/22/23 documented as of this encounter Additional Source Comments The information contained in this document represents components of the legal health record. It is not the complete legal health record.[facility]
--- OUTSIDE RECORDS SUMMARY | 2025-03-03 09:45 | XMS_ITS | Clinical Summary ---
Author Organization [facility] Address [address] [place] [address] Phone Care Team Providers Care Translator/Interpreter Name Role Phone Rommel Webster MD Unavailable [phone] Rommel Webster MD Primary Care Provider [phone] Allergies Active Allergy Reactions Criticality Noted Date Comments Cefaclor Other (See Comments) 08/24/2012 throat swelling Morphine Headaches 12/26/2021 Penicillins 04/16/2023 Phenazopyridine Other (See Comments) 08/24/2012 throat swelling Piperacillin-Tazobactam Hives 02/05/2022 Medications psyllium (METAMUCIL) Powd Take 1 TABLEspoonful by [...] 03/07/20 24 Active atorvastatin (LIPITOR) 10 MG tabletIndication s:Dyslipidemia TAKE 1 TABLET DAILY 90 tablet 2 05/30/19 25 Active ezetimibe (ZETIA) 10 mg tabletIndication s:Dyslipidemia TAKE 1 TABLET DAILY 90 tablet 3 06/27/19 25 Active MYRBETRIQ 25 mg [id number]: BPH with obstruction/lowe r urinary tract symptoms [...] 01/18/20 25 Active LORazepam (ATIVAN) 1 MG tabletIndication s:Anxiety TAKE 1 TABLET ONCE DAILY ASNEEDED 60 tablet 2 01/25/20 25 Active Hospital, Clinic, or Other Facility Administered [...] to suggest septic arthritis. Spoke with [facility] micro lab blood cultures drawn there [...] cultures drawn here and also at [facility] 02/02 -- Abdominal ultrasound unrevealing -- [...] 50 mg daily. He is going to [place] in a week. He has a previously [...] Encounters Date Type Department Care Team Description 03/02/2025 8:40 AM EDT Office Visit [facility] [address] [place] [address] 3rd Floor, [address] [place] [address] Ronaldo Burns MD Persistent atrial fibrillation (Primary Dx); Status post ablation of atrial fibrillation; Presence of Watchman left atrial appendage closure device 02/24/2025 Telephone [facility] Internal Medicine [address] [address] Rommel Webster MD Requesting Call back 01/23/2025 Refill [facility] [address] [place] [address] Rommel Webster MD Medication Refill (Lorazepam) 01/17/2025 Refill [facility] [address] [place] [address] Mercedes Smith CMA Medication Refill (Allopurinol ) from Last 3 Months Immunizations Immunization Administration [...] Pulse 86 03/02/2025 8:40 AM EDT Temperature 36.3 C (97.3 F) 09/29/2024 11:56 AM EDT Respiratory Rate 15 05/08/2023 10:30 AM EST Oxygen Saturation 96% 03/02/2025 8:40 AM EDT Inhaled Oxygen Concentration - - Weight 87.1 kg (192 lb) 03/02/2025 8:40 AM EDT Height 165.7 cm (5' 5.24 ) 03/02/2025 8:40 AM ED T Body Mass Index 31.72 03/02/2025 8:40 AM EDT Plan of Treatment Upcoming Encounters Date Type Department Care Team (Late st Contact Info) Description 03/14/2025 9:30 AM EDT Office Visit [facility] Orthopedics & Sports Medicine [address] [place] [address] Zane Emery PA-C [address] [place] [address] Orthopedics & Sports Medicine, [place] [address] 08/31/2025 7:40 AM EDT Office Visit [facility] [address] [place] [address] 3rd Floor, [address] [place] [address] Ronaldo Burns MD [address] [place] [address] 09/21/2025 8:40 AM EDT Office Visit [facility] 14 [facility] [address] [place] [address] Rommel Webster MD 14 [facility] [address] [place] [address] [email or web address] Health Maintenance Due Date Last Done Comments COVID-19 VACCINE (2024- season) 2025 01/30/2025, 01/16/2024, 03/06/2023, Additional history exists CREATININE LEVEL 08/30/2025 08/30/2024, , 02/27/2023, Additional history exists BLOOD PRESSURE 08/31/2025 03/02/2025 DEPRESSION SCREENING 09/08/2025 09/08/2024 LIPID PANEL 08/30/2029 08/30/2024, 08/16, 09/02/2022, Additional history exists Adult Td,Tdap Booster 04/22/2031 04/22/2021 , 11/17/2012, 05/01/1997 HEPATITIS C SCREENING Completed 02/06/2012 PNEUMOCOCCAL VACCINES (50+ years) Completed 01/29/2018, 04/19/2014, 11/17/2012 ZOSTER VACCINES Completed 01/29/2018, 09/16, 04/26/2013 RSV VACCINE Completed 03/20/2023 INFLUENZA VACCINE Completed 01/30/2025, , 02/08/2023, Additional history exists SMOKING STATUS SCREENING (Once After 26 Yrs) Completed 03/02/2025 HEPATITIS A VACCINES Aged Out No long [...] this topic Medical Devices Implanted Type Area Prestressed Concrete Laborer Device Identifier Shelf Expiration Date Model / Serial / Lot System Watchman 35mm Flx Mary Closure Us - [id number] Implanted:Qty: 1 on 02/26/2023 by Grayson Olvera MD at [facility] MARY [employer] 10/14/2025 [id number] / / [id number] Cement Bone 1x40 Standard - [id number] Implanted:Qty: 1 on 01/22/2022 by Aamir Tello MD at [facility] Right: Knee AWILDA / DIV OF [employer] 12/15/2024 [id number] / / [id number] Box Component 65.0mm Femoral Knee Vanguard Interlok [place] Posterior Stabilized Open Cemented Right - [id number] Implanted:Qty: 1 on 01/22/2022 by Aamir Tello MD at [facility] Right: Knee [employer] 10/25/2031 [id number] / / [id number] Knee Tray 79mm Plate Bone Primary Vanguard [place] I Beam Revision Interlock Cemented - [id number] Implanted:Qty: 1 on 01/22/2022 by Aamir Tello MD at [facility] Right: Knee [employer] 08/31/2031 [id number] / / [id number] Button Patella 99o11if Knee Vanguard Uhmwpe 3 Peg Series A Standard - [id number] Implanted:Qty: 1 on 01/22/2022 by Aamir Tello MD at [facility] Right: Knee [employer] 07/31/2026 [id number] / / [id number] Tibial Bearing 79/67a26la Vanguard Posterior Stabilized - [id number] Implanted:Qty: 1 on 01/22/2022 by Aamir Tello MD at [facility] Right: Knee [employer] 06/10/2026 [id number] / / [id number] Procedures Procedure Name Priority Date/Time Associated Diagnosis [...] HOSPITAL POTASSIUM 4.5 3.3 - 5.1 mmol/L [facility] CHLORIDE 103 96 - 108 mmol/L [...] ORDERABLES Final R esult Performing Organization Address City/State/[facility] Co de Phone Number [facility] [address] [place] [address] * Lipid panel (08/30/2024 7:58 AM EDT) [...] RISK RATIO 3.6 3.4 - 5.0 C [facility] Blood 08/30/2024 7:58 AM EDT 08/30/2024 8:02 AM EDT us Rommel Webster MD LAB BLOOD ORDERABLES Final R esult [facility] [address] [place] [address] from Last 3 Months or Most Recently Relevant to Health Maintenance Insurance MEDICARE PART A & B [employer] MEDEX SUPPLEMENT [facility] Address[facility] [address] [place] [address] MEDICARE PART A & B [employer] MEDEX SUPPLEMENT MEDICARE PART A & B [employer] MEDEX SUPPLEMENT MEDICARE PART A & B [employer] MEDEX SUPPLEMENT MEDICARE PART A & B [employer] MEDEX SUPPLEMENT MEDICARE PART A & B [facility] MEDEX SUPPLEMENT MEDICARE PART A & B [employer] MEDEX SUPPLEMENT Member Subscriber Plan / [facility] Name:Alirio CardonaElla Relation to Subscriber:Self Name:Alirio CardonaElla Payer ID:[id number] (NAIC) Type:Indemnity Address: [place] [address] MEDICARE PART A & B Member Subscriber Plan / Payer ([facility]Present) Name:RenateRicardo nelakarina Canchola Member ID:[id number] Relation to Subscriber:Self Name:Alirio Cardona Subscriber ID:[id number] Payer ID:[id number] Group ID:Not on file Type:Medicare Address: [employer] [address] [place] [address] [employer] CROSS MEDEX SUPPLEMENT Member Subscriber Plan / Payer ([facility]2010-Present) Name:Alirio Cardona Relation to Subscriber:Self Name:BrendanRicardoAlirio JuanElla Payer ID:[id number] (NAIC) Type:Indemnity Address: [place] [address] MEDICARE PART A & B [employer] MEDEX SUPPLEMENT Advance Directives For more information, please contact: [phone] (9AM - 5PM [facility], Thursday-Thursday) * Full Code (Latest Code Status on File) Date Activated Date Inactivated Comments 02/26/2023 4:12 PM Question Answer Comments Code Status Confirmed With: Patient * Full Code Date Activated Date Inactivated Comments 01/22/2022 7:16 AM 02/26/2023 4:12 PM Question Answer Comments Code Status Confirmed With: Patient Care Teams Translator/Interpreter Relationship Specialty Start Date End Date Rommel Webster MD 14 [facility] [address] [place] [address] [email or web address] PCP - General Internal Medicine 04/07/17 Rommel Webster MD [address] [place] [address] [address] [place] [address] [email or web address] Insurance Assigned Provider 08/22/23 Additional Source Comments The information contained in this document represents components of the legal health record. It is not the complete legal health record.[facility]
--- OUTSIDE RECORDS SUMMARY | 2025-03-03 09:45 | XMS_ITS | Encounter Summary ---
Author Organization [facility] Address [address] [place] [address] Phone Care Team Providers Care Retail Cashier Associate Name Role Phone Rommel Webster MD Unavailable [phone] Rommel Webster MD Primary Care Provider [phone] Encounter Details Date Type Department Care Team (Late st Contact Info) Description 02/26/2023 Procedure Pass [facility] EP Pacer Lab [address] [facility], Floor 1, Room [address] [place] [address] Social History Tobacco Use Types [...] 5:57 PM EDT Samaria Chavez RN * [place] Suicide Severity Rating Scale (Screener/Recent Self-Report) Question [...] Description 03/14/2025 9:30 AM EDT Office Visit [facility] Orthopedics & Sports Medicine [address] [place] [address] Zane Emery PA-C [address] [place] [address] Orthopedics & Sports Medicine, [place] [address] 08/31/2025 7:40 AM EDT Office Visit [facility] [address] [place] [address] 3rd Floor, [address] [place] [address] Ronaldo Burns MD [address] [place] [address] 09/21/2025 8:40 AM EDT Office Visit [facility] Internal Medicine 14 [facility] [address] [place] [address] Rommel Webster MD 14 [facility] [address] [place] [address] documented as of this encounter Visit Diagnoses Not on filedocumented in this encounter Additional Health Concerns Assessment Noted Time PHQ-2 Depression Total Score: 0 12/14/19 22 9:30 AM EDT documented as of this encounter Care Teams Retail Cashier Associate Relationship Specialty Start Date End Date Rommel Webster MD 14 [facility] [address] [place] [address] [email or web address] PCP - General Internal Medicine 04/07/17 Rommel Webster MD 14 [facility] [address] [place] [address] [email or web address] Insurance Assigned Provider 08/22/23 documented as of this encounter Additional Source Comments The information contained in this document represents components of the legal health record. It is not the complete legal health record.[facility]
--- OUTSIDE RECORDS SUMMARY | 2025-03-03 09:45 | XMS_ITS | Encounter Summary ---
Author Organization [facility] Address [address] [facility] [address] [place] [address] Phone Care Team Providers Care Pipe Insulator Helper Name Role Phone Rommel Webster MD Unavailable [phone] Rommel Webster MD Primary Care Provider [phone] Encounter Details Date Type Department Care Team (Late st Contact Info) Description 01/22/2022 Procedure Pass [place] Admitting Dept - Virtual Department 30 [place] [address] Social History Tobacco Use Types Packs/Day Years [...] 1:00 PM EDT Winsome Davis RN * [place] Suicide Severity Rating Scale (Screener/Recent Self-Report) Question [...] Description 03/14/2025 9:30 AM EDT Office Visit [facility] Orthopedics & Sports Medicine [address] [place] [address] Zane Emery PA-C 4 [facility] Orthopedics & Sports Medicine, [facility] [place] [address] [email or web address] 08/31/2025 7:40 AM EDT Office Visit [facility] [address] [place] [address] 3rd Floor, [address] [place] [address] Ronaldo Burns MD [address] [place] [address], [address] [address] 09/21/2025 8:40 AM EDT Office Visit [facility] Internal Medicine [address] [address] Rommel Webster MD [address] [address] [email or web address] documented as of this encounter Visit Diagnoses Not on filedocumented in this encounter Additional Health Concerns Infection Onset Date Last Indicated Resolved Time CoV-Exposed Comment:Added per Home Health documentation 01/30/2022 01/30/2022 02/05/2022 9:29 AM E DT Assessment Noted Time PHQ-2 Depression Total Score: 0 12/14/19 9:30 AM EDT documented as of this encounter Care Teams Pipe Insulator Helper Relationship Specialty Start Date End Date Rommel Webster MD 14 [facility] [address] [place] [address] [email or web address] PCP - General Internal Medicine 04/07/17 Rommel Webster MD [address] [place] [address] [address] [place] [id number] [email or web address] Insurance Assigned Provider 08/22/23 documented as of this encounter Additional Source Comments The information contained in this document represents components of the legal health record. It is not the complete legal health record.[facility]
--- OUTSIDE RECORDS SUMMARY | 2025-03-03 09:45 | XMS_ITS | Encounter Summary ---
Author Organization [facility] Address [address] [facility] [address] [place] [address] Phone Care Team Providers Care Sportspersons Name Role Phone Rommel Webster MD Unavailable [phone] Rommel Webster MD Primary Care Provider [phone] Encounter Details Date Type Department Care Team (Late Contact Info) Description 03/03/2023 Procedure Pass [facility] 30 [place] [address] Social History Tobacco Use Types Packs/Day Years [...] Department Care Team (Late Contact Info) Description 03/14/2025 9:30 AM EDT Office Visit [facility] Orthopedics & Sports Medicine 4 [place] [address] Zane Emery PA-C 4 [facility] Orthopedics & Sports Medicine, [facility] [place] [address] 08/31/2025 7:40 AM EDT Office Visit [facility] [address] [facility] 3rd Floor, [address] [place] [address] Ronaldo Burns MD 22 [facility], [address] [place] [address] 09/21/2025 8:40 AM EDT Office Visit [facility] Internal Medicine [address] [address] Rommel Webster MD 14 [facility] [address] [place] [address] documented as of this encounter Visit Diagnoses Not on filedocumented in this encounter Additional Health Concerns Assessment Noted Time PHQ-2 Depression Total Score: 0 04/16/20 23 1:02 PM EST documented as of this encounter Care Teams Sportspersons Relationship Specialty Start Date End Date Rommel Webster MD [address] [address] PCP - General Internal Medicine 04/07/17 Rommel Webster MD [address] [address] Insurance Assigned Provider 08/22/23 documented as of this encounter Additional Source Comments The information contained in this document represents components of the legal health record. It is not the complete legal health record.[facility]
--- OUTSIDE RECORDS SUMMARY | 2025-03-03 09:45 | XMS_ITS | Encounter Summary ---
Author Organization [facility] Address [address] [facility] [address] [place] [address] Phone Care Team Providers Care Roper Operator Name Role Phone Rommel Webster MD Unavailable [phone] Rommel Webster MD Primary Care Provider [phone] Encounter Details Date Type Department Care Team (Late Contact Info) Description 02/02/2023 Procedure Pass [facility] US [address] [place] [address] Social History Tobacco Use Types Packs/Day Years [...] Description 03/14/2025 9:30 AM EDT Office Visit [facility] Orthopedics & Sports Medicine [address] [place] [address] Zane Emery PA-C 4 [facility] Orthopedics & Sports Medicine, [facility] [place] [address] 08/31/2025 7:40 AM EDT Office Visit [facility] [address] [facility] 3rd Floor, [address] [place] [address] Ronaldo Burns MD 22 [facility], [address] [place] [address] 09/21/2025 8:40 AM EDT Office Visit [facility] 14 [facility] [address] [place] [address] Rommel Webster MD 14 [facility] [address] [place] [address] documented as of this encounter Visit Diagnoses Not on filedocumented in this encounter Additional Health Concerns Assessment Noted Time PHQ-2 Depression Total Score: 0 12/14/19 22 9:30 AM EDT documented as of this encounter Care Teams Roper Operator Relationship Specialty Start Date End Date Rommel Webster MD [address] [address] PCP - General Internal Medicine 04/07/17 Rommel Webster MD 14 [facility] [address] [place] [address] Insurance Assigned Provider 08/22/23 documented as of this encounter Additional Source Comments The information contained in this document represents components of the legal health record. It is not the complete legal health record.[facility]
--- OUTSIDE RECORDS SUMMARY | 2025-03-03 09:45 | XMS_ITS | Encounter Summary ---
Author Organization [facility] Address [address] [facility] [address] [place] [address] Phone Care Team Providers Care Sanitation Worker Cleaning Equipment Name Role Phone Rommel Webster MD Unavailable [phone] Rommel Webster MD Primary Care Provider [phone] Reason for Visit * Reason Onset Date Comments Requesting Call back 02/24/2025 Encounter Details Date Type Department Care Team (Late st Contact Info) Description 02/24/2025 Telephone [facility] 14 [facility] [address] [place], [place] [address] Rommel Webster MD 14 [facility] [address] [place], [place] [address] [email or web address] Requesting Call back Social History Tobacco Use Types Packs/Day Years [...] with a working camera? Not on file 05 / Intimate Partner Violence Answer Date R ecorded [...] as of this encounter Progress Notes * Elif Owens RN - 02/24/2025 11:03 AM EDT Call made to patient to review Busy signal noted Will try again later * Alma Bray - 02/24/2025 10:34 AM EDT Patient is asking about labs. I told him what was ordered and he is asking about other things because he has been having cramping. Please call. I explained that I'm not clinical. Thanks documented in this encounter Plan of Treatment Upcoming Encounters Date Type Department Care Team (Late st Contact Info) Description 03/14/2025 9:30 AM EDT Office Visit [facility] Orthopedics & Sports Medicine [address] [place] [address] Zane Emery PA-C [address] [place] [address] Orthoped[facility] [place] [address] 08/31/2025 7:40 AM EDT Office Visit [facility] [address] [place] [address] 3rd Floor, [address] [place], [place] [phone] Ronaldo Burns MD [address] [place] [address], [address] [place] [address] 09/21/2025 8:40 AM EDT Office Visit [facility] 14 [facility] [address] [place] [address] Rommel Webster MD 14 [facility] [address] [place] [address] documented as of this encounter Visit Diagnoses Not on filedocumented in this encounter Additional Health Concerns Assessment Noted Time PHQ-2 Depression Total Score: 0 09/09/19 25 9:51 AM EDT documented as of this encounter Care Teams Sanitation Worker Cleaning Equipment Relationship Specialty Start Date End Date Rommel Webster MD [address] [address] PCP - General Internal Medicine 04/07/17 Rommel Webster MD [address] [address] Insurance Assigned Provider 08/22/23 documented as of this encounter Additional Source Comments The information contained in this document represents components of the legal health record. It is not the complete legal health record.[facility]
--- OUTSIDE RECORDS SUMMARY | 2025-03-03 09:45 | XMS_ITS | Encounter Summary ---
Author Organization [facility] Address [address] [facility] [address] [place] [address] Phone Care Team Providers Care Nurse College Name Role Phone Rommel Webster MD Unavailable [phone] Rommel Webster MD Primary Care Provider [phone] Encounter Details Date Type Department Care Team (Late Contact Info) Description 01/17/2020 Procedure Pass [facility] - [address] [address] Social History Tobacco Use Types Packs/Day Years [...] Description 03/14/2025 9:30 AM EDT Office Visit [facility] Orthopedics & Sports Medicine [address] [place] [address] Zane Emery PA-C [address] [place] [address] Orthopedics & Sports Medicine, [place] [address] 08/31/2025 7:40 AM EDT Office Visit [facility] [address] [facility] 3rd Floor, [address] [place] [address] Ronaldo Burns MD 22 [facility], [address] [place] [address] 09/21/2025 8:40 AM EDT Office Visit [facility] Internal Medicine 14 [facility] [address] [place] [address] Rommel Webster MD 14 [facility] [address] [place] [address] [email or web address] documented as of this encounter Visit Diagnoses Not on filedocumented in this encounter Additional Health Concerns Infection Onset Date Last Indicated Resolved Time CoV-Exposed Comment:Added per Home Health documentation 01/30/2022 01/30/2022 02/05/2022 9:29 AM E DT Assessment Noted Time PHQ-2 Depression Total Score: 0 09/24/19 19 8:08 AM EDT documented as of this encounter Care Teams Nurse College Relationship Specialty Start Date End Date Rommel Webster MD [address] [address] PCP - General Internal Medicine 04/07/17 Rommel Webster MD [address] [address] Insurance Assigned Provider 08/22/23 documented as of this encounter Additional Source Comments The information contained in this document represents components of the legal health record. It is not the complete legal health record.[facility]
--- OUTSIDE RECORDS SUMMARY | 2025-03-03 09:45 | XMS_ITS | Encounter Summary ---
Author Organization [facility] Address [address] [place] [address] Phone Care Team Providers Care Dean Of Boys Name Role Phone Rommel Webster MD Unavailable [phone] Rommel Webster MD Primary Care Provider [phone] Encounter Details Date Type Department Care Team (Late Contact Info) Description 02/05/2022 Procedure Pass OR Admitting Dept - Virtual Department [address] [place] [address] Social History Tobacco Use Types Packs/Day Years [...] Description 03/14/2025 9:30 AM EDT Office Visit [facility] & Sports Medicine [address] [place] [address] Zane Emery PA-C [address] [place] [address] [facility] [place] [place] [address] 08/31/2025 7:40 AM EDT Office Visit [facility] [address] 3rd Floor, [address] [place] [address] Ronaldo Burns MD 22 [facility], [address] [place] [address] 09/21/2025 8:40 AM EDT Office Visit [facility] [place] [facility] 14 [facility] [address] [place] [address] Rommel Webster MD 14 [facility] [address] [place] [address] [email or web address] documented as of this encounter Visit Diagnoses Not on filedocumented in this encounter Additional Health Concerns Infection Onset Date Last Indicated Resolved Time CoV-Exposed Comment:Added per Home Health documentation 01/30/2022 01/30/2022 02/05/2022 9:29 AM E DT Assessment Noted Time PHQ-2 Depression Total Score: 0 12/14/19 9:30 AM EDT documented as of this encounter Care Teams Dean Of Boys Relationship Specialty Start Date End Date Rommel Webster MD [address] [address] PCP - General Internal Medicine 04/07/17 Rommel Webster MD [address] [address] Insurance Assigned Provider 08/22/23 documented as of this encounter Additional Source Comments The information contained in this document represents components of the legal health record. It is not the complete legal health record.[facility]
== END 2025-03-03 09:35 | disposition home or self-care (01) ==
LOC: HO.PMC 09:03
PROVIDERS: PCP Internal Medicine; Visit Provider Registered Nurse Emergency
DX: M51.369 Other intervertebral disc degeneration, lumbar region without mention of lumbar back pain or lower extremity pain (principal); M47.816 Spondylosis without myelopathy or radiculopathy, lumbar region
CPT/HCPCS: 99213; G2211

== ENCOUNTER → 2025-03-03 09:02 | Outpatient (BNVA) | payer MEDICARE, SELFPAY | PROVIDERS: PCP Internal Medicine; Visit Provider Registered Nurse Emergency | DX: M54.50 Low back pain, unspecified (principal); G89.29 Other chronic pain; M51.369 Other intervertebral disc degeneration, lumbar region without mention of lumbar back pain or lower extremity pain; M47.816 Spondylosis without myelopathy or radiculopathy, lumbar region; Z96.82 Presence of neurostimulator | CPT/HCPCS: 99212 ==

== ENCOUNTER 2025-03-07 06:08 | Outpatient (REF) | payer MEDICARE, SELFPAY ==
--- OUTSIDE RECORDS SUMMARY | 2025-03-02 08:40 | XMS_ITS | Encounter Summary ---
Author Organization [facility] Address [address] [facility] [address] [place] [address] Phone Care Team Providers Care Personal Banker Name Role Phone Rommel Webster MD Unavailable [phone] Rommel Webster MD Primary Care Provider [phone] Encounter Details Date Type Department Care Team (Latest Contact Info) Description 03/02/2025 8:40 AM EDT Office Visit [facility] [address] [place] [address] 3rd Floor, [address] [place] [address] Ronaldo Burns MD [address] [facility], [address] [place] [address] [email or web address] Persistent atrial fibrillation (Primary Dx); Status post [...] Burns MD - 03/02/2025 8:40 AM EDT [facility] Cardiology Follow-Up Visit Date: 03/02/2025 Primary Care Physician: Rommel Webster MD Primary Assembler Arranger: [place] History of Presenting Illness: Alirio Cardona [...] 02/26/2023 Performed by Grayson Olvera MD at [facility] Electrophysiology Lab APPENDECTOMY appendectomy ARTHROPLASTY TOTAL KNEE - 1 Right 01/22/2022 Performed by Aamir Tello MD at [facility] OR atrial ablations atrial ablations CARDIOVERSION [...] 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 [address] 08/31/2025 7:40 AM EDT Office Visit [facility] [address] [place] [address] 3rd Floor, [address] [place] [address] Ronaldo Burns MD [address] [facility], [address] [place] [address] [email or web address] 09/21/2025 8:40 AM EDT Office Visit [facility] Internal Medicine [address] [facility] [address] [place] [address] Rommel Webster MD [address] [place] [address] [place] [phone] documented as of this encounter Visit Diagnoses Diagnosis Persistent atrial fibrillation- Primary Atrial fibrillation Status post ablation of atrial fibrillation Other postprocedural status Presence of Watchman left atrial appendage closure device documented in this encounter Additional Health Concerns Assessment Noted Time PHQ-2 Depression Total Score: 0 09/09/19 9:51 AM EDT documented as of this encounter Care Teams Personal Banker Relationship Specialty Start Date End Date Rommel Webster MD 14 [facility] [address] [place] [id number] PCP - General Internal Medicine 04/07/17 Rommel Webster MD 14 [facility] [address] [place] [id number] Insurance Assigned Provider 08/22/23 documented as of this encounter Additional Source Comments The information contained in this document represents components of the legal health record. It is not the complete legal health record.[facility]
--- NOTE | ~2025-03-07 | FL_ITS ---
EXAMINATION: FLUOROSCOPY GUIDANCE FOR NEEDLE PLACEMENT CLINICAL INFORMATION: M47.816 - Spondylosis without myelopathy or radiculopathy, lumbar region COMPARISON: Previous fluoroscopy images January and February 2025 TECHNIQUE: Fluoroscopy guidance provided for pain management procedure. 2 submitted images. FINDINGS: There is a lead projecting over the right side of the lower lumbar spine. Refer to procedure of report report for details. FLUOROSCOPY TIME: 0.2 minutes DOSE AREA PRODUCT: 94 uGy-m2 (microgray-meter squared) FL/FL guidance in treatment room IMPRESSION: Fluoroscopy guidance for pain management procedure. Electronically signed by: Beth Brown MD 03/08/2025 03:03 PM EDT
--- OUTSIDE RECORDS SUMMARY | 2025-03-07 06:11 | XMS_ITS | Encounter Summary ---
Author Organization [facility] Address [address] [address] [place] [address] Phone Care Team Providers Care Research And Development Technician Name Role Phone Rommel Webster MD Unavailable [phone] Rommel Webster MD Primary Care Provider [phone] Encounter Details Date Type Department Care Team (Late Contact Info) Description 03/03/2023 Procedure Pass [facility] 30 [place] [address] Social History Tobacco Use Types Packs/Day Years [...] 03/14/2025 9:30 AM EDT Office Visit [facility] 4 [place] [address] Zane Emery PA-C 4 [facility] Orthopedics & Sports Medicine, [facility] [place] [address] 08/31/2025 7:40 AM EDT Office Visit [facility] [address] [facility] 3rd Floor, [address] [place] [address] Ronaldo Burns MD 22 [facility], [address] [place] [address] 09/21/2025 8:40 AM EDT Office Visit [facility] Internal Medicine [address] [address] Rommel Webster MD 14 [facility] [address] [place] [address] documented as of this encounter Visit Diagnoses Not on filedocumented in this encounter Additional Health Concerns Assessment Noted Time PHQ-2 Depression Total Score: 0 04/16/20 23 1:02 PM EST documented as of this encounter Care Teams Research And Development Technician Relationship Specialty Start Date End Date Rommel Webster MD [address] [address] PCP - General Internal Medicine 04/07/17 Rommel Webster MD [address] [address] Insurance Assigned Provider 08/22/23 documented as of this encounter Additional Source Comments The information contained in this document represents components of the legal health record. It is not the complete legal health record.[facility]
--- OUTSIDE RECORDS SUMMARY | 2025-03-07 06:11 | XMS_ITS | Encounter Summary ---
Author Organization [facility] Address [address] [place] [address] Phone Care Team Providers Care Transitional Care Manager Name Role Phone Rommel Webster MD Unavailable [phone] Rommel Webster MD Primary Care Provider [phone] Encounter Details Date Type Department Care Team (Late Contact Info) Description 02/05/2022 Procedure Pass OR Admitting Dept - Virtual Department [address] [place] [address] Social History Tobacco Use Types Packs/Day Years [...] Description 03/14/2025 9:30 AM EDT Office Visit [facility] Orthopedics & Sports Medicine [address] [place] [address] Zane Emery PA-C [address] [place] [address] [facility] [place] [address] 08/31/2025 7:40 AM EDT Office Visit [facility] [address] 3rd Floor, [address] [place] [address] Ronaldo Burns MD 22 [facility], [address] [place] [address] 09/21/2025 8:40 AM EDT Office Visit [facility] [place] [facility] 14 [facility] [address] [place] [address] Rommel Webster MD 14 [facility] [address] [place] [address] [email or web address] documented as of this encounter Visit Diagnoses Not on filedocumented in this encounter Additional Health Concerns Infection Onset Date Last Indicated Resolved Time CoV-Exposed Comment:Added per Home Health documentation 01/30/2022 01/30/2022 02/05/2022 9:29 AM E DT Assessment Noted Time PHQ-2 Depression Total Score: 0 12/14/19 9:30 AM EDT documented as of this encounter Care Teams Transitional Care Manager Relationship Specialty Start Date End Date Rommel Webster MD [address] [address] PCP - General Internal Medicine 04/07/17 Rommel Webster MD [address] [address] Insurance Assigned Provider 08/22/23 documented as of this encounter Additional Source Comments The information contained in this document represents components of the legal health record. It is not the complete legal health record.[facility]
--- OUTSIDE RECORDS SUMMARY | 2025-03-07 06:11 | XMS_ITS | Encounter Summary ---
Author Organization [facility] Address [address] [facility] [address] [place] [address] Phone Care Team Providers Care Senior Communications Specialist Name Role Phone Rommel Webster MD Unavailable [phone] Rommel Webster MD Primary Care Provider [phone] Encounter Details Date Type Department Care Team ([facility] Contact Info) Description 09/08/2022 Procedure Pass [facility] 30 [place] [address] Social History Tobacco Use Types Packs/Day Years [...] Upcoming Encounters Date Type Department Care Team ([facility] Contact Info) Description 03/14/2025 9:30 AM EDT Office Visit [facility] Orthopedics & Sports Medicine [address] [place] [id number] Zane Emery PA-C [address] [place] [address] Orthopedics & Sports Medicine, [facility] [place] [address] 08/31/2025 7:40 AM EDT Office Visit [facility] 22 [facility] 3rd Floor, [address] [place] [address] Ronaldo Burns MD 22 [facility], [address] [place] [address] 09/21/2025 8:40 AM EDT Office Visit [facility] [place] [facility] 14 [facility] [address] [place] [address] Rommel Webster MD 14 [facility] [address] [place] [address] documented as of this encounter Visit Diagnoses Not on filedocumented in this encounter Additional Health Concerns Assessment Noted Time PHQ-2 Depression Total Score: 0 12/14/19 22 9:30 AM EDT documented as of this encounter Care Teams Senior Communications Specialist Relationship Specialty Start Date End Date Rommel Webster MD 14 [facility] [address] [place] [address] PCP - General Internal Medicine 04/07/17 Rommel Webster MD 14 [facility] [address] [place] [address] Insurance Assigned Provider 08/22/23 documented as of this encounter Additional Source Comments The information contained in this document represents components of the legal health record. It is not the complete legal health record.[facility]
--- OUTSIDE RECORDS SUMMARY | 2025-03-07 06:11 | XMS_ITS | Encounter Summary ---
Author Organization [facility] Address [address] [place] [address] Phone Care Team Providers Care Business Rules Analyst Name Role Phone Rommel Webster MD Unavailable [phone] Rommel Webster MD Primary Care Provider [phone] Encounter Details Date Type Department Care Team (Late Contact Info) Description 01/17/2020 Procedure Pass [facility], Ct Scan - [address] [address] Social History Tobacco Use Types Packs/Day Years [...] Description 03/14/2025 9:30 AM EDT Office Visit [facility] Orthopedics & Sports Medicine [address] [place] [address] Zane Emery PA-C [address] [place] [address] [facility] [place] [address] 08/31/2025 7:40 AM EDT Office Visit [facility] 22 [facility] 3rd Floor, [address] [place] [address] Ronaldo Burns MD 22 [facility], [address] [place] [address] 09/21/2025 8:40 AM EDT Office Visit [facility] 14 [facility] [address] [place] [address] Rommel Webster MD 14 [facility] [address] [place] [address] [email or web address] documented as of this encounter Visit Diagnoses Not on filedocumented in this encounter Additional Health Concerns Infection Onset Date Last Indicated Resolved Time CoV-Exposed Comment:Added per Home Health documentation 01/30/2022 01/30/2022 02/05/2022 9:29 AM E DT Assessment Noted Time PHQ-2 Depression Total Score: 0 09/24/19 19 8:08 AM EDT documented as of this encounter Care Teams Business Rules Analyst Relationship Specialty Start Date End Date Rommel Webster MD [address] [address] PCP - General Internal Medicine 04/07/17 Rommel Webster MD [address] [address] Insurance Assigned Provider 08/22/23 documented as of this encounter Additional Source Comments The information contained in this document represents components of the legal health record. It is not the complete legal health record.[facility]
--- OUTSIDE RECORDS SUMMARY | 2025-03-07 06:11 | XMS_ITS | Clinical Summary ---
Author Organization [facility] Address [address] [facility] [address] [place] [address] Phone Care Team Providers Care Networks Software Consultant Name Role Phone Rommel Webster MD Unavailable [phone] Rommel Webster MD Primary Care Provider Allergies [...] 3 06/27/19 25 Active MYRBETRIQ 25 mg [id number]: BPH with obstruction/lowe r urinary tract symptoms [...] ASNEEDED 60 tablet 2 01/25/20 25 Active Active Problems Problem Noted Date Diagnosed [...] knee to suggest septic arthritis. Spoke with [facility] micro lab blood cultures drawn there [...] blood cultures drawn here and also at [facility] 02/02 -- Abdominal ultrasound unrevealing -- [...] -- He has 2 metoprolol orders in [facility] but was receiving metoprolol tartrate 50 [...] 50 mg daily. He is going to [place] in a week. He has a previously [...] Description 03/02/2025 8:40 AM EDT Office Visit [facility] [address] 3rd Floor, [address] [place] [address] Ronaldo Burns MD Persistent atrial fibrillation (Primary Dx); Status post ablation of atrial fibrillation; Presence of Watchman left atrial appendage closure device 02/24/2025 Telephone [facility] Internal Medicine 14 [facility] [address] [place] [address] Rommel Webster MD Requesting Call back 01/23/2025 Refill [facility] Internal Medicine 14 [facility] [address] [place] [address] Rommel Webster MD Medication Refill (Lorazepam) 01/17/2025 Refill [facility] Internal Medicine 14 [facility] [address] [place] [address] Mercedes Smith CMA Medication Refill (Allopurinol ) [...] 1 963 - 1971 Smokeless Tobacco: Never Tobacco Cessation:Counseling Given: Not [...] Description 03/14/2025 9:30 AM EDT Office Visit [facility] Orthopedics & Sports Medicine 4 [place] [address] Zane Emery PA-C [address] [place] [address] Orthopedics & Sports [place], [place] [address] 08/31/2025 7:40 AM EDT Office Visit [facility] [address] [place] [address] 3rd Floor, [address] [place] [address] Ronaldo Burns MD [address] [place] [address] [place] [address] 09/21/2025 8:40 AM EDT Office Visit [facility] Internal Medicine 14 [facility] [address] [place] [address] Rommel Webster MD 14 [facility] [address] [place] [address] Health Maintenance Due Date Last Done Comments [...] this topic Medical Devices Implanted Type Area Belt Picker Device Identifier Shelf Expiration Date Model / Serial / Lot System Watchman 35mm Flx Mary [employer] - [id number] Implanted:Qty: 1 on 02/26/2023 by Grayson Olvera MD at [facility] MARY Oc[employer] 10/14/2025 [id number] / / [id number] Cement Bone 1x40 Standard - [id number] Implanted:Qty: 1 on 01/22/2022 by Aamir Tello MD at [facility] Right: Knee AWILDA / [employer] 12/15/2024 [id number] / / [id number] Box Component 65.0mm Femoral Knee Vanguard Interlok [place] Posterior Stabilized Open Cemented Right - [id number] Implanted:Qty: 1 on 01/22/2022 by Aamir Tello MD at [facility] Right: Knee [employer] 10/25/2031 [id number] / / [id number] Knee Tray 79mm Plate Bone Primary Vanguard [place] I Beam Revision Interlock Cemented - [id number] Implanted:Qty: 1 on 01/22/2022 by Aamir Tello MD at [facility] Right: Knee [employer] 08/31/2031 [id number] / / [id number] Button Patella [id number] Knee Vanguard Uhmwpe 3 Peg Series A Standard - [id number] Implanted:Qty: 1 on 01/22/2022 by Aamir Tello MD at [facility] Right: Knee [employer] 07/31/2026 [id number] / / [id number] Tibial Bearing 79/52l40gw Vanguard Posterior Stabilized - [id number] Implanted:Qty: 1 on 01/22/2022 by Aamir Tello MD at [facility] Right: Knee [employer] 06/10/2026 [id number] / / [id number] Procedures Procedure Name Priority Date/Time Associated Diagnosis [...] EDT) SODIUM 141 133 - 146 mmol/L [facility] POTASSIUM 4.5 3.3 - 5.1 mmol/L [facility] CHLORIDE 103 96 - 108 mmol/L [facility] CO2 28 21 - 35 mmol/L [facility] BUN 21(H) 6 - 19 mg/dL [facility] CREATININE 0.90 0.5 - 1.5 mg/dL [facility] GLUCOSE 121(H) 70 - 99 mg/dL [facility] ALBUMIN 4.3 3.9 - 4.8 g/dL [facility] TOTAL PROTEIN 7.1 6.5 - 8.0 g/dL [facility] CALCIUM 8.9 8.4 - 10.3 mg/dL [facility] ALKALINE PHOSPHATASE 71 39 - 117 U/L [facility] TOTAL BILIRUBIN 0.9 0.0 - 1.2 mg/dL [facility] AST 35 0 - 37 U/L [facility] ALT 38 0 - 40 U/L [facility] GLOBULIN 2.8 1 - 4.8 g/dL [facility] EGFR 87 >59 mL/min/1.7 3m2 [facility] Comment:Estimated glomerular filtration rate calculated using the CKD-EPI refit equation. ANION GAP 15 10 - 20 mmol/L [facility] Blood 08/30/2024 7:58 AM EDT 08/30/2024 8:01 AM EDT us Rommel Webster MD LAB BLOOD ORDERABLES Final R esult Performing Organization Address City/[facility] Co de Phone Number [address] [address] * Lipid panel (08/30/2024 7:58 AM EDT) HDL 34 mg/dL [facility] Comment: Interpretation <40 mg/dL: Low HDL cholesterol (major risk factor for CHD) Greater than or equal to 60 mg/dL: High HDL cholesterol ( negative risk factor for CHD) HDL - cholesterol is affected by a number of factors, e.g. smoking, excerise, hormones, sex and age. CHOLESTEROL 122 0 - 240 mg/dL [facility] TRIGLYCERIDES 147 30 - 160 mg/dL [facility] LDL 59 50 - 129 mg/dL [facility] Comment: LDL levels in terms of risk for coronary heart disease: <100 mg/dL: Optimal 100-129 mg/dL: Near or above optimal 130-159 mg/dL: Borderline high 160-189 mg/dL: High >190 mg/dL: Very High CARDIAC RISK RATIO 3.6 3.4 - 5.0 [facility] Blood 08/30/2024 7:58 AM EDT 08/30/2024 8:02 AM EDT us Rommel Webster MD LAB BLOOD ORDERABLES Final R esult Performing Organization Address City/[facility] Co de Phone Number [address] [address] from Last 3 Months or Most Recently Relevant to Health Maintenance Insurance MEDICARE PART A & B [employer] MEDEX SUPPLEMENT MEDICARE PART A & B [employer] MEDEX SUPPLEMENT MEDICARE PART A & B [facility] MEDEX SUPPLEMENT MEDICARE PART A & B [employer] MEDEX SUPPLEMENT Member Subscriber Plan / Payer ([facility] 09/15/2010-Present) Name:Alirio CardonaElla Relation to Subscriber:Self Name:Alirio CardonaElla Payer ID:[id number] (NAIC) Type:Indemnity Address: [place] [address] MEDICARE PART A & B Member Subscriber Plan / Payer ([facility] 09/15/2010-Present) Name:RenateRicardo nealkarina Canchola Member ID:[id number] Relation to Subscriber:Self Name:Alirio Cardona Subscriber ID:[id number] Payer ID:[id number] Group ID:Not on file Type:Medicare Address: [employer] [address] [place] [address] [employer] CROSS MEDEX SUPPLEMENT Member Subscriber Plan / Payer ([facility] 09/15/2010-Present) Name:Alirio Cardona Relation to Subscriber:Self Name:BrendanRicardoAlirio JuanElla Payer ID:[id number] (NAIC) Type:Indemnity Address: [place] [address] MEDICARE PART A & B [employer] MEDEX SUPPLEMENT MEDICARE PART A & B [employer] MEDEX SUPPLEMENT MEDICARE PART A & B [employer] SUPPLEMENT MEDICARE PART A & B [employer] MEDEX SUPPLEMENT Advance Directives For more information, please contact: [phone] (9AM - 5PM [facility], Thursday-Thursday) * Full Code (Latest Code Status on File) Date Activated Date Inactivated Comments 02/26/2023 4:12 PM Question Answer Comments Code Status Confirmed With: Patient * Full Code Date Activated Date Inactivated Comments 01/22/2022 7:16 AM 02/26/2023 4:12 PM Question Answer Comments Code Status Confirmed With: Patient Care Teams Networks Software Consultant Relationship Specialty Start Date End Date Rommel Webster MD [address] [place] [address] [place] [address] [email or web address] PCP - General Internal Medicine 04/07/17 Rommel Webster MD [address] [place] [address] [place] [address] [email or web address] Insurance Assigned Provider 08/22/23 Additional Source Comments The information contained in this document represents components of the legal health record. It is not the complete legal health record.[facility]
--- OUTSIDE RECORDS SUMMARY | 2025-03-07 06:12 | XMS_ITS | Encounter Summary ---
Author Organization [facility] Address [address] [place] [address] Phone Care Team Providers Care Grey Iron Molder Name Role Phone Rommel Webster MD Unavailable [phone] Rommel Webster MD Primary Care Provider Encounter Details Date Type Department Care Team (Late st Contact Info) Description 02/26/2023 Procedure Pass [facility] [address] [facility], Floor 1, [address] [place] [address] Social History Tobacco Use Types [...] 5:57 PM EDT Samaria Chavez RN * [place] Suicide Severity Rating Scale (Screener/Recent Self-Report) Question [...] Description 03/14/2025 9:30 AM EDT Office Visit [facility] Orthopedics & Sports Medicine [address] [place] [address] Zane Emery PA-C [address] [place] [address] Orthopedics & Sports Medicine, [facility] [place] [address] 08/31/2025 7:40 AM EDT Office Visit [facility] [address] [place] [address] 3rd Floor, [address] [place] [address] Ronaldo Burns MD [address] [place] [address] 09/21/2025 8:40 AM EDT Office Visit [facility] Internal Medicine 14 [facility] [address] [place] [address] Rommel Webster MD 14 [facility] [address] [place] [address] documented as of this encounter Visit Diagnoses Not on filedocumented in this encounter Additional Health Concerns Assessment Noted Time PHQ-2 Depression Total Score: 0 12/14/19 22 9:30 AM EDT documented as of this encounter Care Teams Grey Iron Molder Relationship Specialty Start Date End Date Rommel Webster MD 14 [facility] [address] [place] [address] [email or web address] PCP - General Internal Medicine 04/07/17 Rommel Webster MD 14 [facility] [address] [place] [address] [email or web address] Insurance Assigned Provider 08/22/23 documented as of this encounter Additional Source Comments The information contained in this document represents components of the legal health record. It is not the complete legal health record.[facility]
--- OUTSIDE RECORDS SUMMARY | 2025-03-07 06:12 | XMS_ITS | Encounter Summary ---
Author Organization [facility] Address [address] [place] [address] Phone Care Team Providers Care Automatic Pilot Mechanic Name Role Phone Rommel Webster MD Unavailable [phone] Rommel Webster MD Primary Care Provider [phone] Encounter Details Date Type Department Care Team (Late st Contact Info) Description 01/22/2022 Procedure Pass OR Admitting Dept - Virtual Department [address] [place] [address] Social History Tobacco Use Types Packs/Day Years [...] 1:00 PM EDT Winsome Davis RN * [place] Suicide Severity Rating Scale (Screener/Recent Self-Report) Question [...] Description 03/14/2025 9:30 AM EDT Office Visit [facility] [address] [place] [address] Zane Emery PA-C 4 [facility], [facility] [place] [address] [email or web address] 08/31/2025 7:40 AM EDT Office Visit [facility] [address] [place] [address] 3rd Floor, [address] [place] [address] Ronaldo uBrns MD [address] [place] [address], [address] [address] 09/21/2025 8:40 AM EDT Office Visit [facility] Internal Medicine [address] [address] Rommel Webster MD [address] [address] [email or web address] documented as of this encounter Visit Diagnoses Not on filedocumented in this encounter Additional Health Concerns Infection Onset Date Last Indicated Resolved Time CoV-Exposed Comment:Added per Home Health documentation 01/30/2022 01/30/2022 02/05/2022 9:29 AM E DT Assessment Noted Time PHQ-2 Depression Total Score: 0 12/14/19 9:30 AM EDT documented as of this encounter Care Teams Automatic Pilot Mechanic Relationship Specialty Start Date End Date Rommel Webster MD 14 [facility] [address] [place] [address] [email or web address] PCP - General Internal Medicine 04/07/17 Rommel Webster MD [address] [place] [address] [address] [place] [phone] [email or web address] Insurance Assigned Provider 08/22/23 documented as of this encounter Additional Source Comments The information contained in this document represents components of the legal health record. It is not the complete legal health record.[facility]
--- OUTSIDE RECORDS SUMMARY | 2025-03-07 06:12 | XMS_ITS | Data Portability ---
Author Organization [facility] [employer], [facility], [facility] Address [address] [place] [address] Care Team Providers Care Access Director Name Role Phone MERCY KIM Primary Care Provider MERCY KIM Referring Provider Assessment Encounter Date Assessment Date Assessment LastModified by Organization Details LastModified Time 06/17/2019 06/17/2019 New Patient. [email or web address] Not available 0 06/17/2019 18:11:43 Plan of Treatment Reminders Order Date Submit Date Provider Last Modified By Organization Details Last Modified Time Details Appointments None recorded. Lab CBC 2021 022 [facility], [address] [place], [address], 2 16:19:37 CMP, serum or plasma 2021 022 [facility], [address] [place], [address], 2 16:19:38 Referral None recorded. Procedures None recorded. Surgeries None recorded. Imaging None recorded. Medication Orders Depo-Medrol 80 mg/mL suspension for injection 2019 020 Not available 08:45:13 Robaxin-750 750 mg tablet 2019 020 [facility] #[id number], [address], [place], [address], 2 08:45:55 Medrol (Mac) 4 mg tablets in a dose pack 2019 020 [facility] #[id number], [address], [place], [address], 2 08:45:18 ketorolac 30 mg/mL injection solution 2019 020 Not available 2 08:45:16 Patient TargetsNo targets recorded. Patient Instructions Encounter Date Encounter Id Patient Instructions Last Modified By Organization Details Last Modified Time 06/17/2019 [id number] Patient understa nds instructions and will seek medical attention if symptoms worsen as directed. Not available 06/17/2019 18:11:48 07/04/[id number] gastrointestinal bleeding: care instructions [email or web address] Not available 07/04/2021 09:17:14 Reason for Referral None Reported. Results Created Date Observation Date Name Description Value Unit Range Abnormal Flag Note LastModifiedBy Organization Detail LastModifiedTime 07/04/19 22 07/04/2021 CBC W/ AUTOD IFF, COMPL ETE BLOOD COUNT WBC 6.9 K/uL 3.6-10 .0 Not Available [email or web address] [address], [place], [address], 07/04/2021 16:19:37 07/04/19 22 07/04/2021 CBC W/ AUTOD IFF, COMPL ETE BLOOD COUNT nucleated RBC 0.10 % 0.00-2 .00 Not Available [facility] [address], [place], [address], 07/04/2021 16:19:37 07/04/19 22 07/04/2021 CBC W/ AUTOD IFF, COMPL ETE BLOOD COUNT RBC 4.69 M/uL 4.10-5 .80 Not Available [facility] [address] [place], [address], 07/04/2021 16:19:37 07/04/19 22 07/04/2021 CBC W/ AUTOD IFF, COMPL ETE BLOOD COUNT HGB 14.0 g/dL 13.2-1 7.0 Not Available [facility] [address], [place], [address], 07/04/2021 16:19:37 07/04/19 22 07/04/2021 CBC W/ AUTOD IFF, COMPL ETE BLOOD COUNT hematocrit 42.30 % 37.00- 51.00 Not Available [facility] [address], [place], [address], 07/04/2021 16:19:37 07/04/19 22 07/04/2021 CBC W/ AUTOD IFF, COMPL ETE BLOOD COUNT MCV 90.2 fL 80.0-9 9.0 Not Available [facility], [place], [address], 07/04/2021 16:19:37 07/04/19 22 07/04/2021 CBC W/ AUTOD IFF, COMPL ETE BLOOD COUNT MCH 29.8 pg 27.0-3 3.0 Not Available [facility], [place], [address], 07/04/2021 16:19:37 07/04/19 22 07/04/2021 CBC W/ AUTOD IFF, COMPL ETE BLOOD COUNT MCHC 33.0 g/dL 32.0-3 6.0 Not Available [facility] [address], [place], [address], 07/04/2021 16:19:37 07/04/19 22 07/04/2021 CBC W/ AUTOD IFF, COMPL ETE BLOOD COUNT platelets 258 K/uL 140-44 0 Not Available [facility], [place], [address], 07/04/2021 16:19:37 07/04/19 22 07/04/2021 CBC W/ AUTOD IFF, COMPL ETE BLOOD COUNT RDW 13.8 % 11.0-1 5.0 Not Available [facility] [address], [place], [address], 07/04/2021 16:19:37 07/04/19 22 07/04/2021 CBC W/ AUTOD IFF, COMPL ETE BLOOD COUNT MPV 8.2 fL 7.4-10 .4 Not Available [facility] [address], [place], [address], 07/04/2021 16:19:37 07/04/19 22 07/04/2021 CBC W/ AUTOD IFF, COMPL ETE BLOOD COUNT neutrophil, % 72.7 % Not Available [facility], [place], [address], 07/04/2021 16:19:37 07/04/19 22 07/04/2021 CBC W/ AUTOD IFF, COMPL ETE BLOOD COUNT lymphocyte % 17.0 % Not Available [facility] [address] [place] [address] [address], [place], [address], 07/04/2021 16:19:37 07/04/19 22 07/04/2021 CBC W/ AUTOD IFF, COMPL ETE BLOOD COUNT monocyte % 8.4 % Not Available [facility] [address], [place], [address], 07/04/2021 16:19:37 07/04/19 22 07/04/2021 CBC W/ AUTOD IFF, COMPL ETE BLOOD COUNT eosinophil % 1.2 % Not Available [facility], [place], [address], 07/04/2021 16:19:37 07/04/19 22 07/04/2021 CBC W/ AUTOD IFF, COMPL ETE BLOOD COUNT basophil % 0.7 % Not Available [facility] [address], [place], [address], 07/04/2021 16:19:37 07/04/19 22 07/04/2021 CBC W/ AUTOD IFF, COMPL ETE BLOOD COUNT neutrophil, # 5.1 K/uL 1.5-7. 5 Not Available [facility] [address], [place], [address], 07/04/2021 16:19:37 07/04/19 22 07/04/2021 CBC W/ AUTOD IFF, COMPL ETE BLOOD COUNT lymphocyte # 1.2 K/uL 0.8-4. 0 Not Available [facility] [address] [place], [place] [address], [place], [address], 07/04/2021 16:19:37 07/04/19 22 07/04/2021 CBC W/ AUTOD IFF, COMPL ETE BLOOD COUNT monocyte # 0.6 K/uL 0.1-1. 0 Not Available [facility] [address] [place], [place] [address]y [address], [place], [address], 07/04/2021 16:19:37 07/04/19 22 07/04/2021 CBC W/ AUTOD IFF, COMPL ETE BLOOD COUNT eosinophil # 0.1 K/uL 0.1-1. 0 Not Available [facility], [place], [address], 07/04/2021 16:19:37 07/04/19 22 07/04/2021 CBC W/ AUTOD IFF, COMPL ETE BLOOD COUNT basophil # 0.0 K/uL 0.0-0. 2 Not Available [facility] [address], [place], [address], 07/04/2021 16:19:37 07/04/19 22 07/04/2021 CMP, COMPR EHENS DIANN METAB OLIC PANEL glucose 99 mg/dL 70-100 Not Available [facility] [address] [facility] [address], [place], [address], 07/04/2021 16:19:38 07/04/19 22 07/04/2021 CMP, COMPR EHENS DIANN METAB OLIC PANEL BUN 20 mg/dL 7-25 Not Available [facility] [address], [place], [address], 07/04/2021 16:19:38 07/04/19 22 07/04/2021 CMP, COMPR EHENS DIANN METAB OLIC PANEL creatinine 1.1 mg/dL 0.6-1. 3 Not Available [facility] [address] [facility] [address], [place], [address], 07/04/2021 16:19:38 07/04/19 22 07/04/2021 CMP, COMPR EHENS DIANN METAB OLIC PANEL BUN/creatini ne ratio 18.02 calc Not Available [facility] [address] [facility] [address], [place], [address], 07/04/2021 16:19:38 07/04/19 22 07/04/2021 CMP, COMPR EHENS DIANN METAB OLIC PANEL eGFR 83 mL/mi n/1.7 3m2 >60 THREE CONSE CUTIV E VALUE S <60 mL/mi n COULD BE INDIC ATIVE OF KIDNE Y DISEA SE. Not Available [facility] [address], [place], [address], 07/04/2021 16:19:38 07/04/19 22 07/04/2021 CMP, COMPR EHENS DIANN METAB OLIC PANEL eGFR non- 69 mL/mi n/1.7 3m2 >60 THREE CONSE CUTIV E VALUE S < 60 mL/mi n COULD BE INDIC ATIVE OF KIDNE Y DISEA SE Not Available [facility] [address], [place], [address], 07/04/2021 16:19:38 07/04/19 22 07/04/2021 CMP, COMPR EHENS DIANN METAB OLIC PANEL sodium 140 mmol/ L 135-14 5 Not Available [facility] [address], [place], [address], 07/04/2021 16:19:38 07/04/19 22 07/04/2021 CMP, COMPR EHENS DIANN METAB OLIC PANEL potassium 4.7 mmol/ L 3.5-5. 5 Not Available [facility] [address], [place], [address], 07/04/2021 16:19:38 07/04/19 22 07/04/2021 CMP, COMPR EHENS DIANN METAB OLIC PANEL chloride 102 mmol/ L 100-11 5 Not Available [facility] [address], [place], [address], 07/04/2021 16:19:38 07/04/19 22 07/04/2021 CMP, COMPR EHENS DIANN METAB OLIC PANEL CO2 29 mmol/ L 21-33 Not Available [facility] [address], [place], [address], 07/04/2021 16:19:38 07/04/19 22 07/04/2021 CMP, COMPR EHENS DIANN METAB OLIC PANEL anion gap 8.8 calc Not Available [facility] [address], [place], [address], 07/04/2021 16:19:38 07/04/19 22 07/04/2021 CMP, COMPR EHENS DIANN METAB OLIC PANEL calcium 9.6 mg/dL 8.8-10 .6 Not Available [facility] [address], [place], [address], 07/04/2021 16:19:38 07/04/19 22 07/04/2021 CMP, COMPR EHENS DIANN METAB OLIC PANEL total protein 6.6 g/dL 6.2-8. 6 Not Available [facility] [address], [place], [address], 07/04/2021 16:19:38 07/04/19 22 07/04/2021 CMP, COMPR EHENS DIANN METAB OLIC PANEL albumin 4.4 g/dL 3.5-5. 7 Not Available [facility] [address] [facility] [address], [place], [address], 07/04/2021 16:19:38 07/04/19 22 07/04/2021 CMP, COMPR EHENS DIANN METAB OLIC PANEL globulin 2.2 g/dL 1.3-4. 0 Not Available [facility] [address] [facility] [address], [place], [address], 07/04/2021 16:19:38 07/04/19 22 07/04/2021 CMP, COMPR EHENS DIANN METAB OLIC PANEL A/G ratio 1.9 calc 1.0-2. 8 Not Available [facility] [address], [place], [address], 07/04/2021 16:19:38 07/04/19 22 07/04/2021 CMP, COMPR EHENS DIANN METAB OLIC PANEL AST (SGOT) 21 U/L 13-39 Not Available [facility] [address], [place], [address], 07/04/2021 16:19:38 07/04/19 22 07/04/2021 CMP, COMPR EHENS DIANN METAB OLIC PANEL ALT (SGPT) 29 U/L 7-52 Not Available [facility] [address], [place], [address], 07/04/2021 16:19:38 07/04/19 22 07/04/2021 CMP, COMPR EHENS DIANN METAB OLIC PANEL total bilirubin 0.49 mg/dL 0.30-1 .00 Not Available [facility] [address], [place], [address], 07/04/2021 16:19:38 07/04/19 22 07/04/2021 CMP, COMPR EHENS DIANN METAB OLIC PANEL alkaline phosphatase 70 U/L 20-128 Not Available [facility] [address], [place], [address], 07/04/2021 16:19:38 07/04/19 22 07/04/2021 VENIP UNCTU RE results Compl ete Not Available [facility] [address] [facility] [address], [place], [address], 07/04/2021 09:32:25 Result Notes None recorded. Problems Name Problem SNOMED Code Status Onset Date Resolution Date Notes Provider Name and Address Organization Details Recorded Time Atrial fibrillation 58882341 Active 2019 [facility] Jim [address], [place], [address], [place] - [email or web address], [facility] 0 21:23:55 Gastrointestin al hemorrhage 98057985 Active 2021 Mercy huitron, [address], [place], [address], [place] - [email or web address], [facility] 09:27:08 Anterior tibial stress syndrome 138283803 Active 2021 Mercy HughesRaapho rst, DO [address], [place], [address], [facility], [facility] 09:27:17 [facility] 00202434 Active 2021 Mercy VanRaapho rst, DO [address], [place], [address], [facility], [facility] 09:27:23 Problem Notes None recorded. Procedures Surgical History Date Name Laterality Status Provider Name and Address Organization Details Recorded Time 05/18/19 21 Colonoscopy completed [facility] 07/04/2021 08:51:54 05/18/19 21 EGD-Upper Endoscopy completed [facility] 07/04/2021 08:52:18 05/18/19 02 Cholecystectomy completed [facility] 07/04/2021 08:49:57 05/18/18 86 Vasectomy completed [facility] 07/04/2021 08:50:24 05/18/18 82 Sinus Surgery completed [facility] 07/04/2021 08:51:44 05/18/18 72 Appendectomy completed [facility] 07/04/2021 08:51:11 05/18/18 51 Tonsillectomy completed [facility] 07/04/2021 08:50:53 Imaging Results None recorded. Procedure Notes None recorded. Medical Equipment None Reported. Allergies Allergen ID Allergen Name Allergen Category Reaction Reaction Severity Criticality Documentation Date Start Date Code Code System Note Provider Name and Address Organization Details Recorded Time 777346 Ceclor medicatio n anaphylax is Not available Not available 06/17/2019 5 RxNorm Denise Overton, CH[facility] [address], [place], [address], [facility], [facility] 0 18:18:40 [id number] Pyridium medicatio n anaphylax is Not available Not available 06/17/2019 8998 RxNorm Denise Overton, MINISTER [address] [facility] [address], [place], [address], [facility] - [facility], [facility] 0 18:18:49 Medications Name Sig Start Date [...] Address Organization Details Last Updated DateTime 0 [address].7 7 g 29.3 kg/m2 170.18 cm 86 /min 96 % 96 % Drake Magañaas [facility], [facility] 0 17:53:01 Date Recorded Body height Pain severity - 0-10 verbal numeric rating [Score] - Reported Body mass index (BMI) Body weight Body temperature Heart rate Oxygen saturation Oxygen saturation in Arterial blood by Pulse oximetry Systolic And Diastolic Provider Name and Address Organization Details Last Updated DateTime 2 170.18 cm 0 29.8 kg/m2 56954.5 5 g 97.4 [degF] 95 /min 96 % 96 % 132/80 mm[Hg] Carlene Georgener [facility], [facility] 2 08:54:15 Social History Question Answer Notes LastModified by Organizat ion Details LastModified Time Tobacco Smoking Status Former Smoker Drake victor [facility], [facility] 06/17/2019 17:48:35 Do You Have An Advance [...] Or The Highest Degree You Have Received? UM38148-8 Information not available 07/04/2021 Have There Been [...] Do You Have A Medical Power Of Order Worker? Yes Information not available 07/04/2021 What Was [...] Amputation (location) N Parkinson's N Paralysis N Cardiac Pacemaker/defibrillator N Headaches/Migraines N Nerve Damage / Neuropathy N Arthritis N Sleep disorder/Insomnia N Infertility N Heart disease / Heart Attack N Crohn's Disease N HIV/AIDS N Stroke/TIA N Colon Problems N High Cholesterol N Serious Injuries N Kidney Disease N Memory Loss/Alzheimer's N High blood pressure N Gallbladder disease N Congestive heart failure N Falls N Hormone Replacement N Blood Thinner Treatment N Alcohol Overuse N Nervous Breakdown N Purdy's Esophagus N Anemia N Urinary Problems N Colon Polyps N Gastritis N Hospitalizations (other than operations) N Diabetes N Back pain N Rheumatic Fever N Bleeding Disorder N Cardiac Arrhythmias /irregular heart rat e Y Osteopenia/Osteoporosis N Anxiety/Stress Y Vision Problems N Asthma N Erectile / Sexual Dysfunction N Ostomies (location) N Seizures N Sleep Apnea N Jaundice N Hepatitis N Past Reacton to [employer] N Cirrhosis N GERD/Ulcer N Chicken Pox N Allergies (other than meds) N Immunizations Vaccine Type Date Status Note Provider Nam e and Address Organization Details Recorded Time COVID-19, mRNA, LNP-S, PF, 100 mcg/0.5mL dose or 50 mcg/0.25mL dose 03/10/2021 completed TARIQ Cuellar - [facility], [facility] 07/04/2021 08:41:50 COVID-19, mRNA, LNP-S, PF, 100 mcg/0.5mL dose or 50 mcg/0.25mL dose 06/27/2020 completed Carlene victor [facility], [facility] 07/04/2021 08:41:50 COVID-19, mRNA, LNP-S, PF, 100 mcg/0.5mL dose or 50 mcg/0.25mL dose 05/29/2020 completed Carlene victor [facility], [facility] 07/04/2021 08:41:50 Influenza, high-dose, trivalent, PF 01/16/2021 completed Carlene victor [facility] 07/04/2021 08:47:35 Past Encounters Encounter ID Performer Location Encounter Start Date Encounter Closed Date Diagnosis/Indication Diagnosis SNOMED-CT Code Diagnosis ICD10 Code Diagnosis IMO Codes Diagnosis Note [id number] [facility] Jim [facility] [address] [place] [address] 06/17/2019 16:54:50 06/18/2019 08:08:18 Right side sciatica 3556290420 63346 M54.31 Acute. Worsening. Initial treatment. *Pt in [...] understand ing and agreement with treatment plan. [id number] Mercy aguilera, [facility] [address] [place] [address] 07/04/2021 08:32:21 07/04/2021 17:37:22 Atrial fibrillation 39256590 I48.91 Stable well-contr olled continue on Xarelto and beta-block er Gastrointe stinal hemorrhage 81519642 K92.2 Patient has not had repeat labs since he had his acute GI bleed he was hospitaliz ed and had transfusio ns in [facility] tts we need to repeat CBC and CMP patient understand s he cannot take NSAIDs and needs to immediatel y call when symptoms recur Anterior t ibial stress syndrome 875645497 S86.891A Recommend topical anti-infla mmatories and stretching Gout 76377281 M10.9 Continue on allopurino l monitor for flares Health Concerns Section Related Observation LastModified by Organization Detai ls LastModified Time None Recorded Concern Status LastModified by Organization Details LastModified Time None Recorded Advance Directives Directive Y: Payers Insurance Date Sequence Insurance Name Policy Number Policy Bledsoe Covered Member ID Bledsoe Member ID Guarantor Name 10/18/2021 1 [place] Alirio Cardona [id number] 3 Alirio Cardona 10/18/2021 2 [facility] (MEDICARE SUPPLEMENT) [id number] Alirio Juan Cardona [id number] Alirio Brendan Notes Date Note Type Note Provider Name and Address Organization Details Recorded Time 0 text/html Back PainReported by PatientHPIFor reason for visit, patient reportsacute complaint(onset 1 week ago, worsening.onset thursday from a car ride. severe pain last hs and today. right sciatic, with right radicular pain.). For location, patient reportslumbarandpain radiates to foot. For quality, patient reportssharp/stabbing. For severity, patient reportsworse. For onset/timing, patient reportsgradual. For alleviating factors, patient reportsnothing. For aggravating factors, patient reportsmovement/position ing,bending over,extending back, andtwisting. For associated symptoms, patient reportstinglingbut reportsdenies fever,denies weak limbs, anddenies numbness of the legs/feet. For duration, patient reportsconstant. For context, patient reportshistory of prior back problems. New Patient. Denise Overton, CHA [address] [facility] [address], [place], [address], [facility] - [facility], [facility] 06/17/2019 21:24:43 2 text/html ROS as noted in the HPI Patient presents today to establish care. Has [...] product did you receive? N/A Imported from [employer] on 07/04/2021 QUALITY MEASURE QUESTIONNAIRE Are you a diabetic patient No Has the Patient previously received any type of colorectal cancer screener Yes Please confirm which of the following colorectal screeners the Patient has received in the past Colonoscopy Please enter the date you received your last Colonoscopy 05/03/2021 Colonoscopy Result Negative Imported from [employer] on 07/04/2021 Mercy Kim, DO [address], [place], [address], [facility] - [facility], [facility] 07/04/2021 09:27:50
--- OUTSIDE RECORDS SUMMARY | 2025-03-07 06:12 | XMS_ITS | Encounter Summary ---
Author Organization [facility] Address [address] [facility] [address] [place] [address] Phone Care Team Providers Care Bonus Clerk Name Role Phone Rommel Webster MD Unavailable [phone] Rommel Webster MD Primary Care Provider [phone] Encounter Details Date Type Department Care Team (Late Contact Info) Description 02/02/2023 Procedure Pass [facility] Cardiac US [address] [place] [address] Social History Tobacco Use Types Packs/Day Years [...] 03/14/2025 9:30 AM EDT Office Visit [facility] Medicine [address] [place] [address] Zane Emery PA-C 4 [facility], [facility] [place] [address] 08/31/2025 7:40 AM EDT Office Visit [facility] [address] [facility] 3rd Floor, [address] [place] [address] Ronaldo Burns MD 22 [facility], [address] [place] [address] 09/21/2025 8:40 AM EDT Office Visit [facility] [place] [facility] 14 [facility] [address] [place] [address] Rommel Webster MD 14 [facility] [address] [place] [address] documented as of this encounter Visit Diagnoses Not on filedocumented in this encounter Additional Health Concerns Assessment Noted Time PHQ-2 Depression Total Score: 0 12/14/19 22 9:30 AM EDT documented as of this encounter Care Teams Bonus Clerk Relationship Specialty Start Date End Date Rommel Webster MD [address] [address] PCP - General Internal Medicine 04/07/17 Rommel Webster MD 14 [facility] [address] [place] [address] Insurance Assigned Provider 08/22/23 documented as of this encounter Additional Source Comments The information contained in this document represents components of the legal health record. It is not the complete legal health record.[facility]
== END 2025-03-07 06:09 | disposition home or self-care (01) ==
LOC: CF 06:08
PROVIDERS: Visit Provider Anesthesiology
DX: M47.816 Spondylosis without myelopathy or radiculopathy, lumbar region (principal)
CPT/HCPCS: 64555; 64590; J2003

== ENCOUNTER 2025-03-07 07:03 | Outpatient (AMB) | payer MEDICARE, SELFPAY ==
[2025-03-07 07:08] VITALS: BP 175/86; PULSE 84; RESP 16; O2SAT 95; BMI 29.8
--- NOTE | 2025-03-07 07:08 | MHC.OFFVIS ---
Vital Signs 03/07/25 07:08 03/07/25 07:51 Height 5 ft 7 in Weight 190 lb BMI 29.8 BP 175/86 H 161/86 H Blood Pressure Location Rt brachial Rt brachial Position Sitting Sitting Respiration 16 16 Pulse 84 86 Pulse Source Pulse Oximeter Pulse Oximeter Pulse Oximetry (%) 95 97 Oxygen Delivery Method Room Air Room Air Intake Visit Reasons: Right Sprint PNS L4 Allergies morphine Allergy (Unknown, Verified 03/03/25 09:04) Headache Penicillins Allergy (Unknown, Verified 03/03/25 09:04) Unknown piperacillin (From Zosyn) Allergy (Unknown, Verified 03/03/25 09:04) Hives tazobactam (From Zosyn) Allergy (Unknown, Verified 03/03/25 09:04) Hives cefaclor (From Ceclor) Allergy (Verified 03/03/25 09:04) Anaphylaxis phenazopyridine (From Pyridium) Allergy (Verified 03/03/25 09:04) Anaphylaxis PFSH Medical History A-fib Colon polyp Gout History of diverticulosis HLD (hyperlipidemia) Family History Mother Cerebral aneurysm Father Heart disease Social History Household Members: Spouse Housing: House Do you presently have visiting nurse or other home services: No Patient Tobacco Use Status: Former Tobacco user service: No Current occupational status: retired Physical Exam Vital Signs: Last Vital Signs Pulse 86 03/07/25 07:51 Resp 16 03/07/25 07:51 BP 161/86 H 03/07/25 07:51 Pulse Ox 97 03/07/25 07:51 Oxygen Delivery Method Room Air 03/07/25 07:51 BMI result Body Mass Index 29.8 Assessment & Plan Assessment & Plan (1) Lumbar spondylosis: Code(s): M47.816 - Spondylosis without myelopathy or radiculopathy, lumbar region Category: Medical Plan Percutaneous implantation of peripheral nerve stimulation Sprint system right L5 the risks, benefits and alternatives were discussed with the patient and informed consent was obtained, patient was placed in the prone position and padded to foster comfort. Time out was performed delineating correct site and side of the procedure , name and of the patient, patient participated in time out procedure. Theupper back and posterior neck of the patient was prepped with ChloraPrep and draped with sterile self adhesive utility towels. C-arm was brought over the operating field and clear picture of the L5 lamina on theright was delineated on the screen. The upper central portion of the lamina was chosen as a target of the needle tip insertion . After identifying and marking the intended target, the skin around the planned entry point and the subcutaneous tissues were injected with local anesthetic forming skin wheal.. A percutaneous sleeve and stimulating probe lead introduction system were assembled, inserted and advanced through the skin wheal to the point of interest under C-arm viewL Right L5 lamina., the introducer needle was delivered to a location in proximity to the nerve. Multiple stimulation parameters were used to deliver stimulation to the nerve in concert with stimulating at multiple positions around the nerve. The nerve target acquisition was confirmed noting generation of in the corresponding to the nerve being stimulated. Various electrical parameter combinations were tested, and the lead location was adjusted (physically relocated) until the patient indicated overlapping the distribution of the patient?s typical region of pain. The stimulating probe was removed from the introducer and a percutaneous lead was guided through the needle and delivered to a location in similar proximity to the nerve. Final location was verified with electrical stimulation. The introducer needle was removed, and the exposed end of the percutaneous lead was attached to an external stimulator unit. At the end of the case various electrical parameter combinations were again tested until the patient indicated paresthesia or muscle tension overlapping the distribution of the patient?s typical region of pain. After confirming that lead impedance was in the normal range, the external unit was detached, the needle was removed, and the lead was anchored at the skin. The leads were threaded into the connector block and electrical continuity and desired patient response was confirmed. The connector block was attached to the external stimulator unit. The site was covered with a sterile occlusive dressing and a image was taken to document final placement. Upon completion of the procedure the patient was taken outside the OR where she recovered uneventfully she went home without immediate complications. Orders: Orders FL guidance in treatment room Today M47.816 - Spondylosis without myelopathy or radiculopathy, lumbar region Coding Level of Care Code Procedure Only Diagnoses Lumbar spondylosis M47.816 Implantable Device Implantable Device Implantable Devices Qty Lending Consultant Implant Date Expiration Date Analgesic PENS system 1 [employer] 02/21/25 Analgesic PENS system 1 [employer] 03/07/25
[2025-03-07 07:51] VITALS: BP 161/86; PULSE 86; RESP 16; O2SAT 97
== END 2025-03-07 08:13 | disposition home or self-care (01) ==
LOC: HO.PMCPRC 07:03
PROVIDERS: PCP Internal Medicine; Visit Provider Anesthesiology
DX: M47.816 Spondylosis without myelopathy or radiculopathy, lumbar region (principal)
CPT/HCPCS: 64555; 64590

== ENCOUNTER 2025-03-21 07:06 | Outpatient (REF) | payer MEDICARE, SELFPAY ==
--- NOTE | ~2025-03-21 | FL_ITS ---
EXAMINATION: FL GUIDANCE ONLY HISTORY: M47.816 - Spondylosis without myelopathy or radiculopathy, lumbar region COMPARISON: Correlation is made with plain films of the lumbar spine dated 10/19/2024. TECHNIQUE: Fluoroscopy time: 35 seconds. Cumulative Dose: 13.90 mGy. DAP: 2425.30 mGycm2 Images: 2. FINDINGS: Fluoroscopic spot films of the lumbar spine demonstrate a probe adjacent to the right L3 pedicle. FL/FL guidance in treatment room IMPRESSION: Fluoroscopy during procedure. Please see procedure report for additional information. Electronically signed by: Sterling Montano MD 03/21/2025 03:37 PM [facility]
--- OUTSIDE RECORDS SUMMARY | 2025-03-21 07:09 | XMS_ITS | Encounter Summary ---
Author Organization [facility] Address [address] [facility] [address] [place] [address] Phone Care Team Providers Care Outside Sales Account Manager Name Role Phone Rommel Webster MD Unavailable [phone] Rommel Webster MD Primary Care Provider [phone] Encounter Details Date Type Department Care Team (Late Contact Info) Description 02/05/2022 Procedure Pass [place] Admitting Dept - Virtual Department [address] [place] [address] Social History Tobacco Use Types Packs/Day Years [...] Department Care Team (Late Contact Info) Description 04/17/2025 7:40 AM EST Office Visit [facility] & Sports Medicine [address] [place] [address] Mónica Patiño PA-C [address] [place] [address] [facility] [place] [address] 08/31/2025 7:40 AM EDT Office Visit [facility] [address] [facility] 3rd Floor, [address] [place] [address] Ronaldo Burns MD 22 [facility], [address] [place] [address] 09/21/2025 8:40 AM EDT Office Visit [facility] [place] [facility] 14 [facility] [address] [place] [address] Rommel Webster MD 14 [facility] [address] [place] [address] [email or web address] documented as of this encounter Visit Diagnoses Not on filedocumented in this encounter Additional Health Concerns Infection Onset Date Last Indicated Resolved Time CoV-Exposed Comment:Added per Home Health documentation 01/30/2022 01/30/2022 02/05/2022 9:29 AM E DT Assessment Noted Time PHQ-2 Depression Total Score: 0 12/14/19 9:30 AM EDT documented as of this encounter Care Teams Outside Sales Account Manager Relationship Specialty Start Date End Date Rommel Webster MD [address] [address] PCP - General Internal Medicine 04/07/17 Rommel Webster MD [address] [address] Insurance Assigned Provider 08/22/23 documented as of this encounter Additional Source Comments The information contained in this document represents components of the legal health record. It is not the complete legal health record.[facility]
--- OUTSIDE RECORDS SUMMARY | 2025-03-21 07:09 | XMS_ITS | Encounter Summary ---
Author Organization [facility] Address [address] [place] [address] Phone Care Team Providers Care Motor Coach Supervisor Name Role Phone Rommel Webster MD Unavailable [phone] Rommel Webster MD Primary Care Provider Encounter Details Date Type Department Care Team (Late st Contact Info) Description 02/26/2023 Procedure Pass [facility] EP Pacer Lab [address] [facility], Floor 1, [address] [place] [address] Social History Tobacco Use Types [...] 5:57 PM EDT Samaria Chavez RN * [place] Suicide Severity Rating Scale (Screener/Recent Self-Report) Question [...] Care Team (Late st Contact Info) Description 04/17/2025 7:40 AM EST Office Visit [facility] Orth[facility]ics & Sports Medicine [address] [place] [address] Mónica Patiño PA-C [address] [place] [address] Orthopedics & Sports Medicine, [place] [address] 08/31/2025 7:40 AM EDT Office Visit [facility] [address] [place] [address] 3rd Floor, [address] [place] [address] Ronaldo Burns MD [address] [place] [address] 09/21/2025 8:40 AM EDT Office Visit [facility] Internal Medicine [address] [facility] [address] [place] [address] Rommel Webster MD 14 [facility] [address] [place] [address] documented as of this encounter Visit Diagnoses Not on filedocumented in this encounter Additional Health Concerns Assessment Noted Time PHQ-2 Depression Total Score: 0 12/14/19 22 9:30 AM EDT documented as of this encounter Care Teams Motor Coach Supervisor Relationship Specialty Start Date End Date Rommel Webster MD 14 [facility] [address] [place] [address] [email or web address] PCP - General Internal Medicine 04/07/17 Rommel Webster MD 14 [facility] [address] [place] [address] [email or web address] Insurance Assigned Provider 08/22/23 documented as of this encounter Additional Source Comments The information contained in this document represents components of the legal health record. It is not the complete legal health record.[facility]
--- OUTSIDE RECORDS SUMMARY | 2025-03-21 07:09 | XMS_ITS | Encounter Summary ---
Author Organization [facility] Address [address] [facility] [address] [place] [address] Phone Care Team Providers Care Bereavement Coordinator Name Role Phone Rommel Webster MD Unavailable [phone] Rommel Webster MD Primary Care Provider [phone] Encounter Details Date Type Department Care Team ([facility] Contact Info) Description 09/08/2022 Procedure Pass [facility] [address] [place] [address] Social History Tobacco Use Types Packs/Day Years [...] Upcoming Encounters Date Type Department Care Team ([facility] Contact Info) Description 04/17/2025 7:40 AM EST Office Visit [facility] Orthopedics & Sports Medicine [address] [place] [phone] Mónica Patiño PA-C [address] [place] [address] Orthopedics & Sports Medicine, [facility] [place] [address] 08/31/2025 7:40 AM EDT Office Visit [facility] [address] [facility] 3rd Floor, [address] [place] [address] Ronaldo Burns MD 22 [facility], [address] [place] [address] 09/21/2025 8:40 AM EDT Office Visit [facility] [place] [facility] 14 [facility] [address] [place] [address] Rommel Webster MD 14 [facility] [address] [place] [address] documented as of this encounter Visit Diagnoses Not on filedocumented in this encounter Additional Health Concerns Assessment Noted Time PHQ-2 Depression Total Score: 0 12/14/19 22 9:30 AM EDT documented as of this encounter Care Teams Bereavement Coordinator Relationship Specialty Start Date End Date Rommel Webster MD [address] [address] PCP - General Internal Medicine 04/07/17 Rommel Webster MD 14 [facility] [address] [place] [address] Insurance Assigned Provider 08/22/23 documented as of this encounter Additional Source Comments The information contained in this document represents components of the legal health record. It is not the complete legal health record.[facility]
--- OUTSIDE RECORDS SUMMARY | 2025-03-21 07:09 | XMS_ITS | Encounter Summary ---
Author Organization [facility] Address [address] [facility] [address] [place] [address] Phone Care Team Providers Care Single Stayer Operator Name Role Phone Rommel Webster MD Unavailable [phone] Rommel Webster MD Primary Care Provider [phone] Encounter Details Date Type Department Care Team (Late Contact Info) Description 01/17/2020 Procedure Pass [facility], [facility] Scan - [address] [address] Social History Tobacco Use Types Packs/Day Years [...] Description 04/17/2025 7:40 AM EST Office Visit [facility] Orthopedics & Sports Medicine [address] [place] [address] Mónica Patiño PA-C [address] [place] [address] [facility] [place] [address] 08/31/2025 7:40 AM EDT Office Visit [facility] [address] [facility] 3rd Floor, [address] [place] [address] Ronaldo Burns MD 22 [facility], [address] [place] [address] [email or web address] 09/21/2025 8:40 AM EDT Office Visit [facility] Internal Medicine 14 [facility] [address] [place] [address] Rommel Webster MD 14 [facility] [address] [place] [address] [email or web address] documented as of this encounter Visit Diagnoses Not on filedocumented in this encounter Additional Health Concerns Infection Onset Date Last Indicated Resolved Time CoV-Exposed Comment:Added per Home Health documentation 01/30/2022 01/30/2022 02/05/2022 9:29 AM E DT Assessment Noted Time PHQ-2 Depression Total Score: 0 09/24/19 19 8:08 AM EDT documented as of this encounter Care Teams Single Stayer Operator Relationship Specialty Start Date End Date Rommel Webster MD [address] [address] PCP - General Internal Medicine 04/07/17 Rommel Webster MD [address] [address] Insurance Assigned Provider 08/22/23 documented as of this encounter Additional Source Comments The information contained in this document represents components of the legal health record. It is not the complete legal health record.[facility]
--- OUTSIDE RECORDS SUMMARY | 2025-03-21 07:09 | XMS_ITS | Data Portability ---
Author Organization [facility] [employer], [facility], [facility] Address [address] [place] [address] Care Team Providers Care Caretaker Grounds Name Role Phone MERCY KIM Primary Care Provider [phone] MERCY KIM Referring Provider Assessment Encounter Date Assessment Date Assessment LastModified by Organization Details LastModified Time 06/17/2019 06/17/2019 New Patient. [email or web address] Not available 0 06/17/2019 18:11:43 Plan of Treatment Reminders Order Date Submit Date Provider Last Modified By Organization Details Last Modified Time Details Appointments None recorded. Lab CBC 2021 022 [facility], [address] [place], [address], 2 16:19:37 CMP, serum or plasma 2021 022 [facility], [address] [place], [address], 2 16:19:38 Referral None recorded. Procedures None recorded. Surgeries None recorded. Imaging None recorded. Medication Orders Depo-Medrol 80 mg/mL suspension for injection 2019 020 Not available 08:45:13 Robaxin-750 750 mg tablet 2019 020 [facility] #[id number], [address], [place], [address], 2 08:45:55 Medrol (Mac) 4 mg tablets in a dose pack 2019 020 [facility] #[id number], [address], [place], [address], 2 08:45:18 ketorolac 30 mg/mL injection solution 2019 020 Not available 2 08:45:16 Patient TargetsNo targets recorded. Patient Instructions Encounter Date Encounter Id Patient Instructions Last Modified By Organization Details Last Modified Time 06/17/2019 [id number] Patient understa nds instructions and will seek medical attention if symptoms worsen as directed. Not available 06/17/2019 18:11:48 07/04/[id number] gastrointestinal bleeding: care instructions [email or web address] Not available 07/04/2021 09:17:14 Reason for Referral None Reported. Results Created Date Observation Date Name Description Value Unit Range Abnormal Flag Note LastModifiedBy Organization Detail LastModifiedTime 07/04/19 22 07/04/2021 CBC W/ AUTOD IFF, COMPL ETE BLOOD COUNT WBC 6.9 K/uL 3.6-10 .0 Not Available [facility] [address], [place], [address], 07/04/2021 16:19:37 07/04/19 22 07/04/2021 CBC W/ AUTOD IFF, COMPL ETE BLOOD COUNT nucleated RBC 0.10 % 0.00-2 .00 Not Available [facility] [address], [place], [address], 07/04/2021 16:19:37 07/04/19 22 07/04/2021 CBC W/ AUTOD IFF, COMPL ETE BLOOD COUNT RBC 4.69 M/uL 4.10-5 .80 Not Available [facility] [address] [place], [address], 07/04/2021 16:19:37 07/04/19 22 07/04/2021 CBC W/ AUTOD IFF, COMPL ETE BLOOD COUNT HGB 14.0 g/dL 13.2-1 7.0 Not Available [facility] [address], [place], [address], 07/04/2021 16:19:37 07/04/19 22 07/04/2021 CBC W/ AUTOD IFF, COMPL ETE BLOOD COUNT hematocrit 42.30 % 37.00- 51.00 Not Available [facility] [address], [place], [address], 07/04/2021 16:19:37 07/04/19 22 07/04/2021 CBC W/ AUTOD IFF, COMPL ETE BLOOD COUNT MCV 90.2 fL 80.0-9 9.0 Not Available [facility], [place], [address], 07/04/2021 16:19:37 07/04/19 22 07/04/2021 CBC W/ AUTOD IFF, COMPL ETE BLOOD COUNT MCH 29.8 pg 27.0-3 3.0 Not Available [facility], [place], [address], 07/04/2021 16:19:37 07/04/19 22 07/04/2021 CBC W/ AUTOD IFF, COMPL ETE BLOOD COUNT MCHC 33.0 g/dL 32.0-3 6.0 Not Available [facility] [address], [place], [address], 07/04/2021 16:19:37 07/04/19 22 07/04/2021 CBC W/ AUTOD IFF, COMPL ETE BLOOD COUNT platelets 258 K/uL 140-44 0 Not Available [facility], [place], [address], 07/04/2021 16:19:37 07/04/19 22 07/04/2021 CBC W/ AUTOD IFF, COMPL ETE BLOOD COUNT RDW 13.8 % 11.0-1 5.0 Not Available [facility] [address], [place], [address], 07/04/2021 16:19:37 07/04/19 22 07/04/2021 CBC W/ AUTOD IFF, COMPL ETE BLOOD COUNT MPV 8.2 fL 7.4-10 .4 Not Available [facility] [address], [place], [address], 07/04/2021 16:19:37 07/04/19 22 07/04/2021 CBC W/ AUTOD IFF, COMPL ETE BLOOD COUNT neutrophil, % 72.7 % Not Available [facility], [place], [address], 07/04/2021 16:19:37 07/04/19 22 07/04/2021 CBC W/ AUTOD IFF, COMPL ETE BLOOD COUNT lymphocyte % 17.0 % Not Available [facility] [address] [place] [address] [address], [place], [address], 07/04/2021 16:19:37 07/04/19 22 07/04/2021 CBC W/ AUTOD IFF, COMPL ETE BLOOD COUNT monocyte % 8.4 % Not Available [facility] [address], [place], [address], 07/04/2021 16:19:37 07/04/19 22 07/04/2021 CBC W/ AUTOD IFF, COMPL ETE BLOOD COUNT eosinophil % 1.2 % Not Available [facility], [place], [address], 07/04/2021 16:19:37 07/04/19 22 07/04/2021 CBC W/ AUTOD IFF, COMPL ETE BLOOD COUNT basophil % 0.7 % Not Available [facility] [address], [place], [address], 07/04/2021 16:19:37 07/04/19 22 07/04/2021 CBC W/ AUTOD IFF, COMPL ETE BLOOD COUNT neutrophil, # 5.1 K/uL 1.5-7. 5 Not Available [facility] [address], [place], [address], 07/04/2021 16:19:37 07/04/19 22 07/04/2021 CBC W/ AUTOD IFF, COMPL ETE BLOOD COUNT lymphocyte # 1.2 K/uL 0.8-4. 0 Not Available [facility] [address] [place], [place] [address], [place], [address], 07/04/2021 16:19:37 07/04/19 22 07/04/2021 CBC W/ AUTOD IFF, COMPL ETE BLOOD COUNT monocyte # 0.6 K/uL 0.1-1. 0 Not Available [facility] [address] [place] [address], [place], [address], 07/04/2021 16:19:37 07/04/19 22 07/04/2021 CBC W/ AUTOD IFF, COMPL ETE BLOOD COUNT eosinophil # 0.1 K/uL 0.1-1. 0 Not Available [facility], [place], [address], 07/04/2021 16:19:37 07/04/19 22 07/04/2021 CBC W/ AUTOD IFF, COMPL ETE BLOOD COUNT basophil # 0.0 K/uL 0.0-0. 2 Not Available [facility] [address], [place], [address], 07/04/2021 16:19:37 07/04/19 22 07/04/2021 CMP, COMPR EHENS DIANN METAB OLIC PANEL glucose 99 mg/dL 70-100 Not Available [facility] [address], [place], [address], 07/04/2021 16:19:38 07/04/19 22 07/04/2021 CMP, COMPR EHENS DIANN METAB OLIC PANEL BUN 20 mg/dL 7-25 Not Available [facility] [address], [place], [address], 07/04/2021 16:19:38 07/04/19 22 07/04/2021 CMP, COMPR EHENS DIANN METAB OLIC PANEL creatinine 1.1 mg/dL 0.6-1. 3 Not Available [facility] [address], [place], [address], 07/04/2021 16:19:38 07/04/19 22 07/04/2021 CMP, COMPR EHENS DIANN METAB OLIC PANEL BUN/creatini ne ratio 18.02 calc Not Available [facility] [address], [place], [address], 07/04/2021 16:19:38 07/04/19 22 07/04/2021 CMP, COMPR EHENS DIANN METAB OLIC PANEL eGFR 83 mL/mi n/1.7 3m2 >60 THREE CONSE CUTIV E VALUE S <60 mL/mi n COULD BE INDIC ATIVE OF KIDNE Y DISEA SE. Not Available [facility] [address], [place], [address], 07/04/2021 16:19:38 07/04/19 22 07/04/2021 CMP, COMPR EHENS DIANN METAB OLIC PANEL eGFR non- 69 mL/mi n/1.7 3m2 >60 THREE CONSE CUTIV E VALUE S < 60 mL/mi n COULD BE INDIC ATIVE OF KIDNE Y DISEA SE Not Available [facility] [address], [place], [address], 07/04/2021 16:19:38 07/04/19 22 07/04/2021 CMP, COMPR EHENS DIANN METAB OLIC PANEL sodium 140 mmol/ L 135-14 5 Not Available [facility] [address], [place], [address], 07/04/2021 16:19:38 07/04/19 22 07/04/2021 CMP, COMPR EHENS DIANN METAB OLIC PANEL potassium 4.7 mmol/ L 3.5-5. 5 Not Available [facility] [address], [place], [address], 07/04/2021 16:19:38 07/04/19 22 07/04/2021 CMP, COMPR EHENS DIANN METAB OLIC PANEL chloride 102 mmol/ L 100-11 5 Not Available [facility] [address], [place], [address], 07/04/2021 16:19:38 07/04/19 22 07/04/2021 CMP, COMPR EHENS DIANN METAB OLIC PANEL CO2 29 mmol/ L 21-33 Not Available [facility] [address], [place], [address], 07/04/2021 16:19:38 07/04/19 22 07/04/2021 CMP, COMPR EHENS DIANN METAB OLIC PANEL anion gap 8.8 calc Not Available [facility] [address], [place], [address], 07/04/2021 16:19:38 07/04/19 22 07/04/2021 CMP, COMPR EHENS DIANN METAB OLIC PANEL calcium 9.6 mg/dL 8.8-10 .6 Not Available [facility] [address], [place], [address], 07/04/2021 16:19:38 07/04/19 22 07/04/2021 CMP, COMPR EHENS DIANN METAB OLIC PANEL total protein 6.6 g/dL 6.2-8. 6 Not Available [facility] [address], [place], [address], 07/04/2021 16:19:38 07/04/19 22 07/04/2021 CMP, COMPR EHENS DIANN METAB OLIC PANEL albumin 4.4 g/dL 3.5-5. 7 Not Available [facility] [address], [place], [address], 07/04/2021 16:19:38 07/04/19 22 07/04/2021 CMP, COMPR EHENS DIANN METAB OLIC PANEL globulin 2.2 g/dL 1.3-4. 0 Not Available [facility] [address], [place], [address], 07/04/2021 16:19:38 07/04/19 22 07/04/2021 CMP, COMPR EHENS DIANN METAB OLIC PANEL A/G ratio 1.9 calc 1.0-2. 8 Not Available [facility] [address], [place], [address], 07/04/2021 16:19:38 07/04/19 22 07/04/2021 CMP, COMPR EHENS DIANN METAB OLIC PANEL AST (SGOT) 21 U/L 13-39 Not Available [facility] [address], [place], [address], 07/04/2021 16:19:38 07/04/19 22 07/04/2021 CMP, COMPR EHENS DIANN METAB OLIC PANEL ALT (SGPT) 29 U/L 7-52 Not Available [facility] [address], [place], [address], 07/04/2021 16:19:38 07/04/19 22 07/04/2021 CMP, COMPR EHENS DIANN METAB OLIC PANEL total bilirubin 0.49 mg/dL 0.30-1 .00 Not Available [facility] [address], [place], [address], 07/04/2021 16:19:38 07/04/19 22 07/04/2021 CMP, COMPR EHENS DIANN METAB OLIC PANEL alkaline phosphatase 70 U/L 20-128 Not Available [facility] [address], [place], [address], 07/04/2021 16:19:38 07/04/19 22 07/04/2021 VENIP UNCTU RE results Compl ete Not Available [facility] [address], [place], [address], 07/04/2021 09:32:25 Result Notes None recorded. 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 Procedures Surgical History Date Name Laterality Status Provider Name and Address Organization Details Recorded Time 05/18/19 21 Colonoscopy completed [facility] 07/04/2021 08:51:54 05/18/19 21 EGD-Upper Endoscopy completed [facility] 07/04/2021 08:52:18 05/18/19 02 Cholecystectomy completed [facility] 07/04/2021 08:49:57 05/18/18 86 Vasectomy completed [facility] 07/04/2021 08:50:24 05/18/18 82 Sinus Surgery completed [facility] 07/04/2021 08:51:44 05/18/18 72 Appendectomy completed [facility] 07/04/2021 08:51:11 05/18/18 51 Tonsillectomy completed [facility] 07/04/2021 08:50:53 Imaging Results None recorded. Procedure Notes None recorded. Medical Equipment None Reported. Allergies Allergen ID Allergen Name Allergen Category Reaction Reaction Severity Criticality Documentation Date Start Date Code Code System Note Provider Name and Address Organization Details Recorded Time 413842 Ceclor medicatio n anaphylax is Not available Not available 06/17/2019 5 RxNorm Denise Overton, CHA [address], [place], [address], [facility], [facility] 0 18:18:40 335463 Pyridium medicatio n anaphylax is Not available Not available 06/17/2019 8998 RxNorm Denise Overton, [employer] ENGINE[employer] [address] [facility] [address], [place], [address], [facility] - [facility], [facility] 0 18:18:49 Medications Name Sig Start [...] Address Organization Details Last Updated DateTime 0 [address]884.7 7 g 29.3 kg/m2 170.18 cm 86 /min 96 % 96 % Drake Magañaas [facility], [facility] 0 17:53:01 Date Recorded Body height Pain severity - 0-10 verbal numeric rating [Score] - Reported Body mass index (BMI) Body weight Body temperature Heart rate Oxygen saturation Oxygen saturation in Arterial blood by Pulse oximetry Systolic And Diastolic Provider Name and Address Organization Details Last Updated DateTime 2 170.18 cm 0 29.8 kg/m2 37590.5 5 g 97.4 [degF] 95 /min 96 % 96 % 132/80 mm[Hg] Carlene Georgener [facility], [facility] 2 08:54:15 Social History Question Answer Notes LastModified by Organizat ion Details LastModified Time Tobacco Smoking Status Former Smoker Drake victor [facility], [facility] 06/17/2019 17:48:35 Do You Have An [...] Or The Highest Degree You Have Received? PL30624-3 Information not available 07/04/2021 Have There Been [...] Do You Have A Medical Power Of Soil Conservationist? Yes Information not available 07/04/2021 What Was [...] mcg/0.25mL dose 03/10/2021 completed TARIQ Cuellar - [facility], [facility] 07/04/2021 08:41:50 COVID-19, mRNA, LNP-S, PF, 100 mcg/0.5mL dose or 50 mcg/0.25mL dose 06/27/2020 completed Carlene victor [facility], [facility] 07/04/2021 08:41:50 COVID-19, mRNA, LNP-S, PF, 100 mcg/0.5mL dose or 50 mcg/0.25mL dose 05/29/2020 completed Carlene victor [facility], [facility] 07/04/2021 08:41:50 Influenza, high-dose, trivalent, PF 01/16/2021 completed Carlene victor [facility] 07/04/2021 08:47:35 Past Encounters Encounter ID Performer Location Encounter Start Date Encounter Closed Date Diagnosis/Indication Diagnosis SNOMED-CT Code Diagnosis ICD10 Code Diagnosis IMO Codes Diagnosis Note [id number] CHA Jim [facility] [address] [place] [address] 06/17/2019 16:54:50 06/18/2019 08:08:18 Right side sciatica 8399829152 43184 M54.31 Acute. Worsening. Initial treatment. *Pt in [...] understand ing and agreement with treatment plan. [id number] Mercy aguilera, [facility] [address] [place] [address] 07/04/2021 08:32:21 07/04/2021 17:37:22 Atrial fibrillation 57871703 I48.91 Stable well-contr olled continue on Xarelto and beta-block er Gastrointe stinal hemorrhage 87291526 K92.2 Patient has not had repeat labs since he had his acute GI bleed he was hospitaliz ed and had transfusio ns in [facility] tts we need to repeat CBC and CMP patient understand s he cannot take NSAIDs and needs to immediatel y call when symptoms recur Anterior t ibial stress syndrome 909759456 S86.891A Recommend topical anti-infla mmatories and stretching Gout 64654601 M10.9 Continue on allopurino l monitor for flares Health Concerns Section Related Observation LastModified by Organization Detai ls LastModified Time None Recorded Concern Status LastModified by Organization Details LastModified Time None Recorded Advance Directives Directive Y: Payers Insurance Date Sequence Insurance Name Policy Number Policy Bledsoe Covered Member ID Bledsoe Member ID Guarantor Name 10/18/2021 1 [place] Alirio Cardona [id number] Alirio Cardona 10/18/2021 2 [facility] (MEDICARE SUPPLEMENT) [id number] Alirio Juan Cardona [id number] Alirio Brendan Notes Date Note Type [...] back problems. New Patient. Denise Overton, CHA [address] [facility] [address], [place], [address], [facility] - [facility], [facility] 06/17/2019 21:24:43 2 text/html ROS as [...] product did you receive? N/A Imported from [employer] on 07/04/2021 QUALITY MEASURE QUESTIONNAIRE Are you a diabetic patient No Has the Patient previously received any type of colorectal cancer screener Yes Please confirm which of the following colorectal screeners the Patient has received in the past Colonoscopy Please enter the date you received your last Colonoscopy 05/03/2021 Colonoscopy Result Negative Imported from [employer] on 07/04/2021 Mercy Kim, DO [address], [place], [address], [facility] - [facility], [facility] 07/04/2021 09:27:50
--- OUTSIDE RECORDS SUMMARY | 2025-03-21 07:09 | XMS_ITS | Encounter Summary ---
Author Organization [facility] Address [address] [facility] [address] [address] [place] [address] Phone Care Team Providers Care Center Lead Consultant Name Role Phone Rommel Webster MD Unavailable [phone] Rommel Webster MD Primary Care Provider [phone] Encounter Details Date Type Department Care Team (Late Contact Info) Description 02/02/2023 Procedure Pass [facility] [place] [address] [place] [address] Social History Tobacco Use Types Packs/Day Years [...] Description 04/17/2025 7:40 AM EST Office Visit [facility] [address] [place] [address] Mónica Patiño PA-C 4 [facility], [facility] [place] [address] 08/31/2025 7:40 AM EDT Office Visit [facility] [address] [facility] 3rd Floor, [address] [place] [address] Ronaldo Burns MD [address], [address] [place] [address] 09/21/2025 8:40 AM EDT Office Visit [facility] [place] [facility] [address] [facility] [address] [place] [address] Rommel Webster MD [address] [place] [address] [place] [address] documented as of this encounter Visit Diagnoses Not on filedocumented in this encounter Additional Health Concerns Assessment Noted Time PHQ-2 Depression Total Score: 0 12/14/19 22 9:30 AM EDT documented as of this encounter Care Teams Center Lead Consultant Relationship Specialty Start Date End Date Rommel Webster MD [address] [place] [address] PCP - General Internal Medicine 04/07/17 Rommel Webster MD [address] [address] Insurance Assigned Provider 08/22/23 documented as of this encounter Additional Source Comments The information contained in this document represents components of the legal health record. It is not the complete legal health record.[facility]
--- OUTSIDE RECORDS SUMMARY | 2025-03-21 07:09 | XMS_ITS | Encounter Summary ---
Author Organization [facility] Address [address] [facility] [address] [place] [address] Phone Care Team Providers Care Balance Bridge Assembler Name Role Phone Rommel Webster MD Unavailable [phone] Rommel Webster MD Primary Care Provider [phone] Encounter Details Date Type Department Care Team (Late st Contact Info) Description 01/22/2022 Procedure Pass OR Admitting Dept - Virtual Department [address] [place] [address] Social History Tobacco Use Types Packs/Day Years [...] 1:00 PM EDT Winsome Davis RN * [place] Suicide Severity Rating Scale (Screener/Recent Self-Report) Question [...] Description 04/17/2025 7:40 AM EST Office Visit [facility] [address] [place] [address] Mónica Patiño PA-C [address] [place] [address] Orthopedics & Sports Medicine, [place] [address] [email or web address] 08/31/2025 7:40 AM EDT Office Visit [facility] [address] [place] [address] 3rd Floor, [address] [place] [address] Ronaldo Burns MD [address] [place] [address] 09/21/2025 8:40 AM EDT Office Visit [facility] Medicine [address] [address] Rommel Webster MD [address] [place] [address] [email or web address] [...] documented as of this encounter Care Teams Balance Bridge Assembler Relationship Specialty Start Date End Date Rommel Webster MD [address] [address] [email or web address] PCP - General Internal Medicine 04/07/17 Rommel Webster MD [address] [place] [address] [address] [place] [address] [email or web address] Insurance Assigned Provider 08/22/23 documented as of this encounter Additional Source Comments The information contained in this document represents components of the legal health record. It is not the complete legal health record.[facility]
--- OUTSIDE RECORDS SUMMARY | 2025-03-21 07:09 | XMS_ITS | Clinical Summary ---
Author Organization [facility] Address [address] [place] [address] Phone Care Team Providers Care Global Program Director Name Role Phone Rommel Webster MD Unavailable [phone] Rommel Webster MD Primary Care Provider [phone] Allergies Active Allergy Reactions Criticality Noted Date [...] INSOMNIA 90 capsule 2 03/07/20 24 Active ezetimibe (ZETIA) 10 mg tabletIndication s:Dyslipidemia TAKE 1 TABLET DAILY 90 tablet 3 06/27/19 25 Active MYRBETRIQ 25 mg [id number]: BPH with obstruction/lowe r urinary tract symptoms TAKE 1 TABLET DAILY 90 tablet 3 06/27/19 25 Active omeprazole (PRILOSEC) 20 MG tablet Take 20 mg by mouth daily. Active naproxen sodium (ALEVE ORAL) Take 1 tablet by mouth daily as needed. Active LORazepam (ATIVAN) 1 MG tabletIndication s:Anxiety TAKE 1 TABLET ONCE DAILY ASNEEDED 60 tablet 2 01/25/20 25 Active metoprolol succinate (TOPROL-XL) 50 MG 24 hr tabletIndication s:Atrial fibrillation Take 1 tablet (50 mg total) by mouth every morning. 90 tablet 3 03/08/20 25 Active allopurinol (ZYLOPRIM) 100 MG tabletIndication s:History of gout Take 2 tablets (200 mg total) by mouth daily. 180 tablet 03/09/20 25 Active atorvastatin (LIPITOR) 10 MG tabletIndication s:Dyslipidemia Take 1 tablet (10 mg total) by mouth every morning. 90 tablet 2 03/09/20 25 Active metoprolol succinate (TOPROL-XL) 50 MG 24 hr tabletIndication s:Atrial fibrillation take 1 tablet daily 90 tablet 3 03/07/20 24 025 Discontin ued(Reord er) atorvastatin (LIPITOR) 10 MG tabletIndication s:Dyslipidemia TAKE 1 TABLET DAILY 90 tablet 2 05/30/19 25 025 Discontin ued(Reord er) allopurinol (ZYLOPRIM) 100 MG tabletIndication s:History of gout Take 2 tablets (200 mg total) by mouth daily. 180 tablet 01/18/20 25 025 Discontin ued(Reord er) Active Problems Problem Noted Date Diagnosed Date Pain of right calf 03/09/2025 Pain in left hip 03/09/2025 Longstanding persistent atrial fibrillation 02/15 Sepsis 02/03/2022 [...] knee to suggest septic arthritis. Spoke with [facility] micro lab blood cultures drawn there [...] blood cultures drawn here and also at [facility] 02/02 -- Abdominal ultrasound unrevealing -- [...] fissure 09/22/2017 Chronic low back pain 09/22/2017 Overview (03/09/2025): S/p spinal cord stimulator placement [facility] Dyslipidemia 09/22/2017 Assessment & Plan (02/03/2022 3:52 [...] -- He has 2 metoprolol orders in [facility] but was receiving metoprolol tartrate 50 [...] Encounters Date Type Department Care Team Description 03/09/2025 11:57 AM EDT - 03/09/2025 11:59 PM EDT Hospital Encounter [address] [address] Aamir Tello MD Discharge Disposition: Home or Self Care 03/09/2025 11:30 AM EDT Office Visit [facility] [address] [place] [address] Aamir Tello MD Acute hip pain, left (Primary Dx); Pain; Status post total right knee replacement; Chronic bilateral low back pain without sciatica; Pain of right calf; Pain in left hip 03/09/2025 11:25 AM EDT - 03/09/2025 11:56 AM EDT Hospital Encounter [address] [address] Aamir Tello MD Discharge Disposition: Home or Self Care 03/09/2025 Refill [facility] [address] [place] [address] Mercedes Smith CMA Medication Refill (Allopurinol and Atorvastatin) 03/08/2025 Refill [facility] [address], [address] [place] [address] Ronaldo Burns MD Medication Refill 03/02/2025 8:40 AM EDT Office Visit [facility] [address], [address] [place] [address] Ronaldo Burns MD Persistent atrial fibrillation (Primary Dx); Status post ablation of atrial fibrillation; Presence of Watchman left atrial appendage closure device 02/24/2025 Telephone [facility] [address] [address] Rommel Webster MD Requesting Call back 01/23/2025 Refill [facility] [address] [facility] [address] [place] [address] Rommel Webster MD Medication Refill (Lorazepam) 01/17/2025 Refill [facility] [address] [address] Mercedes Smith CMA Medication Refill (Allopurinol ) [...] Concentration - - Weight 87.1 kg (192 lb 0.3 oz) 03/09/2025 11:14 AM EDT Height 165.1 cm (5' 5 ) 03/09/2025 11:14 AM EDT Body Mass Index 31.95 03/09/2025 11:14 AM EDT Plan of Treatment Upcoming Encounters Date Type Department Care Team (Late st Contact Info) Description 04/17/2025 7:40 AM EST Office Visit [facility] [address] [place] [address] Mónica Patiño PA-C [address] [place] [address] Orthopedics & Sports Medicine, [place] [address] 08/31/2025 7:40 AM EDT Office Visit [facility] [address] [place] [address] [address] Floor, [address] [place] [address] Ronaldo Burns MD 22 [facility], [address] [place] [address] 09/21/2025 8:40 AM EDT Office Visit [facility] [address] [address] Rommel Webster MD 14 [facility] [address] [place] [address] Health Maintenance Due Date Last Done Comments COLOGUARD 1990 FIT TEST 1990 FOBT 1990 SIGMOIDOSCOPY 1990 VIRTUAL COLONOSCOPY 1990 COVID-19 VACCINE ( season) 2025 01/30/2025, 01/16/2024, 03/06/2023, Additional history exists CREATININE LEVEL 08/30/2025 08/30/2024, , 02/27/2023, Additional history exists BLOOD PRESSURE 08/31/2025 03/02/2025 DEPRESSION SCREENING 09/08/2025 09/08/2024 LIPID PANEL 08/30/2029 08/30/2024, 08/16, 09/02/2022, Additional history exists Adult Td,Tdap Booster 04/22/2031 04/22/2021 , 11/17/2012, 05/01/1997 COLONOSCOPY 05/13/2031 05/13/2021, 11/13/2015 COLORECTAL CANCER SCREENING 05/13/2031 HEPATITIS C SCREENING Completed 02/06/2012 PNEUMOCOCCAL VACCINES [...] this topic Medical Devices Implanted Type Area Type Mapper Device Identifier Shelf Expiration Date Model / Serial / Lot System Watchman 35mm Flx Mary Closure - [id number] Implanted:Qty: 1 on 02/26/2023 by Grayson Olvera MD at [facility] MARY Occluder [employer] 10/14/2025 [id number] / / [id number] Cement Bone 1x40 Standard - [id number] Implanted:Qty: 1 on 01/22/2022 by Aamir Tello MD at [facility] Right: Knee AWILDA / DIV OF BRISTOL SQUIBB 12/15/2024 [id number] / / [id number] Box Component 65.0mm Femoral Knee Vanguard Interlok [place] Posterior Stabilized Open Cemented Right - [id number] Implanted:Qty: 1 on 01/22/2022 by Aamir Tello MD at [facility] Right: Knee [employer] 10/25/2031 [id number] / / [id number] Knee Tray 79mm Plate Bone Primary Vanguard [place] I Beam Revision Interlock Cemented - [id number] Implanted:Qty: 1 on 01/22/2022 by Aamir Tello MD at [facility] Right: Knee [employer] 08/31/2031 [id number] / / [id number] Button Patella [id number] Knee Vanguard Uhmwpe 3 Peg Series A Standard - [id number] Implanted:Qty: 1 on 01/22/2022 by Aamir Tello MD at [facility] Right: Knee [employer] 07/31/2026 [id number] / / [id number] Tibial Bearing 79/[id number] Vanguard Posterior Stabilized - [id number] Implanted:Qty: 1 on 01/22/2022 by Aamir Tello MD at [facility] Right: Knee [employer] 06/10/2026 [id number] / / [id number] Procedures Procedure Name Priority Date/Time Associated Diagnosis Comments XR HIP 1 VW LEFT PLUS PELVIS Routine 03/09/2025 12:07 PM EDT Acute hip pain, left XR KNEE 3 VIEW (RIGHT) Routine 11:33 AM EDT Pain LIPID PANEL Routine 08/30/2024 7:58 AM EDT Laboratory examination ordered as part of a routine general medical examination Atrial fibrillation Gastroesophageal reflux disease Dyslipidemia History of gout Elevated fasting glucose COMPREHENSIVE METABOLIC PANEL (CMP) Routine 08/30/2024 7:58 AM EDT Laboratory examination ordered as part of a routine general medical examination Atrial fibrillation Gastroesophageal reflux disease Dyslipidemia History of gout Elevated fasting glucose HM COLONOSCOPY FOR RESULT ENTRY ONLY Routine 05/13/2021 from Last 3 Months or Most Recently Relevant to Health Maintenance Results * XR HIP 1 VW LEFT PLUS PELVIS (03/09/2025 12:07 PM EDT) Narrative SYSTEMGENERATED, DOCUMENTATION - 03/09/2025 12:07 PM EDT This image report has been auto-finalized and has not been read by a Radiologist. Interpretation has been included in the provider encounter note for this date of service. us Aamir Tello MD IMG XR PELVIS Final Result * XR KNEE 3 VIEW (RIGHT) (03/09/2025 11:33 AM EDT) Narrative SYSTEMGENERATED, DOCUMENTATION - 03/09/2025 11:33 AM EDT This image report has been auto-finalized and has not been read by a Radiologist. Interpretation has been included in the provider encounter note for this date of service. us Aamir Tello MD IMG XR LOWER EXTREMITY Final Result * (ABNORMAL) Comprehensive metabolic panel (08/30/2024 7:58 AM EDT) SODIUM 141 133 - 146 mmol/L [facility] POTASSIUM 4.5 3.3 - 5.1 mmol/L [facility] CHLORIDE 103 96 - 108 mmol/L [facility] CO2 28 21 - 35 mmol/L [facility] BUN 21(H) 6 - 19 mg/dL [facility] CREATININE 0.90 0.5 - 1.5 mg/dL [facility] GLUCOSE 121(H) 70 - 99 mg/dL [facility] ALBUMIN 4.3 3.9 - 4.8 g/dL [facility] TOTAL PROTEIN 7.1 6.5 - 8.0 g/dL [facility] CALCIUM 8.9 8.4 - 10.3 mg/dL [facility] ALKALINE PHOSPHATASE 71 39 - 117 U/L [facility] TOTAL BILIRUBIN 0.9 0.0 - 1.2 mg/dL [facility] AST 35 0 - 37 U/L [facility] ALT 38 0 - 40 U/L [facility] GLOBULIN 2.8 1 - 4.8 g/dL [facility] EGFR 87 >59 mL/min/1.7 3m2 [facility] Comment:Estimated glomerular filtration rate calculated using the CKD-EPI refit equation. ANION GAP 15 10 - 20 mmol/L [facility] Blood 08/30/2024 7:58 AM EDT 08/30/2024 8:01 AM EDT Rommel Webster MD LAB BLOOD BKR ORDERABLES Fin al Result Performing Organization Address [facility] Co de Phone Number [address] [address] * Lipid panel (08/30/2024 7:58 AM EDT) HDL 34 mg/dL [facility] Comment: Interpretation <40 mg/dL: Low HDL cholesterol (major risk factor for CHD) Greater than or equal to 60 mg/dL: High HDL cholesterol ( negative risk factor for CHD) HDL - cholesterol is affected by a number of factors, e.g. smoking, excerise, hormones, sex and age. CHOLESTEROL 122 0 - 240 mg/dL [facility] TRIGLYCERIDES 147 30 - 160 mg/dL [facility] LDL 59 50 - 129 mg/dL [facility] Comment: LDL levels in terms of risk for coronary heart disease: <100 mg/dL: Optimal 100-129 mg/dL: Near or above optimal 130-159 mg/dL: Borderline high 160-189 mg/dL: High >190 mg/dL: Very High CARDIAC RISK RATIO 3.6 3.4 - 5.0 C [facility] Blood 08/30/2024 7:58 AM EDT 08/30/2024 8:02 AM EDT Rommel Webster MD LAB BLOOD BKR ORDERABLES Fin al Result Performing Organization Address [facility] Co de Phone Number [address] [address] * COLONOSCOPY FOR RESULT ENTRY ONLY (05/13/2021) Historical Provider HEALTH MAINTENANCE Edited Result - Final from Last 3 Months or Most Recently Relevant to Health Maintenance Insurance MEDICARE PART A & B Member Subscriber Plan / Payer ( fective 2010-Present) Name:Alirio Cardona Member ID:[id number] Relation to Subscriber:Self Name:Alirio Cardona Subscriber ID:[id number] Payer ID:[id number] Group ID:Not on file Type:Medicare Address: [employer] [address] [place] [id number] [employer] MEDEX SUPPLEMENT MEDICARE PART A & B [employer] MED[employer] SUPPLEMENT MEDICARE PART A & B [employer] MEDEX SUPPLEMENT MEDICARE PART A & B [employer] MEDEX SUPPLEMENT MEDICARE PART A & B [employer] CROSS MEDEX SUPPLEMENT MEDICARE PART A & B [employer] MEDEX SUPPLEMENT MEDICARE PART A & B [employer] MEDEX SUPPLEMENT MEDICARE PART A & B [employer] MEDEX SUPPLEMENT MEDICARE PART A & B [employer] MEDEX SUPPLEMENT Advance Directives For more information, please contact: [phone] (9AM - 5PM [facility], Thursday-Thursday) * Full Code (Latest Code Status on File) Date Activated Date Inactivated Comments 02/26/2023 4:12 PM Question Answer Comments Code Status Confirmed With: Patient * Full Code Date Activated Date Inactivated Comments 01/22/2022 7:16 AM 02/26/2023 4:12 PM Question Answer Comments Code Status Confirmed With: Patient Care Teams Global Program Director Relationship Specialty Start Date End Date Rommel Webster MD [address] [place] [address] [place] [phone] [email or web address] PCP - General Internal Medicine 04/07/17 Rommel Webster MD [address] [place] [address] [place] [phone] Insurance Assigned Provider 08/22/23 Additional Source Comments The information contained in this document represents components of the legal health record. It is not the complete legal health record.[facility]
--- OUTSIDE RECORDS SUMMARY | 2025-03-21 07:09 | XMS_ITS | Encounter Summary ---
Author Organization [facility] Address [address] [place] [address] Phone Care Team Providers Care Rf Engineer Name Role Phone Rommel Webster MD Unavailable [phone] Rommel Webster MD Primary Care Provider [phone] Encounter Details Date Type Department Care Team (Late Contact Info) Description 03/03/2023 Procedure Pass [facility] [address] [place] [address] Social History Tobacco Use Types Packs/Day Years [...] Description 04/17/2025 7:40 AM EST Office Visit [facility] [address] [place] [address] Mónica Patiño PA-C [address] [place] [address] Orthopedics & Sports Medicine, [place] [address] 08/31/2025 7:40 AM EDT Office Visit [facility] [address] [facility] 3rd Floor, [address] [place] [address] Ronaldo Burns MD 22 [facility], [address] [place] [address] 09/21/2025 8:40 AM EDT Office Visit [facility] 14 [facility] [address] [place] [address] Rommel Webster MD 14 [facility] [address] [place] [address] documented as of this encounter Visit Diagnoses Not on filedocumented in this encounter Additional Health Concerns Assessment Noted Time PHQ-2 Depression Total Score: 0 04/16/20 23 1:02 PM EST documented as of this encounter Care Teams Rf Engineer Relationship Specialty Start Date End Date Rommel Webster MD [address] [address] PCP - General Internal Medicine 04/07/17 Rommel Webster MD [address] [address] Insurance Assigned Provider 08/22/23 documented as of this encounter Additional Source Comments The information contained in this document represents components of the legal health record. It is not the complete legal health record.[facility]
== END 2025-03-21 07:07 | disposition home or self-care (01) ==
LOC: CF 07:06
PROVIDERS: Visit Provider Anesthesiology
DX: M47.26 Other spondylosis with radiculopathy, lumbar region (principal)
CPT/HCPCS: 64555; 64590; C1778; J2003

== ENCOUNTER 2025-03-21 11:01 | Outpatient (AMB) | payer MEDICARE, SELFPAY ==
[2025-03-21 11:09] VITALS: BP 160/84; PULSE 91; RESP 16; O2SAT 94; BMI 30.2
--- NOTE | 2025-03-21 11:09 | MHC.OFFVIS ---
Vital Signs 03/21/25 11:09 03/21/25 12:35 Height 5 ft 7 in Weight 193 lb BMI 30.2 BP 160/84 H 159/89 H Blood Pressure Location Lt brachial Lt brachial Position Sitting Sitting Respiration 16 16 Pulse 91 86 Pulse Source Pulse Oximeter Pulse Oximeter Pulse Oximetry (%) 94 97 Oxygen Delivery Method Room Air Room Air Intake Visit Reasons: Right Sprint PNS L4 Allergies morphine Allergy (Unknown, Verified 03/16/25 11:22) Headache Penicillins Allergy (Unknown, Verified 03/16/25 11:22) Unknown piperacillin (From Zosyn) Allergy (Unknown, Verified 03/16/25 11:22) Hives tazobactam (From Zosyn) Allergy (Unknown, Verified 03/16/25 11:22) Hives cefaclor (From Ceclor) Allergy (Verified 03/16/25 11:22) Anaphylaxis phenazopyridine (From Pyridium) Allergy (Verified 03/16/25 11:22) Anaphylaxis PFSH Medical History A-fib Colon polyp Gout History of diverticulosis HLD (hyperlipidemia) Family History Mother Cerebral aneurysm Father Heart disease Social History Household Members: Spouse Housing: House Do you presently have visiting nurse or other home services: No Patient Tobacco Use Status: Former Tobacco user service: No Current occupational status: retired Physical Exam Vital Signs: Last Vital Signs Pulse 86 03/21/25 12:35 Resp 16 03/21/25 12:35 BP 159/89 H 03/21/25 12:35 Pulse Ox 97 03/21/25 12:35 Oxygen Delivery Method Room Air 03/21/25 12:35 BMI result Body Mass Index 30.2 Assessment & Plan Assessment & Plan (1) Radiculopathy, lumbar region: Code(s): M54.16 - Radiculopathy, lumbar region Category: Medical (2) Lumbar spondylosis: Code(s): M47.816 - Spondylosis without myelopathy or radiculopathy, lumbar region Category: Medical Plan Percutaneous implantation of peripheral nerve stimulation Sprint system right L5 the risks, benefits and alternatives were discussed with the patient and informed consent was obtained, patient was placed in the prone position and padded to foster comfort. Time out was performed delineating correct site and side of the procedure , name and of the patient, patient participated in time out procedure. Theupper back and posterior neck of the patient was prepped with ChloraPrep and draped with sterile self adhesive utility towels. C-arm was brought over the operating field and clear picture of the L5 lamina on the right was delineated on the screen. The upper central portion of the lamina was chosen as a target of the needle tip insertion . After identifying and marking the intended target, the skin around the planned entry point and the subcutaneous tissues were injected with local anesthetic forming skin wheal.. A percutaneous sleeve and stimulating probe lead introduction system were assembled, inserted and advanced through the skin wheal to the point of interest under C-arm viewL right L5 lamina., the introducer needle was delivered to a location in proximity to the nerve. Multiple stimulation parameters were used to deliver stimulation to the nerve in concert with stimulating at multiple positions around the nerve. The nerve target acquisition was confirmed noting generation of in the corresponding to the nerve being stimulated. Various electrical parameter combinations were tested, and the lead location was adjusted (physically relocated) until the patient indicated overlapping the distribution of the patient?s typical region of pain. The stimulating probe was removed from the introducer and a percutaneous lead was guided through the needle and delivered to a location in similar proximity to the nerve. Final location was verified with electrical stimulation. The introducer needle was removed, and the exposed end of the percutaneous lead was attached to an external stimulator unit. At the end of the case various electrical parameter combinations were again tested until the patient indicated paresthesia or muscle tension overlapping the distribution of the patient?s typical region of pain. After confirming that lead impedance was in the normal range, the external unit was detached, the needle was removed, and the lead was anchored at the skin. The leads were threaded into the connector block and electrical continuity and desired patient response was confirmed. The connector block was attached to the external stimulator unit. The site was covered with a sterile occlusive dressing and a image was taken to document final placement. Upon completion of the procedure the patient was taken outside the OR where she recovered uneventfully she went home without immediate complications. Orders: Orders FL guidance in treatment room 03/21/25 Meg Robles APRN, RN PALLIATIVE M47.816 - Spondylosis without myelopathy or radiculopathy, lumbar region CT lumbar spine wo/w IV con 03/21/25 Tao Yoon MD M54.16 - Radiculopathy, lumbar region Coding Level of Care Code Procedure Only Diagnoses Radiculopathy, lumbar region M54.16 Lumbar spondylosis M47.816 Implantable Device Implantable Device Implantable Devices Qty Sales Systems Engineer Implant Date Expiration Date Analgesic PENS system 1 [employer] 02/21/25 Analgesic PENS system 1 [employer] 03/07/25
[2025-03-21 12:35] VITALS: BP 159/89; PULSE 86; RESP 16; O2SAT 97
== END 2025-03-21 12:44 | disposition home or self-care (01) ==
LOC: HO.PMCPRC 11:01
PROVIDERS: PCP Internal Medicine; Visit Provider Anesthesiology
DX: M54.16 Radiculopathy, lumbar region (principal); M47.816 Spondylosis without myelopathy or radiculopathy, lumbar region
CPT/HCPCS: 64555; 64590

== ENCOUNTER 2025-04-04 11:00 | Outpatient (REF) | payer MEDICARE, SELFPAY ==
--- NOTE | ~2025-04-04 | CT_ITS ---
EXAMINATION: CT LUMBAR SPINE WITHOUT AND WITH CONTRAST CLINICAL INFORMATION: M54.16 - Radiculopathy, lumbar region COMPARISON: MRI November 02 07/07/2024 TECHNIQUE: Axial CT was performed between lower T11 and lower sacrum without contrast Coronal and sagittal reformatted images were generated from the original axial data set. ALARA: The examination used one or more of the following radiation dose reduction techniques: Automated exposure control, iterative reconstruction, and/or adjustment of mA and/or kV. FINDINGS: There is an electronic device over the left abdomen with wires penetrating through the subcutaneous soft tissues and extending to cross paraspinal musculature to the left inferior L4 facet into the soft tissues posterior to the right L5 inferior facet. Incompletely imaged simple renal cyst 4.7 cm in diameter is evident in the posterior superior right kidney and an exophytic simple cyst is present in the lower pole of the left kidney. Moderate to severe vascular calcifications are present. There are 5 [id number] lumbar segments. T12-L1: There is mild loss of disc height and vacuum phenomena anteriorly.. There is minimal disc bulge without spinal stenosis or foraminal narrowing. L1-L2: There is mild loss disc height and broad-based disc bulge with vacuum phenomena anteriorly. There is no spinal stenosis or foraminal narrowing. L2-L3: There is mild loss of disc height and subtle retrolisthesis. There are endplate osteophytes. Mild broad-based disc bulge indents the thecal sac resulting in spinal stenosis. L3-L4: There is mild loss disc height, minimal grade 1 retrolisthesis, endplate osteophytes, and broad-based disc bulge there is ligament flavum thickening. There is mild spinal stenosis. Subarticular zone narrowing with better characterized on recent MRI. There is mild bilateral foraminal narrowing, greater on the left. L4-L5: There is circumferential broad-based disc bulge and moderate facet arthropathy resulting in mild spinal stenosis. Subarticular zone narrowing is better demonstrated on MRI. There is mild to moderate right and mild left foraminal narrowing. L5-S1: There is circumferential broad-based disc bulge with calcification in the posterior disc annulus. There are small endplate osteophytes. There is no spinal stenosis. Disc minimally narrows the right subarticular zone. There is moderate right and mild left foraminal narrowing. CT/CT lumbar spine wo/w IV con IMPRESSION: Multilevel degenerative disc disease and facet osteoarthritis similar to prior MRI performed November 02, 2024. Electronically signed by: Peng Teague MD 04/04/2025 12:18 PM [facility]
[2025-04-04] MEDS: iohexoL 350 MG/ML 100 ML INFUS..BTL 85 ML IV (12:00)
[2025-04-04 17:26] LABS: Creatinine POC 1.1 mg/dL (0.5-1.4); GFR POC > 60
== END 2025-04-04 11:01 | disposition home or self-care (01) ==
LOC: HO.CT 11:00
PROVIDERS: Visit Provider Anesthesiology
DX: M54.16 Radiculopathy, lumbar region (principal)
CPT/HCPCS: 72133; 82565; Q9967

== ENCOUNTER → 2025-04-04 11:04 | Outpatient (BNV) | payer MEDICARE, SELFPAY | PROVIDERS: Visit Provider Radiology Diagnostic Radiology | DX: M51.369 Other intervertebral disc degeneration, lumbar region without mention of lumbar back pain or lower extremity pain (principal); M47.26 Other spondylosis with radiculopathy, lumbar region | CPT/HCPCS: 72133 ==

== ENCOUNTER 2025-04-21 08:12 | Outpatient (AMB) | payer MEDICARE, SELFPAY ==
--- NOTE | 2025-04-21 08:19 | A.OFFVIS_ITS ---
Vital Signs 04/21/25 08:20 Height 5 ft 7 in Weight 186 lb BMI 29.1 BP 160/80 H Blood Pressure Location Rt brachial Position Sitting Respiration 16 Pulse 97 Pulse Source Pulse Oximeter Pulse Oximetry (%) 99 Oxygen Delivery Method Room Air Intake Visit Reasons: Removal: Left Sprint PNS L4 Intake Note: Left Sprint was removed successfully.Tip intact. 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 The patient is amid a peripheral nerve stimulator trial for chronic low back pain, which was characterized as a screaming pain that occurred after standing for 15 minutes. He reports the trial has provided an 60% improvement in this back pain, which is now a manageable ache. He keeps the stimulation level at 50%, as increasing it causes discomfort. He developed new pain in his left leg the day after the initial stimulator trial injections. The pain radiates from his hip down the entire length of the leg and is severe enough that it limits sitting in a car to 15 minutes, which is concerning as he has a 1200-mile drive to [place] planned. He notes this new pain is 10 times worse than his original back pain and has been slowly calming down recently, possibly due to taking ibuprofen at night as suggested by another provider. A CT scan performed three weeks ago showed significant arthritis, bone spurs, and degenerative disc disease, but no nerve impingement. The patient expresses significant frustration over a lack of communication from the physician regarding these results and a plan for his new leg pain. He also reported a strange episode where his legs began moving involuntarily, which stopped immediately when he turned down the stimulation. - Original Low Back Pain: The patient describes his original low back pain as a screaming pain that was exacerbated by standing for 15 minutes. - With the stimulator, this pain has improved by approximately 60% and is now described as a manageable ache. - New Left Leg Pain: This pain began the day after his first set of test injections for the stimulator trial. - It is described as severe, 10 times worse than his original back pain, and radiates from the hip down the entire length of the left leg. - The pain is exacerbated by sitting, limiting his ability to drive to 15 minutes at a time. - It appears to be slowly calming down in severity. - Analgesia: The patient reports his original back pain is 60% improved with the stimulator trial, rating it now as a manageable ache. - His new left leg pain is severe and significantly worse than his back pain ever was. - He is taking ibuprofen at night, which may be providing some relief. - Activities of Daily Living: His previous back pain limited standing to 15 minutes. - The new leg pain limits his ability to sit and drive for more than 15 minutes. - Adverse Effects: The patient reports discomfort when turning the stimulator up past 50%. - He also reports a transient episode of involuntary leg movements that resolved after turning down the stimulation. - Affect: The patient expresses significant frustration, anger, and distrust toward his primary physician due to a perceived lack of communication regarding test results and a follow-up plan. - Aberrant Drug Related Behaviors: None discussed. PENDING SALE TO [facility] Medical History A-fib Colon polyp Gout History of diverticulosis HLD (hyperlipidemia) Family History Mother Cerebral aneurysm Father Heart disease Social History Household Members: Spouse Housing: House Do you presently have visiting nurse or other home services: No Patient Tobacco Use Status: Former Tobacco user service: No Current occupational status: retired Review of Systems Narrative - Musculoskeletal: Reports his original chronic low back is now a manageable ache with 60% improvement. - Reports new-onset severe pain in the left leg, radiating from the hip down the entire leg. - Neurological: Reports a recent, transient episode of involuntary leg movements that resolved when he turned down his spinal cord stimulator. Physical Exam Exam Exam: General: awake, alert, oriented. Answers questions appropriately. Fully engaged in examination. Skin: warm, dry, intact HEENT: Normocephalic. Hearing intact. Cardiac: External chest normal in appearance. Respiratory: No cough, audible wheezing or stridor. Abdomen: without gross distension. MS: No obvious swelling or deformities. Able to transition from sit to stand unassisted. Ambulates with bilaterally normal heel strike and toe off Neurological: Oriented to person, place, time and situation. Thought process intact. No gait abnormalities appreciated. Psychiatric: Appropriate mood and affect. Good judgment and insight. Sprint removal: Dressing removed, Site dry, clean, intact. Area cleansed with chloraprep, left lead removed with intact tip. Area cleansed again with chloraprep, bacitracin dressing with tegaderm applied. Patient tolerated removal well. Right lead secured, dressing applied. patient tolerated well. Vital Signs: Last Vital Signs Pulse 97 04/21/25 08:20 Resp 16 04/21/25 08:20 BP 160/80 H 04/21/25 08:20 Pulse Ox 99 04/21/25 08:20 Oxygen Delivery Method Room Air 04/21/25 08:20 BMI result Body Mass Index 29.1 Results Reviewed Results Reviewed: 04/04/2025 CT/CT lumbar spine wo/w IV con FINDINGS: There is an electronic device over the left abdomen with wires penetrating through the subcutaneous soft tissues and extending to cross paraspinal musculature to the left inferior L4 facet into the soft tissues posterior to the right L5 inferior facet. Incompletely imaged simple renal cyst 4.7 cm in diameter is evident in the posterior superior right kidney and an exophytic simple cyst is present in the lower pole of the left kidney. Moderate to severe vascular calcifications are present. There are 5 [id number] lumbar segments. T12-L1: There is mild loss of disc height and vacuum phenomena anteriorly.. There is minimal disc bulge without spinal stenosis or foraminal narrowing. L1-L2: There is mild loss disc height and broad-based disc bulge with vacuum phenomena anteriorly. There is no spinal stenosis or foraminal narrowing. L2-L3: There is mild loss of disc height and subtle retrolisthesis. There are endplate osteophytes. Mild broad-based disc bulge indents the thecal sac resulting in spinal stenosis. L3-L4: There is mild loss disc height, minimal grade 1 retrolisthesis, endplate osteophytes, and broad-based disc bulge there is ligament flavum thickening. There is mild spinal stenosis. Subarticular zone narrowing with better characterized on recent MRI. There is mild bilateral foraminal narrowing, greater on the left. L4-L5: There is circumferential broad-based disc bulge and moderate facet arthropathy resulting in mild spinal stenosis. Subarticular zone narrowing is better demonstrated on MRI. There is mild to moderate right and mild left foraminal narrowing. L5-S1: There is circumferential broad-based disc bulge with calcification in the posterior disc annulus. There are small endplate osteophytes. There is no spinal stenosis. Disc minimally narrows the right subarticular zone. There is moderate right and mild left foraminal narrowing. IMPRESSION: Multilevel degenerative disc disease and facet osteoarthritis similar to prior MRI performed November 02, 2024. 11/02/24 MRI lumbar spine FINDINGS: 5 non-rib bearing lumbar segments are present on x-ray Marrow and end-plates: Schmorl's nodes are present in the inferior T11, T12, and L1. Modic 2 signal is present anteriorly at L1-2. Alignment: There is subtle retrolisthesis at L1-2, L2-3, L3-4, and L5-S1. Soft tissues: Incompletely imaged 5 cm mass in the superior right kidney demonstrates low signal on T1 imaging, high signal on fluid sensitive sequences, and hairline septations, Bosniak II. Other benign simple cyst are present in the left kidney. Conus: The termination of conus medullaris is within normal limits at the level of lower L1. T12-L1: Broad-based disc bulges result in spinal stenosis or foraminal narrowing. L1-L2: Broad-based disc bulge does not result in spinal stenosis or foraminal narrowing. L2-L3: There is mild loss of disc height and circumferential broad-based disc bulge. There is mild facet degeneration. There is no spinal stenosis or foraminal narrowing. L3-L4: There is mild loss of disc height and circumferential broad-based disc extrusion/bulge. There is mild facet degeneration and trace fluid in the left facet joint. There is mild spinal stenosis. There is mild left greater than right subarticular zone narrowing and mild foraminal narrowing. L4-L5: Circumferential broad-based is bulge, ligamentum flavum thickening, and mild facet arthropathy results in mild spinal stenosis and mild left greater than right subarticular zone narrowing. Neural foramina are mildly narrow, more on the right. L5-S1: Circumferential broad-based disc bulge and broad posterior disc extrusion with mild facet arthropathy and ligamentum flavum thickening does not result in spinal stenosis. There is mild right subarticular zone narrowing. There is mild to moderate right and mild left foraminal narrowing. IMPRESSION: Multilevel degenerative disc disease with areas of mild spinal stenosis and foraminal narrowing, as above. 10/19/24 x-ray lumbar spine FINDINGS: Flexion and extension and oblique imaging were performed. Five [id number] lumbar type vertebral bodies. Grade 1 retrolisthesis of L1 on L2 and L2 on L3. This does not change on flexion or extension imaging. Vertebral body heights are maintained. No evidence of acute vertebral body injury. Flowing marginal osteophytes along the lower thoracic spine. There is multilevel loss of disc space height with marginal osteophytes. Facet joint arthrosis in the mid to lower lumbar spine with neural foraminal narrowing most pronounced at L4-5 and L5-S1. No pars defects identified on oblique imaging. Visualized bones of the pelvis appear intact. Pelvic phleboliths present. Atherosclerotic vascular calcifications. IMPRESSION: 1. No radiographic evidence of acute injury to the lumbar spine. 2. Grade 1 retrolisthesis of L1 on L2 and L2 on L3. No pars defects identified. 3. Moderate to advanced mid to lower lumbar spondylosis. Assessment & Plan Assessment & Plan (1) Degenerative disc disease, lumbar: Code(s): M51.369 - Other intervertebral disc degeneration, lumbar region without mention of lumbar back pain or lower extremity pain Category: Medical (2) Lumbar spondylosis: Code(s): M47.816 - Spondylosis without myelopathy or radiculopathy, lumbar region Category: Medical Plan The patient will have his remaining peripheral nerve stimulator trial lead removed in two weeks, on the . His new-onset left leg pain, which began after the procedure, is suspected to be from nerve irritation, as imaging has ruled out nerve impingement. He will continue taking ibuprofen at night to help manage this. An appointment will be made for him to see his physician (Dr. Yoon) in two weeks, at the time of the lead removal, so he can directly discuss his concerns, the CT results, and the path forward. The patient desires a clear contingency plan for his upcoming 1200-mile drive to [place]. It was agreed to defer starting oral steroids (prednisone) now and to save the medication to be used if the leg pain becomes severe during his travel. Patient was informed and verbally consented to the use of an ambient scribe for clinic note documentation during this visit. Patient Instructions: - Continue with your Sprint stimulator trial. - Your final temporary wire will be removed in two weeks, on the . - Keep the stimulator setting at a level that is comfortable for you, which is currently 50%. - Do not increase the stimulation if it causes pain or discomfort. - You may continue to take ibuprofen at night to help with the nerve irritation in your leg. - An appointment will be scheduled for you in two weeks with Dr. Yoon to discuss your progress and establish a plan moving forward. - Call the office if your leg pain becomes significantly worse. Coding Level of Care Code Est Pt Level 3 (61695) Complex visit Add On G2211 Diagnoses Degenerative disc disease, lumbar M51.369 Lumbar spondylosis M47.816
[2025-04-21 08:20] VITALS: BP 160/80; PULSE 97; RESP 16; O2SAT 99; BMI 29.1
== END 2025-04-21 09:24 | disposition home or self-care (01) ==
LOC: HO.PMC 08:13
PROVIDERS: PCP Internal Medicine; Visit Provider Registered Nurse Emergency
DX: M51.369 Other intervertebral disc degeneration, lumbar region without mention of lumbar back pain or lower extremity pain (principal); M47.816 Spondylosis without myelopathy or radiculopathy, lumbar region
CPT/HCPCS: 99213; G2211

== ENCOUNTER → 2025-04-21 08:12 | Outpatient (BNVA) | payer MEDICARE, SELFPAY | PROVIDERS: PCP Internal Medicine; Visit Provider Registered Nurse Emergency | DX: M47.816 Spondylosis without myelopathy or radiculopathy, lumbar region (principal); M51.369 Other intervertebral disc degeneration, lumbar region without mention of lumbar back pain or lower extremity pain | CPT/HCPCS: 99212 ==

== ENCOUNTER 2025-05-04 08:57 | Outpatient (AMB) | payer MEDICARE, SELFPAY ==
[2025-05-04 09:13] VITALS: BP 158/73; PULSE 94; RESP 16; O2SAT 97; BMI 29.8
--- NOTE | 2025-05-04 09:13 | A.OFFVIS_ITS ---
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 The electrodes were removed. The patient reports absence of pain in the lower back. He continues to complain on pain in the left lower extremity starting from the greater trochanter and radiating down to the left lower extremity all the way to the level of the knee and slightly below the level knee but not below that level. He denies any tenderness on palpation in the projection of the lumbar spine. He is convinced that his pain is related to ?pinched nerve ?. He went for CT scan which did not demonstrate any nerve impi ngement. I explained to the patient that pattern of his pain does not correspond to pinched nerve pain. When a patient is complaining on a pinched nerve the experience is of the pain starting in the center of the lower back and radiating in radicular pattern with pain ending up in the toes of the patient corresponding to the level of the pinched nerve location. In my opinion the pain of the patient is related to iliotibial band syndrome on the left however to prove to the patient that there is no pinched nerve involved in his pain syndrome I will send him for EMG of the bilateral lower extremities. I recommended the patient to start diclofenac topical and lidocaine patch 4% topical to treat his pain. I also recommended him to start physical therapy. The patient is stating that in 2 weeks he will be moving to [place]. I can not make referral for physical therapy to [place] and I can not order EMG there however he may ask his provider in [place] A CT scan performed three weeks ago showed significant arthritis, bone spurs, and degenerative disc disease, but no nerve impingement. The patient expresses significant frustration over a lack of communication from the physician regar ding these results and a plan for his new leg pain. He also reported a strange episode where his legs began moving involuntarily, which stopped immediately when he turned down the stimulation. - Original Low Back Pain: The patient describes his original low back pain as a screaming pain that was exacerbated by standing for 15 minutes. - With the stimulator, this pain has improved by approximately 60% and is now described as a manageable ache. - New Left Leg Pain: This pain began the day after his first set of test injections for the stimulator trial. - It is described as severe, 10 times worse than his original back pain, and radiates from the hip down the entire length of the left leg. - The pain is exacerbated by sitting, limiting his ability to drive to 15 minutes at a time. - It appears to be slowly calming down in severity. - Analgesia: The patient reports his original back pain is 60% improved with the stimulator trial, rating it now as a manageable ache. - His new left leg pain is severe and significantly worse than his back pain ever was. - He is taking ibuprofen at night, which may be providing some relief. - Activities of Daily Living: His previous back pain limited standing to 15 minutes. - The new leg pain limits his ability to sit and drive for more than 15 minutes. - Adverse Effects: The patient reports discomfort when turning the stimulator up past 50%. - He also reports a transient episode of involuntary leg movements that resolved after turning down the stimulation. - Affect: The patient expresses significant frustration, anger, and distrust toward his primary physician due to a perceived lack of communication regarding test results and a follow-up plan. - Aberrant Drug Related Behaviors: None discussed. [facility] Medical History A-fib Colon polyp Gout History of diverticulosis HLD (hyperlipidemia) Family History Mother Cerebral aneurysm Father Heart disease Social History Household Members: Spouse Housing: House Do you presently have visiting nurse or other home services: No Patient Tobacco Use Status: Former Tobacco user service: No Current occupational status: retired Review of Systems Const All systems reviewed & are unremarkable except as noted in HPI and below Physical Exam Exam Exam: General: awake, alert, oriented. Answers questions appropriately. Fully engaged in examination. Skin: warm, dry, intact HEENT: Normocephalic. Hearing intact. Cardiac: External chest normal in appearance. Respiratory: No cough, audible wheezing or stridor. Abdomen: without gross distension. MS: No obvious swelling or deformities. Able to transition from sit to stand unassisted. Ambulates with bilaterally normal heel strike and toe off Neurological: Oriented to person, place, time and situation. Thought process intact. No gait abnormalities appreciated. Psychiatric: Appropriate mood and affect. Good judgment and insight. Sprint removal: Dressing removed, Site dry, clean, intact. Area cleansed with chloraprep, left lead removed with intact tip. Area cleansed again with chloraprep, bacitracin dressing with tegaderm applied. Patient tolerated removal well. Right lead secured, dressing applied. patient tolerated well. Vital Signs: Last Vital Signs Pulse 94 05/04/25 09:13 Resp 16 05/04/25 09:13 BP 158/73 H 05/04/25 09:13 Pulse Ox 97 05/04/25 09:13 Oxygen Delivery Method Room Air 05/04/25 09:13 BMI result Body Mass Index 29.8 Results Reviewed Results Reviewed: 04/04/2025 CT/CT lumbar spine wo/w IV con FINDINGS: There is an electronic device over the left abdomen with wires penetrating through the subcutaneous soft tissues and extending to cross paraspinal musculature to the left inferior L4 facet into the soft tissues posterior to the right L5 inferior facet. Incompletely imaged simple renal cyst 4.7 cm in diameter is evident in the posterior superior right kidney and an exophytic simple cyst is present in the lower pole of the left kidney. Moderate to severe vascular calcifications are present. There are 5 [id number]-ohl-nfyrqcc lumbar segments. T12-L1: There is mild loss of disc height and vacuum phenomena anteriorly.. There is minimal disc bulge without spinal stenosis or foraminal narrowing. L1-L2: There is mild loss disc height and broad-based disc bulge with vacuum phenomena anteriorly. There is no spinal stenosis or foraminal narrowing. L2-L3: There is mild loss of disc height and subtle retrolisthesis. There are endplate osteophytes. Mild broad-based disc bulge indents the thecal sac resulting in spinal stenosis. L3-L4: There is mild loss disc height, minimal grade 1 retrolisthesis, endplate osteophytes, and broad-based disc bulge there is ligament flavum thickening. There is mild spinal stenosis. Subarticular zone narrowing with better characterized on recent MRI. There is mild bilateral foraminal narrowing, greater on the left. L4-L5: There is circumferential broad-based disc bulge and moderate facet arthropathy resulting in mild spinal stenosis. Subarticular zone narrowing is better demonstrated on MRI. There is mild to moderate right and mild left foraminal narrowing. L5-S1: There is circumferential broad-based disc bulge with calcification in the posterior disc annulus. There are small endplate osteophytes. There is no spinal stenosis. Disc minimally narrows the right subarticular zone. There is moderate right and mild left foraminal narrowing. IMPRESSION: Multilevel degenerative disc disease and facet osteoarthritis similar to prior MRI performed November 02, 2024. 11/02/24 MRI lumbar spine FINDINGS: 5 non-rib bearing lumbar segments are present on x-ray Marrow and end-plates: Schmorl's nodes are present in the inferior T11, T12, and L1. Modic 2 signal is present anteriorly at L1-2. Alignment: There is subtle retrolisthesis at L1-2, L2-3, L3-4, and L5-S1. Soft tissues: Incompletely imaged 5 cm mass in the superior right kidney demonstrates low signal on T1 imaging, high signal on fluid sensitive sequences, and hairline septations, Bosniak II. Other benign simple cyst are present in the left kidney. Conus: The termination of conus medullaris is within normal limits at the level of lower L1. T12-L1: Broad-based disc bulges result in spinal stenosis or foraminal narrowing. L1-L2: Broad-based disc bulge does not result in spinal stenosis or foraminal narrowing. L2-L3: There is mild loss of disc height and circumferential broad-based disc bulge. There is mild facet degeneration. There is no spinal stenosis or foraminal narrowing. L3-L4: There is mild loss of disc height and circumferential broad-based disc extrusion/bulge. There is mild facet degeneration and trace fluid in the left facet joint. There is mild spinal stenosis. There is mild left greater than right subarticular zone narrowing and mild foraminal narrowing. L4-L5: Circumferential broad-based is bulge, ligamentum flavum thickening, and mild facet arthropathy results in mild spinal stenosis and mild left greater than right subarticular zone narrowing. Neural foramina are mildly narrow, more on the right. L5-S1: Circumferential broad-based disc bulge and broad posterior disc extrusion with mild facet arthropathy and ligamentum flavum thickening does not result in spinal stenosis. There is mild right subarticular zone narrowing. There is mild to moderate right and mild left foraminal narrowing. IMPRESSION: Multilevel degenerative disc disease with areas of mild spinal stenosis and foraminal narrowing, as above. 10/19/24 x-ray lumbar spine FINDINGS: Flexion and extension and oblique imaging were performed. Five eet-vle-qlhidva lumbar type vertebral bodies. Grade 1 retrolisthesis of L1 on L2 and L2 on L3. This does not change on flexion or extension imaging. Vertebral body heights are maintained. No evidence of acute vertebral body injury. Flowing marginal osteophytes along the lower thoracic spine. There is multilevel loss of disc space height with marginal osteophytes. Facet joint arthrosis in the mid to lower lumbar spine with neural foraminal narrowing most pronounced at L4-5 and L5-S1. No pars defects identified on oblique imaging. Visualized bones of the pelvis appear intact. Pelvic phleboliths present. Atherosclerotic vascular calcifications. IMPRESSION: 1. No radiographic evidence of acute injury to the lumbar spine. 2. Grade 1 retrolisthesis of L1 on L2 and L2 on L3. No pars defects identified. 3. Moderate to advanced mid to lower lumbar spondylosis. Assessment & Plan Assessment & Plan (1) Radiculopathy, lumbar region: Code(s): M54.16 - Radiculopathy, lumbar region Category: Medical (2) Lumbar spondylosis: Code(s): M47.816 - Spondylosis without myelopathy or radiculopathy, lumbar region Category: Medical (3) Degenerative disc disease, lumbar: Code(s): M51.369 - Other intervertebral disc degeneration, lumbar region without mention of lumbar back pain or lower extremity pain Category: Medical Plan 1. I will send patient for EMG to make sure that there is no radiculopathy. 2. Most likely the patient is suffering from iliotibial band syndrome on the left. I recommended him physical therapy for iliotibial band syndrome and I recommended him topical medications diclofenac gel as well as lidocaine patch edson Reynoso. Patient is moving to [place]. He may request an order from a physician in [place] for physical therapy and for EMG study. Orders: Orders NE electromyogram (EMG) Today M47.816 - Spondylosis without myelopathy or radiculopathy, lumbar region NE nerve conduction velocity Today M47.816 - Spondylosis without myelopathy or radiculopathy, lumbar region Coding Level of Care Code Est Pt Level 3 (91207) Diagnoses Radiculopathy, lumbar region M54.16 Lumbar spondylosis M47.816 Degenerative disc disease, lumbar M51.369
--- OUTSIDE RECORDS SUMMARY | 2025-05-04 09:48 | XMS_ITS | Encounter Summary ---
Author Organization [facility] Address [address] [place] [address] Phone Care Team Providers Care Business Technology Teacher Name Role Phone Rommel Webster MD Unavailable [phone] Rommel Webster MD Primary Care Provider [phone] Encounter Details Date Type Department Care Team (Late st Contact Info) Description 01/17/2020 Procedure Pass [facility], Ct Scan - [address] [address] Social History Tobacco Use Types Packs/Day Years [...] Care Team (Late st Contact Info) Description 08/31/2025 7:40 AM EDT Office Visit [facility] [address], [address] [place] [address] Ronaldo Burns MD [address], [address] [place] [address] 09/11/2025 8:00 AM EDT Office Visit [facility] [address] [place] [address] Mónica Patiño PA-C 4 [facility], [facility] [place] [address] 09/21/2025 8:40 AM EDT Office Visit [facility] [address] [address] Rommel Webster MD [address] [address] [email or web address] documented as of this encounter Visit Diagnoses Not on filedocumented in this encounter Additional Health Concerns Infection Onset Date Last Indicated Resolved Time CoV-Exposed Comment:Added per Home Health documentation 01/30/2022 01/30/2022 02/05/2022 9:29 AM E DT Assessment Noted Time PHQ-2 Depression Total Score: 0 09/24/19 8:08 AM EDT documented as of this encounter Care Teams Business Technology Teacher Relationship Specialty Start Date End Date Rommel Webster MD [address] [address] PCP - General Internal Medicine 04/07/17 Rommel Webster MD [address] [place] [id number] Insurance Assigned Provider 08/22/23 documented as of this encounter Additional Source Comments The information contained in this document represents components of the legal health record. It is not the complete legal health record.[facility]
--- OUTSIDE RECORDS SUMMARY | 2025-05-04 09:48 | XMS_ITS | Clinical Summary ---
Author Organization [facility] Address [address] [place] [address] Phone Care Team Providers Care It Compliance Manager Name Role Phone Rommel Webster MD Unavailable [phone] Rommel Webster MD Primary Care Provider Allergies [...] tablet (81 mg total) by mouth daily. 023 Active gabapentin (NEURONTIN) 100 MG capsuleIndicati ons:Chronic insomnia,Status post right knee replacement TAKE 1 TO 3 CAPSULES NIGHTLY NEEDED FOR PAIN AND INSOMNIA 90 capsule 2 024 Active ezetimibe (ZETIA) 10 mg tabletIndicatio ns:Dyslipidemia TAKE 1 TABLET DAILY 90 tablet 3 025 Active MYRBETRIQ 25 mg [id number] :BPH with obstruction/low er urinary tract symptoms TAKE 1 TABLET DAILY 90 tablet 3 025 Active omeprazole (PRILOSEC) 20 MG tablet Take 20 mg by mouth daily. Active LORazepam (ATIVAN) 1 MG tabletIndicatio ns:Anxiety TAKE 1 TABLET ONCE DAILY ASNEEDED 60 tablet 2 025 Active metoprolol succinate (TOPROL-XL) 50 MG 24 hr tabletIndicatio ns:Atrial fibrillation Take 1 tablet (50 mg total) by mouth every morning. 90 tablet 3 025 Active allopurinol (ZYLOPRIM) 100 MG tabletIndicatio ns:History of gout Take 2 tablets (200 mg total) by mouth daily. 180 tablet 025 Active atorvastatin (LIPITOR) 10 MG tabletIndicatio ns:Dyslipidemia Take 1 tablet (10 mg total) by mouth every morning. 90 tablet 2 025 Active naproxen sodium (ALEVE ORAL) Take 1 tablet by mouth daily as needed. 2024 Discontinued Hospital, Clinic, or Other Facility Administered Medication Ordered Dose Route Frequency Start Date End Date Status triamcinolone acetonide (KENALOG-40) 40 mg/mL injection 80 mgIndications:Bilat eral shoulder pain, unspecified chronicity 80 mg IAtc See admin instructions 04/12/2025 04/12/2025 Ended BUPivacaine (PF) (MARCAINE) 0.25% injection 2 mLIndications:Bilat eral shoulder pain, unspecified chronicity 2 mL IAtc See admin instructions 04/12/2025 04/12/2025 Ended lidocaine (XYLOCAINE) 1% injection 2 mLIndications:Bilat eral shoulder pain, unspecified chronicity 2 mL IAtc See admin instructions 04/12/2025 04/12/2025 Ended Active Problems Problem Noted Date Diagnosed [...] knee to suggest septic arthritis. Spoke with [facility] micro lab blood cultures drawn there [...] blood cultures drawn here and also at [facility] 02/02 -- Abdominal ultrasound unrevealing -- [...] Overview (03/09/2025): S/p spinal cord stimulator placement [facility] Dyslipidemia 09/22/2017 Assessment & Plan (02/03/2022 [...] 50 mg daily. He is going to [place] in a week. He has a previously [...] Encounters Date Type Department Care Team Description 04/12/2025 8:20 AM EST Office Visit [facility] [address] [place] [address] Mónica Patiño PA-C Primary osteoarthritis of right shoulder (Primary Dx); Bilateral shoulder pain, unspecified chronicity 04/12/2025 8:02 AM EST - 04/12/2025 11:59 PM EST Hospital Encounter [address] [address] Mónica Patiño PA-C Discharge Disposition: Home or Self Care 03/09/2025 11:57 AM EDT - 03/09/2025 11:59 PM EDT Hospital Encounter [address] [address] Aamir Tello MD Discharge Disposition: Home or Self Care 03/09/2025 11:30 AM EDT Office Visit [facility] [address] [place] [address] Aamir Tello MD Acute hip pain, left (Primary Dx); Pain; Status post total right knee replacement; Chronic bilateral low back pain without sciatica; Pain of right calf; Pain in left hip 03/09/2025 11:25 AM EDT - 03/09/2025 11:56 AM EDT Hospital Encounter [facility] [address] [place] [address] Aamir Tello MD Discharge Disposition: Home or Self Care 03/09/[address] [facility] Care [facility] 14 [facility] [address] [place] [address] Mercedes Smith CMA Medication Refill (Allopurinol and Atorvastatin) 03/08/2025 Refill [facility] [address] [place] [address] 3rd Floor, [address] [place] [address] Ronaldo Burns MD Medication Refill 03/02/2025 8:40 AM EDT Office Visit [facility] [address] [place] [address] 3rd Floor, [address] [place] [address] Ronaldo Burns MD Persistent atrial fibrillation (Primary Dx); Status post ablation of atrial fibrillation; Presence of Watchman left atrial appendage closure device 02/24/2025 Telephone [facility] [address] [place] [address] Rommel Webster MD Requesting Call back from Last 3 Months Immunizations Immunization Administration [...] Description 08/31/2025 7:40 AM EDT Office Visit [facility] [address] [place] [address] 3rd Floor, [address] [place] [address] Ronaldo Burns MD [address] [place] [address] 09/11/2025 8:00 AM EDT Office Visit [facility] [address] [place] [address] Mónica Patiño PA-C [address] [place] [address] Orthopedics & Sports Medicine, [facility] [place] [address] 09/21/2025 8:40 AM EDT Office Visit [facility] [address] [place] [address] [phone] Rommel Webster MD 14 [facility] [address] [place] [address] [phone] Health Maintenance Due Date Last Done Comments [...] STATUS SCREENING (Once After 26 Yrs) Completed 04/12/2025 HEPATITIS A VACCINES Aged Out No long [...] this topic Medical Devices Implanted Type Area Small Business Sales Representative Device Identifier Shelf Expiration Date Model / Serial / Lot System Watchman 35mm Flx Mary Closure - [id number] Implanted:Qty: 1 on 02/26/2023 by Grayson Olvera MD at [facility] MARY [facility]er [facility]LL 10/14/2025 [id number] / / [id number] Cement Bone 1x40 Standard - [id number] Implanted:Qty: 1 on 01/22/2022 by Aamir Tello MD at [facility] Right: Knee AWILDA / DIV OF [employer] 12/15/2024 [id number] / / [id number] Box Component 65.0mm Femoral Knee Vanguard Interlok [place] Posterior Stabilized Open Cemented Right - [id number] Implanted:Qty: 1 on 01/22/2022 by Aamir Tello MD at [facility] Right: Knee [employer] 10/25/2031 [id number] / / [id number] Knee Tray 79mm Plate Bone Primary Vanguard [place] I Beam Revision Interlock Cemented - [id number] Implanted:Qty: 1 on 01/22/2022 by Aamir Tello MD at [facility] Right: Knee [employer] 08/31/2031 [id number] / / [id number] Button Patella [id number] Knee Vanguard Uhmwpe 3 Peg Series A Standard - [id number] Implanted:Qty: 1 on 01/22/2022 by Aamir Tello MD at [facility] Right: Knee [employer] 07/31/2026 [id number] / / [id number] Tibial Bearing [id number] Vanguard Posterior Stabilized - [id number] Implanted:Qty: 1 on 01/22/2022 by Aamir Tello MD at [facility] Right: Knee [employer] 06/10/2026 [id number] / / [id number] Procedures Procedure Name Priority Date/Time Associated Diagnosis Comments XR SHOULDER 2 VIEWS (RIGHT) Routine 04/12/2025 8:10 AM EST Right shoulder pain, unspecified chronicity XR HIP 1 VW LEFT PLUS PELVIS [...] Dyslipidemia History of gout Elevated fasting glucose COLONOSCOPY FOR RESULT ENTRY ONLY Routine 05/13/2021 from Last 3 Months or Most Recently Relevant to Health Maintenance Results * XR SHOULDER 2 VIEWS (RIGHT) (04/12/2025 8:10 AM EST) Narrative SYSTEMGENERATED, DOCUMENTATION - 04/12/2025 8:10 AM EST This image report has been auto-finalized and has not been read by a Radiologist. Interpretation has been included in the provider encounter note for this date of service. us Mónica Patiño PA-C IMG XR UPPER EXTREMITY F inal Result * XR HIP 1 VW LEFT PLUS [...] date of service. us Aamir Tello MD IMMarilee XR LOWER EXTREMITY Final Result * (ABNORMAL) Comprehensive metabolic panel (08/30/2024 7:58 AM EDT) SODIUM 141 133 - 146 mmol/L [facility] POTASSIUM 4.5 3.3 - 5.1 mmol/L [facility] CHLORIDE 103 96 - 108 mmol/L [facility] CO2 28 21 - 35 mmol/L [facility] BUN 21(H) 6 - 19 mg/dL [facility] CREATININE 0.90 0.5 - 1.5 mg/dL [facility] GLUCOSE 121(H) 70 - 99 mg/dL [facility] ALBUMIN 4.3 3.9 - 4.8 g/dL [facility] TOTAL PROTEIN 7.1 6.5 - 8.0 g/dL [facility] CALCIUM 8.9 8.4 - 10.3 mg/dL [facility] ALKALINE PHOSPHATASE 71 39 - 117 U/L [facility] TOTAL BILIRUBIN 0.9 0.0 - 1.2 mg/dL [facility] AST 35 0 - 37 U/L [facility] ALT 38 0 - 40 U/L [facility] GLOBULIN 2.8 1 - 4.8 g/dL [facility] EGFR 87 >59 mL/min/1.7 3m2 [facility] Comment:Estimated glomerular filtration rate calculated using the CKD-EPI refit equation. ANION GAP 15 10 - 20 mmol/L [facility] Blood 08/30/2024 7:58 AM EDT 08/30/2024 8:01 AM EDT us Rommel Webster MD LAB BLOOD BKR ORDERABLES Fin al Result [facility] [address] [place] [address] * Lipid panel (08/30/2024 7:58 AM EDT) HDL 34 mg/dL [facility] Comment: Interpretation <40 mg/dL: Low HDL cholesterol (major risk factor for CHD) Greater than or equal to 60 mg/dL: High HDL cholesterol ( negative risk factor for CHD) HDL - cholesterol is affected by a number of factors, e.g. smoking, excerise, hormones, sex and age. CHOLESTEROL 122 0 - 240 mg/dL [facility] TRIGLYCERIDES 147 30 - 160 mg/dL [facility] LDL 59 50 - 129 mg/dL [facility] Comment: LDL levels in terms of risk for coronary heart disease: <100 mg/dL: Optimal 100-129 mg/dL: Near or above optimal 130-159 mg/dL: Borderline high 160-189 mg/dL: High >190 mg/dL: Very High CARDIAC RISK RATIO 3.6 3.4 - 5.0 [facility] Blood 08/30/2024 7:58 AM EDT 08/30/2024 8:02 AM EDT us Rommel Webster MD LAB BLOOD BKR ORDERABLES Fin al Result [facility] [address] [place] [address] * COLONOSCOPY FOR RESULT ENTRY ONLY (05/13/2021) us Historical Provider HEALTH MAINTENANCE Edited Result - Final from Last 3 Months or Most Recently Relevant to Health Maintenance Insurance MEDICARE PART A & B [employer] CROSS MEDEX SUPPLEMENT MEDICARE PART A & B [employer] MEDEX SUPPLEMENT MEDICARE PART A & B [employer] MEDEX SUPPLEMENT MEDICARE PART A & B [employer] MED[employer] SUPPLEMENT MEDICARE PART A & B [employer] MED[employer] SUPPLEMENT MEDICARE PART A & B [employer] SUPPLEMENT MEDICARE PART A & B [employer] MEDEX SUPPLEMENT MEDICARE PART A & B [employer] MEDEX SUPPLEMENT MEDICARE PART A & B [employer] MEDEX SUPPLEMENT Advance Directives For more information, please contact: [phone] (9AM - 5PM [facility], Thursday-Thursday) * Full Code (Latest Code Status on File) Date Activated Date Inactivated Comments 02/26/2023 4:12 PM Question Answer Comments Code Status Confirmed With: Patient * Full Code Date Activated Date Inactivated Comments 01/22/2022 7:16 AM 02/26/2023 4:12 PM Question Answer Comments Code Status Confirmed With: Patient Care Teams It Compliance Manager Relationship Specialty Start Date End Date Rommel Webster MD [address] [facility] [address] [place] [address] [email or web address] PCP - General Internal Medicine 04/07/17 Rommel Webster MD 14 [facility] [address] [place] [address] (work) [email or web address] Insurance Assigned Provider 08/22/23 Additional Source Comments The information contained in this document represents components of the legal health record. It is not the complete legal health record.[facility]
--- OUTSIDE RECORDS SUMMARY | 2025-05-04 09:48 | XMS_ITS | Encounter Summary ---
Author Organization [facility] Address [address] [place] [address] Phone Care Team Providers Care Candlemaker Name Role Phone Rommel Webster MD Unavailable [phone] Rommel Webster MD Primary Care Provider [phone] Encounter Details Date Type Department Care Team (Late Contact Info) Description 09/08/2022 Procedure Pass [facility] Interventional Radiology [address] [place] [address] Social History Tobacco Use Types Packs/Day Years [...] Department Care Team (Late Contact Info) Description 08/31/2025 7:40 AM EDT [facility] [address] [place] [address] 3rd Floor, [address] [place], [place] [phone] Ronaldo Burns MD [address] [facility], [address] [place], [place] [phone] 09/11/2025 8:00 AM EDT Office Visit [facility] [address] [place] [address] Mónica Patiño PA-C 4 [facility] Orthopedics & Sports Medicine, [facility] [place] [address] 09/21/2025 8:40 AM EDT Office Visit [facility] [address] [address] Rommel Webster MD [address] [address] documented as of this encounter Visit Diagnoses Not on filedocumented in this encounter Additional Health Concerns Assessment Noted Time PHQ-2 Depression Total Score: 0 12/14/19 22 9:30 AM EDT documented as of this encounter Care Teams Candlemaker Relationship Specialty Start Date End Date Rommel Webster MD [address] [address] PCP - General Internal Medicine 04/07/17 Rommel Webster MD [address] [address] Insurance Assigned Provider 08/22/23 documented as of this encounter Additional Source Comments The information contained in this document represents components of the legal health record. It is not the complete legal health record.[facility]
--- OUTSIDE RECORDS SUMMARY | 2025-05-04 09:49 | XMS_ITS | Encounter Summary ---
Author Organization [facility] Address [address] [facility] [address] [address] [place] [address] Phone Care Team Providers Care Blind Stitch Machine Operator Name Role Phone Rommel Webster MD Unavailable [phone] Rommel Webster MD Primary Care Provider [phone] Encounter Details Date Type Department Care Team (Late st Contact Info) Description 02/02/2023 Procedure Pass [facility] Cardiac Ultrasound [address] [place] [address] Social History Tobacco Use Types Packs/Day Years [...] Description 08/31/2025 7:40 AM EDT Office Visit [facility] [address] Floor, [address] [place] [address] Ronaldo Burns MD [address] [facility], [address] [place] [address] [email or web address] 09/11/2025 8:00 AM EDT Office Visit [facility] [address] [place] [address] Mónica Patiño PA-C [address] [place] [address] Orthopedics & Sports Medicine, [place] [address] 09/21/2025 8:40 AM EDT Office Visit [facility] [address] [address] Rommel Webster MD [address] [place] [address] documented as of this encounter Visit Diagnoses Not on filedocumented in this encounter Additional Health Concerns Assessment Noted Time PHQ-2 Depression Total Score: 0 12/14/19 22 9:30 AM EDT documented as of this encounter Care Teams Blind Stitch Machine Operator Relationship Specialty Start Date End Date Rommel Webster MD [address] [place] [address] PCP - General Internal Medicine 04/07/17 Rommel Webster MD [address] [place] [address] Insurance Assigned Provider 08/22/23 documented as of this encounter Additional Source Comments The information contained in this document represents components of the legal health record. It is not the complete legal health record.[facility]
--- OUTSIDE RECORDS SUMMARY | 2025-05-04 09:49 | XMS_ITS | Encounter Summary ---
Author Organization [facility] Address [address] [facility] [address] [place] [address] Phone Care Team Providers Care Wildlife Control Operator Name Role Phone Rommel Webster MD Unavailable [phone] Rommel Webster MD Primary Care Provider [phone] Encounter Details Date Type Department Care Team (Late Contact Info) Description 03/03/2023 Procedure Pass [facility] Cardiovascular And Interventional Radiology [address] [place] [address] Social History Tobacco Use Types Packs/Day Years [...] Upcoming Encounters Date Type Department Care Team ([facility] Contact Info) Description 08/31/2025 7:40 AM EDT [facility] [address] 3rd Floor, [address] [place] [address] Ronaldo Burns MD [address] [facility], [address] [place] [address] 09/11/2025 8:00 AM EDT Office Visit [facility] [address] [place] [address] Mónica Patiño PA-C [address] [place] [address] Orthopedics & Sports Medicine, [place] [address] 09/21/2025 8:40 AM EDT Office Visit [facility] [address] [address] Rommel Webster MD [address] [place] [address] documented as of this encounter Visit Diagnoses Not on filedocumented in this encounter Additional Health Concerns Assessment Noted Time PHQ-2 Depression Total Score: 0 04/16/20 23 1:02 PM EST documented as of this encounter Care Teams Wildlife Control Operator Relationship Specialty Start Date End Date Rommel Webster MD [address] [address] PCP - General Internal Medicine 04/07/17 Rommel Webster MD [address] [address] Insurance Assigned Provider 08/22/23 documented as of this encounter Additional Source Comments The information contained in this document represents components of the legal health record. It is not the complete legal health record.[facility]
--- OUTSIDE RECORDS SUMMARY | 2025-05-04 09:49 | XMS_ITS | Encounter Summary ---
Author Organization [facility] Address [address] [facility] [address] [place] [address] Phone Care Team Providers Care Home Attendant Name Role Phone Rommel Webster MD Unavailable [phone] Rommel Webster MD Primary Care Provider [phone] Encounter Details Date Type Department Care Team (Late st Contact Info) Description 01/22/2022 Procedure Pass [place] Admitting Dept - Virtual Department 30 [place] [address] Social History Tobacco Use Types Packs/Day Years [...] 1:00 PM EDT Winsome Davis RN * [place] Suicide Severity Rating Scale (Screener/Recent Self-Report) Question [...] Description 08/31/2025 7:40 AM EDT Office Visit [facility] 22 [facility] 3rd Floor, [address] [place] [address] Ronaldo Burns MD 22 [facility], [address] [place] [address] 09/11/2025 8:00 AM EDT Office Visit [facility] [address] [place] [address] Mónica Patiño PA-C [address] [place] [address] Orthopedics & Sports Medicine, [place] [address] [email or web address] 09/21/2025 8:40 AM EDT Office Visit [facility] [address] [address] Rommel Webster MD [address] [place] [address] [email or web address] documented as of this encounter Visit Diagnoses Not on filedocumented in this encounter Additional Health Concerns Infection Onset Date Last Indicated Resolved Time CoV-Exposed Comment:Added per Home Health documentation 01/30/2022 01/30/2022 02/05/2022 9:29 AM E DT Assessment Noted Time PHQ-2 Depression Total Score: 0 12/14/19 9:30 AM EDT documented as of this encounter Care Teams Home Attendant Relationship Specialty Start Date End Date Rommel Webster MD 14 [facility] [address] [place] [address] [email or web address] PCP - General Internal Medicine 04/07/17 Rommel Webster MD [address] [place] [address] [address] [place] [address] [email or web address] Insurance Assigned Provider 08/22/23 documented as of this encounter Additional Source Comments The information contained in this document represents components of the legal health record. It is not the complete legal health record.[facility]
--- OUTSIDE RECORDS SUMMARY | 2025-05-04 09:49 | XMS_ITS | Encounter Summary ---
Author Organization [facility] Address [address] [place] [address] Phone Care Team Providers Care Rubber Flap Tuber Machine Operator Name Role Phone Rommel Webster MD Unavailable [phone] Rommel Webster MD Primary Care Provider Encounter Details Date Type Department Care Team (Late st Contact Info) Description 02/26/2023 Procedure Pass [facility] Pacer Lab [address] [facility], [address] 1, [address] [place] [address] Social History Tobacco Use Types [...] 5:57 PM EDT Samaria Chavez RN * [place] Suicide Severity Rating Scale (Screener/Recent Self-Report) Question [...] Description 08/31/2025 7:40 AM EDT Office Visit [facility] [address] [place] [address], [address] [place] [address] Ronaldo Burns MD [address] [place] [address] 09/11/2025 8:00 AM EDT Office Visit [facility] [address] [place] [address] Mónica Patiño PA-C [address] [place] [address] Orthopedics & Sports Medicine, [facility] [place] [address] 09/21/2025 8:40 AM EDT Office Visit [facility] [address] [phone] Rommel Webster MD [address] [phone] documented as of this encounter Visit Diagnoses Not on filedocumented in this encounter Additional Health Concerns Assessment Noted Time PHQ-2 Depression Total Score: 0 12/14/19 22 9:30 AM EDT documented as of this encounter Care Teams Rubber Flap Tuber Machine Operator Relationship Specialty Start Date End Date Rommel Webster MD [address] [place] [address] [address] [place] [address] PCP - General Internal Medicine 04/07/17 Rommel Webster MD [address] [place] [address] [place] [address] [email or web address] Insurance Assigned Provider 08/22/23 documented as of this encounter Additional Source Comments The information contained in this document represents components of the legal health record. It is not the complete legal health record.[facility]
--- OUTSIDE RECORDS SUMMARY | 2025-05-04 09:49 | XMS_ITS | Encounter Summary ---
Author Organization [facility] Address [address] [place] [address] Phone Care Team Providers Care Supervisor Landscape Name Role Phone Rommel Webster MD Unavailable [phone] Rommel Webster MD Primary Care Provider [phone] Encounter Details Date Type Department Care Team (Late st Contact Info) Description 02/05/2022 Procedure Pass OR Admitting Dept - Virtual Department [address] [place] [address] Social History Tobacco Use Types Packs/Day Years [...] Description 08/31/2025 7:40 AM EDT Office Visit [facility] [address], [address] [place] [address] Ronaldo Burns MD [address], [address] [place] [address] 09/11/2025 8:00 AM EDT Office Visit [facility] [address] [place] [address] Mónica Patiño PA-C [address] [facility], [place] [address] 09/21/2025 8:40 AM EDT Office Visit [facility] [address] [address] Rommel Webster MD [address] [address] [email or web address] documented as of this encounter Visit Diagnoses Not on filedocumented in this encounter Additional Health Concerns Infection Onset Date Last Indicated Resolved Time CoV-Exposed Comment:Added per Home Health documentation 01/30/2022 01/30/2022 02/05/2022 9:29 AM E DT Assessment Noted Time PHQ-2 Depression Total Score: 0 12/14/19 9:30 AM EDT documented as of this encounter Care Teams Supervisor Landscape Relationship Specialty Start Date End Date Rommel Webster MD [address] [place] [id number] PCP - General Internal Medicine 04/07/17 Rommel Webster MD [address] [place] [id number] Insurance Assigned Provider 08/22/23 documented as of this encounter Additional Source Comments The information contained in this document represents components of the legal health record. It is not the complete legal health record.[facility]
== END 2025-05-04 09:53 | disposition home or self-care (01) ==
LOC: HO.PMC 08:58
PROVIDERS: PCP Internal Medicine; Visit Provider Anesthesiology
DX: M54.16 Radiculopathy, lumbar region (principal); M47.816 Spondylosis without myelopathy or radiculopathy, lumbar region; M51.369 Other intervertebral disc degeneration, lumbar region without mention of lumbar back pain or lower extremity pain; M54.9 Dorsalgia, unspecified
CPT/HCPCS: 64585; 99213

== ENCOUNTER → 2025-05-04 08:57 | Outpatient (BNVA) | payer MEDICARE, SELFPAY | PROVIDERS: PCP Internal Medicine; Visit Provider Anesthesiology | DX: M54.16 Radiculopathy, lumbar region (principal); M47.816 Spondylosis without myelopathy or radiculopathy, lumbar region; M51.369 Other intervertebral disc degeneration, lumbar region without mention of lumbar back pain or lower extremity pain | CPT/HCPCS: 64585; 99212 ==